=== PATIENT | female | born 1930 | race Caucasian/White ===

== ENCOUNTER 2016-11-10 11:29 | Inpatient (IN) | payer OTHER ==
[~2016-11-10] VITALS: Ht 157.5 cm; Wt 54.6 kg
[~2016-11-10 11:29] MED LIST: ANSHCS PR; CALCTAB5 PO; CRAN500C2 PO; DILT1TAB62 PO; FURO-85 PO; LNX125 PO; OXGN
[2016-11-10] MEDS ORDERED: DILTIAZEM HCL 5 MG/ML 5 ML VIAL IV STA ×3 (11:41→14:40)
--- NOTE | 2016-11-10 11:57 | EMERGENCY ROOM VISIT NOTE ---
History First contact with patient: 11:37 Chief Complaint: IRREGULAR HEARTBEAT Stated Complaint: A-FIB/HEART Nursing Triage Summary: Patient presents with a sudden onset of chest pressure and palpitations associated with a known history of paraoxymal A-fib. Patient reports some SOB. This started at 0930 this AM. Some mild nausea also present. Patient denies any diaphoresis. Patient reports history of this and is no longer anticoagulated seconary to history of GI bleeding. History of Present Illness The patient is a 86 year old female who presents to the Emergency Room with complaints of atrial fibrillation since 930 this morning. Her she was fine this morning and then in 930 when into rapid atrial fibrillation. at 10:30 AM he gave her morning dose of diltiazem 60 mg by mouth but that did not change her heart rate much. Currently her heart rate still in the 130. she reports associated chest tightness but denies chest pain. Her PCP is Dr Fried, plumbing inspector Dr Fournier, and graphics edit technician is Dr. Herrera. On review of [facility] EMR records, she has been adjusting her diltiazem for the last few months with various timings, but is struggling to keep her HR and BP under good control. Her reports 5 months ago she was on Eliquis. She suffered from a large GI bleed and has since been on low-dose aspirin for stroke prevention. She underwent colonoscopy, endoscopy, and video swallow to evaluate this but now identifying cause was found. Review of Systems See HPI for pertinent positives & negatives. A total of 10 systems reviewed and were otherwise negative. Past Medical/Surgical History Medical Problems: (1) afib with RVR, pna (2) Anemia due to acute blood loss (3) Atrial fibrillation with RVR (4) Atrial flutter (5) Atrial flutter with rapid ventricular response (6) Benign hypertension (7) Bronchitis (8) Diastolic heart failure (9) Elevated troponin (10) Esophageal Reflux (11) Hypoxia (12) Kidney Infection (13) Left-sided chest wall pain (14) Pneumonia (15) Pulmonary edema (16) Sepsis (17) Shortness of breath Surgical Problems: (1) Colectomy (2) Hysterectomy (3) Parathyroidectomy Family History Diabetes mellitus Hypertension Social History Smoking Status: Never Smoker Alcohol Use: none Drug Use: none Marital Status: Housing Status: lives with family Occupation Status: retired Current/Historical Medications Scheduled Aspirin (Aspirin), 81 MG PO DAILY Calcium Carbonate (Calcium 600), 600 MG PO BID Cranberry (Vaccinium Macrocarp (Cranberry), 500 MG PO BID Digoxin (Digoxin), 0.125 MG PO 3XWK Diltiazem HCl (Diltiazem HCl), 60 MG PO Q4H Furosemide (Lasix), 20 MG PO 3XWK Oxygen (Oxygen), 2 LITERS NA HS Allergies Coded Allergies: Ciprofloxacin (Unverified Allergy, Unknown, UNKNOWN, 11/10/16) Sulfamethoxazole w/Trimethoprim (Verified Adverse Reaction, Mild, GI SYMPTOMS, 11/10/16) Physical Exam Vital Signs Date Time Temp Pulse Resp B/P Pulse Ox O2 Delivery O2 Flow Rate FiO2 11/10/16 12:57 66 11/10/16 12:51 66 16 130/84 100 11/10/16 12:37 65 16 129/87 99 11/10/16 12:02 100 Nasal Cannula 4.0 11/10/16 11:58 74 16 134/91 100 11/10/16 11:46 97 Room Air 4.0 Nasal Cannula 11/10/16 11:45 97 Room Air 4.0 11/10/16 11:44 127 11/10/16 11:33 36.6 131 18 185/108 96 Room Air Physical Exam GENERAL: Awake, alert, well-appearing, in no acute distress HENT: Normocephalic, atraumatic. Oropharynx unremarkable. EYES: Normal conjunctiva. Sclera non-icteric. NECK: Supple. No nuchal rigidity. FROM. No JVD. RESPIRATORY: Clear to auscultation. CARDIAC: Irregular rhythm, tachycardic. Extremities warm and well perfused. Pulses equal. ABDOMEN: Soft, non-distended. No tenderness to palpation. No rebound or guarding. No masses. RECTAL: Deferred. MUSCULOSKELETAL: Chest examination reveals no tenderness. The back is symmetrical on inspection without obvious abnormality. There is no CVA tenderness to palpation. No joint edema. LOWER EXTREMITIES: Calves are equal size bilaterally and non-tender. No edema. No discoloration. NEURO: Normal sensorium. No sensory or motor deficits noted. SKIN: No rash or jaundice noted. Medical Decision & Procedures Laboratory Results 11/10/16 11:50 Red Blood Count 4.47, Mean Corpuscular Volume 79.6, Mean Corpuscular Hemoglobin 24.6, Mean Corpuscular Hemoglobin Concent 30.9, Mean Platelet Volume 9.5, Neutrophils (%) (Auto) 85.5, Lymphocytes (%) (Auto) 6.6, Monocytes (%) (Auto) 6.9, Eosinophils (%) (Auto) 0.6, Basophils (%) (Auto) 0.1, Neutrophils # (Auto) 12.34, Lymphocytes # (Auto) 0.96, Monocytes # (Auto) 0.99, Eosinophils # (Auto) 0.09, Basophils # (Auto) 0.02 11/10/16 11:50 Test 11/10/16 11:50 11/10/16 12:07 White Blood Count 14.45 K/uL (4.8-10.8) Red Blood Count 4.47 M/uL (4.2-5.4) Hemoglobin 11.0 g/dL (12.0-16.0) Hematocrit 35.6 % (37-47) Mean Corpuscular Volume 79.6 fL (80-100) Mean Corpuscular Hemoglobin 24.6 pg (25-34) Mean Corpuscular Hemoglobin Concent 30.9 g/dl (32-36) Platelet Count 292 K/uL (130-400) Mean Platelet Volume 9.5 fL (7.4-10.4) Neutrophils (%) (Auto) 85.5 % Lymphocytes (%) (Auto) 6.6 % Monocytes (%) (Auto) 6.9 % Eosinophils (%) (Auto) 0.6 % Basophils (%) (Auto) 0.1 % Neutrophils # (Auto) 12.34 K/uL (1.4-6.5) Lymphocytes # (Auto) 0.96 K/uL (1.2-3.4) Monocytes # (Auto) 0.99 K/uL (0.11-0.59) Eosinophils # (Auto) 0.09 K/uL (0-0.5) Basophils # (Auto) 0.02 K/uL (0-0.2) RDW Standard Deviation 46.8 fL (36.4-46.3) RDW Coefficient of Variation 16.2 % (11.5-14.5) Immature Granulocyte % (Auto) 0.3 % Immature Granulocyte # (Auto) 0.05 K/uL (0.00-0.02) Prothrombin Time 9.5 SECONDS (9.0-12.0) Prothromb Time International Ratio 0.9 (0.9-1.1) Activated Partial Thromboplast Time 23.6 SECONDS (21.0-31.0) Partial Thromboplastin Ratio 0.9 Anion Gap 9.0 mmol/L (3-11) Est Creatinine Clear Calc Drug Dose 19.5 ml/min Estimated GFR () 31.5 Estimated GFR (Non- 27.2 BUN/Creatinine Ratio 28.1 (10-20) Calcium Level 9.0 mg/dl (8.5-10.1) Total Bilirubin 0.6 mg/dl (0.2-1) Aspartate Amino Transf (AST/SGOT) 30 U/L (15-37) Alanine Aminotransferase (ALT/SGPT) 36 U/L (12-78) Alkaline Phosphatase 94 U/L (45-117) Troponin I 0.018 ng/ml (0-0.045) Total Protein 8.1 gm/dl (6.4-8.2) Albumin 3.8 gm/dl (3.4-5.0) Globulin 4.3 gm/dl (2.5-4.0) Albumin/Globulin Ratio 0.9 (0.9-2) Thyroid Stimulating Hormone (TSH) 2.840 uIu/ml (0.300-4.500) Digoxin Level 0.9 ng/ml (0.8-2.0) Bedside Troponin I 0.000 ng/ml (0-0.045) Medications Administered Medications (Trade) Dose Ordered Sig/Jameson Route Start Time Stop Time Status Last Admin Dose Admin Diltiazem HCl (Cardizem Inj) 10 mg NOW STAT IV 11/10/16 11:41 11/10/16 11:42 DC 11/10/16 11:49 10 MG Piperacillin Sod/ Tazobactam Sod (Zosyn Iv) 3.375 gm NOW STAT IV 11/10/16 13:03 11/10/16 13:05 DC 11/10/16 14:22 3.375 GM Ondansetron HCl (Zofran Inj) 4 mg Q6H PRN IV 11/10/16 13:30 12/10/16 13:29 3/4/17 14:22 4 MG Procedure SINGLE VIEW CHEST CLINICAL HISTORY: Dyspnea. Atrial fibrillation. FINDINGS: An AP, portable, upright chest radiograph is compared to study dated 08/01/2016. The examination is degraded by portable technique and patient rotation. The heart is enlarged and there is atherosclerotic calcification of the thoracic aorta. There is mild pulmonary vascular congestion. No airspace consolidation is seen typical for pneumonia. There are left basilar airspace opacities. No large pleural effusion is identified. Apical scarring is observed. No pneumothorax is seen. The skeletal structures are osteopenic. Degenerative change and scoliosis are noted in the thoracic spine. IMPRESSION: 1. Cardiomegaly with evidence of mild congestive failure. 2. Left basilar airspace opacities likely represent atelectasis. Correlate clinically for evidence of superimposed aspiration pneumonitis/pneumonia. 3. No large pleural effusion is seen. ECG Indication: tachycardia Rhythm: atrial fibrillation Findings: other (variable AV block) Change: no significant change ED Course 11:37: The patient was evaluated in room A9. A complete history and physical examination were performed. I ordered a 10 mg dose of IV diltiazem. 11:55: Her heart rate lowered to 81 bpm on repeat EKG. I also ordered a CBC, CMP, cardiac enzymes and a chest x-ray 12:15: I evaluated the patient again. Her heart rate had come down to 74 bpm with a blood pressure of 134/91. 12:50: Her CXR showed opacification and she had a leukocytosis. We will start her on Azithromycin for CAP and Zosyn for anaerobic coverage. (She is allergic to Cipro and Bactrim). 1:11: I discussed the case with Dr. Goldstein, of the [facility]. He will accept the patient. Medical Decision This is an 86-year-old female with history of tachy-kizzy syndrome, paroxysmal atrial fibrillation and previous GI bleed from Eliquis (on low dose aspirin for stroke prevention). She presents in A. fib with RVR.. Differential includes: pneumonia, thyroxtoxicosis, dehydration, electrolyte abnormality, or further hemorrhage. She had an IV placed and labs drawn. She was given 10 mg of IV diltiazem and her heart rate responded well,she remained in atrial fibrillation but at a rate of 67-84bpm. Her blood pressure improved slightly. Her CXR was found to have opacification suggestive of a pneumonia. We started her on azithromycin and Zosyn for community acquired pneumonia. Her only stroke prevention is low dose aspirin. With her labile heart rate control, it was deemed that she should be admitted for further evaluation of treatment of her atrial fibrillation with RVR and community acquired pneumonia. Impression Primary Impression: Atrial fibrillation with RVR Additional Impression: Pneumonia Departure Information Dispostion Home / Self-Care Condition GOOD Referrals Ramón Herrera DO (PCP) Meliton Fried MD OncuKimber I., Patient Instructions My [facility] Resident Tracking Resident Involvement: Resident Care Provided Care Provided: Adult ED Problem Qualifiers
--- NOTE | 2016-11-10 12:05 | EMERGENCY ROOM VISIT NOTE ---
ED Visit Note First contact with patient: 11:39 Resident Physician Supervision Note: I was present with Dr. Mckeon during the history and exam. I discussed the case with the resident and agree with the findings and plan as documented in the note. Documented By: Sharath Read Problem List Medical Problems: (1) Atrial fibrillation with RVR Status: Resolved (2) Atrial flutter with rapid ventricular response Status: Resolved (3) Benign hypertension Status: Chronic (4) Bronchitis Status: Resolved (5) Diastolic heart failure Status: Resolved (6) Elevated troponin Status: Resolved (7) Esophageal Reflux Status: Chronic (8) Hypoxia Status: Resolved (9) Kidney Infection Status: Resolved (10) Left-sided chest wall pain Status: Resolved (11) Pneumonia Status: Resolved (12) Pulmonary edema Status: Resolved (13) Sepsis Status: Resolved (14) Shortness of breath Status: Resolved Surgical Problems: (1) Colectomy Status: Resolved (2) Hysterectomy Status: Resolved (3) Parathyroidectomy Status: Resolved Current/Historical Medications Scheduled Calcium (Caltrate), 600 MG PO BID Cranberry (Vaccinium Macrocarp (Cranberry), 500 MG PO BID Digoxin (Digoxin), 0.125 MG PO 2XWK Diltiazem HCl (Diltiazem HCl), 60 MG PO TID Furosemide (Lasix), 20 MG PO 3XWK Hydrocortisone Acetate (Anucort-Hc), 25 MG MT BID Oxygen (Oxygen), 2 LITERS NA HS Allergies Coded Allergies: Ciprofloxacin (Unverified Allergy, Unknown, UNKNOWN, 08/03/16) Sulfamethoxazole w/Trimethoprim (Verified Adverse Reaction, Mild, GI SYMPTOMS, 08/03/16) Vital Signs Date Time Temp Pulse Resp B/P Pulse Ox O2 Delivery O2 Flow Rate FiO2 11/10/16 12:02 100 Nasal Cannula 4.0 11/10/16 11:58 74 16 134/91 100 11/10/16 11:46 97 Room Air 4.0 Nasal Cannula 11/10/16 11:45 97 Room Air 4.0 11/10/16 11:44 127 11/10/16 11:33 36.6 131 18 185/108 96 Room Air Laboratory Results Test 11/10/16 11:50 Medications Administered Medications (Trade) Dose Ordered Sig/Jameson Route Start Time Stop Time Status Last Admin Dose Admin Diltiazem HCl (Cardizem Inj) 10 mg NOW STAT IV 11/10/16 11:41 11/10/16 11:42 DC 11/10/16 11:49 10 MG Departure Information Referrals Ramón Herrera DO (PCP) Patient Instructions [facility]
[2016-11-10 12:09] LABS: HEMATOCRIT 35.6 % (37-47); MEAN CELL VOLUME 79.6 fL (80-100); MEAN CORPUSCULAR HEMOGLOBIN 24.6 pg (25-34); MEAN CORPUSCULAR HGB CONC 30.9 g/dl (32-36); MEAN PLATELET VOLUME 9.5 fL (7.4-10.4); PLATELET COUNT 292 K/uL (130-400); RED BLOOD COUNT 4.47 M/uL (4.2-5.4); WHITE BLOOD COUNT 14.45 K/uL (4.8-10.8)
[2016-11-10] MEDS ORDERED: CALC600T PO ×2 (12:11)
[2016-11-10] MEDS ORDERED: ASPI1TAB83 PO ×2 (12:12)
[2016-11-10 12:20] LABS: INR 0.9 (0.9-1.1); PARTIAL THROMBOPLASTIN RATIO 0.9; PROTHROMBIN TIME (PATIENT) 9.5 SECONDS (9.0-12.0)
--- NOTE | 2016-11-10 12:23 | DIAGNOSTIC IMAGING REPORT ---
SINGLE VIEW CHEST CLINICAL HISTORY: Dyspnea. Atrial fibrillation. FINDINGS: An AP, portable, upright chest radiograph is compared to study dated 08/01/2016. The examination is degraded by portable technique and patient rotation. The heart is enlarged and there is atherosclerotic calcification of the thoracic aorta. There is mild pulmonary vascular congestion. No airspace consolidation is seen typical for pneumonia. There are left basilar airspace opacities. No large pleural effusion is identified. Apical scarring is observed. No pneumothorax is seen. The skeletal structures are osteopenic. Degenerative change and scoliosis are noted in the thoracic spine. IMPRESSION: 1. Cardiomegaly with evidence of mild congestive failure. 2. Left basilar airspace opacities likely represent atelectasis. Correlate clinically for evidence of superimposed aspiration pneumonitis/pneumonia. 3. No large pleural effusion is seen. Electronically signed by: Mikel Holloway M.D. 11/10/2016 12:21 PM Dictated Date/Time: 11/10/2016 12:20 PM
[2016-11-10 12:25] LABS: BUN/CREATININE RATIO 28.1 (10-20); CREATININE 1.7 mg/dl (0.60-1.20); POTASSIUM 4.2 mmol/L (3.5-5.1)
[2016-11-10 12:26] LABS: BASO % 0.1 %; BASO ABS # 0.02 K/uL (0-0.2); COMPLETE YES; EOS % 0.6 %; IG% 0.3 %; LYMPH % 6.6 %; LYMPH ABS # 0.96 K/uL (1.2-3.4); MONO % 6.9 %; NEUT % 85.5 %
[2016-11-10 12:35] LABS: ALB/GLOB RATIO 0.9 (0.9-2); THYROID STIMULATING HORMONE 2.84 uIu/ml (0.300-4.500)
[2016-11-10] MEDS ORDERED: PIPERACILLIN/TAZOBACTAM 3.375 GM/100ML D5W IV STA (13:03)
[2016-11-10] MEDS ORDERED: AZITHROMYCIN IV 250 MG in DEXTROSE 5% 250ML 250 ML IV ONE (13:15)
[2016-11-10] MEDS ORDERED: POLYETHYLENE (MIRALAX) 17 GM PACK PO PRN (13:30)
[2016-11-10] MEDS ORDERED: ZOLPIDEM TARTRATE 5 MG TAB PO PRN (13:30)
[2016-11-10] MEDS ORDERED: ALUMINUM/MAGNESIUM/SIMETH (MAALOX MAX) 30 ML UDC PO PRN (13:30)
[2016-11-10] MEDS ORDERED: MAGNESIUM HYDROXIDE SUSP 30 ML UDC PO PRN (13:30)
[2016-11-10] MEDS ORDERED: ACETAMINOPHEN 325 MG TAB PO PRN (13:30)
--- NOTE | 2016-11-10 13:55 | History and Physical ---
History & Physical Date of Service Nov 10, 2016. History & Physical afib with RVR, pna, [id number]
[2016-11-10] MEDS: ONDANSETRON INJ 2 MG/ML 2 ML VIAL IV PRN (14:22)
[2016-11-10] MEDS ORDERED: DILTIAZEM BOLUS / DRIP IV STA (14:34)
--- NOTE | 2016-11-10 14:36 | HISTORY & PHYSICAL EXAMINATION ---
DATE OF ADMISSION: 11/10/2016 This is level 3 inpatient admission, 35 minutes. CHIEF COMPLAINT: Chest pressure sensation and palpitation. HISTORY OF PRESENT ILLNESS: The patient is an 86-year-old white female with a significant past medical history of Afib, tachybrady syndrome, GI bleeding, heart failure, GERD, chronic O2 dependent, hypoxia, only 1 kidney, chronic kidney disease stage III, coming to the hospital Emergency Department because of the above chief complaint. The patient presented to the Emergency Room because of feeling of chest pressure and palpitations associated with history of paroxysmal Afib. She reported some shortness of breath started 9:30 this morning associated with palpitation and mild nauseation, denied chest pain, denied diaphoresis. was with her. gave her 60 mg p.o. Cardizem but does not help. Therefore, coming to the hospital Emergency Room. When she arrived in the ER, heart rate at 130s, Afib with rapid ventricular response, complained about chest tight. The patient has recently adjusted Cardizem in the last few months with various timing. The patient and reported she was on Eliquis before; however, she suffered from a large GI bleedings, therefore no more on oral anticoagulant, but is on aspirin for stroke prevention. When I interviewed with the patient, she is feeling better, awake, alert and orientated, heart rate is 68. Mild cough, chronic difficulty breathing, home O2 dependent at home. Denied chest pain, sputum. Denied wheezing. Denied chest pain, palpitation now. Denied nausea, vomiting, abdominal pain, diarrhea or constipation, denied dysuria, urgency and frequencies. Denied facial droop, slurry speech or local weakness. PAST MEDICAL HISTORY: Like I mentioned in the above, acute on chronic anemia due to acute GI bleeding, Afib with rapid ventricular response, hypertension, bronchitis, diastolic CHF, history of kidney infection, history of pneumonia and sepsis. PAST SURGICAL HISTORY: Include colectomy, hysterectomy, thyroidectomy. FAMILY HISTORY: Include diabetes, hypertension. SOCIAL HISTORY: Never smoked. Denied alcohol abuse disorder. Denied illicit drug abuse. Lives with . at the bedside. MEDICATIONS: Taking at home include aspirin 81 mg p.o. daily, calcium carbonate 600 mg p.o. b.i.d., cranberry 500 mg p.o. b.i.d., digoxin 0.125 mg p.o. 3 times per week, Cardizem 60 mg p.o. q. 4 hours, Lasix 20 mg p.o. 3 times per week, 2 liter oxygen at bedtime. ALLERGIES: ALLERGY TO CIPRO AND BACTRIM. REVIEW OF SYSTEMS: Please see HPI, otherwise 14-point organized system review were negative. PHYSICAL EXAMINATION: VITAL SIGNS: Temperature is 36.6, pulse initially 131 and currently 66, respiratory rate 18, blood pressure initially 185/108, currently is 130/84, pulse ox is 100% in nasal cannula 4 liters. GENERAL: The patient is a white female, awake, alert and orientated, chronically ill looking, frail, but awake, alert and orientated, conversational, follows all commands. HEAD: Normocephalic. EYES: Pupils equal, round responds to light. EARS: Ear was normal. NOSE: Normal. NECK: Supple. Thyroid no enlargement. Trachea midline. HEART: Irregular, irregular. S1, S2. No obvious murmurs. No JVD. LUNGS: Decreased breathing sounds. There was no wheezing, rhonchi or crackles. ABDOMEN: Soft, nontender. Bowel sound was positive. Bilateral CVA was nontender. MUSCULOSKELETAL SYSTEM: No deformities. There was no limited range of motion. EXTREMITIES: The lower extremities no swelling, no edema, no cyanosis. NEUROLOGICAL EVALUATION: Cranial nerves II-XII was intact. SKIN: Has no rashes. LABORATORY STUDIES: WBC 14, hemoglobin 11, platelet 292. BMP: Sodium 142, potassium 4.2, chloride 101, bicarbonate 30, BUN 48, creatinine 1.7. Blood glucose 114. PT/INR was 9.5/0.9. TSH was normal at 2.8. Liver function test was within normal limits. Troponin was negative at 0.018. IMAGING STUDIES: Chest x-ray studies which shows left base airspace opacities likely present atelectasis. No pleural effusions. EKGs in the Emergency Room which shows atrial flutter with variable AV block. ASSESSMENT AND PLAN: An 86-year-old white female with the conditions below: 1. Atrial fibrillation with rapid ventricular response with history of Afib with rapid ventricular response, no more on anticoagulation. 2. Possible pneumonia in left lower lung base. 3. Likely acute on chronic kidney failure, stage III. 4. Hypertension. 5. History of diastolic congestive heart failure stable, no signs of decompensation. 6. Gastroesophageal reflux disease. 7. Chronic hypoxia, O2 dependent at nighttime. ASSESSMENT AND PLAN: 1. The patient has Afib with rapid ventricular response. Needs IV Cardizem in the Emergency Room, x 2 dose, then started Cardizem drip. patient possibly has left lung base consolidation with leukocytosis and chest x- ray evidence, combined these 2 conditions, I feel she may need 2 night hospital stay to complete evaluation and treatment and therefore will be full admission. admit to Tele monitor. For her atrial fibrillation with rapid ventricle response, will continue oral Cardizem. Check a digoxin level. Continue current digoxin, but I changed to 0.125 mg p.o. daily and adjust the dose according to the digoxin level. Will have cardiology to see. I request Dr. Hooker consultation who make cover Dr. Herrera today. 2. Possible has pneumonia, the consolidation possible maybe atelectasis as well, however the patient has cough, with leukocytosis. I would treat for community-acquired pneumonia for now. Include azithromycin and Rocephin. She got azithromycin and Zosyn in the Emergency Room. We will change antibiotics, will send blood cultures. Nebulizer treatment will be Xopenex and Atrovent. 3. The patient has acute on chronic kidney failure. Today has significant elevated of the BUN at 48, creatinine 1.7 compared to her baseline is significant increased, possible mild dehydration. For now I will not give any IV fluid for now. Encourage oral fluid intake and watch BUN and creatinine levels tomorrow morning. The reason I am not give IV antibiotic because patient has chronic CHF diastolic dysfunctions, just do not want to fluid overload her. 4. Like I mentioned in the H\T\P, she has no more on oral anticoagulant because of history of severe GI bleedings. I will continue aspirin for now for stroke prevention. 5. For the GERD, hypertension, will continue home medications. DVT prophylaxis will be SCD. GI prophylaxis will be Protonix. Discussed with about a care plan. I answered all their questions. full code MTDD
[2016-11-10] MEDS: DILTIAZEM HCL INJ 125 MG in DEXTROSE 5% 100ML IV PRN (15:29)
[2016-11-10 15:58] VITALS: BP 153/90; PULSE 124; TEMP 37; O2SAT 95
[2016-11-10] MEDS ORDERED: DILTIAZEM HCL 60 MG TAB PO SCH (16:00)
[2016-11-10] MEDS ORDERED: IPRATROPIUM BROMIDE NEB SOLN 0.02% 2.5 ML VIAL INH SCH (16:00)
[2016-11-10] MEDS: CEFTRIAXONE SOD INJ 2,000 MG in DEXTROSE 5% 50ML 50 ML IV SCH (16:05)
[2016-11-10] MEDS ORDERED: AZITHROMYCIN~PHARMACY CONSULT IN PROGRESS PRN (16:15)
[2016-11-10] MEDS: LEVALBUTEROL 1.25MG/0.5ML NEB INH SCH ×2 (16:35→19:32)
[2016-11-10] MEDS: IPRATROPIUM BROMIDE NEB SOLN 0.02% 2.5 ML VIAL INH SCH ×2 (16:35→19:32)
[2016-11-10 16:41] VITALS: PULSE 104; O2SAT 95
[2016-11-10] MEDS: AZITHROMYCIN IV 500 MG in DEXTROSE 5% 250ML 250 ML IV SCH (16:45)
[2016-11-10 17:49] VITALS: BP 153/90; PULSE 124; TEMP 37; O2SAT 95; Ht 157.5 cm; Wt 54.6 kg
[2016-11-10] MEDS ORDERED: DIGOXIN IV 250 MCG in SYRINGE 9 ML IV ONE (18:45)
[2016-11-10] MEDS: CALCIUM 600MG + VIT D 400 IU TAB PO SCH (19:11)
[2016-11-10 19:26] VITALS: BP 158/91; PULSE 71; TEMP 37.6; O2SAT 95
[2016-11-10 19:32] VITALS: PULSE 83; O2SAT 95
[2016-11-10] MEDS ORDERED: NON-FORMULARY MEDICATION (Cranberry (Vaccinium Macrocarp (Cranberry) 500 MG) PO SCH (21:00)
[2016-11-11] VITALS (9 sets, daily range): BP systolic 116–154; BP diastolic 73–101; PULSE 67–107; TEMP 36.7–37.2; O2SAT 90–99
[2016-11-11] MEDS: IPRATROPIUM BROMIDE NEB SOLN 0.02% 2.5 ML VIAL INH SCH ×3 (02:06→14:50)
[2016-11-11] MEDS: LEVALBUTEROL 1.25MG/0.5ML NEB INH SCH ×3 (02:06→14:50)
[2016-11-11] MEDS: DILTIAZEM HCL INJ 125 MG in DEXTROSE 5% 100ML IV PRN (02:19)
[2016-11-11 06:41] LABS: BASO % 0.1 %; BASO ABS # 0.01 K/uL (0-0.2); COMPLETE YES; HEMATOCRIT 31.3 % (37-47); IG% 0.3 %; LYMPH % 8.3 %; LYMPH ABS # 1.14 K/uL (1.2-3.4); MEAN CELL VOLUME 81.3 fL (80-100); MEAN CORPUSCULAR HEMOGLOBIN 24.9 pg (25-34); MEAN CORPUSCULAR HGB CONC 30.7 g/dl (32-36); MEAN PLATELET VOLUME 9.7 fL (7.4-10.4); MONO % 5.6 %; NEUT % 85.7 %; PLATELET COUNT 237 K/uL (130-400); RED BLOOD COUNT 3.85 M/uL (4.2-5.4); WHITE BLOOD COUNT 13.66 K/uL (4.8-10.8)
[2016-11-11 07:16] LABS: BUN/CREATININE RATIO 23.2 (10-20); CALCIUM 8.6 mg/dl (8.5-10.1); CREATININE 1.7 mg/dl (0.60-1.20); MAGNESIUM 2.4 mg/dl (1.8-2.4); POTASSIUM 4.2 mmol/L (3.5-5.1)
[2016-11-11] MEDS: CALCIUM 600MG + VIT D 400 IU TAB PO SCH ×2 (08:03→20:55)
[2016-11-11] MEDS: ASPIRIN 81 MG ECTAB PO SCH (08:03)
[2016-11-11] MEDS: DILTIAZEM HCL 60 MG TAB PO SCH ×3 (09:10→20:55)
[2016-11-11] MEDS ORDERED: NURSING VERBAL MED ORDER ONE (09:15)
--- NOTE | 2016-11-11 10:43 | DIAGNOSTIC IMAGING REPORT ---
CHEST 2 VIEWS ROUTINE CLINICAL HISTORY: pneumonia dyspnea COMPARISON STUDY: 11/10/2016 FINDINGS: Moderate stable cardiomegaly. Atelectatic and/or infiltrative change left base is similar. Trace pleural fluid right base laterally. Pulmonary vascular congestion IMPRESSION: Unchanging atelectatic and/or infiltrative change left base. Moderate stable cardiomegaly. Pulmonary vascular congestion. Electronically signed by: Michael Vivar M.D. 11/11/2016 10:41 AM Dictated Date/Time: 11/11/2016 10:40 AM
[2016-11-11] MEDS ORDERED: FUROSEMIDE INJ 20 MG in SYRINGE 0 ML IV ONE (12:30)
--- NOTE | 2016-11-11 13:22 | CARDIOLOGY CONSULTATION ---
DATE OF CONSULTATION: 11/11/2016 DATE OF CONSULTATION: 11/11/2016. PERTINENT HISTORY: Mrs. Conrad is a 86-year-old white female admitted yesterday with atrial fibrillation with rapid ventricular response. The patient typically follows with Dr. Herrera from cardiology. The patient was in her usual state of health until she developed palpitations and an elevated heart rate at home yesterday evening. She also complained of some chest discomfort but no shortness of breath. She was given an additional dose of diltiazem 60 mg by her . This had little change in her symptoms, therefore she presented to the Emergency Room for further care. The patient was diagnosed with paroxysmal atrial fibrillation in April 2016. She was started on rate control and also given Eliquis at a renally adjusted dose. Unfortunately, she developed GI bleeding in July 2016 requiring discontinuation of her long-term anticoagulation. She had both upper and lower endoscopies without a source of bleeding identified. We have discussed the possibility of initiating an antiarrhythmic agent such as amiodarone. The patient's explained that she was on that medication previously but that it had been discontinued. Currently, the patient is resting comfortably in bed without complaints. PAST MEDICAL HISTORY: 1. Paroxysmal atrial fibrillation. 2. Hypertension. 3. Mild left ventricular hypertrophy. 4. History of diastolic congestive heart failure. 5. GI bleeding - July 2016 -- negative workup. 6. Known long-term anticoagulation secondary to the above. 7. Chronic renal failure. 8. GERD. 9. Hiatal hernia. 10. Solitary kidney -- congenital. 11. Obstructive sleep apnea. 12. Asthma. 13. 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 14. Sigmoid colectomy - November 2002. 15. Diverticulitis. MEDICATIONS: 1. Digoxin 0.125 mg 3 times weekly. 2. Diltiazem 60 mg q.i.d. 3. Aspirin 81 mg per day. 4. Caltrate b.i.d. 5. Ceftriaxone 2 grams IV daily. 6. Azithromycin 500 mg IV daily. 7. Adjuvant nebs q. 6 hours. 8. Xopenex nebs q. 6 hours. ALLERGIES: None. SOCIAL HISTORY: The patient is and lives with her . Does not use tobacco or alcohol. FAMILY HISTORY: Father at age 70 from an MD. REVIEW OF SYSTEMS: A 10-point review of systems is negative except for that described above. PHYSICAL EXAMINATION: GENERAL: This is a well-developed, well-nourished white female in no acute distress. VITAL SIGNS: Blood pressure is 115/70 with an irregular pulse of 70-80. Respiratory rate is 20. The patient is afebrile at 36.5 degrees Celsius. Saturations 96% on room air. HEAD, EYES, EARS, NOSE, AND THROAT EXAMINATION: Negative. NECK: Supple with full carotid upstrokes. There are no carotid bruits. Jugular venous pressure is flat at 90 degrees. There is no thyromegaly. CARDIOVASCULAR EXAMINATION: Reveals an irregularly, irregular rhythm with distant heart sounds. No obvious murmurs. LUNGS: Clear without rales, rhonchi, or wheezes. ABDOMEN: Soft, nontender without bruits. EXTREMITIES: Reveal intact radial artery pulses bilaterally. There is no peripheral edema. LABORATORY DATA: CBC notes hemoglobin 9.6, hematocrit 31.3, white count 13.6, platelet count 237,000. Electrolytes note a sodium of 140, potassium 4.2, chloride 100, bicarbonate 33, BUN 40, creatinine 1.7, glucose 106. Troponin I level on presentation was undetectable with followup values of 0.018 x2. TSH level is normal at 2.84. INR is normal at 0.9. Digoxin level therapeutic at 0.9. EKG is noted atrial flutter with variable ventricular response. There are nonspecific ST and T-wave abnormality. Chest x-ray notes cardiomegaly and left basilar atelectasis versus an infiltrate. IMPRESSION: Mrs. Conrad who was admitted with atrial flutter and a rapid ventricular response. Her rate has been controlled with intravenous digoxin and a diltiazem drip. It may be reasonable to consider an antiarrhythmic agent. I have mentioned amiodarone, however, the patient's feels she has already been on that medication. As her heart rate is adequately controlled, will not initiate antiarrhythmic at this time but leave that decision to Dr. Herrera who will return tomorrow. PLAN: 1. Continue current medications. 2. Could consider antiarrhythmic therapy -- decision up to Dr. Herrera. 3. Dr. Herrera to assume cardiac care tomorrow.
[2016-11-11] MEDS: CEFTRIAXONE SOD INJ 2,000 MG in DEXTROSE 5% 50ML 50 ML IV SCH (15:22)
[2016-11-11] MEDS: AZITHROMYCIN IV 500 MG in DEXTROSE 5% 250ML 250 ML IV SCH (16:07)
[2016-11-11] MEDS: DIGOXIN 0.125 MG TAB PO SCH (16:11)
--- NOTE | 2016-11-11 17:22 | Progress Note ---
Subjective Date of Service: Nov 11, 2016. Subjective Pt evaluation today including: conversation w/ patient, conversation w/ family ( at bedside), physical exam, chart review, lab review, review of studies (repeat cxr today - vascular congestion, LLL infiltrate), review of inpatient medication list Pain: denies any location PO Intake: poor this AM, but chronically is not that great Voiding: no voiding problems telemetry overnight with stefania buitrago was on cardizem drip - this was stopped this AM when HRs were in the 60s she feels better today denies "chest pressure" has mild cough some orthopnea o2 sats in room air upper 80s per staff Problem List Medical Problems: (1) Atrial fibrillation with RVR Status: Acute (2) Benign hypertension Status: Chronic (3) Esophageal Reflux Status: Chronic (4) GI bleed Status: Acute Review of Systems Constitutional: + fever (last pm, low grade, high 99s) Respiratory: + cough, + dyspnea on exertion, No dyspnea at rest, No sputum Cardiac: No chest pain Abdomen: No pain Objective Vital Signs Date Time Temp Pulse Resp B/P Pulse Ox O2 Delivery O2 Flow Rate FiO2 11/11/16 16:11 90 11/11/16 16:00 Room Air 11/11/16 15:44 36.9 103 18 148/85 99 Nasal Cannula 2.0 11/11/16 14:05 107 16 97 Nasal Cannula 2.0 11/11/16 12:00 Room Air 11/11/16 11:27 37.2 67 19 116/81 91 Nasal Cannula 2.0 11/11/16 08:00 Room Air 11/11/16 07:24 94 16 97 Nasal Cannula 2.0 11/11/16 07:15 37.1 82 20 144/84 90 Nasal Cannula 2.0 11/11/16 04:02 36.7 69 18 125/88 97 11/11/16 04:00 CPAP 11/11/16 02:06 99 16 92 BiPAP/CPAP 2.0 11/11/16 00:12 36.7 74 18 127/73 90 11/11/16 00:00 CPAP 11/10/16 20:00 Nasal Cannula 2.0 11/10/16 19:32 83 20 95 Nasal Cannula 2.0 11/10/16 19:26 37.6 71 16 158/91 95 Nasal Cannula 2.0 11/10/16 19:15 120 11/10/16 17:49 37.0 124 20 153/90 95 Nasal Cannula 4.0 Physical Exam General Appearance: no apparent distress, + thin ENT: pharynx normal Neck: + JVD (maybe 7-8cm) Respiratory/Chest: no respiratory distress, no accessory muscle use, + rales ( left base), + wheezing (b/l) Cardiovascular: no gallop, no murmur, + irregularly irregular Abdomen: normal bowel sounds, non tender, soft, no organomegaly Extremities: no pedal edema Neurologic/Psychiatric: alert, oriented x 3 Laboratory Results Last 24 Hours Test 11/10/16 18:00 11/10/16 18:04 11/11/16 06:13 Creatine Kinase MB Ratio Creatine Kinase MB 0.9 ng/ml Troponin I 0.018 ng/ml White Blood Count 13.66 K/uL Red Blood Count 3.85 M/uL Hemoglobin 9.6 g/dL Hematocrit 31.3 % Mean Corpuscular Volume 81.3 fL Mean Corpuscular Hemoglobin 24.9 pg Mean Corpuscular Hemoglobin Concent 30.7 g/dl Platelet Count 237 K/uL Mean Platelet Volume 9.7 fL Neutrophils (%) (Auto) 85.7 % Lymphocytes (%) (Auto) 8.3 % Monocytes (%) (Auto) 5.6 % Eosinophils (%) (Auto) 0.0 % Basophils (%) (Auto) 0.1 % Neutrophils # (Auto) 11.70 K/uL Lymphocytes # (Auto) 1.14 K/uL Monocytes # (Auto) 0.77 K/uL Eosinophils # (Auto) 0.00 K/uL Basophils # (Auto) 0.01 K/uL RDW Standard Deviation 49.0 fL RDW Coefficient of Variation 16.4 % Immature Granulocyte % (Auto) 0.3 % Immature Granulocyte # (Auto) 0.04 K/uL Sodium Level 140 mmol/L Potassium Level 4.2 mmol/L Chloride Level 100 mmol/L Carbon Dioxide Level 33 mmol/L Anion Gap 7.0 mmol/L Blood Urea Nitrogen 40 mg/dl Creatinine 1.70 mg/dl Est Creatinine Clear Calc Drug Dose 19.5 ml/min Estimated GFR () 31.5 Estimated GFR (Non- 27.2 BUN/Creatinine Ratio 23.2 Random Glucose 106 mg/dl Calcium Level 8.6 mg/dl Magnesium Level 2.4 mg/dl Assessment and Plan 86yo female with: 1. a. flutter - past history of atrial dysrhythmia, followed by Dr. Swann. She remains on CCB and digoxin. Rates this AM are controlled. Will resume her cardizem and give 60mg q6h. If tolerating this then change to long-acting tomorrow. Cont the digoxin. Not an anticoagulant candidate due to past history of GI bleeds. Continue tele status. ?use of amiodarone -- defer this to cardiology. Appreciate Dr. Hooker's consultation. 2. suspected acute/chronic diastolic CHF - baseline weight is 115 #; today she is 119 # and cxr shows vascular congestion. Will give lasix 20mg IV x 1 and reassess response. 3. CKD stage 4 - Cr is at baseline today (1.6-1.8 or so baseline). BMP in am. 4. suspected LLL pneumonia - repeat cxr today with persistent LLL infiltrate. She also had low-grade temp overnight. Reasonable to continue rocephin/zithromax. Follow blood cx's. 5. h/o "bronchitis" -- has wheezes on exam today. Unsure if wheezing is from pulmonary edema or her tendency for bronchitis. Defer on steroids. Diurese. Nebs. 6. microcytic anemia - check iron studies + cbc in am. 7. HTN - controlled. 8. DVT proph - due to past h/o GI bleeding and microcytic anemia will defer on chemical means and keep SCDs in place for now. 9. chest pressure - no signs of ACS. Trops negative. Suspect 2nd to #1, her pneumonia, her wheezing, or combination of some or all of these. Her symptoms have fully resolved. updated PT, OT evals pending repeat labs in am Continued [facility] stay due to: abnormal vital signs, multiple IV medications needed Discharge planning: uncertain
[2016-11-11] MEDS: LEValbuterol HFA 15GM INHALER INH SCH ×2 (20:53→23:49)
[2016-11-11] MEDS: IPRATROPIUM BROMIDE HFA INHALER INH SCH ×2 (20:53→23:48)
[2016-11-12] VITALS (8 sets, daily range): BP systolic 105–158; BP diastolic 64–88; PULSE 70–87; TEMP 36.4–37.3; O2SAT 88–99
[2016-11-12] MEDS: DILTIAZEM HCL 60 MG TAB PO SCH ×5 (03:45→20:32)
[2016-11-12] MEDS: IPRATROPIUM BROMIDE HFA INHALER INH SCH ×3 (05:29→16:54)
[2016-11-12] MEDS: LEValbuterol HFA 15GM INHALER INH SCH ×3 (05:29→16:55)
[2016-11-12 07:20] LABS: HEMATOCRIT 30.3 % (37-47); MEAN CELL VOLUME 80.8 fL (80-100); MEAN CORPUSCULAR HEMOGLOBIN 24.8 pg (25-34); MEAN CORPUSCULAR HGB CONC 30.7 g/dl (32-36); MEAN PLATELET VOLUME 10.2 fL (7.4-10.4); PLATELET COUNT 228 K/uL (130-400); RED BLOOD COUNT 3.75 M/uL (4.2-5.4); WHITE BLOOD COUNT 8.89 K/uL (4.8-10.8)
[2016-11-12 07:50] LABS: BUN/CREATININE RATIO 24.2 (10-20); CALCIUM 8.7 mg/dl (8.5-10.1); CREATININE 1.8 mg/dl (0.60-1.20); MAGNESIUM 2.3 mg/dl (1.8-2.4); POTASSIUM 4.3 mmol/L (3.5-5.1)
[2016-11-12 07:54] LABS: FERRITIN 61.1 ng/ml (8.0-388.0)
[2016-11-12] MEDS: CALCIUM 600MG + VIT D 400 IU TAB PO SCH ×2 (08:05→20:31)
[2016-11-12] MEDS: ASPIRIN 81 MG ECTAB PO SCH (08:05)
[2016-11-12] MEDS ORDERED: AMIODARONE IV BOLUS / DRIP IV STA (09:39)
[2016-11-12] MEDS ORDERED: AMIODARONE / D5W 100 ML IV SCH (10:00)
[2016-11-12] MEDS ORDERED: AMIODARONE / D5W 200 ML IV SCH (10:10)
--- NOTE | 2016-11-12 10:40 | CARDIOLOGY PROGRESS NOTE ---
DATE: 11/12/2016 SUBJECTIVE: Mr. Conrad is resting comfortably in bed without complaints of chest pain, dyspnea, or palpitations. Her is at the bedside. We have discussed the initiation of IV amiodarone. OBJECTIVE: VITAL SIGNS: Blood pressure 112/72 with an irregular pulse of 75. Respiratory rate is 18. The patient is afebrile at 36.8 degrees Celsius. Saturation is 93% on room air. NECK: Supple with full carotid upstrokes. There are no carotid bruits. Jugular venous pressure is flat at 90 degrees. There is no thyromegaly. CARDIOVASCULAR: Reveals an irregularly irregular rhythm with distant heart sounds. No obvious murmurs. LUNGS: Clear without rales, rhonchi, or wheezes. ABDOMEN: Soft and nontender without bruits. EXTREMITIES: Reveal intact radial artery pulses bilaterally. There is no peripheral edema. LABORATORY DATA: CBC notes hemoglobin of 9.3, hematocrit 30.3, white count 8.8, and platelet count 220,000. Electrolytes note a sodium of 140, potassium 4.3, chloride 100, bicarbonate 34, BUN 44, creatinine 1.8, and glucose 248. cardiac monitor technician notes atrial fibrillation with a controlled ventricular response. IMPRESSION AND PLAN: 1. Paroxysmal atrial fibrillation that is right now adequately controlled. Dr. Herrera's notes were reviewed adding amiodarone therapy. That medication was discontinued as the patient had inflammation and side effects of that medication. We have discussed retrying that medication hoping to keep her in sinus rhythm predominantly and lower her thromboembolic risk. As before, she is not a long-term anticoagulation candidate due to previous GI bleeding in July 2016. 2. Hypertension -- with mild left ventricular hypertrophy. Controlled. 3. History of diastolic congestive heart failure -- compensated. 4. Gastrointestinal bleeding -- negative workup -- July 2016. 5. Chronic renal failure. 6. Congenital solitary kidney. 7. Hiatal hernia -- with gastroesophageal reflux disease.
[2016-11-12] MEDS: AMIODARONE / D5W 200 ML IV SCH ×2 (15:41→18:54)
[2016-11-12] MEDS: CEFTRIAXONE SOD INJ 2,000 MG in DEXTROSE 5% 50ML 50 ML IV SCH (15:42)
[2016-11-12] MEDS: AZITHROMYCIN IV 500 MG in DEXTROSE 5% 250ML 250 ML IV SCH (15:42)
[2016-11-12] MEDS: DIGOXIN 0.125 MG TAB PO SCH (15:43)
[2016-11-12] MEDS: ONDANSETRON INJ 2 MG/ML 2 ML VIAL IV PRN (18:27)
--- NOTE | 2016-11-12 20:17 | Hospitalist Progress Note ---
Hospitalist Progress Note Date of Service Nov 12, 2016. Subjective Pt evaluation today including: conversation w/ patient, physical exam, chart review, lab review, review of studies, review of inpatient medication list Patient reports having intermittent nausea. She felt this was worse this am than it is now. She did just have a bm. No chest pain or tachycardia. No SOB. Additional Comments: A 10 system review was performed and all were negative. Positives were placed in the subjective section. Objective Vital Signs Date Time Temp Pulse Resp B/P Pulse Ox O2 Delivery O2 Flow Rate FiO2 11/12/16 19:19 36.4 73 19 125/78 90 Room Air 11/12/16 15:43 72 11/12/16 15:06 2.0 11/12/16 15:02 36.8 72 18 145/85 95 Room Air 11/12/16 11:46 CPAP 2.0 11/12/16 10:50 37.3 73 16 106/71 91 Nasal Cannula 2.0 11/12/16 10:25 37.3 85 16 121/79 88 Room Air 11/12/16 08:05 36.8 79 19 112/72 93 Room Air 11/12/16 08:00 CPAP 2.0 11/12/16 04:00 36.4 87 20 158/88 96 CPAP 11/12/16 04:00 CPAP 2.0 11/12/16 00:00 36.7 70 22 122/73 99 CPAP 11/11/16 23:59 CPAP 2.0 Physical Exam Notes: GEN: Awake, alert, and oriented x 3. Not in acute distress HEENT: Tm's intact, no inflammation, EOMI, PERRLA, MMM Neck: Soft, supple Lungs: CTA b/l, no r/r/w Heart: REG, nrl S1S2 without murmurs, rubs or gallops Abdomen: Soft, NT, ND, + BS EXT: No C/C/E NEURO: CN's II-XII grossly intact, non-focal Skin: warm, dry, no rashes PSYCH: pleasant, cooperative. Laboratory Results Last 24 Hours Test 11/12/16 06:33 White Blood Count 8.89 K/uL Red Blood Count 3.75 M/uL Hemoglobin 9.3 g/dL Hematocrit 30.3 % Mean Corpuscular Volume 80.8 fL Mean Corpuscular Hemoglobin 24.8 pg Mean Corpuscular Hemoglobin Concent 30.7 g/dl RDW Standard Deviation 48.7 fL RDW Coefficient of Variation 16.3 % Platelet Count 228 K/uL Mean Platelet Volume 10.2 fL Nucleated RBC Absolute Count (auto) 0.02 K/uL Nucleated Red Blood Cells % 0.2 % Sodium Level 140 mmol/L Potassium Level 4.3 mmol/L Chloride Level 100 mmol/L Carbon Dioxide Level 34 mmol/L Anion Gap 6.0 mmol/L Blood Urea Nitrogen 44 mg/dl Creatinine 1.80 mg/dl Est Creatinine Clear Calc Drug Dose 18.4 ml/min Estimated GFR () 29.4 Estimated GFR (Non- 25.4 BUN/Creatinine Ratio 24.2 Random Glucose 94 mg/dl Calcium Level 8.7 mg/dl Magnesium Level 2.3 mg/dl Iron Level 17 mcg/dl Total Iron Binding Capacity 341 mcg/dl Transferrin 248 mg/dl Transferrin % Saturation 5 % Ferritin 61.1 ng/ml Assessment and Plan 1. A.fib/flutter - amiodarone gtt. cardiology managing. 2. CKD stage 4 - continue to follow labs. 3. LLL pneumonia - continue rocephin/zithromax. 4. microcytic anemia 5. HTN - controlled. 6. chest pain - resolved. 7. Constipation - resolved.
[2016-11-13] MEDS: LEValbuterol HFA 15GM INHALER INH SCH ×3 (00:44→14:21)
[2016-11-13] MEDS: IPRATROPIUM BROMIDE HFA INHALER INH SCH ×3 (00:44→14:20)
[2016-11-13 03:13] VITALS: BP 146/86; PULSE 67; TEMP 36.6; O2SAT 96
[2016-11-13] MEDS: DILTIAZEM HCL 60 MG TAB PO SCH ×2 (03:26→10:53)
[2016-11-13 07:28] LABS: BASO % 0.3 %; BASO ABS # 0.02 K/uL (0-0.2); COMPLETE YES; EOS % 1.5 %; HEMATOCRIT 30.3 % (37-47); IG% 0.3 %; LYMPH % 10.3 %; LYMPH ABS # 0.77 K/uL (1.2-3.4); MEAN CELL VOLUME 79.5 fL (80-100); MEAN CORPUSCULAR HEMOGLOBIN 24.1 pg (25-34); MEAN CORPUSCULAR HGB CONC 30.4 g/dl (32-36); MEAN PLATELET VOLUME 9.6 fL (7.4-10.4); MONO % 7.9 %; NEUT % 79.7 %; PLATELET COUNT 249 K/uL (130-400); RED BLOOD COUNT 3.81 M/uL (4.2-5.4); WHITE BLOOD COUNT 7.51 K/uL (4.8-10.8)
[2016-11-13 07:56] LABS: BUN/CREATININE RATIO 27.6 (10-20); CALCIUM 8.7 mg/dl (8.5-10.1); CREATININE 1.8 mg/dl (0.60-1.20); POTASSIUM 3.9 mmol/L (3.5-5.1)
[2016-11-13] MEDS: ASPIRIN 81 MG ECTAB PO SCH (07:57)
[2016-11-13] MEDS: CALCIUM 600MG + VIT D 400 IU TAB PO SCH (07:57)
[2016-11-13 08:00] VITALS: BP 106/65; PULSE 75; TEMP 37.1; O2SAT 93
--- NOTE | 2016-11-13 11:23 | CARDIOLOGY PROGRESS NOTE ---
DATE: 11/13/2016 DATE: 11/13/2016. SUBJECTIVE: Mrs. Conrad is resting comfortably in bed without complaints of chest pain, dyspnea, or palpitations. She is anxious for hospital discharge. OBJECTIVE: VITAL SIGNS: Blood pressure 110/65 with an irregular pulse of 75. Respiratory rate is 20. The patient is afebrile at 37.1 degrees Celsius. Saturations 93% on room air. NECK: Supple with full carotid upstrokes. There are no carotid bruits. Jugular venous pressure is flat at 90 degrees. There is no thyromegaly. CARDIOVASCULAR EXAMINATION: Reveals an irregularly irregular rhythm with distant heart sounds. No obvious murmurs. LUNGS: Clear without rales, rhonchi, or wheezes. ABDOMEN: Soft, nontender without bruits. EXTREMITIES: Reveal intact radial artery pulses bilaterally. There is no peripheral edema. LABORATORY DATA: CBC notes hemoglobin of 9.2, hematocrit 30.3, white count 7.5, platelet count 249,000. Electrolytes note a sodium of 141, potassium 3.9, chloride 100, bicarbonate 33, BUN 50, creatinine 1.8, glucose 102. monitor and storage bin tender notes atrial fibrillation with a controlled ventricular response. IMPRESSION AND PLAN: 1. Paroxysmal atrial fibrillation -- has not yet converted on intravenous loading dose of amiodarone. The patient is stable for discharge and can be placed on amiodarone 200 mg b.i.d. until seen by Dr. Herrera in approximately 2 weeks. Would continue low dose digoxin and could convert short acting diltiazem to the long-acting preparation at 240 mg daily. No anticoagulation as noted previously (GI bleeding July 2016). 2. Hypertension -- with mild left ventricular hypertrophy. Controlled at this time. 3. History of diastolic congestive heart failure -- compensated. 4. History of gastrointestinal bleeding -- on Eliquis -- negative workup - July 2016. 5. Chronic renal failure -- stable. 6. Congenital solitary kidney. 7. Hiatal hernia - with gastroesophageal reflux disease.
[2016-11-13 11:31] VITALS: BP 116/68; PULSE 70; TEMP 36.6; O2SAT 91
[2016-11-13 14:32] VITALS: BP 116/68; PULSE 70; TEMP 36.6; O2SAT 91
[2016-11-13 14:45] VITALS: BP 116/68; PULSE 70; TEMP 36.6; O2SAT 91
[2016-11-13] MEDS ORDERED: AMIODARONE 200 MG TAB PO ONE (14:45)
[2016-11-13] MEDS ORDERED: Levalbuterol INH ×2 (15:04)
[2016-11-13] MEDS ORDERED: CEFD1CAP14 PO ×2 (15:04)
[2016-11-13] MEDS ORDERED: CRD200 PO ×2 (15:04)
[2016-11-13] MEDS ORDERED: DILT240C57 PO ×2 (15:04)
--- NOTE | 2016-11-13 15:09 | Discharge Instructions ---
Discharge Instructions Date of Service Nov 13, 2016. Admission Reason for Admission: Atrial fibrillation with rapid ventricular rate, Left lower lobe pneumonia Discharge Discharge Diagnosis / Problem: Atrial fibrillation with rapid ventricular rate / Left lower lobe pneumonia. Discharge Goals Goal(s): Improve function, Improve disease control Activity Recommendations Activity Limitations: resume your previous activity . Instructions / Follow-Up Instructions / Follow-Up Follow up with PCP in 5-7 days. Call advertising traffic manager's office, Dr. Herrera - to schedule an appointment for 2 weeks from discharge. Current Hospital Diet Patient's current hospital diet: AHA Diet (Heart Healthy) Discharge Diet Recommended Diet: AHA Diet (Heart Healthy) Procedures Procedures Performed: NONE. Pending Studies Studies pending at discharge: no Laboratory Results Last 24 Hours Test 11/13/16 06:55 White Blood Count 7.51 K/uL Red Blood Count 3.81 M/uL Hemoglobin 9.2 g/dL Hematocrit 30.3 % Mean Corpuscular Volume 79.5 fL Mean Corpuscular Hemoglobin 24.1 pg Mean Corpuscular Hemoglobin Concent 30.4 g/dl Platelet Count 249 K/uL Mean Platelet Volume 9.6 fL Neutrophils (%) (Auto) 79.7 % Lymphocytes (%) (Auto) 10.3 % Monocytes (%) (Auto) 7.9 % Eosinophils (%) (Auto) 1.5 % Basophils (%) (Auto) 0.3 % Neutrophils # (Auto) 6.00 K/uL Lymphocytes # (Auto) 0.77 K/uL Monocytes # (Auto) 0.59 K/uL Eosinophils # (Auto) 0.11 K/uL Basophils # (Auto) 0.02 K/uL RDW Standard Deviation 47.5 fL RDW Coefficient of Variation 16.2 % Immature Granulocyte % (Auto) 0.3 % Immature Granulocyte # (Auto) 0.02 K/uL Sodium Level 141 mmol/L Potassium Level 3.9 mmol/L Chloride Level 100 mmol/L Carbon Dioxide Level 33 mmol/L Anion Gap 8.0 mmol/L Blood Urea Nitrogen 50 mg/dl Creatinine 1.80 mg/dl Est Creatinine Clear Calc Drug Dose 18.4 ml/min Estimated GFR () 29.4 Estimated GFR (Non- 25.4 BUN/Creatinine Ratio 27.6 Random Glucose 102 mg/dl Calcium Level 8.7 mg/dl Medical Emergencies . Who to Call and When: Medical Emergencies: If at any time you feel your situation is an emergency, please call 911 immediately. . Non-Emergent Contact Non-Emergency issues call your: Primary Care Provider, Oil Lease Buyer (For questions regarding cardiac medications. ) . . "Provider Documentation" section prepared by Car Gamez. VTE Core Measure Inpt VTE Proph given/why not?: Unfractionated heparin SQ
[2016-11-13 15:42] VITALS: BP 110/74; PULSE 65; TEMP 37; O2SAT 92
--- NOTE | 2016-11-13 19:21 | Discharge Summary ---
Discharge Summary Date of Service Nov 13, 2016. Discharge Summary Admission Date: Nov 10, 2016 at 13:38 Discharge Date: Nov 13, 2016 Discharge Disposition: Home Principal Diagnosis: Atrial fibrillation with RVR. Problems/Secondary Diagnoses: LLL Pneumonia HTN Diastolic CHF Immunizations: Have You Had Influenza Vaccine: Yes Influenza Vaccine Date: Jun 09, 2012 History of Tetanus Vaccine?: Unknown History of Pneumococcal: UNSURE OF DATE Pneumococcal Date: Sep 11, 2011 History of Hepatitis B Vaccine: Unknown Procedures: None. Consultations: Dr. Hooker, cardiology. Medication Reconciliation New Medications: Amiodarone HCl (Amiodarone HCl) 200 Mg Tab 200 MG PO BID for 30 Days, #60 0 Refills NS Cefdinir (Omnicef) 300 Mg Cap 300 MG PO Q12H for 7 Days, #14 CAP NS Diltiazem Hcl Coated Beads (Cardizem Cd) 240 Mg Cap 240 MG PO DAILY for 30 Days, #30 CAP NS [Levalbuterol] () 45mcg INH 2 PUFFS INH Q6 PRN for SOB/Wheezing for 30 Days, #1 INHALER 0 Refills Continued Medications: Aspirin (Aspirin) 81 Mg Tab 81 MG PO DAILY for 90 Days, #90 TAB 3 Refills Calcium Carbonate (Calcium 600) 600 Mg Tab 600 MG PO BID Cranberry (Vaccinium Macrocarp (Cranberry) 500 Mg Cap 500 MG PO BID Digoxin (Digoxin) 0.125 Mg Tab 0.125 MG PO 3XWK SATURDAY, SATURDAY & SATURDAY Furosemide (Lasix) 20 Mg Tab 20 MG PO 3XWK, TAB saturday and saturday Oxygen (Oxygen) Gas 2 LITERS NA HS Discontinued Medications: Diltiazem HCl (Diltiazem HCl) 60 Mg Tab 60 MG PO Q4H Discharge Exam A 10 system review was performed and all were negative. GEN: Awake, alert, and oriented x 3. Not in acute distress HEENT: Tm's intact, no inflammation, EOMI, PERRLA, MMM Neck: Soft, supple Lungs: Mild Expiratory wheeze LEFT Heart: IRREG, nrl S1S2 without murmurs, rubs or gallops Abdomen: Soft, NT, ND, + BS EXT: No C/C/E NEURO: CN's II-XII grossly intact, non-focal Skin: warm, dry, no rashes PSYCH: pleasant, cooperative. Hospital Course Patient was admitted with A.FIb with RVR and was placed on an amiodarone gtt. This stabilized her rate but at the time of discharge she remained in A.fib She was switched to oral dosing and discharged to home. She also was found to have a LLL pneumonia which was treated in hospital with IV Rocephin and Zithromax. AT discharge she was afebrile, had a normal WBC count and had no cough. HTN was improved with adjustment of cardizem to total of 240mg daily. She was not given full anticoagulation in the face of A.fib due to a GI bleed months earlier while taking Eliquis. Total Time Spent: Greater than 30 minutes This includes examination of the patient, discharge planning, medication reconciliation, and communication with other providers. Discharge Instructions Please refer to the electronic Patient Visit Report (Discharge Instructions) for additional information. Follow-Up PCP in 5-7 days Cardiology, Dr. Herrera in 2 weeks.
[2016-11-14] MEDS ORDERED: AZITHROMYCIN 250 MG TAB PO SCH (16:00)
== END 2016-11-13 15:31 | disposition home or self-care (01) | DRG 308 ==
LOC: ENRESERVTM → ENRESERVDT → CANRESERV → C.EDB 11:30 → C.2T 13:38
PROVIDERS: ADMIT Hospitalist; ATTEND Internal Medicine
DX: I48.0 Paroxysmal atrial fibrillation (principal); I50.33 Acute on chronic diastolic (congestive) heart failure; J18.9 Pneumonia, unspecified organism; N18.4 Chronic kidney disease, stage 4 (severe); N17.9 Acute kidney failure, unspecified; Q60.0 Renal agenesis, unilateral; I13.0 Hypertensive heart and chronic kidney disease with heart failure and stage 1 through stage 4 chronic kidney disease, or unspecified chronic kidney disease; K21.9 Gastro-esophageal reflux disease without esophagitis; I48.92 Unspecified atrial flutter; J45.909 Unspecified asthma, uncomplicated; G47.33 Obstructive sleep apnea (adult) (pediatric); R09.02 Hypoxemia; I47.2 Ventricular tachycardia; D50.9 Iron deficiency anemia, unspecified; K44.9 Diaphragmatic hernia without obstruction or gangrene; K59.00 Constipation, unspecified; R07.9 Chest pain, unspecified; Z85.038 Personal history of other malignant neoplasm of large intestine; Z87.19 Personal history of other diseases of the digestive system; Z90.49 Acquired absence of other specified parts of digestive tract; Z79.82 Long term (current) use of aspirin; Z99.81 Dependence on supplemental oxygen; Z79.899 Other long term (current) drug therapy

== ENCOUNTER → 2016-11-14 | Outpatient (CLI) | payer OTHER ==
[~2016-11-14] MED LIST changes: +AMIO200T4 PO; +ASPI1TAB83 PO; +CALC600T PO; +CEFD1CAP14 PO; +CRD200 PO; +DILT240C57 PO; +LEVA45AE INH; +Levalbuterol INH; +NUTR-7 PO
--- NOTE | 2016-11-14 12:39 | MAMMOGRAPHY REPORT ---
BILATERAL DIGITAL SCREENING MAMMOGRAM WITH CAD: 11/14/2016 TECHNIQUE: Current study was also evaluated with a Computer Aided Detection (CAD) system. Bilatera l CC and MLO views were obtained. COMPARISON: Comparison is made to exams dated: 11/14/2015 mammogram, 11/11/2014 mammogram, 11/06/2013 ma mmogram, 10/30/2011 mammogram, 11/04/2012 mammogram, and 10/27/2010 mammogram - [facility] enter. BREAST COMPOSITION: There are scattered areas of fibroglandular density in both breasts. FINDINGS: No suspicious masses, calcifications, or areas of architectural distortion are noted in e ither breast. There has been no significant interval change compared to prior exams. Benign-appeari ng mass in the right superior breast is stable dating back to at least the 2007 exam. Bilateral lee ign vascular calcifications are again noted. IMPRESSION: ACR BI-RADS CATEGORY 2: BENIGN There is no mammographic evidence of malignancy. A 1 year screening mammogram is recommended. The p atient will receive written notification of the results. Approximately 10% of breast cancers are not detected with mammography. A negative mammographic repor t should not delay biopsy if a clinically suggestive mass is present. Shyanne Younger M.D. ah/:11/14/2016 11:56:20 Edge Beader: Yaquelin BRICE)([place]), [facility] letter sent: Normal 1/2 BI-RADS Code: ACR BI-RADS Category 2: Benign
== END | disposition home or self-care (01) ==
LOC: C.MAMM 09:31
PROVIDERS: ATTEND Family Medicine
DX: Z12.31 Encounter for screening mammogram for malignant neoplasm of breast (principal)

== ENCOUNTER 2016-11-17 11:23 | Inpatient (IN) | payer OTHER ==
[~2016-11-17] VITALS: Ht 157.5 cm; Wt 57.0 kg
[~2016-11-17 11:23] MED LIST changes: -AMIO200T4 PO; -ANSHCS PR; -CALCTAB5 PO; -DILT1TAB62 PO; -LEVA45AE INH; -NUTR-7 PO
--- NOTE | 2016-11-17 11:43 | EMERGENCY ROOM VISIT NOTE ---
History Report prepared by Ezio: Ritu Garcia Under the Supervision of: Dr. Darell Martin M.D. First contact with patient: 11:32 Chief Complaint: RESPIRATORY PROBLEMS Stated Complaint: OXYGEN CONTROL History of Present Illness The patient is an 86 year old female who presents to the Emergency Room with complaints of persistent respiratory difficulties that began last evening. The patient's notes that the patient was evaluated in the emergency department last Saturday for chest tightness and atrial fibrillation. He states that the patient was also found to have pneumonia and was placed on an antibiotic. The patient's states that the patient wears a c-pap machine at night, but states that her oxygen saturation dropped as low as 74% last evening. The patient denies wearing supplemental nasal cannula oxygen . The patient notes that she was previously on Eliquis, but states that it has stopped. She states that she is developing a slight headache, and additionally notes a subjective fever. Source of History: patient, spouse/significant other () Onset: last evening Position: other (global) Quality: other (respiratory difficulties) Timing: other (persistent) Associated Symptoms: + fevers (subjective), + headache Review of Systems All systems have been listed, reviewed, and are negative other than those previously mentioned. Please see Additional Medical History Sheet. Past Medical & Surgical Medical Problems: (1) afib with RVR, pna (2) Anemia due to acute blood loss (3) Atrial fibrillation with RVR (4) Atrial flutter (5) Atrial flutter with rapid ventricular response (6) Benign hypertension (7) Bronchitis (8) CHF exacerbation (9) Colon cancer (10) Diastolic heart failure (11) Elevated troponin (12) Esophageal Reflux (13) Heart disease (14) Hypertension (15) Hypoxia (16) Kidney disease (17) Kidney Infection (18) Left-sided chest wall pain (19) Pneumonia (20) Pulmonary edema (21) Sepsis (22) Shortness of breath Surgical Problems: (1) Colectomy (2) H/O: hysterectomy (3) Hysterectomy (4) Parathyroidectomy Family History Diabetes mellitus Heart disease Hypertension Kidney disease Kidney stones Social History Smoking Status: Never Smoker Alcohol Use: none Drug Use: none Marital Status: Housing Status: lives with family Occupation Status: retired Current/Historical Medications Scheduled Amiodarone HCl (Amiodarone HCl), 200 MG PO BID Aspirin (Aspirin), 81 MG PO DAILY Calcium Carbonate (Calcium 600), 600 MG PO BID Cefdinir (Omnicef), 300 MG PO Q12H Cranberry (Vaccinium Macrocarp (Cranberry), 500 MG PO BID Digoxin (Digoxin), 0.125 MG PO 3XWK Diltiazem Hcl Coated Beads (Cardizem Cd), 240 MG PO DAILY Furosemide (Lasix), 20 MG PO 3XWK Oxygen (Oxygen), 2 LITERS NA HS Scheduled PRN [Levalbuterol], 2 PUFFS INH Q6 PRN for SOB/Wheezing Allergies Coded Allergies: Ciprofloxacin (Unverified Allergy, Unknown, UNKNOWN, 11/17/16) Sulfamethoxazole w/Trimethoprim (Verified Adverse Reaction, Mild, GI SYMPTOMS, 11/17/16) Physical Exam Vital Signs Date Time Temp Pulse Resp B/P Pulse Ox O2 Delivery O2 Flow Rate FiO2 11/17/16 16:43 Nasal Cannula 4.0 11/17/16 16:36 74 11/17/16 15:48 72 20 169/104 92 Nasal Cannula 11/17/16 14:43 91 Nasal Cannula 4.0 11/17/16 14:00 160/109 11/17/16 14:00 72 25 160/109 93 Nasal Cannula 3.0 11/17/16 13:53 76 18 93 11/17/16 13:30 180/105 11/17/16 13:23 76 26 93 11/17/16 13:14 187/108 11/17/16 13:00 184/108 11/17/16 12:59 187/111 11/17/16 12:58 185/110 11/17/16 12:56 183/106 11/17/16 12:56 75 17 187/111 93 Nasal Cannula 3.0 11/17/16 12:30 77 11/17/16 12:00 94 Nasal Cannula 3.0 11/17/16 11:51 94 Nasal Cannula 3.0 11/17/16 11:51 94 Nasal Cannula 3.0 11/17/16 11:28 Nasal Cannula 3.0 90 11/17/16 11:25 36.8 86 20 191/113 90 Nasal Cannula 3.0 Physical Exam GENERAL: Patient awake, alert, oriented x 3. Patient follows commands. Patient does not appear toxic. Patient is adequately hydrated and well- nourished. SKIN: No erythema, pallor, cyanosis or rash HEENT: Normal head, pupils equal, reactive to light and accommodation. Neck: Without adenopathy, no neck vein distention. LUNGS: Clear to auscultation. No wheezes, no rales, no rhonchi. HEART: No murmurs. No gallops. No rubs ABDOMEN: No masses, no rebound, no hepatomegaly or splenomegaly. EXTREMITIES: No signs of trauma. No pedal or pretibial edema. No calf or thigh tenderness. NEUROLOGIC: Cranial nerves II-XII within normal limits. No gross motor sensory function deficits. Medical Decision & Procedures Laboratory Results 11/17/16 12:15 Red Blood Count 4.45, Mean Corpuscular Volume 82.0, Mean Corpuscular Hemoglobin 25.2, Mean Corpuscular Hemoglobin Concent 30.7, Mean Platelet Volume 10.0, Neutrophils (%) (Auto) 90.2, Lymphocytes (%) (Auto) 5.7, Monocytes (%) (Auto) 3.4, Eosinophils (%) (Auto) 0.2, Basophils (%) (Auto) 0.2, Neutrophils # (Auto) 15.87, Lymphocytes # (Auto) 1.01, Monocytes # (Auto) 0.59, Eosinophils # (Auto) 0.04, Basophils # (Auto) 0.03 11/17/16 13:15 Test 11/17/16 11:35 11/17/16 12:15 11/17/16 13:15 11/17/16 14:53 Urine Color YELLOW Urine Appearance CLEAR (CLEAR) Urine pH 7.0 (4.5-7.5) Urine Specific [place] 1.011 (1.000-1.030) Urine Protein 2+ (NEG) Urine Glucose (UA) NEG (NEG) Urine Ketones NEG (NEG) Urine Occult Blood TRACE (NEG) Urine Nitrite NEG (NEG) Urine Bilirubin NEG (NEG) Urine Urobilinogen NEG (NEG) Urine Leukocyte Esterase NEG (NEG) Urine WBC (Auto) 0 /hpf (0-5) Urine RBC (Auto) 0-4 /hpf (0-4) Urine Hyaline Casts (Auto) 0 /lpf (0-5) Urine Epithelial Cells (Auto) 5-10 /lpf (0-5) Urine Bacteria (Auto) NEG (NEG) White Blood Count 17.60 K/uL (4.8-10.8) Red Blood Count 4.45 M/uL (4.2-5.4) Hemoglobin 11.2 g/dL (12.0-16.0) Hematocrit 36.5 % (37-47) Mean Corpuscular Volume 82.0 fL (80-100) Mean Corpuscular Hemoglobin 25.2 pg (25-34) Mean Corpuscular Hemoglobin Concent 30.7 g/dl (32-36) Platelet Count 320 K/uL (130-400) Mean Platelet Volume 10.0 fL (7.4-10.4) Neutrophils (%) (Auto) 90.2 % Lymphocytes (%) (Auto) 5.7 % Monocytes (%) (Auto) 3.4 % Eosinophils (%) (Auto) 0.2 % Basophils (%) (Auto) 0.2 % Neutrophils # (Auto) 15.87 K/uL (1.4-6.5) Lymphocytes # (Auto) 1.01 K/uL (1.2-3.4) Monocytes # (Auto) 0.59 K/uL (0.11-0.59) Eosinophils # (Auto) 0.04 K/uL (0-0.5) Basophils # (Auto) 0.03 K/uL (0-0.2) RDW Standard Deviation 49.1 fL (36.4-46.3) RDW Coefficient of Variation 16.2 % (11.5-14.5) Immature Granulocyte % (Auto) 0.3 % Immature Granulocyte # (Auto) 0.06 K/uL (0.00-0.02) Prothrombin Time 10.0 SECONDS (9.0-12.0) Prothromb Time International Ratio 0.9 (0.9-1.1) Activated Partial Thromboplast Time 24.2 SECONDS (21.0-31.0) Partial Thromboplastin Ratio 0.9 Anion Gap 6.0 mmol/L (3-11) Est Creatinine Clear Calc Drug Dose 19.5 ml/min Estimated GFR () 31.5 Estimated GFR (Non- 27.2 BUN/Creatinine Ratio 25.8 (10-20) Calcium Level 8.7 mg/dl (8.5-10.1) Total Bilirubin 0.6 mg/dl (0.2-1) Aspartate Amino Transf (AST/SGOT) 23 U/L (15-37) Alanine Aminotransferase (ALT/SGPT) 33 U/L (12-78) Alkaline Phosphatase 98 U/L (45-117) Troponin I 0.054 ng/ml (0-0.045) Pro-B-Type Natriuretic Peptide 5513 pg/ml (0-1800) Total Protein 7.7 gm/dl (6.4-8.2) Albumin 3.1 gm/dl (3.4-5.0) Globulin 4.6 gm/dl (2.5-4.0) Albumin/Globulin Ratio 0.7 (0.9-2) Lactic Acid Level 0.9 mmol/L (0.4-2.0) Laboratory results as stated above per my review. Medications Administered Medications (Trade) Dose Ordered Sig/Jameson Route Start Time Stop Time Status Last Admin Dose Admin Acetaminophen (Tylenol Tab) 650 mg NOW STAT PO 11/17/16 13:05 11/17/16 13:06 DC 11/17/16 13:10 650 MG Ceftriaxone Sodium 1 gm 1 gm NOW STAT IV 11/17/16 14:31 11/17/16 14:34 DC 11/17/16 15:32 1 GM Azithromycin/ Dextrose (Zithromax IV/D5 250ml) 255 ml @ 127.5 mls/ hr 1445 IV 11/17/16 14:45 11/17/16 18:00 11/17/16 16:05 127.5 MLS/HR ECG Indication: SOB/dyspnea Rate (beats per minute): 79 Rhythm: normal sinus Findings: no acute ischemic change, no ectopy, other (left ventricular hypertrophy) ED Course 1133: Past medical records reviewed. The patient was evaluated in room B7. A complete history and physical examination was performed. 1305: Ordered Tylenol Tab 650 mg PO. 1431: Ordered Rocephin Inj 1 gm IV. 1436: I reevaluated the patient and she is resting comfortably. I discussed the exam findings with her and I discussed the treatment plan. She verbalized complete understanding and agreement. She will be evaluated for further treatment. 1440: I discussed the patients case with Dr. [facility] He is going to evaluate the patient for further treatment. 1445: Ordered Azithromycin 500 mg/Dextrose 255 ml @ 127.5 mls/hr IV. Medical Decision Nurses notes reviewed. Medical history sheet reviewed. Differential diagnosis includes but is not limited to: pneumonia, congestive failure, bronchitis, asthma, PE. The patient is here with some shortness of breath low-grade fever and a recent diagnosis of pneumonia. Chest x-ray reveals a hazy infiltrate on the right side which may be unilateral pulmonary edema versus pneumonia. The patient has an elevated white count but no elevation of her lactic acid. The patient was given Zithromax and Rocephin for possible pneumonia. Antibiotics were administered after blood cultures were obtained. I was reluctant to give her significant amounts of fluid due to her questionable pulmonary edema. Her BNP is also elevated. I discussed care with the patient, and with the hospitalist. Consults Time Called: 1439 Consulting Physician: LEO Rob Returned Call: 1440 I discussed the patients case with LEO Rob. He is going to evaluate the patient for further treatment. Impression Primary Impression: Pneumonia Additional Impression: Elevated troponin Scribe Attestation The scribe's documentation has been prepared under my direction and personally reviewed by me in its entirety. I confirm that the note above accurately reflects all work, treatment, procedures, and medical decision making performed by me. Departure Information Dispostion Being Evaluated By Hospitalist Referrals Meliton Fried MD (PCP) Problem Qualifiers
[2016-11-17 12:19] LABS: URINE APPEARANCE CLEAR (CLEAR); URINE BILIRUBIN NEG (NEG); URINE COLOR YELLOW; URINE NITRITE NEG (NEG); URINE SPECIFIC GRAVITY 1.011 (1.000-1.030); UROBILINOGEN NEG (NEG); ZZUR CULT IF INDIC CLEAN CATCH NO
[2016-11-17 12:27] LABS: MANUAL MICROSCOPIC REQUIRED? NO; REVIEW REQ? NO
[2016-11-17 12:38] LABS: BASO % 0.2 %; BASO ABS # 0.03 K/uL (0-0.2); COMPLETE YES; EOS % 0.2 %; HEMATOCRIT 36.5 % (37-47); IG% 0.3 %; LYMPH % 5.7 %; LYMPH ABS # 1.01 K/uL (1.2-3.4); MEAN CORPUSCULAR HEMOGLOBIN 25.2 pg (25-34); MEAN CORPUSCULAR HGB CONC 30.7 g/dl (32-36); MONO % 3.4 %; NEUT % 90.2 %; PLATELET COUNT 320 K/uL (130-400); RED BLOOD COUNT 4.45 M/uL (4.2-5.4)
--- NOTE | 2016-11-17 13:04 | DIAGNOSTIC IMAGING REPORT ---
CHEST 2 VIEWS ROUTINE CLINICAL HISTORY: Shortness of breath. Recent pneumonia. COMPARISON STUDY: 11/11/2016 FINDINGS: The cardiac and mediastinal contours remain stable. There is radiographic evidence of asymmetric interstitial pulmonary edema. There are more focal airspace opacities within the right perihilar region and left lung base. While likely representing pulmonary edema, a pneumonia cannot be excluded. Clinical and radiographic follow-up is recommended.[ IMPRESSION: Developing interstitial pulmonary edema. Right perihilar airspace opacities, likely representing focal pulmonary edema although a pneumonia could appear similar. Persistent left basal airspace opacities. Clinical and radiographic follow-up is recommended Electronically signed by: Dimitrios Colon M.D. 11/17/2016 1:03 PM Dictated Date/Time: 11/17/2016 1:02 PM
[2016-11-17] MEDS ORDERED: ACETAMINOPHEN 325 MG TAB PO STA (13:05)
[2016-11-17 13:35] LABS: INR 0.9 (0.9-1.1); PARTIAL THROMBOPLASTIN RATIO 0.9
[2016-11-17 13:44] LABS: BUN/CREATININE RATIO 25.8 (10-20); CALCIUM 8.7 mg/dl (8.5-10.1); CREATININE 1.7 mg/dl (0.60-1.20); POTASSIUM 4.4 mmol/L (3.5-5.1)
[2016-11-17 13:50] LABS: ALB/GLOB RATIO 0.7 (0.9-2)
[2016-11-17] MEDS ORDERED: AZITHROMYCIN 500MG/255ML D5W IV STA (14:31)
[2016-11-17] MEDS ORDERED: CEFTRIAXONE SOD INJ 1 GM ADDVIAL IV STA (14:31)
[2016-11-17] MEDS ORDERED: AZITHROMYCIN 500 MG / D5W 250 ML IV SCH ×2 (14:45)
--- NOTE | 2016-11-17 16:23 | History and Physical ---
History & Physical Date & Time of Service: Nov 17, 2016 at 16:18 Chief Complaint: Oxygen Control Primary Care Physician: Meliton Fried MD History of Present Illness Source: patient, spouse 86 y/o F Hx diastolic CHF, CKD 3, PAF - recently admitted for CP and LLL PNM - returns with worsening SOB. Pt denies any CP and states that she is not coughing. She is comfortable lying down and cannot tolerate exertion. She denies fevers, N/V/D, dysuria. Initial CXR is suspicious for CHF vs worsening PNM. Past Medical/Surgical History Medical Problems: (1) Atrial fibrillation with RVR paroxismal (2) Atrial flutter with rapid ventricular response Status: Resolved (3) Benign hypertension Status: Chronic (4) Bronchitis Status: Resolved (5) Colon cancer Status: Resolved (6) Diastolic heart failure Status: Resolved (7) Elevated troponin Status: Resolved (8) Esophageal Reflux Status: Chronic (9) Heart disease Status: Chronic (10) Hypertension Status: Chronic (11) Hypoxia Status: Resolved (12) Kidney disease Status: Chronic (13) Kidney Infection Status: Resolved (14) Left-sided chest wall pain Status: Resolved (15) Pneumonia Status: Resolved (16) Pulmonary edema Status: Resolved (17) Sepsis Status: Resolved (18) Shortness of breath Status: Resolved Surgical Problems: (1) Colectomy Status: Resolved (2) H/O: hysterectomy Status: Resolved (3) Hysterectomy Status: Resolved (4) Parathyroidectomy Status: Resolved Family History Diabetes mellitus Heart disease Hypertension Kidney disease Kidney stones Social History Smoking Status: Never Smoker Drug Use: none Marital Status: Housing status: lives with family, lives with significant other Occupational Status: retired Immunizations History of Influenza Vaccine: Yes Influenza Vaccine Date: Jun 09, 2012 History of Tetanus Vaccine?: Unknown History of Pneumococcal: UNSURE OF DATE Pneumococcal Date: Sep 11, 2011 History of Hepatitis B Vaccine: Unknown Multi-Drug Resistant Organisms History of MDRO: No Allergies Coded Allergies: Ciprofloxacin (Unverified Allergy, Unknown, UNKNOWN, 11/17/16) Sulfamethoxazole w/Trimethoprim (Verified Adverse Reaction, Mild, GI SYMPTOMS, 11/17/16) Home Medications Scheduled Amiodarone HCl (Amiodarone HCl), 200 MG PO BID Aspirin (Aspirin), 81 MG PO DAILY Calcium Carbonate (Calcium 600), 600 MG PO BID Cefdinir (Omnicef), 300 MG PO Q12H Cranberry (Vaccinium Macrocarp (Cranberry), 500 MG PO BID Digoxin (Digoxin), 0.125 MG PO 3XWK Diltiazem Hcl Coated Beads (Cardizem Cd), 240 MG PO DAILY Furosemide (Lasix), 20 MG PO 3XWK Oxygen (Oxygen), 2 LITERS NA HS Scheduled PRN [Levalbuterol], 2 PUFFS INH Q6 PRN for SOB/Wheezing Review of Systems Constitutional: No chills, No fever, No sweats Eyes: No eye pain, No worsening of vision ENT: No hearing loss, No nasal symptoms, No unusual epistaxis Respiratory: + cough, + shortness of breath, + sputum Cardiovascular: + chest pain, No PND, No orthopnea Abdomen: No nausea, No pain, No vomiting Musculoskeletal: No joint pain, No muscle pain Genitourinary - Female: No dysuria, No hematuria, No urinary frequency, No urinary incontinence, No urinary retention, No urinary urgency Neurologic: + weakness, No memory loss, No paralysis Psychiatric: No depression symptoms Endocrine: No fatigue Hematologic / Lymphatic: No abnormal bleeding/bruising Integumentary: No rash Allergic / Immunologic: No environmental allergies Physical Exam Vital Signs Date Time Temp Pulse Resp B/P Pulse Ox O2 Delivery O2 Flow Rate FiO2 11/17/16 15:48 72 20 169/104 92 Nasal Cannula 11/17/16 14:43 91 Nasal Cannula 4.0 11/17/16 14:00 160/109 11/17/16 14:00 72 25 160/109 93 Nasal Cannula 3.0 11/17/16 13:53 76 18 93 11/17/16 13:30 180/105 11/17/16 13:23 76 26 93 11/17/16 13:14 187/108 11/17/16 13:00 184/108 11/17/16 12:59 187/111 11/17/16 12:58 185/110 11/17/16 12:56 183/106 11/17/16 12:56 75 17 187/111 93 Nasal Cannula 3.0 11/17/16 12:30 77 11/17/16 12:00 94 Nasal Cannula 3.0 11/17/16 11:51 94 Nasal Cannula 3.0 11/17/16 11:51 94 Nasal Cannula 3.0 11/17/16 11:28 Nasal Cannula 3.0 90 11/17/16 11:25 36.8 86 20 191/113 90 Nasal Cannula 3.0 General Appearance: WD/WN, no apparent distress Head: normocephalic, atraumatic Eyes: normal inspection, EOMI ENT: normal ENT inspection, pharynx normal Neck: supple, + JVD Respiratory/Chest: chest non-tender, no respiratory distress, no accessory muscle use, + crackles (B/L at bases) Cardiovascular: regular rate, rhythm, no edema, no gallop, + JVD, + systolic murmur Abdomen/GI: normal bowel sounds, non tender, soft Back: normal inspection, no CVA tenderness Extremities/Musculoskelatal: normal inspection, no calf tenderness, normal capillary refill, no pedal edema, normal range of motion 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, no motor/sensory deficits, alert, normal mood/affect, normal reflexes, oriented x 3 Skin: normal color, warm/dry, no rash Diagnostics Laboratory Results Results Past 24 Hours Test 11/17/16 11:35 11/17/16 12:15 11/17/16 13:15 11/17/16 14:53 Range/Units Urine Color YELLOW Urine Appearance CLEAR CLEAR Urine pH 7.0 4.5-7.5 Urine Specific [place] 1.011 1.000-1.030 Urine Protein 2+ NEG Urine Glucose (UA) NEG NEG Urine Ketones NEG NEG Urine Occult Blood TRACE NEG Urine Nitrite NEG NEG Urine Bilirubin NEG NEG Urine Urobilinogen NEG NEG Urine Leukocyte Esterase NEG NEG Urine WBC (Auto) 0 0-5 /hpf Urine RBC (Auto) 0-4 0-4 /hpf Urine Hyaline Casts (Auto) 0 0-5 /lpf Urine Epithelial Cells (Auto) 5-10 0-5 /lpf Urine Bacteria (Auto) NEG NEG White Blood Count 17.60 4.8-10.8 K/uL Red Blood Count 4.45 4.2-5.4 M/uL Hemoglobin 11.2 12.0-16.0 g/dL Hematocrit 36.5 37-47 % Mean Corpuscular Volume 82.0 80-100 fL Mean Corpuscular Hemoglobin 25.2 25-34 pg Mean Corpuscular Hemoglobin Concent 30.7 32-36 g/dl Platelet Count 320 130-400 K/uL Mean Platelet Volume 10.0 7.4-10.4 fL Neutrophils (%) (Auto) 90.2 % Lymphocytes (%) (Auto) 5.7 % Monocytes (%) (Auto) 3.4 % Eosinophils (%) (Auto) 0.2 % Basophils (%) (Auto) 0.2 % Neutrophils # (Auto) 15.87 1.4-6.5 K/uL Lymphocytes # (Auto) 1.01 1.2-3.4 K/uL Monocytes # (Auto) 0.59 0.11-0.59 K/uL Eosinophils # (Auto) 0.04 0-0.5 K/uL Basophils # (Auto) 0.03 0-0.2 K/uL RDW Standard Deviation 49.1 36.4-46.3 fL RDW Coefficient of Variation 16.2 11.5-14.5 % Immature Granulocyte % (Auto) 0.3 % Immature Granulocyte # (Auto) 0.06 0.00-0.02 K/uL Prothrombin Time 10.0 9.0-12.0 SECONDS Prothromb Time International Ratio 0.9 0.9-1.1 Activated Partial Thromboplast Time 24.2 21.0-31.0 SECONDS Partial Thromboplastin Ratio 0.9 Sodium Level 139 136-145 mmol/L Potassium Level 4.4 3.5-5.1 mmol/L Chloride Level 100 98-107 mmol/L Carbon Dioxide Level 33 21-32 mmol/L Anion Gap 6.0 3-11 mmol/L Blood Urea Nitrogen 44 7-18 mg/dl Creatinine 1.70 0.60-1.20 mg/dl Est Creatinine Clear Calc Drug Dose 19.5 ml/min Estimated GFR () 31.5 Estimated GFR (Non- 27.2 BUN/Creatinine Ratio 25.8 10-20 Random Glucose 122 70-99 mg/dl Calcium Level 8.7 8.5-10.1 mg/dl Total Bilirubin 0.6 0.2-1 mg/dl Aspartate Amino Transf (AST/SGOT) 23 15-37 U/L Alanine Aminotransferase (ALT/SGPT) 33 12-78 U/L Alkaline Phosphatase 98 45-117 U/L Troponin I 0.054 0-0.045 ng/ml Pro-B-Type Natriuretic Peptide 5513 0-1800 pg/ml Total Protein 7.7 6.4-8.2 gm/dl Albumin 3.1 3.4-5.0 gm/dl Globulin 4.6 2.5-4.0 gm/dl Albumin/Globulin Ratio 0.7 0.9-2 Lactic Acid Level 0.9 0.4-2.0 mmol/L Microbiology Results 11/17/16 Blood Culture, Received Pending 11/17/16 Blood Culture, Received Pending Diagnostic Radiology CXR: Developing interstitial pulmonary edema. Right perihilar airspace opacities, likely representing focal pulmonary edema although a pneumonia could appear similar. Persistent left basal airspace opacities. EKG sinus, LVH, IVCD Impression Assessment and Plan 86 y/o F Hx diastolic CHF, CKD 3, PAF - recently admitted for CP and LLL PNM - returns with worsening SOB. Pt denies any CP and states that she is not coughing. She is comfortable lying down and cannot tolerate exertion. She denies fevers, N/V/D, dysuria. Initial CXR is suspicious for CHF vs worsening PNM. 1) SOB - clinically the pt has JVD and B/L crackles with a history of diastolic CHF - she takes Lasix 3 x wk only. Her lactic is not elevated and her troponin shows mild elevation and she does have leukocytosis. It is more likely that this is a CHF exacerbation than worsening pneumonia therefore. We will send the pt for a noncontrast CT to better distinguish and will likely place her on IV Lasix in addition to antibiotics depending on the result. We will trend her troponin and monitor her on telemetry. Scheduled breathing treatments will be provided. 2) PAF - sinus rhythm currently - cont Dig, Amio, Diltiazem - does not tolerate anticoagulation - cont ASA 3) CKD - pt was born with one kidney - creat has improved compared to recent baseline - will trend BMP due to lasix administration 4) HTN - Cont Diltiazem , Lasix Full code - Heparin prophylaxis Total time for this admit including review of labs, meds, EKG, imagig - discussion with pt and ER attending - 35 min Level of Care Telemetry Resuscitation Status FULL RESUSCITATION VTE Prophylaxis Given or contraindicated: Unfractionated heparin SQ
[2016-11-17] MEDS ORDERED: LEVALBUTEROL 1.25MG/3ML NEB INH PRN (16:30)
[2016-11-17 16:43] VITALS: BP 173/93; PULSE 69; TEMP 36.7; Ht 157.5 cm; Wt 57.0 kg
--- NOTE | 2016-11-17 17:05 | DIAGNOSTIC IMAGING REPORT ---
CT OF THE CHEST WITHOUT IV CONTRAST CLINICAL HISTORY: Shortness of breath. Recent pneumonia. Pulmonary edema. COMPARISON STUDY: Chest x-ray dated 11/17/2016 CT DOSE: 194.72 mGy.cm TECHNIQUE: CT of the thorax was performed from the thoracic inlet to the lung bases. Images are reviewed in the axial, sagittal, and coronal planes. IV contrast was not administered for this examination. FINDINGS: Thyroid: Imaged portions of the thyroid gland are normal in appearance. Thoracic aorta: The thoracic aorta is normal in course and caliber, noting standard 3 vessel arch anatomy. Heart: The heart is mildly enlarged. There are coronary artery calcifications. Lungs and pleural spaces: There is a moderate right pleural effusion and small left pleural effusion. There are right upper lobe airspace opacities suspicious for pneumonia. Asymmetric pulmonary edema could potentially appear similar but is felt to be statistically less likely. There are small right middle lobe and right lower lobe pulmonary nodules, also likely inflammatory. There is right lower lobe compressive atelectasis. Mediastinum: There are borderline enlarged mediastinal lymph nodes. Nehal: Hilar lymph nodes are felt to be at the upper limits of normal in size. Axilla: Clear. Upper abdomen: There is a hiatal hernia. There are multiple upper pole left renal cyst. Skeletal structures: There is an 8 mm right breast nodule. This was addressed on a recent screening mammogram. There is a severe L1 compression fracture. IMPRESSION: 1. Extensive right upper lobe airspace opacities, suspicious for pneumonia 2. Suspected congestive failure with cardiomegaly, coronary calcifications, and bilateral pleural effusions. 3. Lower lobe compressive atelectatic changes 4. Small nodular opacities within the right middle lobe and right lower lobe, likely inflammatory 5. Clinical and radiographic follow-up is recommended Electronically signed by: Dimitrios Colon M.D. 11/17/2016 5:03 PM Dictated Date/Time: 11/17/2016 4:57 PM
[2016-11-17] MEDS ORDERED: ONDANSETRON INJ 2 MG/ML 2 ML VIAL ONE (17:08)
[2016-11-17] MEDS ORDERED: ALBUT/IPRATROP 3MG/0.5MG NEB 3 ML VIAL ONE (17:13)
[2016-11-17] MEDS ORDERED: MoRPHine SULFATE 2 MG/ML CARP IV PRN (17:15)
[2016-11-17] MEDS ORDERED: ONDANSETRON INJ 2 MG/ML 2 ML VIAL IV PRN (17:30)
[2016-11-17] MEDS ORDERED: LORAZEPAM 2 MG/ML 1 ML VIAL IV STA (17:36)
[2016-11-17] MEDS ORDERED: FUROSEMIDE INJ 40 MG in SYRINGE 0 ML IV SCH (17:45)
[2016-11-17] MEDS ORDERED: FUROSEMIDE 40 MG/4 ML VIAL IV ONE (17:45)
[2016-11-17] MEDS ORDERED: NITROGLYCERIN 0.4 MG/HR PATCH TD SCH (19:00)
[2016-11-17 19:49] VITALS: BP 164/72; PULSE 64
[2016-11-17] MEDS: ALBUT/IPRATROP 3MG/0.5MG NEB 3 ML VIAL INH SCH (20:32)
[2016-11-17 20:50] VITALS: PULSE 87; O2SAT 94
[2016-11-17] MEDS: CALCIUM CARBONATE 1250MG TAB PO SCH (21:24)
[2016-11-17] MEDS: AMIODARONE 200 MG TAB PO SCH (21:24)
[2016-11-17] MEDS: HEPARIN SOD 5000 UNIT/0.5 ML CARP SQ SCH (21:25)
[2016-11-17] MEDS ORDERED: HEPARIN SOD 5000 UNIT/0.5 ML CARP SQ SCH (22:00)
[2016-11-17 23:43] VITALS: BP 142/86; PULSE 97; TEMP 36.9; O2SAT 91
[2016-11-18] VITALS (11 sets, daily range): BP systolic 86–135; BP diastolic 44–78; PULSE 61–114; TEMP 36.6–36.9; O2SAT 89–96
[2016-11-18] MEDS ORDERED: ACETAMINOPHEN 325 MG TAB ONE (05:23)
[2016-11-18] MEDS ORDERED: NURSING VERBAL MED ORDER ONE ×2 (05:30→05:45)
[2016-11-18] MEDS ORDERED: ONDANSETRON INJ 2 MG/ML 2 ML VIAL ONE (05:33)
[2016-11-18] MEDS: HEPARIN SOD 5000 UNIT/0.5 ML CARP SQ SCH ×3 (05:41→21:31)
[2016-11-18] MEDS: ALBUT/IPRATROP 3MG/0.5MG NEB 3 ML VIAL INH SCH ×3 (07:08→19:33)
[2016-11-18] MEDS: CALCIUM CARBONATE 1250MG TAB PO SCH ×2 (08:13→21:27)
[2016-11-18] MEDS: AMIODARONE 200 MG TAB PO SCH ×2 (08:14→21:27)
[2016-11-18] MEDS: ASPIRIN 81 MG ECTAB PO SCH (08:14)
[2016-11-18] MEDS: DILTIAZEM HCL 240 MG CAPCR PO SCH (08:14)
[2016-11-18] MEDS: FUROSEMIDE 20 MG TAB PO SCH (08:14)
[2016-11-18 08:27] LABS: HEMATOCRIT 30.8 % (37-47); MEAN CELL VOLUME 81.9 fL (80-100); MEAN CORPUSCULAR HEMOGLOBIN 24.7 pg (25-34); MEAN CORPUSCULAR HGB CONC 30.2 g/dl (32-36); MEAN PLATELET VOLUME 9.3 fL (7.4-10.4); PLATELET COUNT 254 K/uL (130-400); RED BLOOD COUNT 3.76 M/uL (4.2-5.4); WHITE BLOOD COUNT 11.86 K/uL (4.8-10.8)
[2016-11-18 08:51] LABS: BUN/CREATININE RATIO 20.9 (10-20); CALCIUM 8.7 mg/dl (8.5-10.1); CREATININE 1.7 mg/dl (0.60-1.20); POTASSIUM 4.3 mmol/L (3.5-5.1)
--- NOTE | 2016-11-18 10:29 | Family Medicine Progress Note ---
Progress Note Date of Service Nov 18, 2016. Subjective Pt evaluation today including: conversation w/ patient, physical exam, chart review, lab review, review of studies, review of inpatient medication list Pain: denies pain PO Intake: adequate Voiding: no voiding problems NO acute events overnight, Patient reports SOB has significantly improved. Occasional Non-productive cough remains. denies CP, palpitation. Constitutional: No chills, No fever, No weakness Respiratory: + cough, + shortness of breath (imprvoed), No dyspnea on exertion, No problem reported, No sputum Cardiovascular: No chest pain, No edema, No palpitations Abdomen: No constipation, No diarrhea, No nausea, No pain, No vomiting Female : No dysuria, No hematuria, No urinary frequency Skin: No color change, No itch, No rash Medications Current Inpatient Medications Medications (Trade) Dose Ordered Sig/Jameson Route Start Time Stop Time Status Last Admin Dose Admin Amiodarone HCl (Cordarone Tab) 200 mg BID PO 11/17/16 21:00 12/17/16 20:59 11/18/16 08:14 200 MG Aspirin (Ecotrin Tab) 81 mg DAILY PO 11/18/16 09:00 12/18/16 08:59 11/18/16 08:14 81 MG Digoxin (Lanoxin Tab) 0.125 mg MoWeFr@1600 PO 11/19/16 16:00 12/19/16 15:59 Diltiazem HCl (Cardizem Cd Cap) 240 mg DAILY PO 11/18/16 09:00 12/18/16 08:59 11/18/16 08:14 240 MG Furosemide (Lasix Tab) 20 mg DAILY PO 11/18/16 09:00 12/18/16 08:59 11/18/16 08:14 20 MG Calcium Carbonate (oS-Jeison 500 TAB) 1,250 mg BID PO 11/17/16 21:00 12/17/16 20:59 11/18/16 08:13 1,250 MG Albuterol/ Ipratropium (Duoneb) 3 ml Q6R INH 11/17/16 21:00 12/17/16 20:59 11/18/16 07:08 3 ML Levalbuterol 1.25 mg 1.25 mg Q4H PRN INH 11/17/16 16:30 12/17/16 16:29 Ceftriaxone Sodium 1 gm/ Dextrose 50 ml @ 100 mls/hr Q24H IV 11/18/16 16:00 11/24/16 15:59 Azithromycin/ Dextrose (Zithromax IV/D5 250ml) 255 ml @ 125 mls/hr 1600 IV 11/18/16 16:00 11/18/16 18:03 Heparin Sodium (Porcine) (Heparin Sq 5000 Unit/0.5ml) 5,000 unit Q8 SQ 11/17/16 22:00 12/17/16 21:59 11/18/16 05:41 5,000 UNIT Morphine Sulfate (MoRPHine SULFATE INJ) 2 mg Q30M PRN IV 11/17/16 17:15 12/01/16 17:14 Nitroglycerin (Nitro-Dur 0.4 Mg/Hr Patch) 1 patch 1900 TD 11/17/16 19:00 11/18/16 18:59 11/17/16 19:31 1 PATCH Miscellaneous (Remove Nitro-Dur Patch) 1 ea 1900 N/A 11/18/16 19:00 11/18/16 19:01 Ondansetron HCl (Zofran Inj) 4 mg Q6H PRN IV 11/18/16 05:45 12/18/16 05:44 Acetaminophen (Tylenol Tab) 650 mg Q6H PRN PO 11/18/16 05:45 12/18/16 05:44 Objective Vital Signs Date Time Temp Pulse Resp B/P Pulse Ox O2 Delivery O2 Flow Rate FiO2 11/18/16 19:33 61 18 94 Nasal Cannula 4.0 11/18/16 19:25 36.6 67 16 90/44 92 Nasal Cannula 4.0 11/18/16 16:00 Nasal Cannula 4.0 11/18/16 15:45 91/51 11/18/16 15:44 36.9 71 16 86/53 91 Nasal Cannula 4.0 11/18/16 12:07 36.9 114 16 107/66 93 Nasal Cannula 5.0 11/18/16 11:56 Nasal Cannula 5.0 11/18/16 11:00 85 18 96 Nasal Cannula 5.0 11/18/16 08:21 36.6 112 16 123/78 94 Nasal Cannula 5.0 11/18/16 08:00 90 Nasal Cannula 5.0 11/18/16 07:09 108 18 92 Nasal Cannula 5.0 11/18/16 04:00 Nasal Cannula 4.0 CPAP 11/18/16 03:39 36.8 102 20 122/68 89 BiPAP 11/18/16 00:00 Nasal Cannula 4.0 CPAP 11/17/16 23:43 36.9 97 20 142/86 91 BiPAP 11/17/16 20:50 87 14 94 Nasal Cannula 3.0 Physical Exam General Appearance: WD/WN, no apparent distress Eyes: normal inspection, PERRL, EOMI Neck: supple, trachea midline, + adenopathy present Respiratory/Chest: lungs clear, normal breath sounds, no respiratory distress Cardiovascular: no edema, no murmur, + irregularly irregular Abdomen: normal bowel sounds, non tender, soft, no organomegaly Extremities: normal inspection, no pedal edema, no calf tenderness Skin: normal color, warm/dry, no rash Laboratory Results Results Past 24 Hours Test 11/18/16 00:50 11/18/16 08:17 Range/Units Troponin I 0.046 0-0.045 ng/ml White Blood Count 11.86 4.8-10.8 K/uL Red Blood Count 3.76 4.2-5.4 M/uL Hemoglobin 9.3 12.0-16.0 g/dL Hematocrit 30.8 37-47 % Mean Corpuscular Volume 81.9 80-100 fL Mean Corpuscular Hemoglobin 24.7 25-34 pg Mean Corpuscular Hemoglobin Concent 30.2 32-36 g/dl RDW Standard Deviation 48.6 36.4-46.3 fL RDW Coefficient of Variation 16.2 11.5-14.5 % Platelet Count 254 130-400 K/uL Mean Platelet Volume 9.3 7.4-10.4 fL Sodium Level 141 136-145 mmol/L Potassium Level 4.3 3.5-5.1 mmol/L Chloride Level 97 98-107 mmol/L Carbon Dioxide Level 38 21-32 mmol/L Anion Gap 6.0 3-11 mmol/L Blood Urea Nitrogen 36 7-18 mg/dl Creatinine 1.70 0.60-1.20 mg/dl Est Creatinine Clear Calc Drug Dose 19.5 ml/min Estimated GFR () 31.5 Estimated GFR (Non- 27.2 BUN/Creatinine Ratio 20.9 10-20 Random Glucose 126 70-99 mg/dl Calcium Level 8.7 8.5-10.1 mg/dl Assessment and Plan 86 yo F w/ hx of Paroxysmal Afib with RVR, Diastolic CHF,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 Right perihilar airspace opacities, likely Pulmonary edema vs. Pneumonia -CT Chest(11/17)Extensive right upper lobe airspace opacities, suspicious for pneumonia. Suspected congestive failure with cardiomegaly, coronary calcifications, and bilateral pleural effusions. -Continue Ceftriaxone, Azithromycin Hx of Diastolic CHF - possibly also contributing to SOB -acute vs chronic nature of garcia plerual effusion uncertain - Continue to monitor - Continue PO Lasix Paroxysmal AFIB - rate controlled - Continue Diltiazem 140 mg po -previously on anticoagulation with Eliquis, d/c during GI bleed admission CKD - Cr 1.7 Baseline 1.7-2 -hx of congenital solitary kidney - F/u Repeat PRP HTN - controlled -Continue Diltiazem - Lasix 20 mg Anemia -appears to be chronic, likely due to Renal disease -R/O Iron def. B123, Folate def. -F/u Iron panel, b12, folate, levels DVT Prophylaxis Heparin 500 q8 Continued [facility] stay due to: multiple IV medications needed Discharge planning: home Resident Tracking Resident Involvement: Resident Care Provided Care Provided: Adult Hospital Medicine Reviewed: Pt Seen/Exam by Me Constitutional: denies: fever Respiratory: positive: short of breath Cardiovascular: denies chest pain General Appearance: mild distress Respiratory: decreased breath sounds Cardiovascular: regular rate, rhythm Neurologic/Psychiatric: alert, oriented x 3 Assessment/Plan I have reviewed the medical record and performed a history and physical examination of this patient today. I have discussed the case with Dr. Fu. The above note reflects my findings, conclusions, and recommendations.
[2016-11-18] MEDS ORDERED: AZITHROMYCIN IV 500 MG in DEXTROSE 5% 250ML 250 ML IV SCH (16:00)
[2016-11-18] MEDS ORDERED: CEFTRIAXONE SOD INJ 1 GM in DEXTROSE 5% ADD-VANTAGE 50ML 50 ML IV SCH (16:00)
[2016-11-18] MEDS: ONDANSETRON INJ 2 MG/ML 2 ML VIAL IV PRN (16:21)
[2016-11-19] VITALS (13 sets, daily range): BP systolic 100–125; BP diastolic 61–77; PULSE 61–118; TEMP 36.4–36.9; O2SAT 70–98
[2016-11-19] MEDS ORDERED: DILTIAZEM HCL 5 MG/ML 5 ML VIAL IV STA (01:36)
[2016-11-19] MEDS: ALBUT/IPRATROP 3MG/0.5MG NEB 3 ML VIAL INH SCH ×4 (01:52→19:06)
[2016-11-19] MEDS: ACETAMINOPHEN 325 MG TAB PO PRN ×2 (01:54→23:26)
[2016-11-19 02:34] LABS: BUN/CREATININE RATIO 18.9 (10-20); CALCIUM 8.4 mg/dl (8.5-10.1); CREATININE 2.4 mg/dl (0.60-1.20); MAGNESIUM 2.2 mg/dl (1.8-2.4); POTASSIUM 4.1 mmol/L (3.5-5.1)
[2016-11-19 02:40] LABS: CKMB/CK RATIO 1.8 (0-3.0)
[2016-11-19] MEDS: HEPARIN SOD 5000 UNIT/0.5 ML CARP SQ SCH ×3 (05:52→20:59)
[2016-11-19 06:44] LABS: HEMATOCRIT 29.1 % (37-47); MEAN CELL VOLUME 81.7 fL (80-100); MEAN CORPUSCULAR HEMOGLOBIN 24.7 pg (25-34); MEAN CORPUSCULAR HGB CONC 30.2 g/dl (32-36); MEAN PLATELET VOLUME 9.5 fL (7.4-10.4); PLATELET COUNT 253 K/uL (130-400); RED BLOOD COUNT 3.56 M/uL (4.2-5.4)
[2016-11-19 07:33] LABS: BUN/CREATININE RATIO 19.2 (10-20); CALCIUM 8.6 mg/dl (8.5-10.1); CREATININE 2.2 mg/dl (0.60-1.20); POTASSIUM 4.1 mmol/L (3.5-5.1)
[2016-11-19 07:44] LABS: FERRITIN 63.4 ng/ml (8.0-388.0)
[2016-11-19] MEDS: AMIODARONE 200 MG TAB PO SCH ×2 (08:03→21:02)
[2016-11-19] MEDS: ASPIRIN 81 MG ECTAB PO SCH (08:03)
[2016-11-19] MEDS: FUROSEMIDE 20 MG TAB PO SCH (08:03)
[2016-11-19] MEDS: CALCIUM CARBONATE 1250MG TAB PO SCH ×2 (08:03→21:02)
[2016-11-19] MEDS: DILTIAZEM HCL 240 MG CAPCR PO SCH (08:04)
--- NOTE | 2016-11-19 08:30 | Clinical Documentation Query ---
QUERY 1 OF 2 CLINICAL DOCUMENTATION QUERY In your clinical opinion is this patient being managed for: ( ) Acute on chronic diastolic (congestive) heart failure ( ) Other explanation of clinical findings (Please Explain) ( ) Unable to determine (Please Define) ( ) Need to Discuss ( ) Not Agree The medical record reflects the following clinical findings, treatment, and risk factors. Clinical Indicators: 86 yo female presenting with persistent respiratory difficulties. CT chest: Suspected congestive failure with cardiomegaly, coronary calcifications, and bilateral pleural effusions. BNP 5513. Treatment: O2 support, tele, IV lasix x 1 Risk Factors: age, pneumonia, CKD, A fib/flutter, hx diastolic CHF QUERY 2 OF 2 In your clinical opinion is this patient being managed for: ( ) Acute kidney failure ( ) Other explanation of clinical findings (Please Explain) ( ) Unable to determine (Please Define) ( ) Need to Discuss ( ) Not Agree The medical record reflects the following clinical findings, treatment, and risk factors. Clinical Indicators: Initial Cr 1.70 which has trended up to a max of 2.4. Treatment:serial PRP's, unable to administer IV fluids Risk Factors: age, IV lasix dose, pneumonia, diastolic CHF, A fib/flutter, HTN Please clarify and document your clinical opinion in the progress notes and discharge summary. Terms such as "probable", "suspected", "likely", "questionable", "possible", or "still to be ruled out" are acceptable. IF IN AGREEMENT, YOU MUST DOCUMENT ABOVE DIAGNOSTIC STATEMENT IN DAILY PROGRESS NOTES AND DISCHARGE SUMMARY. This document is not part of the patient's record. Thank You, Kiara Simmons, RN [phone]
--- NOTE | 2016-11-19 11:18 | Family Medicine Progress Note ---
Progress Note Date of Service Nov 19, 2016. Subjective Pt evaluation today including: conversation w/ patient, conversation w/ family , physical exam, chart review, lab review, review of studies, review of inpatient medication list Pain: denies PO Intake: adequate Voiding: no voiding problems Overnight, Patient had episode of tachycardia with HR rising to as high as 118. Diltiazem 10 mg was ordered. Patient remained asymptomatic throughout the night. She denied Palpitation, CP, SOB Constitutional: No chills, No fever, No weakness Respiratory: + cough (improved), No shortness of breath Cardiovascular: No chest pain, No edema, No palpitations Abdomen: No diarrhea, No nausea, No pain, No vomiting Female : No dysuria, No hematuria Neurologic: No numbness/tingling, No weakness Skin: No itch, No rash Medications Current Inpatient Medications Medications (Trade) Dose Ordered Sig/Jameson Route Start Time Stop Time Status Last Admin Dose Admin Amiodarone HCl (Cordarone Tab) 200 mg BID PO 11/17/16 21:00 12/17/16 20:59 11/19/16 08:03 200 MG Aspirin (Ecotrin Tab) 81 mg DAILY PO 11/18/16 09:00 12/18/16 08:59 11/19/16 08:03 81 MG Digoxin (Lanoxin Tab) 0.125 mg MoWeFr@1600 PO 11/19/16 16:00 12/19/16 15:59 Diltiazem HCl (Cardizem Cd Cap) 240 mg DAILY PO 11/18/16 09:00 12/18/16 08:59 11/19/16 08:04 240 MG Furosemide (Lasix Tab) 20 mg DAILY PO 11/18/16 09:00 12/18/16 08:59 11/19/16 08:03 20 MG Calcium Carbonate (oS-Jeison 500 TAB) 1,250 mg BID PO 11/17/16 21:00 12/17/16 20:59 11/19/16 08:03 1,250 MG Albuterol/ Ipratropium (Duoneb) 3 ml Q6R INH 11/17/16 21:00 12/17/16 20:59 11/19/16 07:05 3 ML Levalbuterol 1.25 mg 1.25 mg Q4H PRN INH 11/17/16 16:30 12/17/16 16:29 Ceftriaxone Sodium/Dextrose (Rocephin Inj/ Dextrose Add-[place] 50ML) 50 ml @ 100 mls/hr Q24H IV 11/18/16 16:00 11/24/16 15:59 11/18/16 16:12 100 MLS/HR Heparin Sodium (Porcine) (Heparin Sq 5000 Unit/0.5ml) 5,000 unit Q8 SQ 11/17/16 22:00 12/17/16 21:59 11/19/16 05:52 5,000 UNIT Morphine Sulfate (MoRPHine SULFATE INJ) 2 mg Q30M PRN IV 11/17/16 17:15 12/01/16 17:14 Ondansetron HCl (Zofran Inj) 4 mg Q6H PRN IV 11/18/16 05:45 12/18/16 05:44 11/18/16 16:21 4 MG Acetaminophen (Tylenol Tab) 650 mg Q6H PRN PO 11/18/16 05:45 12/18/16 05:44 11/19/16 01:54 650 MG Objective Vital Signs Date Time Temp Pulse Resp B/P Pulse Ox O2 Delivery O2 Flow Rate FiO2 11/19/16 19:11 79 18 76 Room Air 11/19/16 16:00 Nasal Cannula 3.0 11/19/16 15:19 88 11/19/16 15:07 36.8 80 20 101/61 91 Nasal Cannula 3.0 Humidified Oxygen 11/19/16 14:15 102 18 70 Room Air 11/19/16 12:01 36.6 61 18 100/66 92 Nasal Cannula 3.0 11/19/16 11:56 92 Nasal Cannula 3.0 11/19/16 08:32 36.4 117 16 110/70 96 Nasal Cannula 4.0 11/19/16 08:00 94 Nasal Cannula 3.0 11/19/16 07:05 110 18 98 BiPAP/CPAP 4.0 11/19/16 04:00 CPAP 4.0 11/19/16 03:38 36.5 114 18 125/77 96 CPAP 11/19/16 02:10 118 16 110/62 96 CPAP 4.0 11/19/16 01:52 73 18 82 Room Air 11/18/16 23:24 36.6 95 18 135/77 92 CPAP 11/18/16 23:17 CPAP 11/18/16 20:00 Nasal Cannula 4.0 Physical Exam Notes: General Appearance: WD/WN, no apparent distress Eyes: normal inspection, PERRL, EOMI Neck: supple, trachea midline, Respiratory/Chest: lungs clear, normal breath sounds, no respiratory distress Cardiovascular: no edema, no murmur, + irregularly irregular Abdomen: normal bowel sounds, non tender, soft, no organomegaly Extremities: normal inspection, no pedal edema, no calf tenderness Skin: normal color, warm/dry, no rash Laboratory Results Results Past 24 Hours Test 11/19/16 01:50 11/19/16 06:25 Range/Units Sodium Level 142 141 136-145 mmol/L Potassium Level 4.1 4.1 3.5-5.1 mmol/L Chloride Level 98 99 98-107 mmol/L Carbon Dioxide Level 40 39 21-32 mmol/L Anion Gap 4.0 3.0 3-11 mmol/L Blood Urea Nitrogen 45 42 7-18 mg/dl Creatinine 2.40 2.20 0.60-1.20 mg/dl Est Creatinine Clear Calc Drug Dose 13.8 15.1 ml/min Estimated GFR () 20.8 23.1 Estimated GFR (Non- 17.9 19.9 BUN/Creatinine Ratio 18.9 19.2 10-20 Random Glucose 103 96 70-99 mg/dl Calcium Level 8.4 8.6 8.5-10.1 mg/dl Magnesium Level 2.2 1.8-2.4 mg/dl Total Creatine Kinase 38 26-192 U/L Creatine Kinase MB 0.7 0.5-3.6 ng/ml Creatine Kinase MB Ratio 1.8 0-3.0 Troponin I 0.047 0-0.045 ng/ml White Blood Count 8.20 4.8-10.8 K/uL Red Blood Count 3.56 4.2-5.4 M/uL Hemoglobin 8.8 12.0-16.0 g/dL Hematocrit 29.1 37-47 % Mean Corpuscular Volume 81.7 80-100 fL Mean Corpuscular Hemoglobin 24.7 25-34 pg Mean Corpuscular Hemoglobin Concent 30.2 32-36 g/dl RDW Standard Deviation 49.3 36.4-46.3 fL RDW Coefficient of Variation 16.3 11.5-14.5 % Platelet Count 253 130-400 K/uL Mean Platelet Volume 9.5 7.4-10.4 fL Iron Level 15 35-150 mcg/dl Total Iron Binding Capacity 294 250-450 mcg/dl Transferrin 221 200-360 mg/dl Transferrin % Saturation 5 15-50 % Ferritin 63.4 8.0-388.0 ng/ml Vitamin B12 Level 536 211-911 pg/mL Folate 16.87 >5.38 ng/mL Assessment and Plan 86 yo F w/ hx of Paroxysmal Afib with RVR, Diastolic CHF,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 Right perihilar airspace opacities, likely Pulmonary edema vs. Pneumonia -CT Chest(11/17)Extensive right upper lobe airspace opacities, suspicious for pneumonia. Suspected congestive failure with cardiomegaly, coronary calcifications, and bilateral pleural effusions. -d/c'd Ceftriaxone, Azithromycin -Switched to PO Cefuroxime Hx of Diastolic CHF - possibly also contributing to SOB - silvino plerual effusion likely chronic - Continue to monitor - Net negative I/O Continue PO Lasix, , F/U in the AM Paroxysmal AFIB - Tachycardic overnight - dehydration may be contributor, Start IV fluids, Continue to monitor vitals - Continue Diltiazem 140 mg po -previously on anticoagulation with Eliquis, d/c during GI bleed admission CKD - Cr 2.2 from 2.4 Baseline 1.7-2 -hx of congenital solitary kidney, CKD stage III - F/u Repeat PRP HTN - controlled -Continue Diltiazem - Lasix 20 mg Anemia -appears to be chronic, likely due to Renal disease vs.Anemia -B12, Folate wnl -Iron panel suggestive of Anemia of Chronic disease -F/U Stool heme occult DVT Prophylaxis Heparin 500 q8 Continued [facility] stay due to: multiple IV medications needed Discharge planning: uncertain Resident Tracking Resident Involvement: Resident Care Provided Care Provided: Adult Hospital Medicine Reviewed: Pt Seen/Exam by Me History Pt is feeling improved. No SOB. Has not had a bowel movement in 1 week, which she said happens periodically. She does not have abd pain, n/v, and is tolerating PO without issue. She states she takes a dose of MOM and usually responds well. She denies hx of blood noted in stools. Feels her appetite is good. Agree with HPI/ROS as noted. General Appearance: WD/WN, no apparent distress Respiratory: normal breath sounds, no respiratory distress Cardiovascular: normal peripheral pulses, regular rate, rhythm Gastrointestinal: non tender, soft Extremities: non-tender, no pedal edema Neurologic/Psychiatric: alert, normal mood/affect Skin Characteristics: normal color, warm/dry Assessment/Plan Resident Physician Supervision Note: I discussed the case with the resident and agree with the findings and plan as documented in the note. Any exceptions or clarifications are listed here: Documented By: Brandee Gonsalves Agree with plan as outlined above. Gentle IVF MOM, send stool for blood given decline in Hb Ongoing O2 weaning ceftriaxone to PO
[2016-11-19] MEDS ORDERED: NURSING VERBAL MED ORDER ONE (12:30)
[2016-11-19] MEDS ORDERED: MAGNESIUM HYDROXIDE SUSP 30 ML UDC PO ONE (12:45)
[2016-11-19] MEDS ORDERED: SODIUM CHLORIDE 0.9% 1000ML 1,000 ML IV SCH (13:15)
[2016-11-19] MEDS: SODIUM CHLORIDE 0.9% 1000ML 1,000 ML IV SCH (13:33)
[2016-11-19] MEDS: DIGOXIN 0.125 MG TAB PO SCH (15:19)
[2016-11-19] MEDS: CEFUROXIME AXETIL 500 MG TAB PO SCH (15:20)
[2016-11-20] VITALS (12 sets, daily range): BP systolic 111–139; BP diastolic 62–75; PULSE 66–88; TEMP 36.7–37; O2SAT 88–99
[2016-11-20] MEDS: ALBUT/IPRATROP 3MG/0.5MG NEB 3 ML VIAL INH SCH ×4 (01:54→20:59)
[2016-11-20] MEDS: HEPARIN SOD 5000 UNIT/0.5 ML CARP SQ SCH ×3 (05:24→21:36)
[2016-11-20] MEDS ORDERED: MAGNESIUM HYDROXIDE SUSP 30 ML UDC PO PRN (06:45)
[2016-11-20] MEDS ORDERED: POLYETHYLENE (MIRALAX) 17 GM PACK PO PRN (06:45)
[2016-11-20 07:09] LABS: MEAN CELL VOLUME 80.2 fL (80-100); MEAN CORPUSCULAR HEMOGLOBIN 24.4 pg (25-34); MEAN CORPUSCULAR HGB CONC 30.4 g/dl (32-36); MEAN PLATELET VOLUME 8.6 fL (7.4-10.4); PLATELET COUNT 248 K/uL (130-400); RED BLOOD COUNT 3.49 M/uL (4.2-5.4); WHITE BLOOD COUNT 9.38 K/uL (4.8-10.8)
[2016-11-20 07:34] LABS: CALCIUM 8.5 mg/dl (8.5-10.1); CREATININE 2.1 mg/dl (0.60-1.20); POTASSIUM 4.4 mmol/L (3.5-5.1)
[2016-11-20] MEDS: CALCIUM CARBONATE 1250MG TAB PO SCH ×2 (08:06→19:52)
[2016-11-20] MEDS: ASPIRIN 81 MG ECTAB PO SCH (08:06)
[2016-11-20] MEDS: FUROSEMIDE 20 MG TAB PO SCH (08:07)
[2016-11-20] MEDS: DILTIAZEM HCL 240 MG CAPCR PO SCH (08:07)
[2016-11-20] MEDS: AMIODARONE 200 MG TAB PO SCH ×2 (08:07→19:52)
[2016-11-20] MEDS: SODIUM CHLORIDE 0.9% 1000ML 1,000 ML IV SCH ×2 (08:11→09:15)
--- NOTE | 2016-11-20 08:38 | Family Medicine Progress Note ---
Progress Note Date of Service Nov 20, 2016. Subjective Pt evaluation today including: conversation w/ patient, conversation w/ family , physical exam, chart review, lab review, review of studies, review of inpatient medication list Pain: denies pain PO Intake: adequate Voiding: no voiding problems Patient reported no complaints. She denies SOB, cough, CP , Palpitation. Constitutional: No chills, No fever, No weakness Respiratory: No cough, No shortness of breath, No sputum Cardiovascular: No chest pain, No edema, No palpitations Abdomen: No constipation, No diarrhea, No nausea, No pain, No vomiting Female : No dysuria, No hematuria, No urinary frequency Neurologic: No numbness/tingling, No weakness Skin: No color change, No itch, No rash Medications Current Inpatient Medications Medications (Trade) Dose Ordered Sig/Jameson Route Start Time Stop Time Status Last Admin Dose Admin Amiodarone HCl (Cordarone Tab) 200 mg BID PO 11/17/16 21:00 12/17/16 20:59 11/20/16 08:07 200 MG Aspirin (Ecotrin Tab) 81 mg DAILY PO 11/18/16 09:00 12/18/16 08:59 11/20/16 08:06 81 MG Digoxin (Lanoxin Tab) 0.125 mg MoWeFr@1600 PO 11/19/16 16:00 12/19/16 15:59 11/19/16 15:19 0.125 MG Diltiazem HCl (Cardizem Cd Cap) 240 mg DAILY PO 11/18/16 09:00 12/18/16 08:59 11/20/16 08:07 240 MG Furosemide (Lasix Tab) 20 mg DAILY PO 11/18/16 09:00 12/18/16 08:59 11/20/16 08:07 20 MG Calcium Carbonate (oS-Jeison 500 TAB) 1,250 mg BID PO 11/17/16 21:00 12/17/16 20:59 11/20/16 08:06 1,250 MG Albuterol/ Ipratropium (Duoneb) 3 ml Q6R INH 11/17/16 21:00 12/17/16 20:59 11/20/16 06:57 3 ML Levalbuterol (Xopenex 1.25MG/ 3ML Neb) 1.25 mg Q4H PRN INH 11/17/16 16:30 12/17/16 16:29 Heparin Sodium (Porcine) (Heparin Sq 5000 Unit/0.5ml) 5,000 unit Q8 SQ 11/17/16 22:00 12/17/16 21:59 11/20/16 05:24 5,000 UNIT Morphine Sulfate (MoRPHine SULFATE INJ) 2 mg Q30M PRN IV 11/17/16 17:15 12/01/16 17:14 Ondansetron HCl (Zofran Inj) 4 mg Q6H PRN IV 11/18/16 05:45 12/18/16 05:44 11/18/16 16:21 4 MG Acetaminophen 650 mg 650 mg Q6H PRN PO 11/18/16 05:45 12/18/16 05:44 11/19/16 23:26 650 MG Sodium Chloride 1,000 ml @ 50 mls/hr Q20H IV 11/19/16 12:45 12/19/16 12:44 11/20/16 08:11 50 MLS/HR Sodium Chloride (Nss 1000ml) 1,000 ml @ 50 mls/hr Q20H IV 11/19/16 13:15 11/20/16 09:14 11/19/16 15:18 50 MLS/HR Cefuroxime Axetil (Ceftin Tab) 500 mg DAILY@1600 PO 11/19/16 14:30 11/26/16 14:29 11/19/16 15:20 500 MG Magnesium Hydroxide (Milk Of Magnesia Susp) 30 ml Q6H PRN PO 11/20/16 06:45 12/20/16 06:44 Polyethylene (Miralax Powder Packet) 17 gm DAILY PRN PO 11/20/16 06:45 12/20/16 06:44 Objective Vital Signs Date Time Temp Pulse Resp B/P Pulse Ox O2 Delivery O2 Flow Rate FiO2 11/20/16 11:30 Nasal Cannula 3.0 CPAP 11/20/16 11:29 37.0 66 18 129/66 98 11/20/16 08:10 Nasal Cannula 3.0 CPAP 11/20/16 07:28 36.8 76 18 121/73 99 11/20/16 06:57 74 16 91 Nasal Cannula 3.0 11/20/16 04:00 Nasal Cannula 3.0 CPAP 11/20/16 03:49 36.7 88 20 111/62 97 Nasal Cannula 3.0 11/20/16 01:54 74 16 91 BiPAP/CPAP 3.0 11/20/16 00:00 Nasal Cannula 3.0 CPAP 11/19/16 23:45 36.9 74 18 123/65 94 CPAP 11/19/16 20:35 36.7 65 18 118/74 95 Nasal Cannula 3.0 Humidified Oxygen 11/19/16 20:00 Nasal Cannula 3.0 CPAP 11/19/16 19:11 79 18 76 Room Air 11/19/16 16:00 Nasal Cannula 3.0 11/19/16 15:19 88 11/19/16 15:07 36.8 80 20 101/61 91 Nasal Cannula 3.0 Humidified Oxygen Physical Exam General Appearance: WD/WN, no apparent distress Eyes: normal inspection, PERRL, EOMI Neck: supple, no carotid bruits, trachea midline Respiratory/Chest: lungs clear, normal breath sounds, no respiratory distress Cardiovascular: no edema, no murmur, + irregularly irregular Abdomen: normal bowel sounds, non tender, soft Extremities: no pedal edema, no calf tenderness Neurologic/Psychiatric: alert, normal mood/affect, oriented x 3 Skin: normal color, warm/dry, no rash Assessment and Plan 86 yo F w/ hx of Paroxysmal Afib with RVR, Diastolic CHF,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 Right perihilar airspace opacities, likely Pulmonary edema vs. Pneumonia -CT Chest(11/17)Extensive right upper lobe airspace opacities, suspicious for pneumonia. Suspected congestive failure with cardiomegaly, coronary calcifications, and bilateral pleural effusions. -d/c'd Ceftriaxone, Azithromycin -Continue PO Cefuroxime Hx of Diastolic CHF - possibly also contributing to SOB - silvino plerual effusion likely chronic - Continue to monitor - Continue PO Lasix, , F/U in the AM Paroxysmal AFIB - Improved HR with IV fluids, Tachycardia resolved.Continue to monitor vitals - Continue Diltiazem 140 mg po -previously on anticoagulation with Eliquis, d/c during GI bleed admission CKD - Cr 2.1 from 2.2 Baseline 1.7-2, s/p IV fluids -hx of congenital solitary kidney, CKD stage III - F/u Repeat PRP -ordered additional bag of fluids at 50 mls/hr HTN - controlled -Continue Diltiazem - Lasix 20 mg Constipation - started Colace 100 mg bid - added PRN Mirolax, Milk of Magnesia Anemia -appears to be chronic, likely due to Renal disease vs.Anemia of Chronic disease -B12, Folate wnl -Iron panel suggestive of Anemia of Chronic disease -F/U Stool heme occult DVT Prophylaxis Heparin 500 q8 PT/OT Discharge planning: home Resident Tracking Resident Involvement: Resident Care Provided Care Provided: Adult Hospital Medicine Reviewed: Pt Seen/Exam by Me History Pt feeling improved. Still with O2 via NC due to desats. She does not feel SOB. Still awaiting bowel movement. Tolerating PO well. Agree with HPI/ROS as noted. General Appearance: WD/WN, no apparent distress Respiratory: normal breath sounds, no respiratory distress Cardiovascular: normal peripheral pulses, regular rate, rhythm Gastrointestinal: non tender, soft Extremities: non-tender, no pedal edema Neurologic/Psychiatric: alert, normal mood/affect Skin Characteristics: normal color, warm/dry Assessment/Plan Resident Physician Supervision Note: I discussed the case with the resident and agree with the findings and plan as documented in the note. Any exceptions or clarifications are listed here: Documented By: Brandee Gonsalves Agree with plan as outlined above. Gentle IVF, cr is improving with baseline 1.7-1.9 MOM, send stool for blood given ongoing decline in Hb Ongoing O2 weaning ceftriaxone to PO
[2016-11-20] MEDS: DOCUSATE SODIUM 100 MG CAP PO SCH ×2 (11:25→19:52)
[2016-11-20] MEDS: CEFUROXIME AXETIL 500 MG TAB PO SCH (16:20)
[2016-11-20] MEDS ORDERED: NURSING VERBAL MED ORDER ONE (19:30)
[2016-11-20] MEDS ORDERED: CALCIUM CARBONATE 500 MG CHEWABLE PO PRN (19:45)
[2016-11-20] MEDS ORDERED: POLYETHYLENE (MIRALAX) 17 GM PACK PO ONE (20:55)
[2016-11-20] MEDS ORDERED: SENNA 8.6 MG TAB PO ONE (21:00)
[2016-11-21] VITALS (13 sets, daily range): BP systolic 95–163; BP diastolic 57–87; PULSE 48–73; TEMP 36.5–37; O2SAT 89–97
[2016-11-21] MEDS: SODIUM CHLORIDE 0.9% 1000ML 1,000 ML IV SCH (05:19)
[2016-11-21] MEDS: HEPARIN SOD 5000 UNIT/0.5 ML CARP SQ SCH ×3 (05:20→22:20)
[2016-11-21] MEDS: ALBUT/IPRATROP 3MG/0.5MG NEB 3 ML VIAL INH SCH ×3 (07:05→19:01)
[2016-11-21] MEDS: ASPIRIN 81 MG ECTAB PO SCH (07:38)
[2016-11-21] MEDS: CALCIUM CARBONATE 1250MG TAB PO SCH ×2 (07:38→20:17)
[2016-11-21] MEDS: DOCUSATE SODIUM 100 MG CAP PO SCH ×2 (07:38→20:16)
[2016-11-21] MEDS: AMIODARONE 200 MG TAB PO SCH ×2 (07:39→20:17)
[2016-11-21] MEDS: FUROSEMIDE 20 MG TAB PO SCH (07:39)
[2016-11-21] MEDS: DILTIAZEM HCL 240 MG CAPCR PO SCH (07:39)
[2016-11-21] MEDS: POLYETHYLENE (MIRALAX) 17 GM PACK PO SCH (07:40)
[2016-11-21 09:10] LABS: HEMATOCRIT 27.1 % (37-47)
[2016-11-21 09:47] LABS: BUN/CREATININE RATIO 23.9 (10-20); CALCIUM 8.9 mg/dl (8.5-10.1); POTASSIUM 4.1 mmol/L (3.5-5.1)
--- NOTE | 2016-11-21 10:02 | Family Medicine Progress Note ---
Progress Note Date of Service Nov 21, 2016. Subjective Pt evaluation today including: conversation w/ patient, conversation w/ family , physical exam, chart review, lab review, review of studies, review of inpatient medication list Pain: denies PO Intake: denies Voiding: no voiding problems NO acute events overnight. Patient reports infrequent productive cough, denies CP, SOB, Palpitation Additional Comments: Constitutional: No chills, No fever, No weakness Respiratory: occasional +Productive cough, No shortness of breath, No sputum Cardiovascular: No chest pain, No edema, No palpitations Abdomen: No constipation, No diarrhea, No nausea, No pain, No vomiting Female : No dysuria, No hematuria, No urinary frequency Neurologic: No numbness/tingling, No weakness Skin: No color change, No itch, No rash Medications Current Inpatient Medications Medications (Trade) Dose Ordered Sig/Jameson Route Start Time Stop Time Status Last Admin Dose Admin Amiodarone HCl (Cordarone Tab) 200 mg BID PO 11/17/16 21:00 12/17/16 20:59 11/21/16 07:39 200 MG Aspirin (Ecotrin Tab) 81 mg DAILY PO 11/18/16 09:00 12/18/16 08:59 11/21/16 07:38 81 MG Digoxin (Lanoxin Tab) 0.125 mg MoWeFr@1600 PO 11/19/16 16:00 12/19/16 15:59 11/19/16 15:19 0.125 MG Diltiazem HCl (Cardizem Cd Cap) 240 mg DAILY PO 11/18/16 09:00 12/18/16 08:59 11/21/16 07:39 240 MG Furosemide (Lasix Tab) 20 mg DAILY PO 11/18/16 09:00 12/18/16 08:59 11/21/16 07:39 20 MG Calcium Carbonate (oS-Jeison 500 TAB) 1,250 mg BID PO 11/17/16 21:00 12/17/16 20:59 11/21/16 07:38 1,250 MG Albuterol/ Ipratropium (Duoneb) 3 ml Q6R INH 11/17/16 21:00 12/17/16 20:59 11/21/16 07:05 3 ML Levalbuterol (Xopenex 1.25MG/ 3ML Neb) 1.25 mg Q4H PRN INH 11/17/16 16:30 12/17/16 16:29 Heparin Sodium (Porcine) (Heparin Sq 5000 Unit/0.5ml) 5,000 unit Q8 SQ 11/17/16 22:00 12/17/16 21:59 11/21/16 05:20 5,000 UNIT Morphine Sulfate (MoRPHine SULFATE INJ) 2 mg Q30M PRN IV 11/17/16 17:15 12/01/16 17:14 Ondansetron HCl (Zofran Inj) 4 mg Q6H PRN IV 11/18/16 05:45 12/18/16 05:44 11/18/16 16:21 4 MG Acetaminophen (Tylenol Tab) 650 mg Q6H PRN PO 11/18/16 05:45 12/18/16 05:44 11/19/16 23:26 650 MG Cefuroxime Axetil (Ceftin Tab) 500 mg DAILY@1600 PO 11/19/16 14:30 11/26/16 14:29 11/20/16 16:20 500 MG Magnesium Hydroxide (Milk Of Magnesia Susp) 30 ml Q6H PRN PO 11/20/16 06:45 12/20/16 06:44 Docusate Sodium 100 mg 100 mg BID PO 11/20/16 09:00 12/20/16 08:59 11/21/16 07:38 100 MG Sodium Chloride (Nss 1000ml) 1,000 ml @ 50 mls/hr Q20H IV 11/20/16 09:15 12/20/16 09:14 11/21/16 05:19 50 MLS/HR Calcium Carbonate (Tums Chew Tab) 1,000 mg PRN PRN PO 11/20/16 19:45 12/20/16 19:44 11/20/16 19:51 1,000 MG Polyethylene (Miralax Powder Packet) 17 gm DAILY PO 11/21/16 09:00 12/21/16 08:59 11/21/16 07:40 17 GM Objective Vital Signs Date Time Temp Pulse Resp B/P Pulse Ox O2 Delivery O2 Flow Rate FiO2 11/21/16 07:25 37.0 66 16 146/79 94 4.0 11/21/16 07:05 73 18 96 Nasal Cannula 3.0 11/21/16 04:01 92 CPAP 4.0 11/21/16 03:46 36.7 72 18 143/87 92 CPAP 4.0 11/20/16 23:59 92 CPAP 4.0 11/20/16 23:50 36.8 74 18 139/70 88 CPAP 3.0 11/20/16 20:00 93 Nasal Cannula 3.0 90 Humidified Oxygen 11/20/16 19:30 36.9 74 18 132/75 93 Nasal Cannula 3.0 Humidified Oxygen 11/20/16 18:40 76 18 95 Nasal Cannula 3.0 11/20/16 16:00 Nasal Cannula 3.0 Humidified Oxygen 11/20/16 15:20 37.0 68 18 116/65 93 Nasal Cannula 3.0 Humidified Oxygen 11/20/16 14:26 76 16 95 Nasal Cannula 3.0 11/20/16 11:30 Nasal Cannula 3.0 CPAP 11/20/16 11:29 37.0 66 18 129/66 98 Physical Exam Notes: General Appearance: WD/WN, no apparent distress Eyes: normal inspection, PERRL, EOMI Neck: supple, no carotid bruits, trachea midline Respiratory/Chest: lungs clear,+ coarse breath sounds, no respiratory distress Cardiovascular: no edema, no murmur, + irregularly irregular Abdomen: normal bowel sounds, non-tender, soft Extremities: no pedal edema, no calf tenderness Neurologic/Psychiatric: alert, normal mood/affect, oriented x 3 Skin: normal color, warm/dry, no rash Laboratory Results Results Past 24 Hours Test 11/21/16 08:46 Range/Units Hemoglobin 8.1 12.0-16.0 g/dL Hematocrit 27.1 37-47 % Sodium Level 142 136-145 mmol/L Potassium Level 4.1 3.5-5.1 mmol/L Chloride Level 102 98-107 mmol/L Carbon Dioxide Level 35 21-32 mmol/L Anion Gap 5.0 3-11 mmol/L Blood Urea Nitrogen 48 7-18 mg/dl Creatinine 2.00 0.60-1.20 mg/dl Est Creatinine Clear Calc Drug Dose 16.6 ml/min Estimated GFR () 25.9 Estimated GFR (Non- 22.4 BUN/Creatinine Ratio 23.9 10-20 Random Glucose 161 70-99 mg/dl Calcium Level 8.9 8.5-10.1 mg/dl Assessment and Plan 86 yo F w/ hx of Paroxysmal Afib with RVR, Diastolic CHF,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 Right perihilar airspace opacities, likely Pulmonary edema vs. Pneumonia -CT Chest(11/17)Extensive right upper lobe airspace opacities, suspicious for pneumonia. Suspected congestive failure with cardiomegaly, coronary calcifications, and bilateral pleural effusions. -d/c'd Ceftriaxone, Azithromycin -Continue PO Cefuroxime Hx of Diastolic CHF - possibly also contributing to SOB - silvino plerual effusion likely chronic - Continue to monitor - Continue PO Lasix, Paroxysmal AFIB - Tachycardia resolved.Continue to monitor vitals - Continue Diltiazem 140 mg po -previously on anticoagulation with Eliquis, d/c during GI bleed admission CKD - Cr 2.0 from 2.1 within Baseline 1.7-2, s/p IV fluids -hx of congenital solitary kidney, CKD stage III - F/u Repeat PRP HTN - controlled - Continue Diltiazem - Lasix 20 mg Constipation - continue Colace 100 mg bid - given Mirolax, Milk of Magnesia - Will attempt prune/butter mixture - PRN Fleet's Enema if no BM Anemia - H/H continues to drop 9.3-->8.5-->8.1 - R/O Gi Bleed -B12, Folate wnl -previous Iron panel suggestive of Anemia of Chronic disease vs. iron def. -F/U Stool heme occult after BM today DVT Prophylaxis Heparin 500 q8 PT/OT -F/u report Continued [facility] stay due to: other (abnormal labs) Discharge planning: home Resident Tracking Resident Involvement: Resident Care Provided Care Provided: Adult Hospital Medicine Reviewed: Pt Seen/Exam by Me History Pt is stable. Feels her abd is a bit distended today, but no pain or feelings of constipation. Feels her breathing is doing well. No SOB. No chest pain. Tolerating PO without issue. Agree with HPI/ROS as noted. General Appearance: WD/WN, no apparent distress Respiratory: normal breath sounds, no respiratory distress Cardiovascular: normal peripheral pulses, regular rate, rhythm Gastrointestinal: non tender, soft, distended Extremities: non-tender, no pedal edema Neurologic/Psychiatric: alert, normal mood/affect, oriented x 3 Skin Characteristics: normal color, warm/dry Assessment/Plan Resident Physician Supervision Note: I discussed the case with the resident and agree with the findings and plan as documented in the note. Any exceptions or clarifications are listed here: Documented By: Brandee Gonsalves Agree with plan as outlined above. Gentle IVF, cr is improving with baseline 1.7-1.9 More aggressive bowel regiment given still no bowel movement with multiple meds , adding mineral oil enema and butter/prunes t/c gerda Mild distention today, but no pain, n/v and tolerating PO without issue. May need to consider KUB if pt becomes sx, but can hold on this for now as pt says this happens to her periodically at home and generally clears send stool for blood given ongoing decline in Hb Ongoing O2 weaning ceftriaxone to PO
[2016-11-21] MEDS ORDERED: MINERAL OIL ENEMA 133 ML BTL PR PRN (10:45)
[2016-11-21] MEDS: DIGOXIN 0.125 MG TAB PO SCH (15:47)
[2016-11-21] MEDS: CEFUROXIME AXETIL 500 MG TAB PO SCH (15:48)
[2016-11-22] VITALS (14 sets, daily range): BP systolic 122–178; BP diastolic 61–87; PULSE 62–85; TEMP 36.5–37; O2SAT 84–95
[2016-11-22] MEDS: SODIUM CHLORIDE 0.9% 1000ML 1,000 ML IV SCH (01:17)
[2016-11-22] MEDS: ALBUT/IPRATROP 3MG/0.5MG NEB 3 ML VIAL INH SCH ×4 (02:04→19:17)
[2016-11-22] MEDS: HEPARIN SOD 5000 UNIT/0.5 ML CARP SQ SCH ×4 (05:14→20:24)
[2016-11-22 07:51] LABS: INR 0.9 (0.9-1.1); PROTHROMBIN TIME (PATIENT) 9.6 SECONDS (9.0-12.0)
--- NOTE | 2016-11-22 08:15 | Family Medicine Progress Note ---
Progress Note Date of Service Nov 22, 2016. Subjective Pt evaluation today including: conversation w/ patient Pain: denies PO Intake: adequate Voiding: no voiding problems Additional Comments: Constitutional: No chills, No fever, No weakness Respiratory: No cough, No shortness of breath, No sputum Cardiovascular: No chest pain, No edema, No palpitations Abdomen: No constipation, No diarrhea, No nausea, No pain, No vomiting Female : No dysuria, No hematuria, No urinary frequency Neurologic: No numbness/tingling, No weakness Skin: No color change, No itch, No rash Medications Current Inpatient Medications Medications (Trade) Dose Ordered Sig/Jameson Route Start Time Stop Time Status Last Admin Dose Admin Amiodarone HCl (Cordarone Tab) 200 mg BID PO 11/17/16 21:00 12/17/16 20:59 11/21/16 20:17 200 MG Aspirin (Ecotrin Tab) 81 mg DAILY PO 11/18/16 09:00 12/18/16 08:59 11/21/16 07:38 81 MG Digoxin (Lanoxin Tab) 0.125 mg MoWeFr@1600 PO 11/19/16 16:00 12/19/16 15:59 11/19/16 15:19 0.125 MG Diltiazem HCl (Cardizem Cd Cap) 240 mg DAILY PO 11/18/16 09:00 12/18/16 08:59 11/21/16 07:39 240 MG Furosemide (Lasix Tab) 20 mg DAILY PO 11/18/16 09:00 12/18/16 08:59 11/21/16 07:39 20 MG Calcium Carbonate (oS-Jeison 500 TAB) 1,250 mg BID PO 11/17/16 21:00 12/17/16 20:59 11/21/16 20:17 1,250 MG Albuterol/ Ipratropium (Duoneb) 3 ml Q6R INH 11/17/16 21:00 12/17/16 20:59 11/22/16 07:14 3 ML Levalbuterol (Xopenex 1.25MG/ 3ML Neb) 1.25 mg Q4H PRN INH 11/17/16 16:30 12/17/16 16:29 Heparin Sodium (Porcine) (Heparin Sq 5000 Unit/0.5ml) 5,000 unit Q8 SQ 11/17/16 22:00 12/17/16 21:59 11/22/16 05:14 5,000 UNIT Morphine Sulfate (MoRPHine SULFATE INJ) 2 mg Q30M PRN IV 11/17/16 17:15 12/01/16 17:14 Ondansetron HCl (Zofran Inj) 4 mg Q6H PRN IV 11/18/16 05:45 12/18/16 05:44 11/18/16 16:21 4 MG Acetaminophen (Tylenol Tab) 650 mg Q6H PRN PO 11/18/16 05:45 12/18/16 05:44 11/19/16 23:26 650 MG Cefuroxime Axetil (Ceftin Tab) 500 mg DAILY@1600 PO 11/19/16 14:30 11/26/16 14:29 11/21/16 15:48 500 MG Magnesium Hydroxide (Milk Of Magnesia Susp) 30 ml Q6H PRN PO 11/20/16 06:45 12/20/16 06:44 11/21/16 20:16 30 ML Docusate Sodium 100 mg 100 mg BID PO 11/20/16 09:00 12/20/16 08:59 11/21/16 20:16 100 MG Sodium Chloride (Nss 1000ml) 1,000 ml @ 50 mls/hr Q20H IV 11/20/16 09:15 12/20/16 09:14 11/22/16 01:17 50 MLS/HR Calcium Carbonate (Tums Chew Tab) 1,000 mg PRN PRN PO 11/20/16 19:45 12/20/16 19:44 11/20/16 19:51 1,000 MG Polyethylene (Miralax Powder Packet) 17 gm DAILY PO 11/21/16 09:00 12/21/16 08:59 11/21/16 07:40 17 GM Mineral Oil (Fleet Oil Enema) 133 ml ONE PRN NM 11/21/16 10:45 12/21/16 10:44 11/21/16 16:13 133 ML Objective Vital Signs Date Time Temp Pulse Resp B/P Pulse Ox O2 Delivery O2 Flow Rate FiO2 11/22/16 17:00 Room Air 1.0 11/22/16 16:58 36.8 62 13 178/87 91 Nasal Cannula 1.0 11/22/16 16:00 Nasal Cannula 1.0 Humidified Oxygen 11/22/16 15:35 37.0 66 18 131/63 93 11/22/16 14:47 85 16 95 Nasal Cannula 3.0 11/22/16 13:47 84 11/22/16 13:40 91 Nasal Cannula 1.0 11/22/16 13:39 36.5 65 16 146/79 84 Room Air 11/22/16 12:35 37.0 67 14 122/70 93 Nasal Cannula 1.0 11/22/16 12:00 Nasal Cannula 3.0 Humidified Oxygen 11/22/16 08:23 36.6 77 18 152/87 94 Nasal Cannula 3.0 11/22/16 08:00 Nasal Cannula 3.0 Humidified Oxygen 11/22/16 07:14 85 16 92 BiPAP/CPAP 3.0 11/22/16 04:02 Nasal Cannula 3.0 90 Humidified Oxygen 11/22/16 03:23 36.6 73 18 156/80 91 CPAP 11/22/16 02:04 65 16 92 BiPAP/CPAP 3.0 11/22/16 00:00 Nasal Cannula 3.0 90 Humidified Oxygen 11/21/16 23:38 36.5 65 18 121/82 90 CPAP 11/21/16 20:12 36.7 70 20 163/79 96 Nasal Cannula 2.0 Humidified Oxygen 11/21/16 20:00 Nasal Cannula 3.0 Physical Exam Notes: General Appearance: WD/WN, no apparent distress Eyes: normal inspection, PERRL, EOMI Neck: supple, no carotid bruits, trachea midline Respiratory/Chest: lungs clear,+ coarse breath sounds, no respiratory distress Cardiovascular: no edema, no murmur, + irregularly irregular Abdomen: normal bowel sounds, non-tender, soft Extremities: no pedal edema, no calf tenderness Neurologic/Psychiatric: alert, normal mood/affect, oriented x 3 Skin: normal color, warm/dry, no rash Laboratory Results Results Past 24 Hours Test 11/22/16 07:30 11/22/16 08:15 Range/Units Hemoglobin 8.7 12.0-16.0 g/dL Hematocrit 29.0 37-47 % Prothrombin Time 9.6 9.0-12.0 SECONDS Prothromb Time International Ratio 0.9 0.9-1.1 Sodium Level 144 136-145 mmol/L Potassium Level 4.5 3.5-5.1 mmol/L Chloride Level 105 98-107 mmol/L Carbon Dioxide Level 35 21-32 mmol/L Anion Gap 4.0 3-11 mmol/L Blood Urea Nitrogen 47 7-18 mg/dl Creatinine 1.80 0.60-1.20 mg/dl Est Creatinine Clear Calc Drug Dose 18.4 ml/min Estimated GFR () 29.4 Estimated GFR (Non- 25.4 BUN/Creatinine Ratio 26.0 10- Random Glucose 96 70-99 mg/dl Calcium Level 8.7 8.5-10.1 mg/dl Stool Occult Blood NEGATIVE NEGATIVE Assessment and Plan 86 yo F w/ hx of Paroxysmal Afib with RVR, Diastolic CHF,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 Right perihilar airspace opacities, likely Pulmonary edema vs. Pneumonia -CT Chest(11/17)Extensive right upper lobe airspace opacities, suspicious for pneumonia. Suspected congestive failure with cardiomegaly, coronary calcifications, and bilateral pleural effusions. 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 - Continue to monitor - Continue PO Lasix, Paroxysmal AFIB - Tachycardia resolved.Continue to monitor vitals - Continue Diltiazem 140 mg po -previously on anticoagulation with Eliquis, d/c during GI bleed admission CKD - Cr1.8 from 2.0 from 2.1 within Baseline 1.7-2, s/p IV fluids -hx of congenital solitary kidney, CKD stage III - F/u Repeat PRP HTN - controlled - Continue Diltiazem - Lasix 20 mg Constipation - BM x1 (11/22) - continue Colace 100 mg bid -s/p Mirolax, Milk of Magnesia - s/p prunejuice /butter mixture - s/p Fleet's Enema Anemia - H/H continues to drop 9.3-->8.5-->8.1-->8.7 -Stablized, Asx -B12, Folate wnl -previous Iron panel suggestive of Anemia of Chronic disease vs. iron def. -rapid drop in H/H may be due to dilution, Stop IV fluids -Stool Heme occult negative DVT Prophylaxis Heparin 500 q8 PT/OT Tolerates Well, Motivated Progressing, Recommend Return Home Discharge planning: home Resident Tracking Resident Involvement: Resident Care Provided Care Provided: Adult [facility] Medicine Reviewed: Pt Seen/Exam by Me History Pt has been doing well. She had a bowel movement this AM. Did not note yehuda blood. Feels no SOB, but has been on O2 continuously still. No chest pain. Tolerating PO. Agree with HPI/ROS as noted. General Appearance: WD/WN, no apparent distress Respiratory: normal breath sounds, no respiratory distress Cardiovascular: normal peripheral pulses, regular rate, rhythm Gastrointestinal: non tender, soft Extremities: non-tender, no pedal edema Neurologic/Psychiatric: alert, normal mood/affect Skin Characteristics: normal color, warm/dry Assessment/Plan Resident Physician Supervision Note: I discussed the case with the resident and agree with the findings and plan as documented in the note. Any exceptions or clarifications are listed here: Documented By: Brandee Gonsalves Agree with plan as outlined above. Gentle IVF, cr is within baseline 1.7-1.9 Stool neg for blood and Hb is actually improving today Ongoing O2 weaning d/c IVF ceftriaxone PO Will need to add QD iron + vit C + MOM/senna on d/c
[2016-11-22 08:17] LABS: CALCIUM 8.7 mg/dl (8.5-10.1); CREATININE 1.8 mg/dl (0.60-1.20); POTASSIUM 4.5 mmol/L (3.5-5.1)
[2016-11-22] MEDS: DILTIAZEM HCL 240 MG CAPCR PO SCH (10:05)
[2016-11-22] MEDS: DOCUSATE SODIUM 100 MG CAP PO SCH ×2 (10:06→20:24)
[2016-11-22] MEDS: ASPIRIN 81 MG ECTAB PO SCH (10:07)
[2016-11-22] MEDS: AMIODARONE 200 MG TAB PO SCH ×2 (10:07→20:25)
[2016-11-22] MEDS: FUROSEMIDE 20 MG TAB PO SCH (10:08)
[2016-11-22] MEDS: POLYETHYLENE (MIRALAX) 17 GM PACK PO SCH (10:08)
[2016-11-22] MEDS: CALCIUM CARBONATE 1250MG TAB PO SCH ×2 (10:09→20:25)
[2016-11-22] MEDS: CEFUROXIME AXETIL 500 MG TAB PO SCH (16:51)
[2016-11-23] VITALS (10 sets, daily range): BP systolic 146–169; BP diastolic 66–88; PULSE 57–82; TEMP 36.3–36.8; O2SAT 92–97
[2016-11-23] MEDS: ALBUT/IPRATROP 3MG/0.5MG NEB 3 ML VIAL INH SCH ×4 (02:00→19:30)
[2016-11-23] MEDS: HEPARIN SOD 5000 UNIT/0.5 ML CARP SQ SCH (05:53)
--- NOTE | 2016-11-23 07:29 | DIAGNOSTIC IMAGING REPORT ---
CHEST ONE VIEW PORTABLE CLINICAL HISTORY: Dyspnea COMPARISON STUDY: Chest radiograph and chest CT November 17, 2016. FINDINGS: Cardiomegaly is again noted. There are bilateral pleural effusions, right larger than left. Asymmetric right lung airspace opacity favors pneumonia. This has slightly improved since prior exam. There is no pneumothorax. IMPRESSION: 1. Slight improvement in suspected right lung pneumonia since prior exam. 2. Persistent bilateral pleural effusions and associated bibasilar opacities which could reflect atelectasis or consolidation. 3. Pulmonary vascular congestion with possible mild pulmonary edema. Electronically signed by: Major Parmar M.D. 11/23/2016 7:28 AM Dictated Date/Time: 11/23/2016 7:25 AM
[2016-11-23 07:44] LABS: MEAN CELL VOLUME 80.6 fL (80-100); MEAN CORPUSCULAR HEMOGLOBIN 24.7 pg (25-34); MEAN CORPUSCULAR HGB CONC 30.7 g/dl (32-36); MEAN PLATELET VOLUME 9.1 fL (7.4-10.4); PLATELET COUNT 312 K/uL (130-400); WHITE BLOOD COUNT 7.58 K/uL (4.8-10.8)
[2016-11-23] MEDS: AMIODARONE 200 MG TAB PO SCH ×2 (07:46→21:03)
[2016-11-23] MEDS: DOCUSATE SODIUM 100 MG CAP PO SCH ×2 (07:47→21:02)
[2016-11-23] MEDS: DILTIAZEM HCL 240 MG CAPCR PO SCH (07:47)
[2016-11-23] MEDS: FUROSEMIDE 20 MG TAB PO SCH (07:47)
[2016-11-23] MEDS: ASPIRIN 81 MG ECTAB PO SCH (07:47)
[2016-11-23] MEDS: CALCIUM CARBONATE 1250MG TAB PO SCH ×2 (07:48→21:03)
[2016-11-23] MEDS: POLYETHYLENE (MIRALAX) 17 GM PACK PO SCH (07:49)
[2016-11-23] MEDS ORDERED: FUROSEMIDE 20 MG TAB PO ONE ×2 (10:30→18:00)
--- NOTE | 2016-11-23 10:59 | Family Medicine Progress Note ---
Progress Note Date of Service Nov 23, 2016. 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 Patient desaturated to the low 80' s per nurse. She was placed back on O2. As of this morning patient was back on 4 L. She denies SOB, Chest pain, palpitation, but she does continue to have a productive cough. Additional Comments: Constitutional: No chills, No fever, No weakness Respiratory: No cough, No shortness of breath, No sputum Cardiovascular: No chest pain, No edema, No palpitations Abdomen: No constipation, No diarrhea, No nausea, No pain, No vomiting Female : No dysuria, No hematuria, No urinary frequency Neurologic: No numbness/tingling, No weakness Skin: No color change, No itch, No rash Medications Current Inpatient Medications Medications (Trade) Dose Ordered Sig/Jameson Route Start Time Stop Time Status Last Admin Dose Admin Amiodarone HCl (Cordarone Tab) 200 mg BID PO 11/17/16 21:00 12/17/16 20:59 11/23/16 07:46 200 MG Aspirin (Ecotrin Tab) 81 mg DAILY PO 11/18/16 09:00 12/18/16 08:59 11/23/16 07:47 81 MG Digoxin (Lanoxin Tab) 0.125 mg MoWeFr@1600 PO 11/19/16 16:00 12/19/16 15:59 11/19/16 15:19 0.125 MG Diltiazem HCl (Cardizem Cd Cap) 240 mg DAILY PO 11/18/16 09:00 12/18/16 08:59 11/23/16 07:47 240 MG Furosemide (Lasix Tab) 20 mg DAILY PO 11/18/16 09:00 12/18/16 08:59 11/23/16 07:47 20 MG Calcium Carbonate (oS-Jeison 500 TAB) 1,250 mg BID PO 11/17/16 21:00 12/17/16 20:59 11/23/16 07:48 1,250 MG Albuterol/ Ipratropium (Duoneb) 3 ml Q6R INH 11/17/16 21:00 12/17/16 20:59 11/23/16 07:12 3 ML Levalbuterol (Xopenex 1.25MG/ 3ML Neb) 1.25 mg Q4H PRN INH 11/17/16 16:30 12/17/16 16:29 Morphine Sulfate (MoRPHine SULFATE INJ) 2 mg Q30M PRN IV 11/17/16 17:15 12/01/16 17:14 Ondansetron HCl (Zofran Inj) 4 mg Q6H PRN IV 11/18/16 05:45 12/18/16 05:44 11/18/16 16:21 4 MG Acetaminophen (Tylenol Tab) 650 mg Q6H PRN PO 11/18/16 05:45 12/18/16 05:44 11/19/16 23:26 650 MG Cefuroxime Axetil (Ceftin Tab) 500 mg DAILY@1600 PO 11/19/16 14:30 11/26/16 14:29 11/22/16 16:51 500 MG Magnesium Hydroxide (Milk Of Magnesia Susp) 30 ml Q6H PRN PO 11/20/16 06:45 12/20/16 06:44 11/21/16 20:16 30 ML Docusate Sodium (coLACE CAP) 100 mg BID PO 11/20/16 09:00 12/20/16 08:59 11/23/16 07:47 100 MG Calcium Carbonate (Tums Chew Tab) 1,000 mg PRN PRN PO 11/20/16 19:45 12/20/16 19:44 11/20/16 19:51 1,000 MG Polyethylene (Miralax Powder Packet) 17 gm DAILY PO 11/21/16 09:00 12/21/16 08:59 11/23/16 07:49 17 GM Mineral Oil (Fleet Oil Enema) 133 ml ONE PRN IN 11/21/16 10:45 12/21/16 10:44 11/21/16 16:13 133 ML Ascorbic Acid (Vitamin C Tab) 500 mg QAM PO 11/24/16 09:00 12/24/16 08:59 Ferrous Sulfate (Feosol Tab) 325 mg QAM PO 11/24/16 09:00 12/24/16 08:59 Magnesium Hydroxide (Milk Of Magnesia Susp) 30 ml DAILY PO 11/24/16 09:00 12/24/16 08:59 Senna (Senokot Tab) 8.6 mg QAM PO 11/24/16 09:00 12/24/16 08:59 Objective Vital Signs Date Time Temp Pulse Resp B/P Pulse Ox O2 Delivery O2 Flow Rate FiO2 11/23/16 07:54 36.8 67 18 161/88 97 11/23/16 07:40 Nasal Cannula 11/23/16 07:12 65 18 94 BiPAP/CPAP 5.0 11/23/16 04:10 36.6 71 16 166/84 92 BiPAP 5.0 11/23/16 04:00 CPAP 11/23/16 02:00 70 18 93 BiPAP/CPAP 5.0 11/22/16 23:59 Nasal Cannula 11/22/16 23:25 36.6 62 16 167/84 91 BiPAP 11/22/16 20:00 Nasal Cannula 11/22/16 19:50 37.0 62 18 125/61 93 11/22/16 19:20 62 16 94 Nasal Cannula 1.0 11/22/16 17:00 Room Air 1.0 11/22/16 16:58 36.8 62 13 178/87 91 Nasal Cannula 1.0 11/22/16 16:00 Nasal Cannula 1.0 Humidified Oxygen 11/22/16 15:35 37.0 66 18 131/63 93 11/22/16 14:47 85 16 95 Nasal Cannula 3.0 11/22/16 13:47 84 11/22/16 13:40 91 Nasal Cannula 1.0 11/22/16 13:39 36.5 65 16 146/79 84 Room Air 11/22/16 12:35 37.0 67 14 122/70 93 Nasal Cannula 1.0 11/22/16 12:00 Nasal Cannula 3.0 Humidified Oxygen Physical Exam Notes: General Appearance: WD/WN, no apparent distress Eyes: normal inspection, PERRL, EOMI Neck: supple, no carotid bruits, trachea midline Respiratory/Chest: lungs clear,+ coarse breath sounds (Improved from previous) , no respiratory distress Cardiovascular: no edema, no murmur, + irregularly irregular Abdomen: normal bowel sounds, non-tender, soft Extremities: no pedal edema, no calf tenderness Neurologic/Psychiatric: alert, normal mood/affect, oriented x 3 Skin: normal color, warm/dry, no rash Laboratory Results Results Past 24 Hours Test 11/23/16 06:58 Range/Units White Blood Count 7.58 4.8-10.8 K/uL Red Blood Count 3.60 4.2-5.4 M/uL Hemoglobin 8.9 12.0-16.0 g/dL Hematocrit 29.0 37-47 % Mean Corpuscular Volume 80.6 80-100 fL Mean Corpuscular Hemoglobin 24.7 25-34 pg Mean Corpuscular Hemoglobin Concent 30.7 32-36 g/dl RDW Standard Deviation 48.9 36.4-46.3 fL RDW Coefficient of Variation 16.5 11.5-14.5 % Platelet Count 312 130-400 K/uL Mean Platelet Volume 9.1 7.4-10.4 fL Assessment and Plan 86 yo F w/ hx of Paroxysmal Afib with RVR, Diastolic CHF,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 Right perihilar airspace opacities, likely Pulmonary edema vs. Pneumonia -CT Chest(11/17)Extensive right upper lobe airspace opacities, suspicious for pneumonia. Suspected congestive failure with cardiomegaly, coronary calcifications, and bilateral pleural effusions. 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 - Continue to monitor - Continue PO Lasix, -Gave 2 additional doses of Lasix 11/23 Paroxysmal AFIB - Tachycardia resolved.Continue to monitor vitals - Continue Diltiazem 140 mg po -previously on anticoagulation with Eliquis, d/c during GI bleed admission CKD - Cr1.8 from 2.0 from 2.1 within Baseline 1.7-2, s/p IV fluids -hx of congenital solitary kidney, CKD stage III - F/u Repeat PRP HTN - controlled - Continue Diltiazem - Lasix 20 mg Constipation - BM x1 (11/22) - continue Colace 100 mg bid -s/p Mirolax, Milk of Magnesia - s/p prunejuice /butter mixture - s/p Fleet's Enema -Started scheduled Milk of Magnesia also to send home on d/c Anemia - H/H continues to drop 9.3-->8.5-->8.1-->8.7->8.9 -Stablized, Asx -B12, Folate wnl -previous Iron panel suggestive of Anemia of Chronic disease vs. iron def. -rapid drop in H/H may be due to dilution, Stop IV fluids -Stool Heme occult negative - Start Iron supplementation, Vit C, Milk of Magnesia for constipation prevention DVT Prophylaxis Heparin 500 q8 PT/OT Tolerates Well, Motivated Progressing, Recommend Return Home Continued [facility] stay due to: abnormal vital signs Discharge planning: home Resident Tracking Resident Involvement: Resident Care Provided Care Provided: Adult Hospital Medicine Reviewed: Pt Seen/Exam by Me History Pt had an episode of SOB overnight. CXR noted for small pleural effusions. Nursing attempts to wean pt from O2 yesterday. Pt's sats in the 90s down to 1L. NC was removed and she would desat to mid-80s, however she states that she was not SOB with this. Eating without issue. Bowel movement this AM. No chest pain. Agree with HPI/ROS as noted. General Appearance: WD/WN, no apparent distress Respiratory: no respiratory distress, crackles Cardiovascular: normal peripheral pulses, regular rate, rhythm Gastrointestinal: non tender, soft Extremities: non-tender, no pedal edema Neurologic/Psychiatric: alert, normal mood/affect, oriented x 3 Skin Characteristics: normal color, warm/dry Assessment/Plan Resident Physician Supervision Note: I discussed the case with the resident and agree with the findings and plan as documented in the note. Any exceptions or clarifications are listed here: Documented By: Brandee Gonsalves Agree with plan as outlined above. Cr is within baseline 1.7-1.9 Stool neg for blood and Hb continues to improve Additional 20mg lasix this AM Ongoing O2 weaning today, if unable to wean this afternoon, will give additional 20mg lasix and monitor ceftriaxone PO Add QD iron + vit C + MOM/senna
[2016-11-23] MEDS: CEFUROXIME AXETIL 500 MG TAB PO SCH (16:22)
[2016-11-23] MEDS: DIGOXIN 0.125 MG TAB PO SCH (16:23)
[2016-11-24] VITALS (7 sets, daily range): BP systolic 107–178; BP diastolic 63–97; PULSE 64–92; TEMP 36.7–36.8; O2SAT 94–98
[2016-11-24] MEDS: ALBUT/IPRATROP 3MG/0.5MG NEB 3 ML VIAL INH SCH ×4 (02:09→19:28)
[2016-11-24] MEDS: DILTIAZEM HCL 240 MG CAPCR PO SCH (08:24)
[2016-11-24] MEDS: CALCIUM CARBONATE 1250MG TAB PO SCH ×2 (08:24→21:20)
[2016-11-24] MEDS: ASPIRIN 81 MG ECTAB PO SCH (08:24)
[2016-11-24] MEDS: AMIODARONE 200 MG TAB PO SCH ×2 (08:24→21:19)
[2016-11-24] MEDS: DOCUSATE SODIUM 100 MG CAP PO SCH ×2 (08:24→21:19)
[2016-11-24] MEDS: FERROUS SULFATE 325 MG TAB PO SCH (08:25)
[2016-11-24] MEDS: ASCORBIC ACID 500 MG TAB PO SCH (08:25)
[2016-11-24] MEDS: POLYETHYLENE (MIRALAX) 17 GM PACK PO SCH ×2 (08:26→08:28)
[2016-11-24] MEDS: MAGNESIUM HYDROXIDE SUSP 30 ML UDC PO SCH ×2 (08:26→08:28)
[2016-11-24] MEDS: FUROSEMIDE 20 MG TAB PO SCH (08:26)
[2016-11-24] MEDS: SENNA 8.6 MG TAB PO SCH (08:26)
[2016-11-24] MEDS ORDERED: FUROSEMIDE 20 MG TAB PO STA (12:19)
--- NOTE | 2016-11-24 13:16 | Family Medicine Progress Note ---
Progress Note Date of Service Nov 24, 2016. Subjective Pt evaluation today including: conversation w/ patient, physical exam, chart review, lab review Pain: Denies Voiding: no voiding problems Patient was seen at the bedside. She continues to have cough but unable to clear the mucosal secretion. She states that she feels chest heaviness sometimes from no being able to clear the mucosal secretion. Denies any SOB. Tolerating food well and sleeping well also. Patient is still requiring oxygen supplement, currently on 3L NC. Whenever try to wean off, her O2 sat would drop to 80s. Constitutional: No fever, No weight loss Respiratory: + cough, No dyspnea at rest, No dyspnea on exertion, No shortness of breath, No sputum, No wheezing Cardiovascular: No chest pain, No edema Abdomen: No constipation, No diarrhea, No nausea, No pain, No vomiting Musculoskeletal: No muscle pain Female : No dysuria Neurologic: No weakness Skin: No rash Medications Current Inpatient Medications Medications (Trade) Dose Ordered Sig/Jameson Route Start Time Stop Time Status Last Admin Dose Admin Amiodarone HCl (Cordarone Tab) 200 mg BID PO 11/17/16 21:00 12/17/16 20:59 11/24/16 08:24 200 MG Aspirin (Ecotrin Tab) 81 mg DAILY PO 11/18/16 09:00 12/18/16 08:59 11/24/16 08:24 81 MG Digoxin (Lanoxin Tab) 0.125 mg MoWeFr@1600 PO 11/19/16 16:00 12/19/16 15:59 11/23/16 16:23 0.125 MG Diltiazem HCl (Cardizem Cd Cap) 240 mg DAILY PO 11/18/16 09:00 12/18/16 08:59 11/24/16 08:24 240 MG Furosemide (Lasix Tab) 20 mg DAILY PO 11/18/16 09:00 12/18/16 08:59 11/24/16 08:26 20 MG Calcium Carbonate (oS-Jeison 500 TAB) 1,250 mg BID PO 11/17/16 21:00 12/17/16 20:59 11/24/16 08:24 1,250 MG Albuterol/ Ipratropium (Duoneb) 3 ml Q6R INH 11/17/16 21:00 12/17/16 20:59 11/24/16 07:40 3 ML Levalbuterol (Xopenex 1.25MG/ 3ML Neb) 1.25 mg Q4H PRN INH 11/17/16 16:30 12/17/16 16:29 Morphine Sulfate (MoRPHine SULFATE INJ) 2 mg Q30M PRN IV 11/17/16 17:15 12/01/16 17:14 Ondansetron HCl (Zofran Inj) 4 mg Q6H PRN IV 11/18/16 05:45 12/18/16 05:44 11/18/16 16:21 4 MG Acetaminophen (Tylenol Tab) 650 mg Q6H PRN PO 11/18/16 05:45 12/18/16 05:44 11/19/16 23:26 650 MG Cefuroxime Axetil (Ceftin Tab) 500 mg DAILY@1600 PO 11/19/16 14:30 11/26/16 14:29 11/23/16 16:22 500 MG Magnesium Hydroxide (Milk Of Magnesia Susp) 30 ml Q6H PRN PO 11/20/16 06:45 12/20/16 06:44 11/21/16 20:16 30 ML Docusate Sodium (coLACE CAP) 100 mg BID PO 11/20/16 09:00 12/20/16 08:59 11/24/16 08:24 100 MG Calcium Carbonate (Tums Chew Tab) 1,000 mg PRN PRN PO 11/20/16 19:45 12/20/16 19:44 11/20/16 19:51 1,000 MG Polyethylene (Miralax Powder Packet) 17 gm DAILY PO 11/21/16 09:00 12/21/16 08:59 11/23/16 07:49 17 GM Mineral Oil (Fleet Oil Enema) 133 ml ONE PRN MT 11/21/16 10:45 12/21/16 10:44 11/21/16 16:13 133 ML Ascorbic Acid (Vitamin C Tab) 500 mg QAM PO 11/24/16 08:00 12/24/16 08:59 11/24/16 08:25 500 MG Ferrous Sulfate (Feosol Tab) 325 mg QAM PO 11/24/16 08:00 12/24/16 08:59 11/24/16 08:25 325 MG Magnesium Hydroxide (Milk Of Magnesia Susp) 30 ml DAILY PO 11/24/16 08:00 12/24/16 08:59 Senna (Senokot Tab) 8.6 mg QAM PO 11/24/16 08:00 12/24/16 08:59 11/24/16 08:26 8.6 MG Guaifenesin (Mucinex Contr Rel Tab) 600 mg Q12 PO 11/24/16 21:00 12/24/16 20:59 Objective Vital Signs Date Time Temp Pulse Resp B/P Pulse Ox O2 Delivery O2 Flow Rate FiO2 11/24/16 08:00 Nasal Cannula 3.0 11/24/16 07:40 85 18 96 Nasal Cannula 3.0 11/24/16 07:39 36.8 92 18 107/68 94 Nasal Cannula 3.0 11/24/16 02:09 73 18 98 BiPAP/CPAP 5.0 11/23/16 23:48 36.3 67 16 169/88 97 Nasal Cannula 5.0 BiPAP 11/23/16 20:00 Nasal Cannula 2.0 11/23/16 19:25 72 18 94 Nasal Cannula 2.0 11/23/16 16:23 66 11/23/16 16:00 Room Air 11/23/16 15:37 36.4 57 16 152/81 95 11/23/16 14:48 36.8 70 18 94 2.0 11/23/16 14:09 70 18 94 Nasal Cannula 2.0 Physical Exam General Appearance: WD/WN, no apparent distress Neck: supple, trachea midline Respiratory/Chest: chest non-tender, lungs clear, normal breath sounds, no respiratory distress, no accessory muscle use Cardiovascular: regular rate, rhythm, no murmur Abdomen: normal bowel sounds, non tender, soft Extremities: non-tender, no calf tenderness, + pertinent finding (non pitting edema noted on b/l LE) Neurologic/Psychiatric: alert, normal mood/affect, oriented x 3 Skin: normal color, warm/dry, no rash Assessment and Plan This is a 86 y/o female with PMHx of Paroxysmal Afib with RVR, Diastolic CHF, 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 Patient was admitted with Pneumonia in the setting of B/l Pleural effusions secondary to CHF. Patient continues to require Oxygen supplement. Currently on 3L NC and whenever try to wean off the oxygen patient's O2 sat would drop to 80%. Given extra dose of Lasix today and obtain CXR. 1. Dyspnea, cough - Most likely secondary to Pneumonia - Previously admitted 11/13 for PNA, treated with Rocephin Zithromax, discharged on 1 wk of Omnicef - CXR (11/17): interstitial pulmonary edema. Right perihilar airspace opacities, likely Pulmonary edema vs. Pneumonia - CT Chest(11/17): Extensive right upper lobe airspace opacities, suspicious for pneumonia. Suspected congestive failure with cardiomegaly, coronary calcifications, and bilateral pleural effusions. - d/c'd Ceftriaxone, Azithromycin - Continue PO Cefuroxime (will finish on 11/26) - Start Mucinex 600mg BID - Still requiring oxygen supplement, plan to wean off as tolerated 2. Diastolic CHF - Possibly also contributing to SOB - B/l pleural effusion likely chronic - C/w Lasix 20mg daily - Given an extra dose of Lasix today - CXR this afternoon - Continue to monitor 3. Paroxysmal Atrial fibrillation - Tachycardia resolved.Continue to monitor vitals - C/w Diltiazem 140 mg - Previously was on Eliquis, d/c during GI bleed admission 4. Anemia - Currently stable (8.9) - H/H 9.3-->8.5-->8.1-->8.7->8.9 - B12 and Folate wnl - Could be 2/2 dilution from IVF - Previous Iron panel suggestive of Anemia of Chronic disease vs. iron def. - Stool Heme occult negative - C/w Ferrous sulfate 325mg 5. CKD stage III - Creatinine is within his baseline. Patient has hx of congenital solitary kidney - S/p IV fluids - PRP tomorrow am 6. HTN - Continue Diltiazem 240mg 7. Constipation (Resolved) - Patient had 2 BMs today - s/p Mirolax, Milk of Magnesia, prunejuice /butter mixture, and Fleet's Enema - Continue Colace 100 mg bid and Milk and Mag (send home with on d/c) 8. DVT Prophylaxis - Heparin 500 q8 9. Code status - Full code Reviewed: Pt Seen/Exam by Me History Pt is more fatigued today than prior. No SOB, but again desated with d/c O2 yesterday afternoon. No chest pain. Does not feel SOB with this. Tolerating PO. ROS as noted above, otherwise neg. General Appearance: WD/WN, no apparent distress Respiratory: no respiratory distress, crackles (improving) Cardiovascular: regular rate, rhythm, no edema Gastrointestinal: non tender, soft Extremities: non-tender, no pedal edema Neurologic/Psychiatric: alert, normal mood/affect, oriented x 3 Skin Characteristics: normal color, warm/dry Assessment/Plan Resident Physician Supervision Note: I discussed the case with the resident and agree with the findings and plan as documented in the note. Any exceptions or clarifications are listed here: Documented By: Brandee Gonsalves Agree with plan as outlined above. Cr is within baseline 1.7-1.9 Stool neg for blood and Hb continues to improve Additional 20mg lasix again this AM Ongoing O2 weaning today, if unable to wean this afternoon, will order CXR ceftriaxone PO Add QD iron + vit C + MOM/senna
[2016-11-24] MEDS: CEFUROXIME AXETIL 500 MG TAB PO SCH (16:25)
--- NOTE | 2016-11-24 16:36 | DIAGNOSTIC IMAGING REPORT ---
CHEST 2 VIEWS ROUTINE CLINICAL HISTORY: CHF dyspnea COMPARISON STUDY: 11/23/2016 FINDINGS: Bilateral pleural effusions. Moderate cardiomegaly. Upper lungs are considered clear. IMPRESSION: Bilateral pleural effusions. Moderate cardiomegaly. Improved aeration of the upper lungs compared to the prior study Electronically signed by: Michael Vivar M.D. 11/24/2016 4:35 PM Dictated Date/Time: 11/24/2016 4:34 PM
[2016-11-24] MEDS: GUAIFENESIN 600 MG TABCR PO SCH (21:19)
[2016-11-25] VITALS (12 sets, daily range): BP systolic 91–154; BP diastolic 53–95; PULSE 65–82; TEMP 36.4–37.9; O2SAT 90–96
[2016-11-25] MEDS: ALBUT/IPRATROP 3MG/0.5MG NEB 3 ML VIAL INH SCH ×4 (01:50→19:20)
[2016-11-25] MEDS: ACETAMINOPHEN 325 MG TAB PO PRN ×2 (04:26→16:25)
[2016-11-25 06:41] LABS: HEMATOCRIT 27.9 % (37-47); MEAN CELL VOLUME 80.9 fL (80-100); MEAN CORPUSCULAR HEMOGLOBIN 24.1 pg (25-34); MEAN CORPUSCULAR HGB CONC 29.7 g/dl (32-36); MEAN PLATELET VOLUME 9.3 fL (7.4-10.4); PLATELET COUNT 354 K/uL (130-400); RED BLOOD COUNT 3.45 M/uL (4.2-5.4); WHITE BLOOD COUNT 10.01 K/uL (4.8-10.8)
[2016-11-25 07:12] LABS: BUN/CREATININE RATIO 27.2 (10-20); CALCIUM 8.3 mg/dl (8.5-10.1); CREATININE 1.9 mg/dl (0.60-1.20); POTASSIUM 4.2 mmol/L (3.5-5.1)
[2016-11-25] MEDS: ASPIRIN 81 MG ECTAB PO SCH (08:00)
[2016-11-25] MEDS: CALCIUM CARBONATE 1250MG TAB PO SCH ×2 (08:00→20:31)
[2016-11-25] MEDS: GUAIFENESIN 600 MG TABCR PO SCH ×2 (08:00→20:31)
[2016-11-25] MEDS: AMIODARONE 200 MG TAB PO SCH ×2 (08:00→20:31)
[2016-11-25] MEDS: DOCUSATE SODIUM 100 MG CAP PO SCH ×2 (08:00→20:31)
[2016-11-25] MEDS: SENNA 8.6 MG TAB PO SCH (08:00)
[2016-11-25] MEDS: DILTIAZEM HCL 240 MG CAPCR PO SCH (08:01)
[2016-11-25] MEDS: ASCORBIC ACID 500 MG TAB PO SCH (08:01)
[2016-11-25] MEDS: FUROSEMIDE 20 MG TAB PO SCH (08:01)
[2016-11-25] MEDS: FERROUS SULFATE 325 MG TAB PO SCH (08:01)
[2016-11-25] MEDS: ONDANSETRON INJ 2 MG/ML 2 ML VIAL IV PRN (11:28)
[2016-11-25] MEDS: CEFUROXIME AXETIL 500 MG TAB PO SCH (16:25)
--- NOTE | 2016-11-25 17:11 | Family Medicine Progress Note ---
Progress Note Date of Service Nov 25, 2016. Subjective Pt evaluation today including: conversation w/ patient, physical exam, lab review, review of studies Pain: Denies Voiding: no voiding problems Patient was seen at the bedside. She was sitting comfortably on the chair. Her was at the bedside. She states that she is feeling better than yesterday. Still have cough and able to bring up sputum. Denies any SOB, or chest pain. Tolerating PO intake well. In the afternoon patient complained of chest tightness, nausea and vomited X1. She states that she had yogurt earlier today which might have caused the nausea. Stat EKG was normal. She was given Zofran for nausea. Constitutional: No fever Respiratory: + cough, + sputum, No dyspnea at rest, No dyspnea on exertion, No shortness of breath, No wheezing Cardiovascular: No chest pain, No edema Abdomen: + nausea, + vomiting (vomited once this afternoon), No constipation , No diarrhea, No pain Musculoskeletal: No muscle pain Skin: No rash Medications Current Inpatient Medications Medications (Trade) Dose Ordered Sig/Jameson Route Start Time Stop Time Status Last Admin Dose Admin Amiodarone HCl (Cordarone Tab) 200 mg BID PO 11/17/16 21:00 12/17/16 20:59 11/25/16 08:00 200 MG Aspirin (Ecotrin Tab) 81 mg DAILY PO 11/18/16 09:00 12/18/16 08:59 11/25/16 08:00 81 MG Digoxin (Lanoxin Tab) 0.125 mg MoWeFr@1600 PO 11/19/16 16:00 12/19/16 15:59 11/23/16 16:23 0.125 MG Diltiazem HCl (Cardizem Cd Cap) 240 mg DAILY PO 11/18/16 09:00 12/18/16 08:59 11/25/16 08:01 240 MG Furosemide (Lasix Tab) 20 mg DAILY PO 11/18/16 09:00 12/18/16 08:59 11/25/16 08:01 20 MG Calcium Carbonate (oS-Jeison 500 TAB) 1,250 mg BID PO 11/17/16 21:00 12/17/16 20:59 11/25/16 08:00 1,250 MG Albuterol/ Ipratropium (Duoneb) 3 ml Q6R INH 11/17/16 21:00 12/17/16 20:59 11/25/16 14:08 3 ML Levalbuterol (Xopenex 1.25MG/ 3ML Neb) 1.25 mg Q4H PRN INH 11/17/16 16:30 12/17/16 16:29 Morphine Sulfate (MoRPHine SULFATE INJ) 2 mg Q30M PRN IV 11/17/16 17:15 12/01/16 17:14 Ondansetron HCl (Zofran Inj) 4 mg Q6H PRN IV 11/18/16 05:45 12/18/16 05:44 11/25/16 11:28 4 MG Acetaminophen (Tylenol Tab) 650 mg Q6H PRN PO 11/18/16 05:45 12/18/16 05:44 11/25/16 16:25 650 MG Cefuroxime Axetil (Ceftin Tab) 500 mg DAILY@1600 PO 11/19/16 14:30 11/26/16 14:29 11/25/16 16:25 500 MG Magnesium Hydroxide (Milk Of Magnesia Susp) 30 ml Q6H PRN PO 11/20/16 06:45 12/20/16 06:44 11/21/16 20:16 30 ML Docusate Sodium (coLACE CAP) 100 mg BID PO 11/20/16 09:00 12/20/16 08:59 11/25/16 08:00 100 MG Calcium Carbonate (Tums Chew Tab) 1,000 mg PRN PRN PO 11/20/16 19:45 12/20/16 19:44 11/20/16 19:51 1,000 MG Polyethylene (Miralax Powder Packet) 17 gm DAILY PO 11/21/16 09:00 12/21/16 08:59 11/23/16 07:49 17 GM Mineral Oil (Fleet Oil Enema) 133 ml ONE PRN VT 11/21/16 10:45 12/21/16 10:44 11/21/16 16:13 133 ML Ascorbic Acid (Vitamin C Tab) 500 mg QAM PO 11/24/16 08:00 12/24/16 08:59 11/25/16 08:01 500 MG Ferrous Sulfate (Feosol Tab) 325 mg QAM PO 11/24/16 08:00 12/24/16 08:59 11/25/16 08:01 325 MG Magnesium Hydroxide (Milk Of Magnesia Susp) 30 ml DAILY PO 11/24/16 08:00 12/24/16 08:59 Senna (Senokot Tab) 8.6 mg QAM PO 11/24/16 08:00 12/24/16 08:59 11/25/16 08:00 8.6 MG Guaifenesin (Mucinex Contr Rel Tab) 600 mg Q12 PO 11/24/16 21:00 12/24/16 20:59 11/25/16 08:00 600 MG Objective Vital Signs Date Time Temp Pulse Resp B/P Pulse Ox O2 Delivery O2 Flow Rate FiO2 11/25/16 16:01 36.4 82 22 108/81 92 2.0 11/25/16 16:00 Nasal Cannula 2.0 11/25/16 15:20 37.9 72 91/53 90 Nasal Cannula 2.0 11/25/16 14:08 76 18 90 Nasal Cannula 2.0 11/25/16 11:17 36.7 76 22 154/95 94 Nasal Cannula 2.0 11/25/16 08:00 Nasal Cannula 3.0 11/25/16 07:03 36.8 65 18 111/69 96 BiPAP 4.0 11/25/16 07:02 68 18 95 BiPAP/CPAP 3.0 11/25/16 01:50 73 18 93 BiPAP/CPAP 3.0 11/25/16 00:25 70 130/76 11/24/16 23:59 CPAP 3.0 11/24/16 23:56 36.8 76 16 178/97 94 BiPAP 4.0 11/24/16 20:00 Nasal Cannula 3.0 11/24/16 19:29 72 18 95 Nasal Cannula 3.0 Physical Exam General Appearance: WD/WN, no apparent distress Neck: supple, trachea midline Respiratory/Chest: chest non-tender, no respiratory distress, no accessory muscle use, + crackles (improved from yesterday) Cardiovascular: regular rate, rhythm, no edema Abdomen: normal bowel sounds, non tender, soft Extremities: non-tender, no pedal edema, no calf tenderness Neurologic/Psychiatric: alert, normal mood/affect, oriented x 3 Skin: normal color, warm/dry, no rash Laboratory Results Results Past 24 Hours Test 11/25/16 05:57 Range/Units White Blood Count 10.01 4.8-10.8 K/uL Red Blood Count 3.45 4.2-5.4 M/uL Hemoglobin 8.3 12.0-16.0 g/dL Hematocrit 27.9 37-47 % Mean Corpuscular Volume 80.9 80-100 fL Mean Corpuscular Hemoglobin 24.1 25-34 pg Mean Corpuscular Hemoglobin Concent 29.7 32-36 g/dl RDW Standard Deviation 48.9 36.4-46.3 fL RDW Coefficient of Variation 16.4 11.5-14.5 % Platelet Count 354 130-400 K/uL Mean Platelet Volume 9.3 7.4-10.4 fL Sodium Level 141 136-145 mmol/L Potassium Level 4.2 3.5-5.1 mmol/L Chloride Level 100 98-107 mmol/L Carbon Dioxide Level 36 21-32 mmol/L Anion Gap 5.0 3-11 mmol/L Blood Urea Nitrogen 52 7-18 mg/dl Creatinine 1.90 0.60-1.20 mg/dl Est Creatinine Clear Calc Drug Dose 17.4 ml/min Estimated GFR () 27.6 Estimated GFR (Non- 23.8 BUN/Creatinine Ratio 27.2 10-20 Random Glucose 99 70-99 mg/dl Calcium Level 8.3 8.5-10.1 mg/dl Assessment and Plan This is a 86 y/o female with PMHx of Paroxysmal Afib with RVR, Diastolic CHF, 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 Patient was admitted with Pneumonia in the setting of B/l Pleural effusions secondary to CHF. Patient continues to require Oxygen supplement. Currently on 2L NC. CXR performed yesterday showed improved aeration of the upper lungs compared to the prior study. Patient is clinically improving. 1. Dyspnea, cough - Most likely secondary to Pneumonia - Previously admitted 11/13 for PNA, treated with Rocephin Zithromax, discharged on 1 wk of Omnicef - CXR (11/17): interstitial pulmonary edema. Right perihilar airspace opacities, likely Pulmonary edema vs. Pneumonia - CT Chest(11/17): Extensive right upper lobe airspace opacities, suspicious for pneumonia. Suspected congestive failure with cardiomegaly, coronary calcifications, and bilateral pleural effusions. - d/c'd Ceftriaxone, Azithromycin - Continue PO Cefuroxime (will finish on 11/26) - Start Mucinex 600mg BID - Still requiring oxygen supplement, plan to wean off as tolerated 2. Diastolic CHF - Possibly also contributing to SOB - B/l pleural effusion likely chronic - C/w Lasix 20mg daily - Continue to monitor 3. Paroxysmal Atrial fibrillation - Tachycardia resolved.Continue to monitor vitals - C/w Diltiazem 140 mg - Previously was on Eliquis, d/c during GI bleed admission 4. Anemia - Currently stable (8.9) - H/H 9.3-->8.5-->8.1-->8.7->8.9 - B12 and Folate wnl - Could be 2/2 dilution from IVF - Previous Iron panel suggestive of Anemia of Chronic disease vs. iron def. - Stool Heme occult negative - C/w Ferrous sulfate 325mg 5. CKD stage III - Creatinine is within his baseline. Patient has hx of congenital solitary kidney - S/p IV fluids - PRP tomorrow am 6. HTN - Continue Diltiazem 240mg 7. Constipation (Resolved) - Patient had 2 BMs today - s/p Mirolax, Milk of Magnesia, prunejuice /butter mixture, and Fleet's Enema - Continue Colace 100 mg bid and Milk and Mag (send home with on d/c) 8. DVT Prophylaxis - Heparin 500 q8 9. Code status - Full code Reviewed: Pt Seen/Exam by Me History Pt still having difficulty weaning from O2. She does not feel SOB without the O2 , but sats drop into the 80s. She has been eating well. Fatigue from yesterday is improved. She is able to bring up more sputum with the addition of mucinex yesterday. It is making her chest feel full. Agree with HPI/ROS as noted. General Appearance: WD/WN, no apparent distress Respiratory: no respiratory distress, crackles (scant) Cardiovascular: normal peripheral pulses, regular rate, rhythm Gastrointestinal: non tender, soft Extremities: non-tender, no pedal edema Neurologic/Psychiatric: alert, normal mood/affect Skin Characteristics: normal color, warm/dry Assessment/Plan Resident Physician Supervision Note: I discussed the case with the resident and agree with the findings and plan as documented in the note. Any exceptions or clarifications are listed here: Documented By: Brandee Gonsalves Agree with plan as outlined above. Cr is within baseline 1.7-1.9 Stool neg for blood and Hb continues to improve Additional 20mg lasix again today Ongoing O2 weaning today CXR noted for improvement in pleural effusions, difficult to diurese quickly due to renal status ceftriaxone PO Tolerating QD iron + vit C + MOM/senna
[2016-11-26] VITALS (7 sets, daily range): BP systolic 97–118; BP diastolic 63–71; PULSE 45–72; TEMP 36.6–37.3; O2SAT 89–95
[2016-11-26] MEDS: ALBUT/IPRATROP 3MG/0.5MG NEB 3 ML VIAL INH SCH ×3 (01:52→14:16)
[2016-11-26] MEDS: ACETAMINOPHEN 325 MG TAB PO PRN (02:20)
[2016-11-26 06:54] LABS: HEMATOCRIT 27.2 % (37-47); MEAN CELL VOLUME 81.2 fL (80-100); MEAN CORPUSCULAR HEMOGLOBIN 24.5 pg (25-34); MEAN CORPUSCULAR HGB CONC 30.1 g/dl (32-36); MEAN PLATELET VOLUME 9.2 fL (7.4-10.4); PLATELET COUNT 362 K/uL (130-400); RED BLOOD COUNT 3.35 M/uL (4.2-5.4); WHITE BLOOD COUNT 14.15 K/uL (4.8-10.8)
[2016-11-26 07:23] LABS: BUN/CREATININE RATIO 27.7 (10-20); CREATININE 2.1 mg/dl (0.60-1.20); POTASSIUM 4.7 mmol/L (3.5-5.1)
[2016-11-26] MEDS: MAGNESIUM HYDROXIDE SUSP 30 ML UDC PO SCH (07:56)
[2016-11-26] MEDS: FUROSEMIDE 20 MG TAB PO SCH (07:57)
[2016-11-26] MEDS: FERROUS SULFATE 325 MG TAB PO SCH (07:57)
[2016-11-26] MEDS: GUAIFENESIN 600 MG TABCR PO SCH (07:57)
[2016-11-26] MEDS: AMIODARONE 200 MG TAB PO SCH (07:57)
[2016-11-26] MEDS: ASCORBIC ACID 500 MG TAB PO SCH (07:57)
[2016-11-26] MEDS: CALCIUM CARBONATE 1250MG TAB PO SCH (07:57)
[2016-11-26] MEDS: ASPIRIN 81 MG ECTAB PO SCH (07:57)
[2016-11-26] MEDS: SENNA 8.6 MG TAB PO SCH (07:57)
[2016-11-26] MEDS: DOCUSATE SODIUM 100 MG CAP PO SCH (07:57)
[2016-11-26] MEDS: POLYETHYLENE (MIRALAX) 17 GM PACK PO SCH (07:57)
[2016-11-26] MEDS: DILTIAZEM HCL 240 MG CAPCR PO SCH (07:58)
--- NOTE | 2016-11-26 16:32 | Discharge Instructions ---
Discharge Instructions Date of Service Nov 26, 2016. Admission Reason for Admission: Chf Exacerbation, Pneumonia Discharge Discharge Diagnosis / Problem: Pneumonia and CHF Discharge Goals Goal(s): Decrease discomfort, Improve function, Improve nutritional status, Learn about illness Activity Recommendations Activity Limitations: resume your previous activity . Instructions / Follow-Up Instructions / Follow-Up We recommend wearing home oxygen at all times for the next few weeks. Follow up with your Primary Care Provider, Dr. Meliton Fried within the next week. Current Hospital Diet Patient's current hospital diet: AHA Diet (Heart Healthy), Low Sodium Diet (2gm Na) Discharge Diet Recommended Diet: Regular Diet Pending Studies Studies pending at discharge: no Medical Emergencies . Who to Call and When: Medical Emergencies: If at any time you feel your situation is an emergency, please call 911 immediately. . Non-Emergent Contact Non-Emergency issues call your: Primary Care Provider . . "Provider Documentation" section prepared by Michael Aviles. VTE Core Measure Inpt VTE Proph given/why not?: Unfractionated heparin SQ Resident Involvement: Resident Care Provided Care Provided: Adult Hospital Medicine
--- NOTE | 2016-11-26 16:37 | Discharge Summary ---
Discharge Summary Date of Service Nov 26, 2016. (Michael Aviles M.D.) Discharge Summary Admission Date: Nov 17, 2016 at 17:12 Discharge Date: Nov 26, 2016 Principal Diagnosis: Pneumonia and CHF Problems/Secondary Diagnoses: (1) Benign hypertension Status: Chronic (2) Esophageal Reflux Status: Chronic Immunizations: Have You Had Influenza Vaccine: Yes Influenza Vaccine Date: Jun 09, 2012 History of Tetanus Vaccine?: Unknown History of Pneumococcal: UNSURE OF DATE Pneumococcal Date: Sep 11, 2011 History of Hepatitis B Vaccine: Unknown (Michael Aviles M.D.) Discharge Exam The patient was seen and examined at bedside. No acute overnight events. Patient is feeling better today and feels like she can go home. Patient is resting comfortably in bed. Denies having any pain. Eating and urinating well. Patient states that she has an oxygen tank at home but doesn't use it all the time. She uses a CPAP at night and oxygen only when she needs it. Plan of care was described to the patient and all questions were answered. Physical Exam General Appearance: WD/WN, no apparent distress Neck: supple, trachea midline Respiratory/Chest: chest non-tender, no respiratory distress, no accessory muscle use, lungs are clear to auscultation bilaterally. 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 Patient was admitted with Pneumonia in the setting of bilateral pleural effusions secondary to CHF. It is recommended that the patient use oxygen 24hours a day for the first few weeks. CXR performed yesterday showed improved aeration of the upper lungs compared to the prior study. Patient is clinically improving. The patient has been treated for the following medical conditions: Pneumonia- Abx have completed. (course of Cefuroxime), recommend home oxygen on discharge. Pt was on 2LNC in hospital. Diastolic CHF - Possibly also a contributor to the SOB. Paroxysmal Atrial fibrillation - resolved, no anticoagulation given due to previous GI bleed. Anemia - monitored and was stable. Patient was given Ferrous Sulfate in hospital. B12 and folate were WNL. CKD stage III - monitored. No acute issues. HTN - Monitored and medical managed. DVT Prophylaxis - Treated with Heparin 500 q8h Total Time Spent: Greater than 30 minutes This includes examination of the patient, discharge planning, medication reconciliation, and communication with other providers. (Michael Aviles M.D.) Resident Physician Supervision Note: I interviewed and examined the patient. Discussed with Dr. Aviles and agree with findings and plan as documented in the note. Any exceptions or clarifications are listed here: None Documented By: Alvaro Juarez feeling better wants to go home. no furhter sob. has O2 at home, has pulse oximeter in his pocket. feels good vitals noted, nad breathing unlabored no pallor or icterus multifactorial hypoxia w CHF and pneumonia -improving -stable for home -O2 and supportive care -ongoing close outpt f/u -otherwise as above Total Time Spent: Less than 30 minutes (Alvaro Juarez, D.O.) Discharge Instructions Please refer to the electronic Patient Visit Report (Discharge Instructions) for additional information. (Michael Aviles M.D.) Follow-Up Follow up with your Primary Care Provider in one week. (Michael Aviles M.D.) Additional Copies To Meliton Fried MD Resident Involvement: Resident Care Provided Care Provided: Adult [facility] Medicine (Michael Aviles M.D.)
[2016-11-26] MEDS: DIGOXIN 0.125 MG TAB PO SCH (17:39)
== END 2016-11-26 18:28 | disposition home or self-care (01) | DRG 291 ==
LOC: ENRESERVTM → ENRESERVDT → C.EDB 11:24 → C.2T 17:12 → C.MS4W 11-23 14:46
PROVIDERS: ADMIT Internal Medicine; ATTEND Family Medicine
DX: I13.0 Hypertensive heart and chronic kidney disease with heart failure and stage 1 through stage 4 chronic kidney disease, or unspecified chronic kidney disease (principal); J18.9 Pneumonia, unspecified organism; J96.01 Acute respiratory failure with hypoxia; Q60.0 Renal agenesis, unilateral; I50.32 Chronic diastolic (congestive) heart failure; R77.8 Other specified abnormalities of plasma proteins; D63.8 Anemia in other chronic diseases classified elsewhere; D50.9 Iron deficiency anemia, unspecified; R07.9 Chest pain, unspecified; R11.2 Nausea with vomiting, unspecified; I48.0 Paroxysmal atrial fibrillation; N18.3 Chronic kidney disease, stage 3 (moderate); K59.00 Constipation, unspecified; K21.9 Gastro-esophageal reflux disease without esophagitis; G47.30 Sleep apnea, unspecified; Z99.89 Dependence on other enabling machines and devices; Z99.81 Dependence on supplemental oxygen; Z79.82 Long term (current) use of aspirin; Z79.899 Other long term (current) drug therapy

== ENCOUNTER 2016-12-08 21:27 | Inpatient (IN) | payer OTHER ==
[~2016-12-08] VITALS: Ht 157.5 cm; Wt 60.0 kg
[~2016-12-08 21:27] MED LIST changes: -CEFD1CAP14 PO
[2016-12-08] MEDS ORDERED: SODIUM CHLORIDE 0.9% 1000ML 1,000 ML IV STA (21:52)
[2016-12-08] MEDS ORDERED: SODIUM CHLORIDE 0.9% 500ML 500 ML IV STA (21:52)
[2016-12-08 22:04] LABS: HEMATOCRIT 32.6 % (37-47); MEAN CELL VOLUME 79.7 fL (80-100); MEAN CORPUSCULAR HEMOGLOBIN 24.2 pg (25-34); MEAN CORPUSCULAR HGB CONC 30.4 g/dl (32-36); MEAN PLATELET VOLUME 9.2 fL (7.4-10.4); PLATELET COUNT 412 K/uL (130-400); RED BLOOD COUNT 4.09 M/uL (4.2-5.4); WHITE BLOOD COUNT 18.36 K/uL (4.8-10.8)
[2016-12-08 22:10] LABS: ISTAT HEMOGLOBIN 11.9 g/dl (12.0-16.0); ISTAT IONIZED CALCIUM 1.07 mmol/l (1.12-1.32)
[2016-12-08 22:15] LABS: POINT OF CARE TROPONIN I 0.07 ng/ml (0-0.045)
[2016-12-08 22:23] LABS: ALT/SGPT 13 U/L (12-78); BLOOD UREA NITROGEN 53 mg/dl (7-18); BUN/CREATININE RATIO 23.1 (10-20); CALCIUM 8.3 mg/dl (8.5-10.1); CARBON DIOXIDE 38 mmol/L (21-32); CHLORIDE 94 mmol/L (98-107); GLUCOSE 157 mg/dl (70-99); INR 0.9 (0.9-1.1); MAGNESIUM 2.6 mg/dl (1.8-2.4); POTASSIUM 3.9 mmol/L (3.5-5.1); PROTHROMBIN TIME (PATIENT) 9.9 SECONDS (9.0-12.0); SODIUM 137 mmol/L (136-145)
[2016-12-08] MEDS ORDERED: PIPERACILLIN/TAZOBACTAM 4.5 GM/100ML D5W IV STA (22:24)
[2016-12-08] MEDS ORDERED: VANCOMYCIN 1GM/270ML NSS IV STA (22:24)
[2016-12-08 22:27] LABS: ALB/GLOB RATIO 0.5 (0.9-2); ALKALINE PHOSPHATASE 78 U/L (45-117); AST/SGOT 11 U/L (15-37)
[2016-12-08] MEDS ORDERED: NUTR-7 PO (22:30)
[2016-12-08] MEDS ORDERED: AMIO200T4 PO (22:30)
[2016-12-08] MEDS ORDERED: DILT240C57 PO (22:30)
[2016-12-08] MEDS ORDERED: LEVA45AE INH (22:30)
--- NOTE | 2016-12-08 22:34 | DIAGNOSTIC IMAGING REPORT ---
CHEST ONE VIEW PORTABLE CLINICAL HISTORY: Respiratory distress. Dyspnea. COMPARISON STUDY: Chest CT November 17, 2016 and chest radiograph November 24, 2016 FINDINGS: Lung volumes are diminished. Bilateral pleural effusions, left larger than the right, are noted. There is pulmonary vascular congestion with possible mild pulmonary edema. Lower lobe aeration is markedly diminished on this exam. IMPRESSION: 1. Suspected large left pleural effusion and moderate right pleural effusion. 2. Diminished lung aeration with suspected left lower lobe collapse. 3. Pulmonary vascular congestion with possible mild pulmonary edema. 4. Bibasilar opacities which could reflect consolidation or atelectasis. Electronically signed by: Major Parmar M.D. 12/08/2016 10:32 PM Dictated Date/Time: 12/08/2016 10:30 PM
[2016-12-08 22:36] LABS: COMPLETE YES; EOS % 0.1 %; IG% 0.3 %; LYMPH % 5.2 %; LYMPH ABS # 0.96 K/uL (1.2-3.4); MONO % 4.7 %; NEUT % 89.7 %
[2016-12-08] MEDS ORDERED: VANCOMYCIN INJ 1,000 MG in SODIUM CHLORIDE 0.9% 250ML 250 ML IV STA (23:28)
[2016-12-08] MEDS ORDERED: NITROGLYCERIN 0.4 MG SL PER TAB CHARGE SL PRN (23:30)
[2016-12-08] MEDS ORDERED: ZOLPIDEM TARTRATE 5 MG TAB PO PRN (23:30)
[2016-12-08] MEDS ORDERED: ALBUMIN 25% 50 ML with FUROSEMIDE INJ 40 MG IV ONE ×2 (23:30)
[2016-12-08] MEDS ORDERED: ACETAMINOPHEN IV 100 ML IV PRN (23:30)
[2016-12-08] MEDS ORDERED: ALBUMIN HUMAN 25% 12.5 GM/50 ML VIAL IV STA (23:38)
[2016-12-08] MEDS ORDERED: FUROSEMIDE 40 MG/4 ML VIAL IV STA (23:39)
[2016-12-09] VITALS (14 sets, daily range): BP systolic 93–139; BP diastolic 55–78; PULSE 60–104; TEMP 36.5–36.9; O2SAT 89–100; Ht 157.5 cm; Wt 60.0 kg
[2016-12-09] MEDS ORDERED: VANCOMYCIN CONSULT ACTIVE PRN (01:45)
[2016-12-09] MEDS ORDERED: PIPERACILL/TAZOBAC CONSULT ACTIVE PRN (01:45)
[2016-12-09 02:09] LABS: URINE APPEARANCE CLOUDY (CLEAR); URINE BILIRUBIN NEG (NEG); URINE COLOR YELLOW; URINE NITRITE NEG (NEG); URINE SPECIFIC GRAVITY 1.014 (1.000-1.030); UROBILINOGEN NEG (NEG)
--- NOTE | 2016-12-09 02:22 | EMERGENCY ROOM VISIT NOTE ---
History Report prepared by Ezio: José Miguel Cartwright Under the Supervision of: Dr. Meliton Mcgraw M.D. First contact with patient: 21:48 Chief Complaint: SHORTNESS OF BREATH Stated Complaint: OXYGEN LEVEL IS LOW History of Present Illness The patient is an 86 year old female who presents to the Emergency Room with complaints of persistent shortness of breath that began a few days prior to arrival. She is also complaining of weakness currently. The patient was an inpatient in the hospital two weeks ago for a right sided pneumonia (Discharged ). She was in the hospital for 8 days, and has been on oxygen since being discharged. Since her discharge she is still short of breath and weak. The patient's family notes that she has been taking very shallow respirations throughout the day today, even with her oxygen nearly at 8 liters. She denies any recent chest pains or fevers, but has been vomiting. She has a history of atrial fibrillation, but is not taking any blood thinners. The patient denies LOC, headache, chills, diaphoresis, visual changes, neck pain, abdominal pain, back pain, melena, hematochezia, urinary symptoms, numbness, weakness, lymphadenopathy, rash, or other complaints. 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 A total of ten systems were reviewed and were otherwise negative. Past Medical & Surgical Medical Problems: (1) Acute diastolic CHF (congestive heart failure), NYHA class 3 (2) afib with RVR, pna (3) Anemia due to acute blood loss (4) Atrial fibrillation with RVR (5) Atrial flutter (6) Atrial flutter with rapid ventricular response (7) Benign hypertension (8) Bilateral pleural effusion (9) Bronchitis (10) CHF exacerbation (11) Colon cancer (12) Diastolic heart failure (13) Elevated troponin (14) Esophageal Reflux (15) Heart disease (16) Hypertension (17) Hypoxia (18) Kidney disease (19) Kidney Infection (20) Left-sided chest wall pain (21) Pneumonia (22) Pulmonary edema (23) Sepsis (24) Shortness of breath Surgical Problems: (1) Colectomy (2) H/O: hysterectomy (3) Hysterectomy (4) Parathyroidectomy Family History Diabetes mellitus Heart disease Hypertension Kidney disease Kidney stones Social History Smoking Status: Never Smoker Alcohol Use: none Drug Use: none Marital Status: Housing Status: lives with family Occupation Status: retired Current/Historical Medications Scheduled Amiodarone Hcl (Cordarone), 200 MG PO BID Aspirin (Aspirin), 81 MG PO DAILY Calcium Carbonate (Calcium 600), 600 MG PO BID Cranberry (Vaccinium Macrocarp (Cranberry), 500 MG PO BID Digoxin (Digoxin), 0.125 MG PO 3XWK Diltiazem Hcl Coated Beads (Cardizem Cd), 240 MG PO DAILY Furosemide (Lasix), 20 MG PO 3XWK Nutritional Supplements (Boost), 1 CAN PO DAILY Oxygen (Oxygen), 2 LITERS NA DAILY Scheduled PRN Levalbuterol Tartrate (Levalbuterol Tartrate Hfa), 2 PUFFS INH Q6H PRN for SOB/ Wheezing Allergies Coded Allergies: Ciprofloxacin (Verified Allergy, Unknown, UNKNOWN, 12/08/16) Sulfamethoxazole w/Trimethoprim (Verified Adverse Reaction, Mild, GI SYMPTOMS, 12/08/16) Physical Exam Vital Signs Date Time Temp Pulse Resp B/P Pulse Ox O2 Delivery O2 Flow Rate FiO2 12/08/16 22:35 56 16 118/68 99 Nasal Cannula 4.0 12/08/16 22:03 100 Nasal Cannula 4.0 12/08/16 22:00 94 Nasal Cannula 4.0 12/08/16 21:59 38 20 89/59 93 Nasal Cannula 4.0 12/08/16 21:47 51 12/08/16 21:40 94 Nasal Cannula 4.0 12/08/16 21:30 36.5 47 20 88/53 95 Nasal Cannula 8.0 Physical Exam GENERAL: Awake, alert, well-appearing, in no distress HENT: Normocephalic, atraumatic. Oropharynx unremarkable. EYES: Normal conjunctiva. Sclera non-icteric. NECK: Supple. No nuchal rigidity. FROM. No JVD. RESPIRATORY: Clear to auscultation. CARDIAC: Bradycardiac rate, normal rhythm. Extremities warm and well perfused. Pulses equal. ABDOMEN: Soft, non-distended. No tenderness to palpation. No rebound or guarding. No masses. RECTAL: Deferred. MUSCULOSKELETAL: Chest examination reveals no tenderness. The back is symmetrical on inspection without obvious abnormality. There is no CVA tenderness to palpation. No joint edema. LOWER EXTREMITIES: 1+ edema bilaterally and non-tender. No edema. No discoloration. NEURO: Normal sensorium. No sensory or motor deficits noted. SKIN: No rash or jaundice noted. Medical Decision & Procedures ER Provider Diagnostic Interpretation: Chest imaging reveals bilateral pleural effusions left greater than right. No evidence of pneumothorax. No free air. CHEST ONE VIEW PORTABLE CLINICAL HISTORY: Respiratory distress. Dyspnea. COMPARISON STUDY: Chest CT November 17, 2016 and chest radiograph November 24, 2016 FINDINGS: Lung volumes are diminished. Bilateral pleural effusions, left larger than the right, are noted. There is pulmonary vascular congestion with possible mild pulmonary edema. Lower lobe aeration is markedly diminished on this exam. IMPRESSION: 1. Suspected large left pleural effusion and moderate right pleural effusion. 2. Diminished lung aeration with suspected left lower lobe collapse. 3. Pulmonary vascular congestion with possible mild pulmonary edema. 4. Bibasilar opacities which could reflect consolidation or atelectasis. Electronically signed by: Major Parmar M.D. 12/08/2016 10:32 PM Dictated Date/Time: 12/08/2016 10:30 PM Laboratory Results 12/08/16 21:48 Red Blood Count 4.09, Mean Corpuscular Volume 79.7, Mean Corpuscular Hemoglobin 24.2, Mean Corpuscular Hemoglobin Concent 30.4, Mean Platelet Volume 9.2, Neutrophils (%) (Auto) 89.7, Lymphocytes (%) (Auto) 5.2, Monocytes (%) (Auto) 4.7, Eosinophils (%) (Auto) 0.1, Basophils (%) (Auto) 0.0, Neutrophils # (Auto) 16.47, Lymphocytes # (Auto) 0.96, Monocytes # (Auto) 0.86, Eosinophils # (Auto) 0.02, Basophils # (Auto) 0.00 12/08/16 21:48 Test 12/08/16 21:48 12/08/16 21:55 12/08/16 21:56 12/08/16 22:05 White Blood Count 18.36 K/uL (4.8-10.8) Red Blood Count 4.09 M/uL (4.2-5.4) Hemoglobin 9.9 g/dL (12.0-16.0) Hematocrit 32.6 % (37-47) Mean Corpuscular Volume 79.7 fL (80-100) Mean Corpuscular Hemoglobin 24.2 pg (25-34) Mean Corpuscular Hemoglobin Concent 30.4 g/dl (32-36) Platelet Count 412 K/uL (130-400) Mean Platelet Volume 9.2 fL (7.4-10.4) Neutrophils (%) (Auto) 89.7 % Lymphocytes (%) (Auto) 5.2 % Monocytes (%) (Auto) 4.7 % Eosinophils (%) (Auto) 0.1 % Basophils (%) (Auto) 0.0 % Neutrophils # (Auto) 16.47 K/uL (1.4-6.5) Lymphocytes # (Auto) 0.96 K/uL (1.2-3.4) Monocytes # (Auto) 0.86 K/uL (0.11-0.59) Eosinophils # (Auto) 0.02 K/uL (0-0.5) Basophils # (Auto) 0.00 K/uL (0-0.2) RDW Standard Deviation 49.7 fL (36.4-46.3) RDW Coefficient of Variation 17.2 % (11.5-14.5) Immature Granulocyte % (Auto) 0.3 % Immature Granulocyte # (Auto) 0.05 K/uL (0.00-0.02) Prothrombin Time 9.9 SECONDS (9.0-12.0) Prothromb Time International Ratio 0.9 (0.9-1.1) Activated Partial Thromboplast Time 26.6 SECONDS (21.0-31.0) Partial Thromboplastin Ratio 1.0 Estimated GFR () 21.9 Estimated GFR (Non- 18.9 BUN/Creatinine Ratio 23.1 (10-20) Calcium Level 8.3 mg/dl (8.5-10.1) Magnesium Level 2.6 mg/dl (1.8-2.4) Total Bilirubin 0.4 mg/dl (0.2-1) Aspartate Amino Transf (AST/SGOT) 11 U/L (15-37) Alanine Aminotransferase (ALT/SGPT) 13 U/L (12-78) Alkaline Phosphatase 78 U/L (45-117) Total Creatine Kinase 30 U/L (26-192) Creatine Kinase MB 0.6 ng/ml (0.5-3.6) Creatine Kinase MB Ratio 2.0 (0-3.0) Total Protein 6.7 gm/dl (6.4-8.2) Albumin 2.2 gm/dl (3.4-5.0) Globulin 4.5 gm/dl (2.5-4.0) Albumin/Globulin Ratio 0.5 (0.9-2) Bedside Hemoglobin 11.9 g/dl (12.0-16.0) Bedside Hematocrit 35 % (37-47) Bedside Sodium 137 mEq/L (135-144) Bedside Potassium 3.9 mEq/L (3.3-5.0) Bedside Chloride 90 mEq/L (101-112) Bedside Total CO2 39 mEq/l (24-31) Anion Gap 13.0 mmol/L (16-25) Bedside Blood Urea Nitrogen 54 mg/dl (7-18) Bedside Creatinine 2.0 mg/dl (0.6-1.3) Bedside Glucose (other) 155 mg/dl (70-99) Bedside Ionized Calcium (Nickolas) 1.07 mmol/l (1.12-1.32) Bedside Troponin I 0.070 ng/ml (0-0.045) SV-Kkn-H-Type Natriuretic Peptide 7272 pg/ml (0-1800) Bedside Lactic Acid Venous 1.27 mmol/L (0.90-1.70) Laboratory results reviewed by me Medications Administered Medications (Trade) Dose Ordered Sig/Jameson Route Start Time Stop Time Status Last Admin Dose Admin Sodium Chloride 500 ml @ 999 mls/hr Q31M STAT IV 12/08/16 21:52 12/08/16 22:22 DC 12/08/16 21:59 999 MLS/HR Sodium Chloride (Nss 1000ml) 1,000 ml @ 125 mls/hr Q8H STAT IV 12/08/16 21:52 12/09/16 00:59 DC 12/08/16 22:37 125 MLS/HR Piperacillin Sod/ Tazobactam Sod (Zosyn Iv) 4.5 gm NOW STAT IV 12/08/16 22:24 12/08/16 22:26 DC 12/08/16 22:44 4.5 GM Vancomycin HCl (Vancomycin 1gm/ 270ml Nss) 1 gm NOW STAT IV 12/08/16 22:24 12/08/16 22:26 DC 12/08/16 23:22 1 GM ECG Indication: SOB/dyspnea Rate (beats per minute): 49 Rhythm: sinus bradycardia Findings: T-wave inversion (Lateral), no ectopy Comparison ECG Date: 11/25/2016 Change: no significant change ED Course 2149: The patient was evaluated in room B4. A complete history and physical exam was performed. 2151: Ordered Sodium Chloride 1000 mL @ 125 mL/hr IV, Sodium Chloride 500 mL @ 999 mL/hr IV. 2223: Ordered Vancomycin 1 gm IV, Zosyn 4.5 gm IV. 2252: I discussed the case with Dr. Cecilia BAILEY Hospitalist, he will evaluate the patient for further treatment. Medical Decision Triage Nursing notes reviewed. The patient's presentation and history were concerning for shortness of breath and cough Etiologies such as pneumonia, COPD, reactive airway disease, CHF, cardiac ischemia, pulmonary embolism, pneumothorax, musculoskeletal, infections, gastrointestinal, as well as others were entertained. The patient is generally weak with respiratory symptoms. Chest imaging was performed and shows significant pleural effusions. There is concerns for consolidation. A CBC shows her white count is significantly elevated. Lactate was normal. Patient has a slight elevation of troponin but elevated BNP. She was bradycardic but has been this way in the past. The patient was also mildly hypotensive but again has been this way in the past as well. She was treated with gentle IV fluids. On reassessment she was doing better. The patient was given a dose of IV Levaquin after cultures. Further evaluation and management will be necessary in the hospital. Consultation was made with internal medicine. The patient was evaluated for further treatment. The chart was completed utilizing [employer] Speech voice recognition software. Grammatical errors, random word insertions, pronoun errors, and incomplete sentences are an occasional consequence of this system due to software limitations, ambient noise, and hardware issues. Any formal questions or concerns about the content, text, or information contained within the body of this dictation should be directly addressed to the physician for clarification. Consults Time Called: [phone] Consulting Physician: Dr. Cecilia Gar Returned Call: [phone] I discussed the case with Dr. Cecilia Gar, he will evaluate the patient for further treatment. Impression Primary Impression: Pneumonia Additional Impression: Pleural effusion Scribe Attestation The scribe's documentation has been prepared under my direction and personally reviewed by me in its entirety. I confirm that the note above accurately reflects all work, treatment, procedures, and medical decision making performed by me. Departure Information Dispostion Being Evaluated By Hospitalist Referrals Meliton Fried MD (PCP) Patient Instructions [facility] Problem Qualifiers
[2016-12-09 02:26] LABS: MANUAL MICROSCOPIC REQUIRED? NO; REVIEW REQ? YES
[2016-12-09] MEDS: IPRATROPIUM BROMIDE NEB SOLN 0.02% 2.5 ML VIAL INH SCH ×5 (02:38→19:08)
[2016-12-09] MEDS: LEVALBUTEROL 1.25MG/0.5ML NEB INH SCH ×5 (02:38→19:08)
[2016-12-09] MEDS ORDERED: LEVALBUTEROL/IPRATROPIUM NEB INH SCH (03:00)
[2016-12-09] MEDS: ACETAMINOPHEN 325 MG TAB PO PRN ×2 (03:07→21:06)
[2016-12-09] MEDS ORDERED: ASPIRIN 81 MG CHEW PO STA (05:24)
[2016-12-09] MEDS ORDERED: ASPIRIN 81 MG CHEW ONE (05:34)
[2016-12-09] MEDS ORDERED: HEPARIN 25,000 UNIT/500ML D5W 500 ML IV PRN (05:45)
[2016-12-09] MEDS: PIPERACILL/TAZOBAC IV 3.375 GM in DEXTROSE 5% 100ML 100 ML IV SCH ×2 (05:53→17:49)
[2016-12-09 05:56] LABS: BASO % 0.1 %; BASO ABS # 0.01 K/uL (0-0.2); EOS % 0.1 %; HEMATOCRIT 28.7 % (37-47); IG% 0.2 %; LYMPH % 4.3 %; LYMPH ABS # 0.62 K/uL (1.2-3.4); MEAN CELL VOLUME 80.8 fL (80-100); MEAN CORPUSCULAR HEMOGLOBIN 24.2 pg (25-34); MEAN PLATELET VOLUME 8.8 fL (7.4-10.4); MONO % 6.3 %; PLATELET COUNT 335 K/uL (130-400); RED BLOOD COUNT 3.55 M/uL (4.2-5.4); WHITE BLOOD COUNT 14.29 K/uL (4.8-10.8)
[2016-12-09 06:05] LABS: PROTHROMBIN TIME (PATIENT) 10.3 SECONDS (9.0-12.0)
[2016-12-09 06:14] LABS: COMPLETE YES
[2016-12-09 06:17] LABS: BUN/CREATININE RATIO 24.7 (10-20); CALCIUM 7.5 mg/dl (8.5-10.1); CREATININE 2.1 mg/dl (0.60-1.20); MAGNESIUM 2.4 mg/dl (1.8-2.4); POTASSIUM 3.6 mmol/L (3.5-5.1)
--- NOTE | 2016-12-09 06:21 | History and Physical ---
History & Physical Date & Time of Service: Dec 09, 2016 at 06:06. The patient was examined on 12/08/2016. Chief Complaint: Acute Diastolic Chf, Nyha Class 3, Bilateral Primary Care Physician: Meliton Fried MD History of Present Illness Source: patient, family, spouse The patient is an 82-year-old female who presents to the emergency department with shortness of breath that began a few days prior to arrival. She had recently been admitted to [facility] from November 10 through November 13, and then from November 17 to November 26. After the second admission, she was sent home on oxygen, and reports that she has had progressive shortness of breath in spite of wearing the oxygen. Her family notes that she has been taking more shallow respirations throughout the day, and in spite of the fact that they moved her on she's not to 8 L. She has had some nausea and vomiting. She has had decreased oral intake since discharge and has become progressively more weak. Her takes care of her 24 hours a day, and her [id number] is an RN and along with her son lives 2 houses down and help with her care as well. Past Medical/Surgical History Medical Problems: (1) Atrial fibrillation with RVR Status: Resolved (2) Atrial flutter with rapid ventricular response Status: Resolved (3) Benign hypertension Status: Chronic (4) Bronchitis Status: Resolved (5) Colon cancer Status: Resolved (6) Diastolic heart failure Status: Chronic (7) Elevated troponin Status: Resolved (8) Esophageal Reflux Status: Chronic (9) Heart disease Status: Chronic (10) Hypertension Status: Chronic (11) Hypoxia Status: Resolved (12) Kidney disease Status: Chronic (13) Kidney Infection Status: Resolved (14) Left-sided chest wall pain Status: Resolved (15) Pneumonia Status: Resolved (16) Pulmonary edema Status: Resolved (17) Sepsis Status: Resolved (18) Shortness of breath Status: Resolved Surgical Problems: (1) Colectomy Status: Resolved (2) H/O: hysterectomy Status: Resolved (3) Hysterectomy Status: Resolved (4) Parathyroidectomy Status: Resolved Family History Diabetes mellitus Heart disease Hypertension Kidney disease Kidney stones Social History Smoking Status: Never Smoker Smokeless Tobacco Use: No Alcohol Use: none Drug Use: none Marital Status: Housing status: lives with family, lives with significant other Occupational Status: retired Immunizations History of Influenza Vaccine: Yes Influenza Vaccine Date: Jun 09, 2012 History of Tetanus Vaccine?: Unknown History of Pneumococcal: UNSURE OF DATE Pneumococcal Date: Sep 11, 2011 History of Hepatitis B Vaccine: Unknown Multi-Drug Resistant Organisms History of MDRO: No Allergies Coded Allergies: Ciprofloxacin (Verified Allergy, Unknown, UNKNOWN, 12/08/16) Sulfamethoxazole w/Trimethoprim (Verified Adverse Reaction, Mild, GI SYMPTOMS, 12/08/16) Home Medications Scheduled Amiodarone Hcl (Cordarone), 200 MG PO BID Aspirin (Aspirin), 81 MG PO DAILY Calcium Carbonate (Calcium 600), 600 MG PO BID Cranberry (Vaccinium Macrocarp (Cranberry), 500 MG PO BID Digoxin (Digoxin), 0.125 MG PO 3XWK Diltiazem Hcl Coated Beads (Cardizem Cd), 240 MG PO DAILY Furosemide (Lasix), 20 MG PO 3XWK Nutritional Supplements (Boost), 1 CAN PO DAILY Oxygen (Oxygen), 2 LITERS NA DAILY Scheduled PRN Levalbuterol Tartrate (Levalbuterol Tartrate Hfa), 2 PUFFS INH Q6H PRN for SOB/ Wheezing Review of Systems The patient denies lower extremity swelling, vision change, hearing change, sore throat, fevers, chills, sweats, abdominal pain, pelvic pain, blood in urine or stool, dysuria, urinary frequency or urgency, memory loss, rash, abnormal bruising or bleeding, imbalance, focal weakness, numbness or tingling in arms or legs, arthralgias or myalgias, back or neck pain, night sweats, or allergy symptoms. The review of systems is otherwise negative other than for that already noted above, and at least 10 systems have been reviewed. Physical Exam Vital Signs Date Time Temp Pulse Resp B/P Pulse Ox O2 Delivery O2 Flow Rate FiO2 12/09/16 05:21 36.8 104 18 94/57 91 Nasal Cannula 2.0 12/09/16 04:06 95 Nasal Cannula 2.0 12/09/16 03:05 36.8 66 21 93/55 95 Nasal Cannula 2.0 12/09/16 02:38 60 14 91 Nasal Cannula 2.0 12/09/16 00:30 36.9 64 14 107/70 92 Nasal Cannula 2.0 12/09/16 00:10 36.8 63 18 113/70 95 12/08/16 23:53 63 20 138/74 95 Nasal Cannula 4.0 12/08/16 22:35 56 16 118/68 99 Nasal Cannula 4.0 12/08/16 22:03 100 Nasal Cannula 4.0 12/08/16 22:00 94 Nasal Cannula 4.0 12/08/16 21:59 38 20 89/59 93 Nasal Cannula 4.0 12/08/16 21:47 51 12/08/16 21:40 94 Nasal Cannula 4.0 12/08/16 21:30 36.5 47 20 88/53 95 Nasal Cannula 8.0 The patient is awake, alert and oriented 3, normocephalic and atraumatic, lying in bed and in no acute distress. HEENT--PERRL, EOMI, mucous membranes and oropharynx dry. Neck--supple, no JVD or bruits, thyroid normal, trachea midline, no adenopathy. Heart--normal S1 and S2, no extra beats, no murmurs, rubs or gallops. Lungs--decreased breath sounds throughout, no respiratory distress, no accessory muscle use. Abdomen--normal bowel sounds and soft, nontender and nondistended, no hernias or masses, no organomegaly. Extremities--no cyanosis, clubbing. There is bilaterally 1+ pretibial pitting Edema. There are good distal pulses b/l. Dermatologic--normal skin turgor, normal color, warm and dry, no abnormal lymph nodes, no rash. Neurologic--cranial nerves II through XII grossly intact, motor and sensory examination normal. Rheumatologic--deferred. Psychiatric--normal affect. Diagnostics Laboratory Results Results Past 24 Hours Test 12/08/16 21:48 12/08/16 21:55 12/08/16 21:56 12/08/16 22:05 Range/Units White Blood Count 18.36 4.8-10.8 K/uL Red Blood Count 4.09 4.2-5.4 M/uL Hemoglobin 9.9 12.0-16.0 g/dL Hematocrit 32.6 37-47 % Mean Corpuscular Volume 79.7 80-100 fL Mean Corpuscular Hemoglobin 24.2 25-34 pg Mean Corpuscular Hemoglobin Concent 30.4 32-36 g/dl Platelet Count 412 130-400 K/uL Mean Platelet Volume 9.2 7.4-10.4 fL Neutrophils (%) (Auto) 89.7 % Lymphocytes (%) (Auto) 5.2 % Monocytes (%) (Auto) 4.7 % Eosinophils (%) (Auto) 0.1 % Basophils (%) (Auto) 0.0 % Neutrophils # (Auto) 16.47 1.4-6.5 K/uL Lymphocytes # (Auto) 0.96 1.2-3.4 K/uL Monocytes # (Auto) 0.86 0.11-0.59 K/uL Eosinophils # (Auto) 0.02 0-0.5 K/uL Basophils # (Auto) 0.00 0-0.2 K/uL RDW Standard Deviation 49.7 36.4-46.3 fL RDW Coefficient of Variation 17.2 11.5-14.5 % Immature Granulocyte % (Auto) 0.3 % Immature Granulocyte # (Auto) 0.05 0.00-0.02 K/uL Prothrombin Time 9.9 9.0-12.0 SECONDS Prothromb Time International Ratio 0.9 0.9-1.1 Activated Partial Thromboplast Time 26.6 21.0-31.0 SECONDS Partial Thromboplastin Ratio 1.0 Sodium Level 137 136-145 mmol/L Potassium Level 3.9 3.5-5.1 mmol/L Chloride Level 94 98-107 mmol/L Carbon Dioxide Level 38 21-32 mmol/L Anion Gap 5.0 13.0 16-25 mmol/L Blood Urea Nitrogen 53 7-18 mg/dl Creatinine 2.30 0.60-1.20 mg/dl Estimated GFR () 21.9 Estimated GFR (Non- 18.9 BUN/Creatinine Ratio 23.1 10-20 Random Glucose 157 70-99 mg/dl Calcium Level 8.3 8.5-10.1 mg/dl Magnesium Level 2.6 1.8-2.4 mg/dl Total Bilirubin 0.4 0.2-1 mg/dl Aspartate Amino Transf (AST/SGOT) 11 15-37 U/L Alanine Aminotransferase (ALT/SGPT) 13 12-78 U/L Alkaline Phosphatase 78 45-117 U/L Total Creatine Kinase 30 26-192 U/L Creatine Kinase MB 0.6 0.5-3.6 ng/ml Creatine Kinase MB Ratio 2.0 0-3.0 Total Protein 6.7 6.4-8.2 gm/dl Albumin 2.2 3.4-5.0 gm/dl Globulin 4.5 2.5-4.0 gm/dl Albumin/Globulin Ratio 0.5 0.9-2 Bedside Hemoglobin 11.9 12.0-16.0 g/dl Bedside Hematocrit 35 37-47 % Bedside Sodium 137 135-144 mEq/L Bedside Potassium 3.9 3.3-5.0 mEq/L Bedside Chloride 90 101-112 mEq/L Bedside Total CO2 39 24-31 mEq/l Bedside Blood Urea Nitrogen 54 7-18 mg/dl Bedside Creatinine 2.0 0.6-1.3 mg/dl Bedside Glucose (other) 155 70-99 mg/dl Bedside Ionized Calcium (Nickolas) 1.07 1.12-1.32 mmol/l Bedside Troponin I 0.070 0-0.045 ng/ml JJ-Fbo-P-Type Natriuretic Peptide 7272 0-1800 pg/ml Bedside Lactic Acid Venous 1.27 0.90-1.70 mmol/L Test 12/09/16 01:56 12/09/16 05:50 Range/Units Urine Color YELLOW Urine Appearance CLOUDY CLEAR Urine pH 5.0 4.5-7.5 Urine Specific Gary 1.014 1.000-1.030 Urine Protein NEG NEG Urine Glucose (UA) NEG NEG Urine Ketones NEG NEG Urine Occult Blood NEG NEG Urine Nitrite NEG NEG Urine Bilirubin NEG NEG Urine Urobilinogen NEG NEG Urine Leukocyte Esterase NEG NEG Urine WBC (Auto) 1-5 0-5 /hpf Urine RBC (Auto) 0-4 0-4 /hpf Urine Hyaline Casts (Auto) 1-5 0-5 /lpf Urine Epithelial Cells (Auto) 5-10 0-5 /lpf Urine Bacteria (Auto) NEG NEG Urine Renal Epithelial Cells >30 0-5 /lpf Urine Pathogenic Casts 0 /lpf Urine Random Microalbumin 68.2 mg/L White Blood Count 14.29 4.8-10.8 K/uL Red Blood Count 3.55 4.2-5.4 M/uL Hemoglobin 8.6 12.0-16.0 g/dL Hematocrit 28.7 37-47 % Mean Corpuscular Volume 80.8 80-100 fL Mean Corpuscular Hemoglobin 24.2 25-34 pg Mean Corpuscular Hemoglobin Concent 30.0 32-36 g/dl Platelet Count 335 130-400 K/uL Mean Platelet Volume 8.8 7.4-10.4 fL Neutrophils (%) (Auto) 89.0 % Lymphocytes (%) (Auto) 4.3 % Monocytes (%) (Auto) 6.3 % Eosinophils (%) (Auto) 0.1 % Basophils (%) (Auto) 0.1 % Neutrophils # (Auto) 12.72 1.4-6.5 K/uL Lymphocytes # (Auto) 0.62 1.2-3.4 K/uL Monocytes # (Auto) 0.90 0.11-0.59 K/uL Eosinophils # (Auto) 0.01 0-0.5 K/uL Basophils # (Auto) 0.01 0-0.2 K/uL RDW Standard Deviation 51.7 36.4-46.3 fL RDW Coefficient of Variation 17.2 11.5-14.5 % Immature Granulocyte % (Auto) 0.2 % Immature Granulocyte # (Auto) 0.03 0.00-0.02 K/uL Prothrombin Time 10.3 9.0-12.0 SECONDS Prothromb Time International Ratio 1.0 0.9-1.1 Microbiology Results 12/08/16 Blood Culture, Received Pending 12/08/16 Blood Culture, Received Pending 12/08/16 Urine Culture, Received Pending Diagnostic Radiology Patient Name: SHWETA JONES Unit Number: [id number] Dictated: 12/08/162229 Transcribed: 12/08/162229 CARLITOS Printed Date/Time: [~ rep prt dt]/[~ rep prt tm] [~ rep ct labl] - [~ rep ct ivnm] [facility] [place] [address] Dictated: 12/08/162229 Transcribed: 12/08/162229 CARLITOS Printed Date/Time: [~ rep prt dt]/[~ rep prt tm] [~ rep ct labl] - [~ rep ct ivnm] CHEST ONE VIEW PORTABLE CLINICAL HISTORY: Respiratory distress. Dyspnea. COMPARISON STUDY: Chest CT November 17, 2016 and chest radiograph November 24, 2016 FINDINGS: Lung volumes are diminished. Bilateral pleural effusions, left larger than the right, are noted. There is pulmonary vascular congestion with possible mild pulmonary edema. Lower lobe aeration is markedly diminished on this exam. IMPRESSION: 1. Suspected large left pleural effusion and moderate right pleural effusion. 2. Diminished lung aeration with suspected left lower lobe collapse. 3. Pulmonary vascular congestion with possible mild pulmonary edema. 4. Bibasilar opacities which could reflect consolidation or atelectasis. Electronically signed by: Major Parmar M.D. 12/08/2016 10:32 PM Dictated Date/Time: 12/08/2016 10:30 PM The status of this report is Signed. Draft = Not yet reviewed or approved by Radiologist. Signed = Reviewed and approved by Radiologist. <AttendingPhy></AttendingPhy> <FamilyPhy>Ramón Herrera DO</FamilyPhy> < PrimaryPhy>Meliton Fried MD</PrimaryPhy> <UnitNumber>[id number]</UnitNumber > <VisitNumber>[id number]</VisitNumber> <PatientName>SHWETA JONES</ PatientName> <DateOfBirth>1930</DateOfBirth> <Location>[facility]</Location> < ServiceDate>12/08/16</ServiceDate> <MNE>ESINDI</MNE> <OrderingPhy>Meliton Mcgraw MD</OrderingPhy> <OrderingPhyMNE>f rep ord dr aparicio</OrderingPhyMNE> < DictatingPhyMNE>f rep dict dr aparicio</DictatingPhyMNE> <CCListMNE>f rep ct markus</ CCListMNE> <AdmittingPhyMNE>f pt admit dr aparicio</AdmittingPhyMNE> <AttendingPhyMNE >f pt attend dr aparicio</AttendingPhyMNE> <ConsultingPhyMNE>f pt consult dr aparicio</ConsultingPhyMNE> <FamilyPhyMNE>f pt fam dr aparicio</FamilyPhyMNE> <OtherPhyMNE>f pt other dr aparicio</OtherPhyMNE> < PrimaryPhyMNE>f pt prim care dr aparicio</PrimaryPhyMNE> <ReferringPhyMNE>f pt referring dr aparicio</ReferringPhyMNE> EKG EKG shows sinus bradycardia at 49 bpm, with ST flattening inferiorly laterally. Impression Assessment and Plan Acute diastolic CHF with bilateral pleural effusions, right side being large and left being moderate/history of A. fib with RVR/history of atrial flutter with RVR/hypertension/CAD--the patient will be admitted to the telemetry unit. Her initial troponin is mildly elevated at 0.070. She'll have serial cardiac enzymes, cardiac rhythm monitoring and a 2-D echocardiogram with Dopplers. We' ll consult pulmonology for possible thoracentesis, as the volume of fluid in her lungs is too excessive to be improved by diuresis alone without causing significant kidney injury. She will get a single dose of albumin 25 g with Lasix 40 mg IV 1, keeping a close watch on her blood pressure was presently is 104/62. We'll continue amiodarone 200 mg by mouth twice a day, digoxin 0.125 mg by mouth on Saturday, Saturday and Saturday. We will hold Cardizem CD 240 mg by mouth daily and her usual oral dose of Lasix 20 mg by mouth 3 times weekly. We'll hold aspirin 81 mg by mouth daily for possible thoracentesis. Of note, ejection fraction was 50-55% on echocardiogram of 05/29/2016. Pneumonia of both lower lobes--placed on vancomycin IV per renal dosing, and Zosyn 3.375 mg IV every 8 hours. Chronic renal insufficiency--creatinine is 2.30, with baseline 1.7 to 2.4. We' ll follow serial BMP and magnesium levels every morning. Hyperglycemia--blood sugar on entry was 157. Will place on Accu-Cheks before meals and at bedtime with NovoLog coverage. Hypoalbuminemia--albumin was 2.2 on entry, with previous hospitalization records of 3.1 to 3.8. Discussed nutrition with family, and will have corn cutter operator consult during hospitalization. GI bleed history--the patient was found to have GI bleed while on Eliquis in July 2016. She did have a mucosal rectal ulcer which may been the culprit lesion, but this was not determined with certainty. She also had an EGD performed which was nonrevealing. There was talk of having a capsule enteroscopy performed. Level of Care Telemetry Advanced Directives Existing Advance Directive: No Existing Living Will: Yes Existing Power of Metal Coater Operator: Yes Resuscitation Status FULL RESUSCITATION VTE Prophylaxis VTE Risk Assessment Done? Y/N: Yes Risk Level: Moderate Given or contraindicated: SCD's
[2016-12-09] MEDS ORDERED: GLUCAGON FOR INJ 1 MG VIAL SQ PRN (06:30)
[2016-12-09] MEDS ORDERED: GLUCOSE 10 TABS/TUBE PO PRN (06:30)
[2016-12-09] MEDS ORDERED: DEXTROSE 50% 50 ML SYR IV PRN (06:30)
[2016-12-09] MEDS ORDERED: GLUCOSE 40% GEL 15 GM TUBE PO PRN (06:30)
[2016-12-09] MEDS: INSULIN ASPART 100 UNITS/ML 3 ML PEN SC SCH ×4 (07:00→20:54)
[2016-12-09] MEDS: AMIODARONE 200 MG TAB PO SCH ×2 (07:34→07:36)
[2016-12-09] MEDS: BOOST VANILLA PO SCH ×6 (07:34→21:00)
[2016-12-09 09:24] LABS: ARTERIAL BLD GAS O2 SATURATION 84.6 % (90-95); ARTERIAL BLOOD GAS HCO3 37 mmol/L (19-24); ARTERIAL BLOOD GAS PO2 54 mm/Hg (80-95); ARTERIAL BLOOD GAS pH 7.41 (7.35-7.45)
[2016-12-09 09:43] LABS: ALLEN TEST POS (POS); O2 ADMINISTRATION 2 L
[2016-12-09] MEDS: PANTOprazole INJ 40 MG in SYRINGE 0 ML IV SCH (11:08)
--- NOTE | 2016-12-09 11:48 | Progress Note ---
Subjective Date of Service: Dec 09, 2016. Subjective Pt evaluation today including: conversation w/ patient, conversation w/ family , physical exam, chart review, lab review, review of studies, conversation w/ biztalk consultant, review of inpatient medication list Feeling tired, generalized weakness, difficult breathing, minimal chest discomfort, no us no chest pain Problem List Medical Problems: (1) Atrial fibrillation with RVR Status: Acute (2) Benign hypertension Status: Chronic (3) Esophageal Reflux Status: Chronic (4) GI bleed Status: Acute (5) Pleural effusion Status: Acute Review of Systems Constitutional: + fatigue, + weakness Eyes: No diplopia, No discharge, No eye pain, No problem reported, No redness, No see HPI, No worsening of vision ENT: No dental problems, No hearing loss, No nasal symptoms, No problem reported, No see HPI, No sore throat, No tinnitus, No trouble swallowing, No unusual epistaxis Respiratory: + dyspnea on exertion, + shortness of breath Cardiac: No PND, No chest pain, No claudication, No edema, No orthopnea, No palpitations, No problem reported, No see HPI Abdomen: No GI bleeding, No constipation, No diarrhea, No nausea, No pain, No problem reported, No see HPI, No vomiting Musculoskeletal: No calf pain, No joint pain, No muscle pain, No problem reported, No see HPI, No swelling Female : No abnormal vaginal bleeding, No dysuria, No hematuria, No incontinence, No problem reported, No see HPI, No urinary frequency, No vaginal discharge Neurologic: No balance problems, No memory loss, No numbness/tingling, No paralysis, No problem reported, No see HPI, No vertigo, No weakness Psychiatric: No anhedonism, No anxiety, No depression symptoms, No insomnia, No problem reported, No see HPI, No substance abuse Heme: No abnormal bleeding/bruising, No clotting problems, No night sweats, No problem reported, No see HPI, No swollen lymph nodes Endo: No excessive thirst, No excessive urination, No fatigue, No problem reported, No see HPI Skin: No bleeding, No color change, No itch, No new/changing skin lesions, No problem reported, No rash, No see HPI Objective Vital Signs Date Time Temp Pulse Resp B/P Pulse Ox O2 Delivery O2 Flow Rate FiO2 12/09/16 08:30 94 Nasal Cannula 2.0 12/09/16 08:17 36.9 81 18 93/63 89 Nasal Cannula 2.0 12/09/16 08:00 Nasal Cannula 12/09/16 07:07 84 14 91 Nasal Cannula 2.0 12/09/16 05:21 36.8 104 18 94/57 91 Nasal Cannula 2.0 12/09/16 04:06 95 Nasal Cannula 2.0 12/09/16 03:05 36.8 66 21 93/55 95 Nasal Cannula 2.0 12/09/16 02:38 60 14 91 Nasal Cannula 2.0 12/09/16 00:30 36.9 64 14 107/70 92 Nasal Cannula 2.0 12/09/16 00:10 36.8 63 18 113/70 95 12/08/16 23:53 63 20 138/74 95 Nasal Cannula 4.0 12/08/16 22:35 56 16 118/68 99 Nasal Cannula 4.0 12/08/16 22:03 100 Nasal Cannula 4.0 12/08/16 22:00 94 Nasal Cannula 4.0 12/08/16 21:59 38 20 89/59 93 Nasal Cannula 4.0 12/08/16 21:47 51 12/08/16 21:40 94 Nasal Cannula 4.0 12/08/16 21:30 36.5 47 20 88/53 95 Nasal Cannula 8.0 Physical Exam General Appearance: WD/WN, no apparent distress, + thin, + pertinent finding ( frail) Eyes: normal inspection, PERRL ENT: normal ENT inspection, hearing grossly normal, TMs normal, pharynx normal Neck: supple, no adenopathy, thyroid normal, no JVD Respiratory/Chest: chest non-tender, normal breath sounds, no respiratory distress, no accessory muscle use, + decreased breath sounds, + accessory muscle use Cardiovascular: regular rate, rhythm, no edema, no gallop, no JVD, no murmur Abdomen: normal bowel sounds, non tender, soft, no organomegaly Extremities: normal range of motion, non-tender, normal inspection, no pedal edema, no calf tenderness 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, no motor/sensory deficits, alert, normal mood/affect, oriented x 3 Skin: normal color, warm/dry, no rash Laboratory Results Last 24 Hours Test 12/08/16 21:48 12/08/16 21:55 12/08/16 21:56 12/08/16 22:05 White Blood Count 18.36 K/uL Red Blood Count 4.09 M/uL Hemoglobin 9.9 g/dL Hematocrit 32.6 % Mean Corpuscular Volume 79.7 fL Mean Corpuscular Hemoglobin 24.2 pg Mean Corpuscular Hemoglobin Concent 30.4 g/dl Platelet Count 412 K/uL Mean Platelet Volume 9.2 fL Neutrophils (%) (Auto) 89.7 % Lymphocytes (%) (Auto) 5.2 % Monocytes (%) (Auto) 4.7 % Eosinophils (%) (Auto) 0.1 % Basophils (%) (Auto) 0.0 % Neutrophils # (Auto) 16.47 K/uL Lymphocytes # (Auto) 0.96 K/uL Monocytes # (Auto) 0.86 K/uL Eosinophils # (Auto) 0.02 K/uL Basophils # (Auto) 0.00 K/uL RDW Standard Deviation 49.7 fL RDW Coefficient of Variation 17.2 % Immature Granulocyte % (Auto) 0.3 % Immature Granulocyte # (Auto) 0.05 K/uL Prothrombin Time 9.9 SECONDS Prothromb Time International Ratio 0.9 Activated Partial Thromboplast Time 26.6 SECONDS Partial Thromboplastin Ratio 1.0 Sodium Level 137 mmol/L Potassium Level 3.9 mmol/L Chloride Level 94 mmol/L Carbon Dioxide Level 38 mmol/L Anion Gap 5.0 mmol/L 13.0 mmol/L Blood Urea Nitrogen 53 mg/dl Creatinine 2.30 mg/dl Estimated GFR () 21.9 Estimated GFR (Non- 18.9 BUN/Creatinine Ratio 23.1 Random Glucose 157 mg/dl Calcium Level 8.3 mg/dl Magnesium Level 2.6 mg/dl Total Bilirubin 0.4 mg/dl Aspartate Amino Transf (AST/SGOT) 11 U/L Alanine Aminotransferase (ALT/SGPT) 13 U/L Alkaline Phosphatase 78 U/L Total Creatine Kinase 30 U/L Creatine Kinase MB 0.6 ng/ml Creatine Kinase MB Ratio 2.0 Total Protein 6.7 gm/dl Albumin 2.2 gm/dl Globulin 4.5 gm/dl Albumin/Globulin Ratio 0.5 Bedside Hemoglobin 11.9 g/dl Bedside Hematocrit 35 % Bedside Sodium 137 mEq/L Bedside Potassium 3.9 mEq/L Bedside Chloride 90 mEq/L Bedside Total CO2 39 mEq/l Bedside Blood Urea Nitrogen 54 mg/dl Bedside Creatinine 2.0 mg/dl Bedside Glucose (other) 155 mg/dl Bedside Ionized Calcium (Nickolas) 1.07 mmol/l Bedside Troponin I 0.070 ng/ml [id number] Natriuretic Peptide 7272 pg/ml Bedside Lactic Acid Venous 1.27 mmol/L Test 12/09/16 01:56 12/09/16 05:50 12/09/16 06:47 12/09/16 09:10 Urine Color YELLOW Urine Appearance CLOUDY Urine pH 5.0 Urine Specific [place] 1.014 Urine Protein NEG Urine Glucose (UA) NEG Urine Ketones NEG Urine Occult Blood NEG Urine Nitrite NEG Urine Bilirubin NEG Urine Urobilinogen NEG Urine Leukocyte Esterase NEG Urine WBC (Auto) 1-5 /hpf Urine RBC (Auto) 0-4 /hpf Urine Hyaline Casts (Auto) 1-5 /lpf Urine Epithelial Cells (Auto) 5-10 /lpf Urine Bacteria (Auto) NEG Urine Renal Epithelial Cells >30 /lpf Urine Pathogenic Casts /lpf Urine Random Microalbumin 68.2 mg/L White Blood Count 14.29 K/uL Red Blood Count 3.55 M/uL Hemoglobin 8.6 g/dL Hematocrit 28.7 % Mean Corpuscular Volume 80.8 fL Mean Corpuscular Hemoglobin 24.2 pg Mean Corpuscular Hemoglobin Concent 30.0 g/dl Platelet Count 335 K/uL Mean Platelet Volume 8.8 fL Neutrophils (%) (Auto) 89.0 % Lymphocytes (%) (Auto) 4.3 % Monocytes (%) (Auto) 6.3 % Eosinophils (%) (Auto) 0.1 % Basophils (%) (Auto) 0.1 % Neutrophils # (Auto) 12.72 K/uL Lymphocytes # (Auto) 0.62 K/uL Monocytes # (Auto) 0.90 K/uL Eosinophils # (Auto) 0.01 K/uL Basophils # (Auto) 0.01 K/uL RDW Standard Deviation 51.7 fL RDW Coefficient of Variation 17.2 % Immature Granulocyte % (Auto) 0.2 % Immature Granulocyte # (Auto) 0.03 K/uL Red Blood Cell Morphology Unremarkable Prothrombin Time 10.3 SECONDS Prothromb Time International Ratio 1.0 Sodium Level 140 mmol/L Potassium Level 3.6 mmol/L Chloride Level 97 mmol/L Carbon Dioxide Level 37 mmol/L Anion Gap 6.0 mmol/L Blood Urea Nitrogen 52 mg/dl Creatinine 2.10 mg/dl Est Creatinine Clear Calc Drug Dose 15.8 ml/min Estimated GFR () 24.4 Estimated GFR (Non- 21.1 BUN/Creatinine Ratio 24.7 Random Glucose 126 mg/dl Calcium Level 7.5 mg/dl Magnesium Level 2.4 mg/dl Troponin I 0.210 ng/ml Bedside Glucose 113 mg/dl Arterial Blood pH 7.41 Arterial Blood Partial Pressure CO2 60 mmHg Arterial Blood Partial Pressure O2 54 mm/Hg Arterial Blood HCO3 37 mmol/L Arterial Blood Oxygen Saturation 84.6 % Arterial Blood Base Excess 11.0 mEq/L Arterial Blood Gas Delivery 2 L Lawson Test POS Test 12/09/16 10:29 Bedside Glucose 113 mg/dl Assessment and Plan 82-year-old female admitted on 12/08/2016 because of shortness of breath that began a few days prior to arrival. Per report Patient had recently been admitted to [facility] from November 10 through November 13, and then from November 17 to November 26. After sent home on oxygen , has had progressive shortness of breath in spite of wearing the oxygen, more shallow respirations throughout the day even though they moved her on she's not to 8 L. Acute on chronic respiratory failure, with history of chronic respiratory failure O2 dependent, multiple factors because worsening breathing The contribution factors include worsening bilateral pleural effusion is especially in left pleural effusion and CHF exacerbation , pneumonia or COPD exacerbation with CO2 retention, and possible bilateral lower lung pneumonia. Elevated troponin likely because of CHF exacerbation and fluid overload Acute diastolic CHF with bilateral pleural effusions, right side being large and left being moderate history of A. fib with RVR/history of atrial flutter with RVR/hypertension/CAD Discussed with lab technician, continue on CPAP machine Patient has borderline low blood pressure, possible not able to tolerate diuretic Left side mild to moderate pleural effusion may contribute to her worsening difficulty breathing Therefore thoracentesis for the removal of the pleural fluid and pleural fluid evaluations become more important in next step Patient got Lasix plus albumin time one dose, seems renal function tolerated okay, we will continue him that if blood pressure able to tolerate continue amiodarone 200 mg by mouth twice a day, continue digoxin 0.125 mg by mouth on Saturday, Saturday and Saturday. We will hold Cardizem CD 240 mg by mouth daily and her usual oral dose of Lasix 20 mg by mouth 3 times weekly. hold aspirin 81 mg by mouth daily for possible thoracentesis. Of note, ejection fraction was 50-55% on echocardiogram of 05/29/2016. Pneumonia of both lower lobes--placed on vancomycin IV per renal dosing, and Zosyn 3.375 mg IV every 8 hours. Chronic renal insufficiency--creatinine is 2.30, with baseline 1.7 to 2.4. Hyperglycemia--blood sugar on entry was 157. Hypoalbuminemia--albumin was 2.2 on entry, with previous hospitalization records of 3.1 to 3.8. GI bleed history--the patient was found to have GI bleed while on Eliquis in July 2016. Patient and family request okay CPR but no intubation, this is witnessed by nurse Continued [facility] stay due to: multiple IV medications needed Discharge planning: home
[2016-12-09 12:52] LABS: PARTIAL THROMBOPLASTIN RATIO 1.1
--- NOTE | 2016-12-09 12:57 | PULMONARY CONSULTATION ---
DATE OF CONSULTATION: 12/09/2016 TIME: 7:35 a.m. REPORT OF CONSULTATION: The patient was seen in room 230, bed 2. She is an 86-year-old female admitted overnight with progressive shortness of breath. Her history is that she was admitted to [facility] from November 10 through November 13 with atrial fibrillation with a rapid ventricular response. She was also felt to have a small left lower lobe pneumonia. She was readmitted on November 17 and was discharged on November 26. During that hospital stay she had an extensive right lung pneumonia. A chest x-ray done on November 24 showed evidence of bilateral pleural effusions greater on the left than the right. She felt okay for a few days, but in the past several days has had progressive increasing shortness of breath. She has been short of breath at rest. She has had very little cough. There has been no sputum production and no hemoptysis. She has not had any chills or fevers, but she has had some sweats. Her appetite has been poor. She has had some nausea and vomiting. She states when she vomits, she just brings up frothy material. She has been profoundly weak. Her chest x-ray done this morning shows progression of the bilateral pleural effusions which are now significantly greater on the left than the right. Both the left and right sides have increased compared with the x-ray done on November 24. This morning she is having some left lateral chest pain which is worse with deep inspiration. This would seem to be likely related to the pleural effusion, but she does have some elevation of troponin levels. She is now on a heparin drip. PAST PULMONARY HISTORY: She was diagnosed with asthma several years ago. She only uses an inhaler p.r.n. She also carries a history of obstructive sleep apnea and she wears CPAP nightly. She does not know the CPAP pressure. PAST SURGICAL HISTORY: 1. Colectomy for colon cancer. 2. Hysterectomy. 3. Parathyroidectomy. PAST MEDICAL HISTORY: 1. Atrial fibrillation. 2. Hypertension. 3. Colon CA. 4. Diastolic CHF. 5. GERD. 6. Coronary artery disease. 7. 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 8. Pulmonary edema. 9. GI bleeding, which occurred when she was on Eliquis. SOCIAL HISTORY: Tobacco never. ETOH -- none. ALLERGIES: INCLUDE CIPRO AND SULFA, REACTIONS ARE UNKNOWN. FAMILY HISTORY: Father at age 70 from an [place]. Other family history includes diabetes and hypertension. MEDICATIONS: At home 1. Amiodarone 200 mg b.i.d. 2. Aspirin 81 mg daily. 3. Calcium b.i.d. 4. Digoxin 0.125 mg 3 times per week. 5. Diltiazem 240 mg daily. 6. Furosemide 20 mg 3 times per week. 7. O2 2 liters nasal cannula -- reportedly, she had been up to 8 liters at home but was still short of breath. 8. Levalbuterol 2 puffs q. 6 hours p.r.n. REVIEW OF SYSTEMS: GENERAL: The patient's energy level has been very poor. She has been unable to do any of her pharmacometrician. Her has been doing everything for her. NEUROLOGIC: Denies syncope or near syncope. OPHTHALMIC: Denies visual complaints. ENT: Denies nasal congestion or coryza. She does complain of dryness associated with using her CPAP. CARDIAC: She has some left-sided chest pain today. She is not complaining of palpitations. PULMONARY: As noted above. GASTROINTESTINAL: Appetite has been poor. As noted above she has had some nausea and vomiting. GENITOURINARY: Denies complaints. Currently, has a catheter in place. MUSCULOSKELETAL: Denies myalgias or arthralgias. DERMATOLOGIC: No rashes. ENDOCRINE: No lymphadenopathy. PHYSICAL EXAMINATION: VITAL SIGNS: The patient is a very pleasant 86-year-old female who was cooperative, alert and oriented. She looked mildly short of breath and she was clearly very weak. Temperature is 36.8. There has been no documented fevers since she was admitted. HEENT: Eyes showed the pupils to be reactive to light. Cataract implants were noted in each eye. Nasal passage was unremarkable. Mouth exam shows a fairly large tongue considering the size of her body and she would be a Mallampati grade 3 pharynx. NECK: There is a scar at the base of her neck from prior surgery. It is minimally visible. No lymphadenopathy was noted. The neck veins were just mildly distended. CHEST: Normal development. The cardiac rate is 84. The rhythm is irregularly irregular and compatible with atrial fibrillation. The blood pressure this morning is 94/57. Respiratory rate was 20 breaths per minute. She was not using accessory muscles. Saturation was 91% on 2 liter nasal cannula. There are very diminished breath sounds on the left lower one-half or more of the chest. On the right side there are very decreased breath sounds on the right lower one-third. There is dullness to percussion in both the left lower lobe and right lower lobe. ABDOMEN: Soft. She has a scar from prior surgery. Bowel sounds were normal. There was no tenderness to palpation, masses or organomegaly. EXTREMITIES: Showed no cyanosis, clubbing or edema. LABORATORY DATA: CBC on admission showed a white count of 18.36. Hemoglobin was 9.9. Platelets were 412,000. Her MCV, MCH, and MCHC are all decreased which could be compatible with an iron deficiency anemia. Repeat CBC this morning shows the white count down to 14.29 and the hemoglobin down to 8.6. INR was 0.9 and PTT was 26.6. Urinalysis showed no significant findings. Electrolytes show sodium 140, potassium 3.6, chloride 97, bicarbonate 37. The BUN is 52 with a creatinine of 2.1. The troponins initially were 0.07, but upon repeat was 0.21. The BNP was severely elevated at 7272. AST was 11, ALT was 13 and alkaline phosphatase was 78. Those were all normal. Total protein was 6.7 with albumin of 2.2 and globulin of 4.5. Magnesium was 2.6. IMPRESSION: 1. Acute respiratory failure with hypoxia and hypercarbia. 2. Congestive heart failure. 3. Pleural effusions greater on the left than the right. 4. Recent pneumonia -- cannot exclude recurrent pneumonia. 5. Chest pain -- cardiac etiology to be excluded. 6. Obstructive sleep apnea. 7. Anemia. 8. Chronic kidney disease. COMMENTS AND RECOMMENDATIONS: The patient's respiratory failure appears to be multifactorial. She has at least moderate sized pleural effusions and probably would be considered large on the left. She is going to need thoracentesis. The effusions have increased compared with her prior hospital stay. I believe this may be a major contributor to her shortness of breath. A very high BNP suggests CHF. Although she had pneumonia recently she does not really seem to have symptoms to suggest an acute pneumonia such as cough or sputum production. However, she does have an elevated white count. The patient has a history of sleep apnea and needs to wear her CPAP. Presumably her family will be bringing it in for her and if not, we should order CPAP for her. The patient's blood counts will need to be followed very carefully. She has a history of GI bleeding from anticoagulants and she is now on a heparin drip. The thoracentesis likely can be done tomorrow by Dr. Bond. I believe we should do a blood gas. Her carbon dioxide levels are elevated off of electrolytes and we need to know if she is acidotic or not. She has been on amiodarone relatively recently and I am doubtful that is a major contributing factor to her shortness of breath. She has been started on piperacillin, tazobactam. It appears she had 1 dose of vancomycin. I would avoid that in light of her kidney function unless we have a specific organism to treat. She does not seem to have a lot of urine output thus far. It would appear that she received 1 dose of Lasix. I will defer diuretic management to the hospitalist and to cardiology. Thank you very much for asking me to assist in her care.
[2016-12-09] MEDS: DILTIAZEM HCL 30 MG TAB PO SCH ×2 (13:45→19:42)
--- NOTE | 2016-12-09 13:52 | ECHOCARDIOGRAM REPORT ---
*NOTICE TO RECEIVING [employer] This information is strictly Confidential and protected under [place] law. [place] law prohibits you from making any further disclosure of this information unless further disclosure is expressly permitted by the written consent of the person to whom it pertains or is authorized by law. A general authorization for the release of medical or other information is not sufficient for this purpose. Hospital accepts no responsibility if the information is made available to any other person, INCLUDING THE PATIENT. Interpretation Summary * Name: SHWETA JONES Study Date: 12/09/2016 09:38 AM BP: 93/63 mmHg * Patient Location: C.2T\S\S230\S\2 HR: 81 * : 1930 (M/d/yyy) Gender: Female Height: 62 in * Age: 86 yrs Ethnicity: CA Weight: 126 lb * Ordering Physician: Barak Brooks * Performed By: Angela Seals * * Reason For Study: CHF, ELEVATED TROP, SOB * BSA: 1.6 m2 * -- Conclusions -- * 1. Normal left ventricular size and systolic function. EF 60-65%. No regional wall motion abnormalities. Severe concentric left ventricular hypertrophy. * 2. The right ventricle is mildly dilated. The right ventricular systolic function is normal. * 3. Aortic valve sclerosis mild, without significant aortic valvular stenosis. Mild aortic regurgitation. * 4. Mildly dilated ascending aorta. * 5. Pleural effusion. * 6. Trace pericardial effusion. * 7. Normal estimated right ventricular systolic pressure; RVSP 29 mmHg. * 8. Rhythm is atrial fibrillation. * 9. Compared to prior study on 05/29/16, pleural effusion is now present. Procedure Details * A complete two-dimensional transthoracic echocardiogram was performed (2D, M-mode, Doppler and color flow Doppler). Left Ventricle * Normal left ventricular size and systolic function. EF 60-65%. No regional wall motion abnormalities. Severe concentric left ventricular hypertrophy. Right Ventricle * The right ventricle is mildly dilated. * The right ventricular systolic function is normal. Atria * The left atrium is mildly dilated. * The right atrium is mildly dilated. * There is no evidence of atrial septal defect, but resolution does not allow assessment for a patent foramen ovale. Mitral Valve * There is mild mitral annular calcification. * There is no mitral valve stenosis. * There is trace mitral regurgitation. Tricuspid Valve * The tricuspid valve is not well visualized, but is grossly normal. * There is no tricuspid stenosis. * There is mild tricuspid regurgitation. Aortic Valve * The aortic valve is trileaflet. * Aortic valve sclerosis mild, without significant aortic valvular stenosis. * No hemodynamically significant valvular aortic stenosis. * Mild aortic regurgitation. Pulmonic Valve * The pulmonary valve is inadequately visualized, but the Doppler data is adequate for interpretation. * There is no pulmonic valvular stenosis. * Trace pulmonic valvular regurgitation. Great Vessels * The aortic root is normal size. * Mildly dilated ascending aorta. Pericardium/Pleural * Trace pericardial effusion. * Pleural effusion. Great Vessels * Normal inferior vena cava size and collapsability with sniff indicates a normal right atrial pressure of 3 mmHg MMode 2D Measurements and Calculations IVSd 1.7 cm IVSs 2.4 cm LVIDd 3.8 cm LVIDs 2.3 cm LVPWd 1.6 cm LVPWs 2.7 cm IVS/LVPW 1.1 FS 38.8 % EDV(Teich) 60.2 ml ESV(Teich) 18.1 ml EF(Teich) 70.0 % EDV(cubed) 53.0 ml ESV(cubed) 12.1 ml EF(cubed) 77.1 % % IVS thick 35.0 % % LVPW thick 67.2 % LV mass(C)d 252.7 grams LV mass(C)dI 160.9 grams/m\S\2 LV mass(C)s 315.1 grams LV mass(C)sI 200.6 grams/m\S\2 SV(Teich) 42.2 ml SI(Teich) 26.8 ml/m\S\2 SV(cubed) 40.8 ml SI(cubed) 26.0 ml/m\S\2 Ao root diam 3.4 cm Ao root area 9.1 cm\S\2 ACS 1.7 cm LA dimension 4.4 cm asc Aorta Diam 3.7 cm LA/Ao 1.3 LVOT diam 2.0 cm LVOT area 3.3 cm\S\2 LVAd ap4 16.7 cm\S\2 LVLd ap4 6.2 cm EDV(MOD-sp4) 38.1 ml EDV(sp4-el) 38.2 ml LVAs ap4 8.7 cm\S\2 LVLs ap4 5.1 cm ESV(MOD-sp4) 13.5 ml ESV(sp4-el) 12.4 ml EF(MOD-sp4) 64.6 % EF(sp4-el) 67.5 % LVAd ap2 17.2 cm\S\2 LVLd ap2 6.5 cm EDV(MOD-sp2) 38.9 ml EDV(sp2-el) 38.4 ml LVAs ap2 8.7 cm\S\2 LVLs ap2 4.8 cm ESV(MOD-sp2) 13.6 ml ESV(sp2-el) 13.2 ml EF(MOD-sp2) 65.0 % EF(sp2-el) 65.5 % LVLd %diff 5.2 % EDV(MOD-bp) 38.9 ml LVLs %diff -6.95 % ESV(MOD-bp) 13.5 ml EF(MOD-bp) 65.2 % SV(MOD-sp4) 24.6 ml SI(MOD-sp4) 15.7 ml/m\S\2 SV(MOD-sp2) 25.2 ml SI(MOD-sp2) 16.1 ml/m\S\2 SV(MOD-bp) 25.4 ml SI(MOD-bp) 16.2 ml/m\S\2 SV(sp4-el) 25.8 ml SI(sp4-el) 16.4 ml/m\S\2 SV(sp2-el) 25.1 ml SI(sp2-el) 16.0 ml/m\S\2 Doppler Measurements and Calculations MV E max regina 87.9 cm/sec MV dec time 0.14 sec Ao V2 max 137.4 cm/sec Ao max PG 7.8 mmHg Ao max PG (full) 1.2 mmHg YESSI(V,A) 3.1 cm\S\2 YESSI(V,D) 3.1 cm\S\2 AI max regina 366.3 cm/sec AI max PG 53.9 mmHg AI dec slope 190.1 cm/sec\S\2 AI P1/2t 564.4 msec LV V1 max PG 6.5 mmHg LV V1 max 127.8 cm/sec PA V2 max 99.8 cm/sec PA max PG 4.0 mmHg PI end-d regina 92.5 cm/sec TR max regina 256.0 cm/sec RVSP(TR) 29.3 mmHg RAP systole 3.0 mmHg
[2016-12-09] MEDS ORDERED: ALBUMIN 25% 50 ML with FUROSEMIDE INJ 40 MG IV SCH ×2 (14:00)
--- NOTE | 2016-12-09 14:08 | CARDIOLOGY CONSULTATION ---
DATE OF CONSULTATION: 12/09/2016 TIME: 12:56 a.m. CONSULTING PHYSICIAN: Dr. Brooks. REASON FOR CONSULTATION: Unstable angina, CHF, and pleural effusion. PRIMARY CREW CAR DRIVER: Dr. Herrera of [facility]. HISTORY OF PRESENT ILLNESS: Ms. Conrad is a pleasant 86-year-old female with a history significant diastolic CHF, atrial fibrillation, hypertension, and recent hospitalization for pneumonia/CHF, being discharged on 11/26/2016. During her last hospitalization, she was evaluated by Dr. Hooker for cardiology, for atrial fibrillation. She was discharged on amiodarone; however, the patient's states that she never took that medication, only using it while hospitalized. She apparently felt better for the first few days after discharge, but then started getting weaker and weaker. For the past 2-3 days she has had worsening hypoxia. They have a pulse oximeter at home and she uses supplemental oxygen 2 liters via nasal cannula chronically. Her has been increasing it up to liters just to keep an oxygen saturation of 90-92%. He has seen values as low as 74%. She herself denies any subjective shortness of breath, but does admit to some mild orthopnea, propping her head up to breathe easier night. She denies any significant dyspnea with exertion but states overall she has just been very weak. She did have some lightheadedness and near syncope with ambulation yesterday. Her caught her and helped her to the ground. She denies any actual syncope. She has chronic lower extremity edema, but believes she has increased edema compared to her normal state, a mild increase overall. She continues to take diuretic, Lasix 20 mg, every Saturday, Saturday, and Saturday. She can use extra dose as needed and states that she uses approximately 1 extra dose on rare occasion. She was checking her weight daily up until the past week. It had been stable. She denies chest pain, fevers, chills, abdominal pain, nausea, vomiting, melena, hematochezia, hematuria, or other bleeding. She denies any abdominal pain, nausea or vomiting. Since admission, she has received a dose of diuretic therapy. She does not feel any different compared to her presenting symptoms. She has been evaluated by Dr. Duggan of pulmonology. There are plans were being made for thoracentesis tomorrow as chest x-ray demonstrated pleural effusions. REVIEW OF SYSTEMS: As above and other review of systems otherwise negative. PAST MEDICAL HISTORY: 1. Atrial fibrillation and atrial flutter. 2. Gastrointestinal bleed July 2016 and long-term anticoagulation since been discontinued. She reportedly had upper and lower endoscopies without identified source of GI bleed. 3. Hypertension. 4. Colon cancer, status post colectomy. 5. Chronic diastolic CHF. 6. Hypertension. 7. Chronic kidney disease with solitary kidney, congenital. 8. Obstructive sleep apnea. 9. Asthma. 10. GERD. 11. Hiatal hernia. 12. Diverticulosis. HOME MEDICATIONS: Include digoxin 0.125 mg Saturday, Saturday, Saturday; diltiazem 240 mg daily; Lasix 20 mg Saturday, Saturday, and Saturday and as needed; aspirin 81 mg daily and supplemental oxygen. INPATIENT MEDICATIONS: Include: 1. Amiodarone 200 mg p.o. b.i.d.; however, patient is refusing. She states that she did not tolerate it in the past. 2. Digoxin 0.125 mg Saturday, Saturday, Saturday. 3. Lasix 40 mg IV x1 at 2343 on 12/08/2016. She has also ordered furosemide 40 mg with albumin on a daily basis, heparin drip per protocol, Protonix 40 mg IV daily, Zosyn 3.375 grams IV q. 12 hours, vancomycin IV. ALLERGIES: FLOXACIN, SULFA CAUSED GI SYMPTOMS IN THE PAST. SHE ALSO STATES THAT SHE DOES NOT TOLERATE AMIODARONE. SOCIAL HISTORY: Denies tobacco, alcohol or drug abuse. She is and lives with her . She has a [id number] who is a nurse. Her is present at the bedside. FAMILY HISTORY: No known CAD. PHYSICAL EXAMINATION: VITAL SIGNS: Temperature 36.9 degrees, heart rate 78 beats per minute, respiration rate 20, blood pressure 135/77 mmHg; however, she has been intermittently hypotensive otherwise normotensive. Oxygen saturation 100% on 2 liters per nasal cannula. I's and O's are incomplete. Weight 57.3 kg. GENERAL: No acute distress. She is alert and oriented. HEENT: Anicteric sclerae. NECK: Elevated JVD, detention to the mandible with head elevated at approximately 45 degree angle. Hepatojugular reflux is noted. No bruits. Normal carotid upstrokes bilaterally. CARDIAC: PMI is nondisplaced. There is no ventricular heave, currently irregularly irregular. Normal S1, S2. No audible murmurs, rubs or gallops auscultated. LUNGS: Decreased breath sounds at bilateral bases, otherwise clear. ABDOMEN: Soft, nontender, nondistended. Normoactive bowel sounds. No bruits. EXTREMITIES: 1+ bilateral pedal edema. No cyanosis. 2+ radial pulses bilaterally. 2+ dorsalis pedis pulses bilaterally. PSYCHIATRIC: Affect appears appropriate. DATA: ECG on 12/09/2016 at 5:16 a.m. personally reviewed. Ectopic atrial tachycardia, possible due to unusual P-wave axis. Heart rate is [address]/T wave abnormality in the anterolateral/lateral leads. ECG on presentation on 12/08/2016 demonstrated sinus bradycardia at 49 beats per minute. Anterolateral ST/T wave abnormality. Currently on telemetry. There are no definite P waves, suspicious for atrial fibrillation. We will repeat ECG. LABORATORY DATA: Sodium 140, potassium 3.6, BUN 52, creatinine 2.1 down from 2.3. Magnesium 2.4. Troponin 0.21. Initial point of care troponin was 0.07. Albumin level is 2.2, proBNP 7272. TSH on 11/10/2016 was 2.84. White blood cell count is 14.29, hemoglobin 8.6, and platelets 335. INR is 1. IMAGING DATA: Chest x-ray image personally reviewed. Bilateral pleural effusion, left greater than right. Radiology interpretation suspected large left pleural effusion and moderate right pleural effusion. Suspect left lower lung collapse. Pulmonary vascular congestion. Bibasilar opacities. Echocardiogram report from 05/29/2016 reviewed as interpreted by Dr. Herrera. LV systolic function was reported as 50-55%. Mildly dilated right ventricle with normal systolic function. Severely dilated left atrium. Moderately dilated right atrium. Sclerotic aortic valve without significant stenosis. Mild AI. Mild to moderate TR. RVSP 30-40. ASSESSMENT AND PLAN: 1. Acute on chronic diastolic congestive heart failure: She appears hypervolemic. Agree with diuretic. Would aim for approximately 1 liter negative over 24 hours, more if tolerated from a renal standpoint and blood pressure standpoint. Strict I's and O's. Daily weights. Low sodium diet. 2. Pleural effusion: As per pulmonology. Thoracentesis is being planned. 3. Atrial fibrillation: She appears to be in atrial fibrillation on telemetry currently. An ECG will be ordered. Most recent hospitalization in November of 2016, she had atrial fibrillation with rapid ventricular response. She states that she does not tolerate amiodarone; however, she was discharged on this medication, but does not wish to be on it any longer. She did not take it when she went home. Therefore, amiodarone will be discontinued as she is also refusing it here. Can attempt a rate control strategy and her rate has been adequately controlled thus far on digoxin. She also at home takes diltiazem and therefore would recommend restarting other rate-controlling medications such as diltiazem. As there is concern for blood pressure, can start diltiazem 30 mg q. 6 hours so that she can be washed more closely from a blood pressure standpoint. Long-term anticoagulation has been discontinued by Dr. Herrera. She had a significant GI bleed reported in 2016. She is currently on a heparin drip. Her hemoglobin did drop from 9.9 yesterday to 8.6 today. Would consider discontinuing this given her prior history. If she remains on heparin, would monitor very closely. Dr. Goldstein will be notified. 4. Elevated troponin: She did not present with acute coronary syndrome. She did not present with angina. Could be due to her diastolic congestive heart failure and overall hypoxia as she has been having a significant hypoxia at home, according to her . Hopefully, her hypoxia improves after thoracentesis and some diuresis. She does have abnormal ST findings on ECG. There are more pronounced compared to November 2016 ECGs. Can continue heparin for short term to ensure that her troponins are not significantly becoming more elevated but if not, then would consider discontinuation given her GI bleeding history and current anemia. She has received aspirin. An echocardiogram will be ordered as her last one was in May of 2016, given this hospitalization and most recent hospitalization when she was treated for pneumonia, atrial fibrillation, and congestive heart failure. 5. Disposition: Dr. Herrera, her primary frame assembler will resume her cardiology care tomorrow. Plan of care has been discussed with Dr. Goldstein of the primary hospitalist service. Thank you for allowing me to participate in care of Mr. Conrad.
--- NOTE | 2016-12-09 14:43 | Pharmacy Progress Note ---
Pharmacy Antibiotic Consult Date of Service: Dec 09, 2016. Pharmacy Dosing Scope Pharmacy is consulted to initiate vancomycin/Zosyn IV dosing therapy, order appropriate labs and adjust drug dose/frequency. Subjective The patient is a 86 year old female admitted on Dec 08, 2016 at 22:50 with progressive shortness of breath and fatigue. She was previously hospitalized twice recently with last discharge on 11/26/2016. Objective Height (Feet): 5 Height (Inches): 2.00 Weight (Kilograms): 57.300 Lab Results (24hrs): Laboratory Tests Test 12/08/16 21:48 12/09/16 05:50 BUN/Creatinine Ratio 23.1 24.7 Blood Urea Nitrogen 53 mg/dl 52 mg/dl Creatinine 2.30 mg/dl 2.10 mg/dl White Blood Count 18.36 K/uL 14.29 K/uL Red Blood Count 4.09 M/uL 3.55 M/uL Hemoglobin 9.9 g/dL 8.6 g/dL Hematocrit 32.6 % 28.7 % Mean Corpuscular Volume 79.7 fL 80.8 fL Mean Corpuscular Hemoglobin 24.2 pg 24.2 pg Mean Corpuscular Hemoglobin Concent 30.4 g/dl 30.0 g/dl Platelet Count 412 K/uL 335 K/uL Mean Platelet Volume 9.2 fL 8.8 fL Neutrophils (%) (Auto) 89.7 % 89.0 % Lymphocytes (%) (Auto) 5.2 % 4.3 % Monocytes (%) (Auto) 4.7 % 6.3 % Eosinophils (%) (Auto) 0.1 % 0.1 % Basophils (%) (Auto) 0.0 % 0.1 % Neutrophils # (Auto) 16.47 K/uL 12.72 K/uL Lymphocytes # (Auto) 0.96 K/uL 0.62 K/uL Monocytes # (Auto) 0.86 K/uL 0.90 K/uL Eosinophils # (Auto) 0.02 K/uL 0.01 K/uL Basophils # (Auto) 0.00 K/uL 0.01 K/uL Assessment & Plan Patient received vancomycin 1000 mg x 1 at 2322 on 12/08/2016 (this is around 17.6 mg/kg/dose). Unfortunately this produced a 12 hour random of 3.5 mcg/mL. Vancomycin 1400 mg IV x 1 (25 mg/kg/dose) --> essentially the patient will need re-loaded on vancomycin as her level is very low Recheck random tomorrow morning. MRSA nasal swab ordered. ZOSYN: 3.375 gm IV x 1 load with Zosyn 3.375 IV q8hour extended interval afterwards. Pharmacy will continue to follow and will adjust dose/frequency as necessary. Thank you
[2016-12-09] MEDS ORDERED: VANCOMYCIN INJ 1,400 MG in SODIUM CHLORIDE 0.9% 500ML 500 ML IV ONE (15:00)
[2016-12-09 15:08] LABS: CKMB/CK RATIO 4.5 (0-3.0)
[2016-12-09 23:04] LABS: CKMB/CK RATIO 3.2 (0-3.0)
[2016-12-10] VITALS (9 sets, daily range): BP systolic 96–123; BP diastolic 61–75; PULSE 63–80; TEMP 36.5–37.3; O2SAT 90–99
[2016-12-10] MEDS: IPRATROPIUM BROMIDE NEB SOLN 0.02% 2.5 ML VIAL INH SCH ×4 (01:50→19:10)
[2016-12-10] MEDS: LEVALBUTEROL 1.25MG/0.5ML NEB INH SCH ×4 (01:50→19:10)
[2016-12-10] MEDS: DILTIAZEM HCL 30 MG TAB PO SCH ×4 (02:12→20:33)
[2016-12-10] MEDS: PIPERACILL/TAZOBAC IV 3.375 GM in DEXTROSE 5% 100ML 100 ML IV SCH ×2 (05:35→16:43)
[2016-12-10] MEDS: ONDANSETRON INJ 2 MG/ML 2 ML VIAL IV PRN (06:00)
[2016-12-10] MEDS: BOOST VANILLA PO SCH ×6 (07:43→20:33)
[2016-12-10] MEDS: INSULIN ASPART 100 UNITS/ML 3 ML PEN SC SCH ×4 (07:45→20:35)
[2016-12-10 07:48] LABS: BASO % 0.2 %; BASO ABS # 0.02 K/uL (0-0.2); COMPLETE YES; EOS % 0.5 %; HEMATOCRIT 32.6 % (37-47); IG% 0.2 %; LYMPH % 6.3 %; LYMPH ABS # 0.82 K/uL (1.2-3.4); MEAN CELL VOLUME 80.3 fL (80-100); MEAN CORPUSCULAR HEMOGLOBIN 23.6 pg (25-34); MEAN CORPUSCULAR HGB CONC 29.4 g/dl (32-36); MEAN PLATELET VOLUME 8.8 fL (7.4-10.4); MONO % 6.6 %; NEUT % 86.2 %; PLATELET COUNT 380 K/uL (130-400); RED BLOOD COUNT 4.06 M/uL (4.2-5.4); WHITE BLOOD COUNT 13.08 K/uL (4.8-10.8)
[2016-12-10 08:18] LABS: BUN/CREATININE RATIO 23.4 (10-20); CALCIUM 8.1 mg/dl (8.5-10.1); CREATININE 2.1 mg/dl (0.60-1.20); MAGNESIUM 2.4 mg/dl (1.8-2.4); POTASSIUM 3.9 mmol/L (3.5-5.1)
--- NOTE | 2016-12-10 08:41 | Procedure Note ---
Procedure Note Date of Service Dec 10, 2016. Procedure Note Procedure: Thoracentesis Consent: Obtained to the patient placed into the chart Preprocedural diagnosis: Right-sided pleural effusion secondary to volume overload Postprocedural diagnosis: Right-sided pleural effusion secondary to volume overload Analgesia: 5 cc of 1% liquid lidocaine via subcutaneous syringe Procedure: Ultrasound: Thoracic ultrasound was performed after patient was placed in an upright position. Proper positioning along the left hemithorax just medial to the left posterior axillary line in the seventh intercostal space. Position was marked. Modified Seldinger technique was used for thoracentesis catheter access. Catheter placement into place and approximately 1100 cc was removed. Fluid was taken in appearance. Postprocedural ultrasound showed good lung sliding as well as Fabiana [place] sign. Complications: None noted Follow-up: Chest x-ray pending.
--- NOTE | 2016-12-10 08:44 | Progress Note ---
Subjective Date of Service: Dec 10, 2016. Subjective Pt evaluation today including: conversation w/ patient, conversation w/ family , physical exam, chart review, lab review, review of studies, review of inpatient medication list Feeling better, feel more energetic, is waiting for adjunct spanish instructor to do paracentesis, no other complaint Problem List Medical Problems: (1) Atrial fibrillation with RVR Status: Acute (2) Benign hypertension Status: Chronic (3) Esophageal Reflux Status: Chronic (4) GI bleed Status: Acute (5) Pleural effusion Status: Acute Review of Systems Constitutional: + fatigue, + weakness, No chills, No fever, No problem reported , No sweats, No weight loss Eyes: No diplopia, No discharge, No eye pain, No redness, No worsening of vision ENT: No dental problems, No hearing loss, No nasal symptoms, No sore throat, No tinnitus, No trouble swallowing, No unusual epistaxis Respiratory: + shortness of breath, No cough, No dyspnea at rest, No dyspnea on exertion, No hemoptysis, No sputum, No wheezing Cardiac: No PND, No chest pain, No claudication, No edema, No orthopnea, No palpitations Abdomen: No constipation, No diarrhea, No nausea, No pain, No vomiting Musculoskeletal: No calf pain, No joint pain, No muscle pain, No swelling Female : No abnormal vaginal bleeding, No dysuria, No hematuria, No incontinence, No urinary frequency, No vaginal discharge Neurologic: No balance problems, No memory loss, No numbness/tingling, No paralysis, No vertigo, No weakness Psychiatric: No anhedonism, No anxiety, No depression symptoms, No insomnia, No substance abuse Heme: No abnormal bleeding/bruising, No clotting problems, No night sweats, No swollen lymph nodes Endo: No excessive thirst, No excessive urination, No fatigue Skin: No bleeding, No color change, No itch, No new/changing skin lesions, No rash Objective Vital Signs Date Time Temp Pulse Resp B/P Pulse Ox O2 Delivery O2 Flow Rate FiO2 12/10/16 07:55 72 14 91 Nasal Cannula 2.0 12/10/16 04:00 CPAP 3.0 12/10/16 03:22 36.6 66 16 108/75 92 BiPAP 12/10/16 01:50 71 14 94 Nasal Cannula 3.0 12/10/16 00:00 CPAP 3.0 12/09/16 23:12 36.7 70 16 112/69 90 BiPAP 12/09/16 20:00 Nasal Cannula 3.0 12/09/16 19:11 81 14 93 Nasal Cannula 3.0 12/09/16 18:57 36.5 66 18 102/67 90 Nasal Cannula 3.0 12/09/16 16:00 Nasal Cannula 3.0 12/09/16 15:57 36.9 63 18 105/64 90 Nasal Cannula 2.0 12/09/16 13:37 139/78 12/09/16 12:27 36.9 78 20 135/77 100 Nasal Cannula 2.0 12/09/16 12:00 Nasal Cannula Physical Exam General Appearance: WD/WN, no apparent distress, + cachetic, + thin, + pertinent finding (frail, but pleasant) Eyes: normal inspection, PERRL, EOMI, sclerae normal ENT: normal ENT inspection, hearing grossly normal, pharynx normal Neck: supple, no adenopathy, thyroid normal, no JVD, no carotid bruits, trachea midline Respiratory/Chest: chest non-tender, normal breath sounds, no respiratory distress, no accessory muscle use, + decreased breath sounds (Significant worsening in right side) Cardiovascular: regular rate, rhythm, no edema, no gallop, no JVD, no murmur Abdomen: normal bowel sounds, non tender, soft, no organomegaly, no pulsatile mass Extremities: normal range of motion, non-tender, normal inspection, no pedal edema, no calf tenderness, normal capillary refill, pelvis stable Neurologic/Psychiatric: urology physician II-XII nml as tested, no motor/sensory deficits, alert, normal mood/affect, oriented x 3 Skin: normal color, warm/dry, no rash Lymphatic: no adenopathy Laboratory Results Last 24 Hours Test 12/09/16 09:10 12/09/16 10:29 12/09/16 12:16 12/09/16 14:23 Arterial Blood pH 7.41 Arterial Blood Partial Pressure CO2 60 mmHg Arterial Blood Partial Pressure O2 54 mm/Hg Arterial Blood HCO3 37 mmol/L Arterial Blood Oxygen Saturation 84.6 % Arterial Blood Base Excess 11.0 mEq/L Arterial Blood Gas Delivery 2 L Lawson Test POS Bedside Glucose 113 mg/dl Activated Partial Thromboplast Time 27.4 SECONDS Partial Thromboplastin Ratio 1.1 Random Vancomycin Level 3.5 mcg/ml Total Creatine Kinase 31 U/L Creatine Kinase MB 1.4 ng/ml Creatine Kinase MB Ratio 4.5 Troponin I 0.300 ng/ml Test 12/09/16 16:19 12/09/16 20:18 12/09/16 22:34 12/10/16 06:41 Bedside Glucose 170 mg/dl 150 mg/dl 123 mg/dl Total Creatine Kinase 31 U/L Creatine Kinase MB 1.0 ng/ml Creatine Kinase MB Ratio 3.2 Troponin I 0.299 ng/ml Test 12/10/16 07:30 White Blood Count 13.08 K/uL Red Blood Count 4.06 M/uL Hemoglobin 9.6 g/dL Hematocrit 32.6 % Mean Corpuscular Volume 80.3 fL Mean Corpuscular Hemoglobin 23.6 pg Mean Corpuscular Hemoglobin Concent 29.4 g/dl Platelet Count 380 K/uL Mean Platelet Volume 8.8 fL Neutrophils (%) (Auto) 86.2 % Lymphocytes (%) (Auto) 6.3 % Monocytes (%) (Auto) 6.6 % Eosinophils (%) (Auto) 0.5 % Basophils (%) (Auto) 0.2 % Neutrophils # (Auto) 11.29 K/uL Lymphocytes # (Auto) 0.82 K/uL Monocytes # (Auto) 0.86 K/uL Eosinophils # (Auto) 0.06 K/uL Basophils # (Auto) 0.02 K/uL RDW Standard Deviation 51.4 fL RDW Coefficient of Variation 17.4 % Immature Granulocyte % (Auto) 0.2 % Immature Granulocyte # (Auto) 0.03 K/uL Sodium Level 140 mmol/L Potassium Level 3.9 mmol/L Chloride Level 98 mmol/L Carbon Dioxide Level 37 mmol/L Anion Gap 5.0 mmol/L Blood Urea Nitrogen 49 mg/dl Creatinine 2.10 mg/dl Est Creatinine Clear Calc Drug Dose 15.8 ml/min Estimated GFR () 24.4 Estimated GFR (Non- 21.1 BUN/Creatinine Ratio 23.4 Random Glucose 119 mg/dl Calcium Level 8.1 mg/dl Magnesium Level 2.4 mg/dl Lactate Dehydrogenase 160 U/L Random Vancomycin Level 17.9 mcg/ml Assessment and Plan 82-year-old female admitted on 12/08/2016 because of shortness of breath that began a few days prior to arrival. Per report Patient had recently been admitted to [facility] from November 10 through November 13, and then from November 17 to November 26. After sent home on oxygen , has had progressive shortness of breath in spite of wearing the oxygen, more shallow respirations throughout the day even though they moved her on she's not to 8 L. Acute on chronic respiratory failure, with history of chronic respiratory failure O2 dependent, multiple factors because worsening breathing The contribution factors include worsening bilateral pleural effusion is especially in left pleural effusion and CHF exacerbation , pneumonia or COPD exacerbation with CO2 retention, and possible bilateral lower lung pneumonia. Major factors is fluid overload and bilateral pleural effusion, adjunct spanish instructor had to thoracentesis this morning removal at around 1100 and fluid, patient tolerated procedure fairly Elevated troponin likely because of CHF exacerbation and fluid overload Acute diastolic CHF with bilateral pleural effusions, right side being large and left being moderate history of A. fib with RVR/history of atrial flutter with RVR/hypertension/CAD Troponin peak, we'll discontinue heparin drip, cardiology on the case, continue current care Continue Lasix as tolerated, continue amiodarone 200 mg by mouth twice a day, continue digoxin 0.125 mg by mouth on Saturday, Saturday and Saturday. We will hold Cardizem CD 240 mg by mouth daily and her usual oral dose of Lasix 20 mg by mouth 3 times weekly. hold aspirin 81 mg by mouth daily for possible thoracentesis. New echo shows LVEF was normal Pneumonia of both lower lobes--placed on vancomycin IV per renal dosing, and Zosyn 3.375 mg IV every 8 hours. Follow-up culture and sensitivity Chronic renal insufficiency--creatinine is 2.30, stable in 2.3 today, with baseline 1.7 to 2.4. Hyperglycemia--blood sugar on entry was 157. Hypoalbuminemia--albumin was 2.2 on entry, with previous hospitalization records of 3.1 to 3.8. GI bleed history--the patient was found to have GI bleed while on Eliquis in July 2016. Patient and family request okay CPR but no intubation, this is witnessed by nurse Continued [facility] stay due to: multiple IV medications needed Discharge planning: home
--- NOTE | 2016-12-10 08:45 | Clinical Documentation Query ---
CLINICAL DOCUMENTATION QUERY 86 year old female who presents to the Emergency Room with complaints of persistent shortness of breath 2/2 diastolic chf exacerbation and underlying pneumonia. H&P states patient as having CKD w/o staging. Documenting the stage of CKD will improve data integrity and will help clarify vague terms such as "renal insufficiency" or "chronic renal failure." In your clinical opinion is this patient being managed for: ( x ) CKD stage 4 ( ) Other explanation of clinical findings (Please Explain) ( ) Unable to determine (Please Define) ( ) Need to Discuss ( ) Not Agree The medical record reflects the following clinical findings, treatment, and risk factors. Clinical Indicators: BUN 52, creatinine 2.10, GFR 21.1 Treatment: daily PRP's, Risk Factors: Age, HTN, CAD, home NSAID and diuretic therapies. Please clarify and document your clinical opinion in the progress notes and discharge summary. Terms such as "probable", "suspected", "likely", "questionable", "possible", or "still to be ruled out" are acceptable. IF IN AGREEMENT, YOU MUST DOCUMENT ABOVE DIAGNOSTIC STATEMENT IN DAILY PROGRESS NOTES AND DISCHARGE SUMMARY. This document is not part of the patient's record. Thank You, Donal Camacho, ELIGIO [phone]
[2016-12-10] MEDS ORDERED: NURSING VERBAL MED ORDER ONE ×2 (09:00→15:45)
--- NOTE | 2016-12-10 09:07 | Cardiology Follow-Up ---
Subjective General Date of Service: Dec 10, 2016. Pt evaluation today including: conversation w/ patient, conversation w/ family , chart review, lab review, review of studies, conversation w/ technical support consultant History of Present Illness The patient is a 86 year old female Allergies Coded Allergies: Ciprofloxacin (Verified Allergy, Unknown, UNKNOWN, 12/08/16) Sulfamethoxazole w/Trimethoprim (Verified Adverse Reaction, Mild, GI SYMPTOMS, 12/08/16) Social History Smoking Status: Never Smoker Hx Tobacco Use In Past Year?: No Hx Alcohol Use - Type And Amou: No Hx Substance Use - Type And Am: No Problem List Medical Problems: (1) Atrial fibrillation with RVR Status: Acute (2) Benign hypertension Status: Chronic (3) Esophageal Reflux Status: Chronic (4) GI bleed Status: Acute (5) Pleural effusion Status: Acute Review of Systems Respiratory: + dyspnea at rest, + dyspnea on exertion, + shortness of breath Cardiac: No chest pain, No edema, No palpitations Physical Exam Vital Signs Last Vital Signs Documentation Date Time Temp Pulse Resp B/P Pulse Ox O2 Delivery O2 Flow Rate FiO2 12/10/16 08:40 36.9 80 18 120/70 99 Nasal Cannula 2.0 Physical Exam Constitutional: Level of Distress: mild distress, acutely ill Lungs: Auscultation: no wheezing, no rales/crackles, pertinent finding (decreased BS in left base; Half way up on the right) Cardiovascular: Heart Auscultation: no murmurs, no rubs, no gallops, irregular rate rhythm Abdomen: Bowel Sounds: normal Inspection & Palpation: soft, non-distended, no tenderness, guarding & rebound Extremities: no edema Assessment and Plan Assessment and Plan PAST MEDICAL HISTORY: 1A. Acute respiratory failure (CHF, Low Albumin, renal dz, recent pneumonia) 1B. Atrial fibrillation and atrial flutter. 2. Gastrointestinal bleed July 2016 and long-term anticoagulation since been discontinued. She reportedly had upper and lower endoscopies without identified source of GI bleed. 3. Hypertension. 4. Colon cancer, status post colectomy. 5. Chronic diastolic CHF. 6. Hypertension. 7. Chronic kidney disease with solitary kidney, congenital. 8. Obstructive sleep apnea. This is a difficult situation. This is her third admission in a month and fifth in six months. Her albumin is very low and with her single kidney she is at risk of progressive kidney dz (follows with [facility]) Hold lasix this am due to possible third space and hypotension with fluid back into chest I would consider tapping the right side if possible NO AC with hx GI bleed Check dig level and Keep <1.0 Poor prognosis; started conversation with but he doesn't understand HR ok Consider Nutrition consult Laboratory Results Last 24 Hours Test 12/09/16 09:10 12/09/16 10:29 12/09/16 12:16 12/09/16 14:23 Arterial Blood pH 7.41 Arterial Blood Partial Pressure CO2 60 mmHg Arterial Blood Partial Pressure O2 54 mm/Hg Arterial Blood HCO3 37 mmol/L Arterial Blood Oxygen Saturation 84.6 % Arterial Blood Base Excess 11.0 mEq/L Arterial Blood Gas Delivery 2 L Lawson Test POS Bedside Glucose 113 mg/dl Activated Partial Thromboplast Time 27.4 SECONDS Partial Thromboplastin Ratio 1.1 Random Vancomycin Level 3.5 mcg/ml Total Creatine Kinase 31 U/L Creatine Kinase MB 1.4 ng/ml Creatine Kinase MB Ratio 4.5 Troponin I 0.300 ng/ml Test 12/09/16 16:19 12/09/16 20:18 12/09/16 22:34 12/10/16 06:41 Bedside Glucose 170 mg/dl 150 mg/dl 123 mg/dl Total Creatine Kinase 31 U/L Creatine Kinase MB 1.0 ng/ml Creatine Kinase MB Ratio 3.2 Troponin I 0.299 ng/ml Test 12/10/16 07:30 12/10/16 08:43 12/10/16 08:51 White Blood Count 13.08 K/uL Red Blood Count 4.06 M/uL Hemoglobin 9.6 g/dL Hematocrit 32.6 % Mean Corpuscular Volume 80.3 fL Mean Corpuscular Hemoglobin 23.6 pg Mean Corpuscular Hemoglobin Concent 29.4 g/dl Platelet Count 380 K/uL Mean Platelet Volume 8.8 fL Neutrophils (%) (Auto) 86.2 % Lymphocytes (%) (Auto) 6.3 % Monocytes (%) (Auto) 6.6 % Eosinophils (%) (Auto) 0.5 % Basophils (%) (Auto) 0.2 % Neutrophils # (Auto) 11.29 K/uL Lymphocytes # (Auto) 0.82 K/uL Monocytes # (Auto) 0.86 K/uL Eosinophils # (Auto) 0.06 K/uL Basophils # (Auto) 0.02 K/uL RDW Standard Deviation 51.4 fL RDW Coefficient of Variation 17.4 % Immature Granulocyte % (Auto) 0.2 % Immature Granulocyte # (Auto) 0.03 K/uL Sodium Level 140 mmol/L Potassium Level 3.9 mmol/L Chloride Level 98 mmol/L Carbon Dioxide Level 37 mmol/L Anion Gap 5.0 mmol/L Blood Urea Nitrogen 49 mg/dl Creatinine 2.10 mg/dl Est Creatinine Clear Calc Drug Dose 15.8 ml/min Estimated GFR () 24.4 Estimated GFR (Non- 21.1 BUN/Creatinine Ratio 23.4 Random Glucose 119 mg/dl Calcium Level 8.1 mg/dl Magnesium Level 2.4 mg/dl Lactate Dehydrogenase 160 U/L Random Vancomycin Level 17.9 mcg/ml
[2016-12-10 09:08] LABS: PLEURAL FLUID GLUCOSE 121 mg/dl
--- NOTE | 2016-12-10 09:19 | DIAGNOSTIC IMAGING REPORT ---
CHEST ONE VIEW PORTABLE CLINICAL HISTORY: S/P Thoracentesis postprocedural evaluation COMPARISON STUDY: 12/08/2016 FINDINGS: Slight decrease involving the left effusion. Slight increase in The right effusion. No significant postprocedural pneumothorax IMPRESSION: 1. No significant postprocedural pneumothorax. 2. Mild decrease in volume of a left pleural effusion. Mild increase in volume right effusion. Electronically signed by: Michael Vivar M.D. 12/10/2016 9:18 AM Dictated Date/Time: 12/10/2016 9:16 AM
[2016-12-10] MEDS: PANTOprazole INJ 40 MG in SYRINGE 0 ML IV SCH (10:34)
[2016-12-10] MEDS: ACETAMINOPHEN 325 MG TAB PO PRN (10:36)
--- NOTE | 2016-12-10 10:42 | Pharmacy Progress Note ---
Pharmacy Antibiotic Prog Note Date of Service: Dec 10, 2016. Subjective: The patient is currently receiving vancomycin single doses IV based on drug levels, and Zosyn 3.375 Gm IV (infused over 4 hr) every 12 hr. Last dose of vancomycin 1400 mg on 12/09 @1551. The patient is currently on day # 3 of vancomycin and Zosyn IV therapy. Objective: Height (Feet): 5 Height (Inches): 2.00 Weight (Kilograms): 57.400 Levels: Item Value Date Time Random Vancomycin Level 17.9 mcg/ml 12/10/16 0730 Previous dose vancomycin 1400 mg on 12/09 @1551. Lab Results (24hrs): Laboratory Tests Test 12/10/16 07:30 BUN/Creatinine Ratio 23.4 Blood Urea Nitrogen 49 mg/dl Creatinine 2.10 mg/dl White Blood Count 13.08 K/uL Red Blood Count 4.06 M/uL Hemoglobin 9.6 g/dL Hematocrit 32.6 % Mean Corpuscular Volume 80.3 fL Mean Corpuscular Hemoglobin 23.6 pg Mean Corpuscular Hemoglobin Concent 29.4 g/dl Platelet Count 380 K/uL Mean Platelet Volume 8.8 fL Neutrophils (%) (Auto) 86.2 % Lymphocytes (%) (Auto) 6.3 % Monocytes (%) (Auto) 6.6 % Eosinophils (%) (Auto) 0.5 % Basophils (%) (Auto) 0.2 % Neutrophils # (Auto) 11.29 K/uL Lymphocytes # (Auto) 0.82 K/uL Monocytes # (Auto) 0.86 K/uL Eosinophils # (Auto) 0.06 K/uL Basophils # (Auto) 0.02 K/uL Micro Results: 12/08 blood x 2 NGTD 12/08 urine NG 12/09 nasal neg MRSA 12/10 pleural fluid L- pending Recent Pertinent Medications: Item Value Date Time Vancomycin HCl 267 ml @ 125 mls/hr 12/10/16 1100 850 mg/Sodium TODAY@1100/IV Chloride Vancomycin HCl 528 ml @ 200 mls/hr 12/09/16 1500 1400 mg/Sodium NOW ONCE/IV 12/09/16 1551 Chloride Piperacillin Sod/ 115 ml @ 28.75 mls/hr 12/09/16 0600 Tazobactam Sod Q12H/IV 12/10/16 0535 3.375 gm/Dextrose Vancomycin HCl 1 gm 12/08/16 2224 (Vancomycin 1gm/ NOW STAT/IV 12/08/16 2322 270ml Nss) Piperacillin Sod/ 4.5 gm 12/08/16 2224 Tazobactam Sod NOW STAT/IV 12/08/16 2244 (Zosyn Iv) Assessment & Plan: This drug level is:Therapeutic, time to redose. Give vancomycin 850 mg IV x dose , recheck random vanco level in am. If vanco is to be continued, will redose when vanco level is less than 18. Goal trough level estimate: between 15 -20 mcg/mL. Random level has been ordered for: 12/11/16 with am labs. Continue Zosyn 3.375 Gm IV (infused over 4 hr) every 12 hours for CrCl less than 20 ml/min. Pharmacy will continue to follow and will adjust dose/frequency as necessary. Thank you
[2016-12-10 10:44] LABS: PLEURAL FLUID APPEARANCE HAZY; PLEURAL FLUID COLOR YELLOW; PLEURAL FLUID MONONUC RELAT 15.4 %; PLEURAL FLUID POLYNUC 84.6 %; PLEURAL FLUID SOURCE LEFT LUNG; PLEURAL FLUID WBC (A) 4005 /uL
[2016-12-10] MEDS ORDERED: VANCOMYCIN INJ 850 MG in SODIUM CHLORIDE 0.9% 250ML 250 ML IV SCH (11:00)
[2016-12-10] MEDS ORDERED: DIGOXIN 0.125 MG TAB PO SCH (16:00)
[2016-12-10] MEDS ORDERED: FUROSEMIDE INJ 40 MG in SYRINGE 0 ML IV SCH (17:00)
[2016-12-11] VITALS (10 sets, daily range): BP systolic 91–139; BP diastolic 53–79; PULSE 49–70; TEMP 36.4–37; O2SAT 90–97
[2016-12-11] MEDS: LEVALBUTEROL 1.25MG/0.5ML NEB INH SCH ×4 (01:43→19:48)
[2016-12-11] MEDS: IPRATROPIUM BROMIDE NEB SOLN 0.02% 2.5 ML VIAL INH SCH ×4 (01:43→19:48)
[2016-12-11] MEDS: DILTIAZEM HCL 30 MG TAB PO SCH ×4 (02:00→20:09)
[2016-12-11] MEDS: PIPERACILL/TAZOBAC IV 3.375 GM in DEXTROSE 5% 100ML 100 ML IV SCH (05:28)
[2016-12-11 06:04] LABS: BASO % 0.2 %; BASO ABS # 0.02 K/uL (0-0.2); COMPLETE YES; EOS % 1.9 %; HEMATOCRIT 29.8 % (37-47); IG% 0.2 %; LYMPH % 9.4 %; LYMPH ABS # 0.83 K/uL (1.2-3.4); MEAN CELL VOLUME 80.8 fL (80-100); MEAN CORPUSCULAR HEMOGLOBIN 24.4 pg (25-34); MEAN CORPUSCULAR HGB CONC 30.2 g/dl (32-36); MEAN PLATELET VOLUME 8.9 fL (7.4-10.4); NEUT % 83.3 %; PLATELET COUNT 314 K/uL (130-400); RED BLOOD COUNT 3.69 M/uL (4.2-5.4); WHITE BLOOD COUNT 8.86 K/uL (4.8-10.8)
[2016-12-11 06:35] LABS: MAGNESIUM 2.4 mg/dl (1.8-2.4); POTASSIUM 3.9 mmol/L (3.5-5.1)
[2016-12-11] MEDS: BOOST VANILLA PO SCH ×6 (07:45→20:09)
[2016-12-11] MEDS: INSULIN ASPART 100 UNITS/ML 3 ML PEN SC SCH ×4 (08:06→20:46)
--- NOTE | 2016-12-11 09:02 | Cardiology Follow-Up ---
Subjective General Date of Service: Dec 11, 2016. Pt evaluation today including: conversation w/ patient, conversation w/ family , chart review, lab review, conversation w/ technology sales consultant History of Present Illness The patient is a 86 year old female Allergies Coded Allergies: Ciprofloxacin (Verified Allergy, Unknown, UNKNOWN, 12/08/16) Sulfamethoxazole w/Trimethoprim (Verified Adverse Reaction, Mild, GI SYMPTOMS, 12/08/16) Social History Smoking Status: Never Smoker Hx Tobacco Use In Past Year?: No Hx Alcohol Use - Type And Amou: No Hx Substance Use - Type And Am: No Problem List Medical Problems: (1) Atrial fibrillation with RVR Status: Acute (2) Benign hypertension Status: Chronic (3) Esophageal Reflux Status: Chronic (4) GI bleed Status: Acute (5) Pleural effusion Status: Acute Review of Systems Respiratory: + dyspnea at rest, + dyspnea on exertion, + shortness of breath, No cough Cardiac: No chest pain, No edema, No palpitations Physical Exam Vital Signs Last Vital Signs Documentation Date Time Temp Pulse Resp B/P Pulse Ox O2 Delivery O2 Flow Rate FiO2 12/11/16 08:16 36.4 65 20 139/79 91 CPAP 2.0 Physical Exam Constitutional: Level of Distress: mild distress, acutely ill Lungs: Auscultation: no wheezing, no rales/crackles, pertinent finding (decreased BS in left base; Half way up on the right) Cardiovascular: Heart Auscultation: no murmurs, no rubs, no gallops, irregular rate rhythm Abdomen: Bowel Sounds: normal Inspection & Palpation: soft, non-distended, no tenderness, guarding & rebound Extremities: no edema Assessment and Plan Assessment and Plan PAST MEDICAL HISTORY: 1A. Acute respiratory failure (CHF, Low Albumin, renal dz, recent pneumonia) 1B. Atrial fibrillation and atrial flutter. 2. Gastrointestinal bleed July 2016 and long-term anticoagulation since been discontinued. She reportedly had upper and lower endoscopies without identified source of GI bleed. 3. Hypertension. 4. Colon cancer, status post colectomy. 5. Chronic diastolic CHF. 6. Hypertension. 7. Chronic kidney disease with solitary kidney, congenital. 8. Obstructive sleep apnea. This is a difficult situation. This is her third admission in a month and fifth in six months. Her albumin is very low and with her single kidney she is at risk of progressive kidney dz (follows with [facility]) She is visibly SOB just looking at her lasix 40mg IV daily Plan on tapping the right side today She may need Talc Pleurodesis given reaccumulation based on CXR NO AC with hx GI bleed Checked dig level and 1.2--change to Saturday and Saturday and may need to stop Poor prognosis; started conversation with but he doesn't understand Consider Nutrition consult Laboratory Results Last 24 Hours Test 12/10/16 11:01 12/10/16 16:06 12/10/16 20:06 12/11/16 05:55 Bedside Glucose 159 mg/dl 107 mg/dl 143 mg/dl White Blood Count 8.86 K/uL Red Blood Count 3.69 M/uL Hemoglobin 9.0 g/dL Hematocrit 29.8 % Mean Corpuscular Volume 80.8 fL Mean Corpuscular Hemoglobin 24.4 pg Mean Corpuscular Hemoglobin Concent 30.2 g/dl Platelet Count 314 K/uL Mean Platelet Volume 8.9 fL Neutrophils (%) (Auto) 83.3 % Lymphocytes (%) (Auto) 9.4 % Monocytes (%) (Auto) 5.0 % Eosinophils (%) (Auto) 1.9 % Basophils (%) (Auto) 0.2 % Neutrophils # (Auto) 7.38 K/uL Lymphocytes # (Auto) 0.83 K/uL Monocytes # (Auto) 0.44 K/uL Eosinophils # (Auto) 0.17 K/uL Basophils # (Auto) 0.02 K/uL RDW Standard Deviation 51.5 fL RDW Coefficient of Variation 17.5 % Immature Granulocyte % (Auto) 0.2 % Immature Granulocyte # (Auto) 0.02 K/uL Sodium Level 140 mmol/L Potassium Level 3.9 mmol/L Chloride Level 98 mmol/L Carbon Dioxide Level 36 mmol/L Anion Gap 6.0 mmol/L Blood Urea Nitrogen 46 mg/dl Creatinine 2.00 mg/dl Est Creatinine Clear Calc Drug Dose 16.6 ml/min Estimated GFR () 25.9 Estimated GFR (Non- 22.4 BUN/Creatinine Ratio 23.0 Random Glucose 105 mg/dl Calcium Level 8.0 mg/dl Magnesium Level 2.4 mg/dl Random Vancomycin Level 18.4 mcg/ml Test 12/11/16 06:51 Bedside Glucose 116 mg/dl
--- NOTE | 2016-12-11 10:16 | Procedure Note ---
Procedure Note Date of Service Dec 11, 2016. Procedure Note Procedure: Thoracentesis Consent: Obtained to the patient placed into the chart Preprocedural diagnosis: Left-sided pleural effusion secondary to volume overload Postprocedural diagnosis: Right-sided pleural effusion secondary to volume overload Analgesia: 8cc of 1% liquid lidocaine via subcutaneous syringe Procedure: Ultrasound: Thoracic ultrasound was performed after patient was placed in an upright position. Proper positioning along the left hemithorax just medial to the left posterior axillary line in the seventh intercostal space. Position was marked. Modified Seldinger technique was used for thoracentesis catheter access. Catheter placement into place and approximately 1100 cc was removed. Fluid was taken in appearance. Postprocedural ultrasound showed good lung sliding as well as [place]iana [place] sign. Complications: None noted Follow-up: Chest x-ray pending.
--- NOTE | 2016-12-11 10:39 | DIAGNOSTIC IMAGING REPORT ---
CHEST ONE VIEW PORTABLE HISTORY: S/P Thoracentesis COMPARISON: Chest 12/10/2016. FINDINGS: No pneumothorax. Small right pleural effusion has significantly decreased in size. Small to moderate left pleural effusion persists. Mild cardiomegaly. Mild congestive change is again noted. Bibasilar densities favor atelectasis from the pleural effusions. IMPRESSION: 1. Decrease in size in the small right pleural effusion. 2. Small to moderate left pleural effusion remains unchanged. 3. No pneumothorax. Electronically signed by: Vishal Shaikh M.D. 12/11/2016 10:38 AM Dictated Date/Time: 12/11/2016 10:37 AM
[2016-12-11 11:09] LABS: PLEURAL FLUID TOTAL PROTEIN 2.7 g/dl
[2016-12-11 11:16] LABS: PLEURAL FLUID APPEARANCE HAZY; PLEURAL FLUID COLOR YELLOW; PLEURAL FLUID MONONUC RELAT 35.5 %; PLEURAL FLUID POLYNUC 64.5 %; PLEURAL FLUID SOURCE RIGHT LUNG; PLEURAL FLUID WBC (A) 860 /uL
[2016-12-11] MEDS: PANTOprazole INJ 40 MG in SYRINGE 0 ML IV SCH (12:01)
--- NOTE | 2016-12-11 12:22 | Pulmonology Progress Note ---
Pulmonary Progress Note Date of Service Dec 11, 2016. Attending Dr. Bond Subjective Patient still continues to have dyspnea with exertion but decreased dyspnea at rest. Mildly increased cough over the previous 24 hours. Objective Patient able to complete full sentences. She is status post thoracentesis please refer to dictated report. Vital signs: Reviewed and stable Respiratory: Increased breath sounds right lower lobe with continue decreased breath sounds and dullness to percussion of the left lower lobe Cardiac: S1-S2 but distant heart sounds I'm unable to auscultate for murmurs rubs or gallops Abdomen: Positive bowel sounds soft nontender Assessment & Plan 86-year-old female with bilateral pleural effusions: #1 bilateral pleural effusions: Otherwise criteria patient's left pleural effusion is notably exudative. The right sided pleural studies are pending at this time but the fluid did appear to be exudative in characteristic. I have ordered a noncontrast CT of the chest for further evaluation of the patient's thoracic cavity. It does appear that the left sided pleural effusion could be loculated. Data Medications: Current Inpatient Medications Medications (Trade) Dose Ordered Sig/Jameson Route Start Time Stop Time Status Last Admin Dose Admin Acetaminophen (Tylenol Tab) 650 mg Q4H PRN PO 12/08/16 23:30 01/07/17 23:29 12/10/16 10:36 650 MG Zolpidem Tartrate (Ambien Tab) 5 mg HSZ PRN PO 12/08/16 23:30 01/07/17 23:29 Nitroglycerin (Nitrostat Tab) 0.4 mg UD PRN SL 12/08/16 23:30 01/07/17 23:29 Enteral Nutritional Formula 1 can 1 can TID PO 12/09/16 09:00 01/08/17 08:59 12/11/16 07:45 1 CAN Pantoprazole Sodium/Syringe (Protonix Inj/ Syringe) 10 ml @ 5 mls/min DAILY@11 IV 12/09/16 11:00 01/08/17 10:59 12/11/16 12:01 5 MLS/MIN Ondansetron HCl 4 mg 4 mg Q6H PRN IV 12/08/16 23:30 01/07/17 23:29 12/10/16 06:00 4 MG Acetaminophen (Ofirmev Iv) 100 ml @ 400 mls/hr Q8H PRN IV 12/08/16 23:30 01/07/17 23:29 Ipratropium [place] (Atrovent 0.02% 0.5MG/2.5ML Neb) 0.5 mg Q6R INH 12/09/16 03:00 01/08/17 02:59 12/11/16 06:56 0.5 MG Levalbuterol (Xopenex 1.25MG/ 0.5ML Neb) 1.25 mg Q6R INH 12/09/16 03:00 01/08/17 02:59 12/11/16 06:56 1.25 MG Insulin Aspart (novoLOG ASPART) SLIDING SCALE If C... ACHS SC 12/09/16 07:00 01/08/17 06:59 12/11/16 12:02 5 UNITS Glucose (Glucose 40% Gel) UD PRN PO 12/09/16 06:30 01/08/17 06:29 Glucose (Glucose Chew Tab) 1 tabs UD PRN PO 12/09/16 06:30 01/08/17 06:29 Dextrose (Dextrose 50% 50ML Syringe) 50 ml UD PRN IV 12/09/16 06:30 01/08/17 06:29 Glucagon (Glucagon Inj) 1 mg UD PRN SQ 12/09/16 06:30 01/08/17 06:29 Diltiazem HCl 30 mg 30 mg Q6H PO 12/09/16 14:00 01/08/17 13:59 12/11/16 07:43 30 MG Furosemide/Syringe (Lasix Inj/ Syringe) 4 ml @ 4 mls/min DAILY IV 12/12/16 09:00 01/11/17 08:59 Digoxin (Lanoxin Tab) 0.125 mg MoFr@1600 PO 12/14/16 16:00 01/09/17 15:59 I & O: 24-Hour Column 12/11/16 08:00 Intake Total 1105 ml Output Total 650 ml Balance 455 ml Vital Signs: Date Time Temp Pulse Resp B/P Pulse Ox O2 Delivery O2 Flow Rate FiO2 12/11/16 11:42 36.8 68 16 101/67 93 Nasal Cannula 2.0 12/11/16 11:39 Nasal Cannula 2.0 12/11/16 08:16 36.4 65 20 139/79 91 CPAP 2.0 12/11/16 08:00 Nasal Cannula 2.0 12/11/16 06:56 67 16 90 BiPAP/CPAP 2.0 12/11/16 04:00 Room Air 12/11/16 02:55 36.6 68 16 123/70 90 CPAP 2.0 12/11/16 01:43 65 16 91 BiPAP/CPAP 2.0 12/11/16 00:00 36.6 66 20 131/76 93 CPAP 12/10/16 23:59 Room Air 12/10/16 20:00 Room Air 12/10/16 19:34 37.3 78 16 96/61 92 Room Air 12/10/16 19:10 63 14 93 Nasal Cannula 2.0 12/10/16 16:43 85 12/10/16 16:00 Nasal Cannula 2.0 12/10/16 15:56 36.9 78 16 96/65 93 Nasal Cannula 2.0 12/10/16 14:27 80 14 90 Nasal Cannula 2.0 Laboratory Results: Last 24 Hours Test 12/10/16 16:06 12/10/16 20:06 12/11/16 05:55 12/11/16 06:51 Bedside Glucose 107 mg/dl 143 mg/dl 116 mg/dl White Blood Count 8.86 K/uL Red Blood Count 3.69 M/uL Hemoglobin 9.0 g/dL Hematocrit 29.8 % Mean Corpuscular Volume 80.8 fL Mean Corpuscular Hemoglobin 24.4 pg Mean Corpuscular Hemoglobin Concent 30.2 g/dl Platelet Count 314 K/uL Mean Platelet Volume 8.9 fL Neutrophils (%) (Auto) 83.3 % Lymphocytes (%) (Auto) 9.4 % Monocytes (%) (Auto) 5.0 % Eosinophils (%) (Auto) 1.9 % Basophils (%) (Auto) 0.2 % Neutrophils # (Auto) 7.38 K/uL Lymphocytes # (Auto) 0.83 K/uL Monocytes # (Auto) 0.44 K/uL Eosinophils # (Auto) 0.17 K/uL Basophils # (Auto) 0.02 K/uL RDW Standard Deviation 51.5 fL RDW Coefficient of Variation 17.5 % Immature Granulocyte % (Auto) 0.2 % Immature Granulocyte # (Auto) 0.02 K/uL Sodium Level 140 mmol/L Potassium Level 3.9 mmol/L Chloride Level 98 mmol/L Carbon Dioxide Level 36 mmol/L Anion Gap 6.0 mmol/L Blood Urea Nitrogen 46 mg/dl Creatinine 2.00 mg/dl Est Creatinine Clear Calc Drug Dose 16.6 ml/min Estimated GFR () 25.9 Estimated GFR (Non- 22.4 BUN/Creatinine Ratio 23.0 Random Glucose 105 mg/dl Calcium Level 8.0 mg/dl Magnesium Level 2.4 mg/dl Random Vancomycin Level 18.4 mcg/ml Test 12/11/16 10:24 12/11/16 10:37 12/11/16 11:27 Pleural Fluid Source RIGHT LUNG Pleural Fluid Color YELLOW Pleural Fluid Appearance HAZY Pleural Fluid WBC 860 /uL Pleural Fluid RBC < 3000 /uL Pleural Fluid Polynuclear WBCs % 64.5 % Pleural Fluid Mononuclear WBCs % 35.5 % Pleural Fluid Total Protein 2.7 g/dl Pleural Fluid Albumin 1.3 g/dl Pleural Fluid LDH 102 IU Pleural Fluid Glucose 162 mg/dl Pleural Fluid Amylase 17 U/L Total Bilirubin 0.3 mg/dl Lactate Dehydrogenase 128 U/L Total Protein 5.9 gm/dl Albumin 2.0 gm/dl Bedside Glucose 161 mg/dl
--- NOTE | 2016-12-11 16:05 | DIAGNOSTIC IMAGING REPORT ---
CT OF THE CHEST WITHOUT IV CONTRAST CLINICAL HISTORY: Pleural effusion. Follow-up study. COMPARISON STUDY: 11/17/2016 CT DOSE: 292.74 mGy.cm TECHNIQUE: CT of the thorax was performed from the thoracic inlet to the lung bases. Images are reviewed in the axial, sagittal, and coronal planes. IV contrast was not administered for this examination. FINDINGS: Thyroid: Imaged portions of the thyroid gland are normal in appearance. Thoracic aorta: The thoracic aorta is normal in course and caliber, noting standard 3 vessel arch anatomy. Heart: The heart is enlarged. There are coronary artery calcifications. There is prominence the pulmonary arteries. Lungs and pleural spaces: There is a increasing moderate left pleural effusion. There is a decreasing small right pleural effusion. There is been near complete interval resolution of the right upper lobe airspace opacities. There are right middle lobe and lower lobe airspace opacities, suspicious for pneumonia. There is left lung lower lobe atelectasis/consolidation. Mediastinum: There is mild mediastinal lymphadenopathy. Nehal: The hilar structures are not optimally assessed on this noncontrast study Axilla: There is no evidence of axillary lymphadenopathy Upper abdomen: There is suspected severe left-sided hydronephrosis. Skeletal structures: There is a severe L1 compression fracture with retropulsion similar to the prior study. There is an 8 mm right breast nodule. This also remains stable. IMPRESSION: 1. Decreasing right pleural effusion 2. Increasing moderate left pleural effusion 3. Resolution of the right upper lobe airspace opacities 4. Progressive right middle and lower lobe airspace opacities 5. Left lower lobe atelectasis/consolidation 6. Mediastinal lymphadenopathy 7. Left-sided hydronephrosis 8. Stable severe L1 compression fracture with retropulsion 9. Indeterminate 8 mm right breast nodule Electronically signed by: Dimitrios Colon M.D. 12/11/2016 4:03 PM Dictated Date/Time: 12/11/2016 3:53 PM
--- NOTE | 2016-12-11 16:29 | Progress Note ---
Subjective Date of Service: Dec 11, 2016. Subjective Pt evaluation today including: conversation w/ patient, conversation w/ family , physical exam, chart review, lab review, review of studies, conversation w/ bilingual sales consultant, review of inpatient medication list Had right side thoracentesis today this morning, had 1100 cc was removed, Now patient's sitting up in a chair, no acute distress, no difficult breathing, however reported generalized weakness and feeling tired Problem List Medical Problems: (1) Atrial fibrillation with RVR Status: Acute (2) Benign hypertension Status: Chronic (3) Esophageal Reflux Status: Chronic (4) GI bleed Status: Acute (5) Pleural effusion Status: Acute Review of Systems Constitutional: + fatigue, + weakness, No chills, No fever, No problem reported , No sweats, No weight loss Eyes: No diplopia, No discharge, No eye pain, No redness, No worsening of vision ENT: No dental problems, No hearing loss, No nasal symptoms, No sore throat, No tinnitus, No trouble swallowing, No unusual epistaxis Respiratory: + shortness of breath, No cough, No dyspnea at rest, No dyspnea on exertion, No hemoptysis, No sputum, No wheezing Cardiac: No PND, No chest pain, No claudication, No edema, No orthopnea, No palpitations Abdomen: No constipation, No diarrhea, No nausea, No pain, No vomiting Musculoskeletal: No calf pain, No joint pain, No muscle pain, No swelling Female : No abnormal vaginal bleeding, No dysuria, No hematuria, No incontinence, No urinary frequency, No vaginal discharge Neurologic: No balance problems, No memory loss, No numbness/tingling, No paralysis, No vertigo, No weakness Psychiatric: No anhedonism, No anxiety, No depression symptoms, No insomnia, No substance abuse Heme: No abnormal bleeding/bruising, No clotting problems, No night sweats, No swollen lymph nodes Endo: No excessive thirst, No excessive urination, No fatigue Skin: No bleeding, No color change, No itch, No new/changing skin lesions, No rash Objective Vital Signs Date Time Temp Pulse Resp B/P Pulse Ox O2 Delivery O2 Flow Rate FiO2 12/11/16 15:14 Nasal Cannula 2.0 12/11/16 11:42 36.8 68 16 101/67 93 Nasal Cannula 2.0 12/11/16 11:39 Nasal Cannula 2.0 12/11/16 08:16 36.4 65 20 139/79 91 CPAP 2.0 12/11/16 08:00 Nasal Cannula 2.0 12/11/16 06:56 67 16 90 BiPAP/CPAP 2.0 12/11/16 04:00 Room Air 12/11/16 02:55 36.6 68 16 123/70 90 CPAP 2.0 12/11/16 01:43 65 16 91 BiPAP/CPAP 2.0 12/11/16 00:00 36.6 66 20 131/76 93 CPAP 12/10/16 23:59 Room Air 12/10/16 20:00 Room Air 12/10/16 19:34 37.3 78 16 96/61 92 Room Air 12/10/16 19:10 63 14 93 Nasal Cannula 2.0 12/10/16 16:43 85 Physical Exam General Appearance: WD/WN, no apparent distress, + thin, + pertinent finding ( frail) Eyes: normal inspection, PERRL, EOMI, sclerae normal ENT: normal ENT inspection, hearing grossly normal, pharynx normal Neck: supple, no adenopathy, thyroid normal, no JVD, no carotid bruits, trachea midline Respiratory/Chest: chest non-tender, normal breath sounds, no respiratory distress, no accessory muscle use, + decreased breath sounds Cardiovascular: regular rate, rhythm, no edema, no gallop, no JVD, no murmur Abdomen: normal bowel sounds, non tender, soft, no organomegaly, no pulsatile mass Extremities: normal range of motion, non-tender, normal inspection, no pedal edema, no calf tenderness, normal capillary refill, pelvis stable Neurologic/Psychiatric: 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-XII nml as tested, no motor/sensory deficits, alert, normal mood/affect, oriented x 3 Skin: normal color, warm/dry, no rash Lymphatic: no adenopathy Laboratory Results Last 24 Hours Test 12/10/16 20:06 12/11/16 05:55 12/11/16 06:51 12/11/16 10:24 Bedside Glucose 143 mg/dl 116 mg/dl White Blood Count 8.86 K/uL Red Blood Count 3.69 M/uL Hemoglobin 9.0 g/dL Hematocrit 29.8 % Mean Corpuscular Volume 80.8 fL Mean Corpuscular Hemoglobin 24.4 pg Mean Corpuscular Hemoglobin Concent 30.2 g/dl Platelet Count 314 K/uL Mean Platelet Volume 8.9 fL Neutrophils (%) (Auto) 83.3 % Lymphocytes (%) (Auto) 9.4 % Monocytes (%) (Auto) 5.0 % Eosinophils (%) (Auto) 1.9 % Basophils (%) (Auto) 0.2 % Neutrophils # (Auto) 7.38 K/uL Lymphocytes # (Auto) 0.83 K/uL Monocytes # (Auto) 0.44 K/uL Eosinophils # (Auto) 0.17 K/uL Basophils # (Auto) 0.02 K/uL RDW Standard Deviation 51.5 fL RDW Coefficient of Variation 17.5 % Immature Granulocyte % (Auto) 0.2 % Immature Granulocyte # (Auto) 0.02 K/uL Sodium Level 140 mmol/L Potassium Level 3.9 mmol/L Chloride Level 98 mmol/L Carbon Dioxide Level 36 mmol/L Anion Gap 6.0 mmol/L Blood Urea Nitrogen 46 mg/dl Creatinine 2.00 mg/dl Est Creatinine Clear Calc Drug Dose 16.6 ml/min Estimated GFR () 25.9 Estimated GFR (Non- 22.4 BUN/Creatinine Ratio 23.0 Random Glucose 105 mg/dl Calcium Level 8.0 mg/dl Magnesium Level 2.4 mg/dl Random Vancomycin Level 18.4 mcg/ml Pleural Fluid Source RIGHT LUNG Pleural Fluid Color YELLOW Pleural Fluid Appearance HAZY Pleural Fluid WBC 860 /uL Pleural Fluid RBC < 3000 /uL Pleural Fluid Polynuclear WBCs % 64.5 % Pleural Fluid Mononuclear WBCs % 35.5 % Pleural Fluid Total Protein 2.7 g/dl Pleural Fluid Albumin 1.3 g/dl Pleural Fluid LDH 102 IU Pleural Fluid Glucose 162 mg/dl Pleural Fluid Amylase 17 U/L Test 12/11/16 10:37 12/11/16 11:27 Total Bilirubin 0.3 mg/dl Lactate Dehydrogenase 128 U/L Total Protein 5.9 gm/dl Albumin 2.0 gm/dl Bedside Glucose 161 mg/dl Assessment and Plan 82-year-old female admitted on 12/08/2016 because of shortness of breath that began a few days prior to arrival. Per report Patient had recently been admitted to [facility] from November 10 through November 13, and then from November 17 to November 26. After sent home on oxygen , has had progressive shortness of breath in spite of wearing the oxygen, more shallow respirations throughout the day even though they moved her on she's not to 8 L. Acute on chronic respiratory failure, with history of chronic respiratory failure O2 dependent, multiple factors because worsening breathing The contribution factors include worsening bilateral pleural effusion is especially in left pleural effusion and CHF exacerbation , pneumonia or COPD exacerbation with CO2 retention, and possible bilateral lower lung pneumonia. Major factors is fluid overload and bilateral pleural effusion, size marker had to thoracentesis removed 1.1 L in the left side on 12/10/2016, removed 1.1 L in the right side of pleural fluid on December 11, 2016, cardiology saw patient, plan to restart Lasix tomorrow morning Elevated troponin likely because of CHF exacerbation and fluid overload Acute diastolic CHF with bilateral pleural effusions, right side being large and left being moderate, see above history of A. fib with RVR/history of atrial flutter with RVR/hypertension/CAD Troponin peak, cardiology on the case, continue current care Continue Lasix as tolerated, continue amiodarone 200 mg by mouth twice a day, continue digoxin 0.125 mg by mouth on Saturday, Saturday and Saturday. We will hold Cardizem CD 240 mg by mouth daily and her usual oral dose of Lasix 20 mg by mouth 3 times weekly. hold aspirin 81 mg by mouth daily for possible thoracentesis. New echo shows LVEF was normal Pneumonia of both lower lobes Has been on on vancomycin IV per renal dosing, and Zosyn 3.375 mg IV every 8 hours. Will discontinue vancomycin , continue zosyn for now, Chronic renal insufficiency--creatinine is 2.30, stable in 2 today, with baseline 1.7 to 2.4. Hyperglycemia--blood sugar on entry was 157. Hypoalbuminemia--albumin was 2.2 on entry, with previous hospitalization records of 3.1 to 3.8. GI bleed history--the patient was found to have GI bleed while on Eliquis in July 2016. Patient and family request okay CPR but no intubation, this is witnessed by nurse Continue current care, PT OT, optimize conditions, possible switch to oral antibiotics for total 10 days, social work administrator for discharge plan Continued [facility] stay due to: multiple IV medications needed Discharge planning: home
[2016-12-11] MEDS ORDERED: AMOXICILLIN/CLAVULANATE TAB 875 MG TAB PO SCH (16:45)
[2016-12-12] VITALS (13 sets, daily range): BP systolic 98–152; BP diastolic 61–78; PULSE 60–73; TEMP 36.5–37.1; O2SAT 90–96
[2016-12-12] MEDS: DILTIAZEM HCL 30 MG TAB PO SCH ×4 (02:00→20:58)
[2016-12-12] MEDS: IPRATROPIUM BROMIDE NEB SOLN 0.02% 2.5 ML VIAL INH SCH ×4 (02:36→20:52)
[2016-12-12] MEDS: LEVALBUTEROL 1.25MG/0.5ML NEB INH SCH ×4 (02:36→20:52)
[2016-12-12 05:24] LABS: BASO % 0.2 %; BASO ABS # 0.02 K/uL (0-0.2); EOS % 1.8 %; HEMATOCRIT 29.1 % (37-47); IG% 0.2 %; LYMPH % 9.1 %; LYMPH ABS # 0.88 K/uL (1.2-3.4); MEAN CELL VOLUME 78.4 fL (80-100); MEAN CORPUSCULAR HEMOGLOBIN 23.5 pg (25-34); MEAN CORPUSCULAR HGB CONC 29.9 g/dl (32-36); MONO % 6.8 %; NEUT % 81.9 %; PLATELET COUNT 329 K/uL (130-400); RED BLOOD COUNT 3.71 M/uL (4.2-5.4); WHITE BLOOD COUNT 9.64 K/uL (4.8-10.8)
[2016-12-12 05:53] LABS: CALCIUM 8.1 mg/dl (8.5-10.1); CREATININE 1.9 mg/dl (0.60-1.20); MAGNESIUM 2.4 mg/dl (1.8-2.4); POTASSIUM 4.1 mmol/L (3.5-5.1)
[2016-12-12 06:10] LABS: COMPLETE YES; OVALOCYTES 1+
[2016-12-12] MEDS: INSULIN ASPART 100 UNITS/ML 3 ML PEN SC SCH ×4 (08:01→20:50)
--- NOTE | 2016-12-12 08:16 | Progress Note ---
Subjective Date of Service: Dec 12, 2016. Subjective Pt evaluation today including: conversation w/ patient, physical exam, chart review SOB improved s/p bilateral thoracentesis. Problem List Medical Problems: (1) Atrial fibrillation with RVR Status: Acute (2) Benign hypertension Status: Chronic (3) Esophageal Reflux Status: Chronic (4) GI bleed Status: Acute (5) Pleural effusion Status: Acute Review of Systems Constitutional: + weakness Respiratory: + cough, + dyspnea on exertion Abdomen: No GI bleeding, No constipation, No diarrhea, No nausea, No pain, No problem reported, No see HPI, No vomiting Neurologic: No balance problems, No memory loss, No numbness/tingling, No paralysis, No problem reported, No see HPI, No vertigo, No weakness Objective Vital Signs Date Time Temp Pulse Resp B/P Pulse Ox O2 Delivery O2 Flow Rate FiO2 12/12/16 07:23 36.6 65 19 145/76 96 Nasal Cannula 3.0 12/12/16 04:00 Nasal Cannula 2.0 12/12/16 03:41 36.7 60 19 152/78 94 CPAP 3.0 12/12/16 02:36 69 16 93 BiPAP/CPAP 3.0 12/12/16 00:00 Nasal Cannula 2.0 12/11/16 23:20 36.9 62 20 138/74 94 CPAP 2.0 12/11/16 20:04 37.0 67 16 125/75 97 Nasal Cannula 2.0 12/11/16 20:00 Nasal Cannula 2.0 12/11/16 19:49 70 16 93 Nasal Cannula 2.0 12/11/16 16:58 36.9 49 16 91/53 93 Nasal Cannula 2.0 12/11/16 15:14 Nasal Cannula 2.0 12/11/16 11:42 36.8 68 16 101/67 93 Nasal Cannula 2.0 12/11/16 11:39 Nasal Cannula 2.0 12/11/16 08:16 36.4 65 20 139/79 91 CPAP 2.0 Physical Exam Eyes: normal inspection ENT: normal ENT inspection Neck: supple, no JVD Respiratory/Chest: chest non-tender, + decreased breath sounds Cardiovascular: no murmur, + irregularly irregular Abdomen: normal bowel sounds, non tender, soft, + pertinent finding (mullins catheter) Neurologic/Psychiatric: 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 II-XII nml as tested, alert, oriented x 3 Skin: normal color Laboratory Results Last 24 Hours Test 12/11/16 10:24 12/11/16 10:37 12/11/16 11:27 12/11/16 16:19 Pleural Fluid Source RIGHT LUNG Pleural Fluid Color YELLOW Pleural Fluid Appearance HAZY Pleural Fluid WBC 860 /uL Pleural Fluid RBC < 3000 /uL Pleural Fluid Polynuclear WBCs % 64.5 % Pleural Fluid Mononuclear WBCs % 35.5 % Pleural Fluid Total Protein 2.7 g/dl Pleural Fluid Albumin 1.3 g/dl Pleural Fluid LDH 102 IU Pleural Fluid Glucose 162 mg/dl Pleural Fluid Amylase 17 U/L Total Bilirubin 0.3 mg/dl Lactate Dehydrogenase 128 U/L Total Protein 5.9 gm/dl Albumin 2.0 gm/dl Bedside Glucose 161 mg/dl 81 mg/dl Test 12/11/16 20:29 12/12/16 05:08 12/12/16 06:58 Bedside Glucose 124 mg/dl 96 mg/dl White Blood Count 9.64 K/uL Red Blood Count 3.71 M/uL Hemoglobin 8.7 g/dL Hematocrit 29.1 % Mean Corpuscular Volume 78.4 fL Mean Corpuscular Hemoglobin 23.5 pg Mean Corpuscular Hemoglobin Concent 29.9 g/dl Platelet Count 329 K/uL Mean Platelet Volume 9.0 fL Neutrophils (%) (Auto) 81.9 % Lymphocytes (%) (Auto) 9.1 % Monocytes (%) (Auto) 6.8 % Eosinophils (%) (Auto) 1.8 % Basophils (%) (Auto) 0.2 % Neutrophils # (Auto) 7.89 K/uL Lymphocytes # (Auto) 0.88 K/uL Monocytes # (Auto) 0.66 K/uL Eosinophils # (Auto) 0.17 K/uL Basophils # (Auto) 0.02 K/uL RDW Standard Deviation 48.9 fL RDW Coefficient of Variation 17.2 % Immature Granulocyte % (Auto) 0.2 % Immature Granulocyte # (Auto) 0.02 K/uL Ovalocytes 1+ Sodium Level 140 mmol/L Potassium Level 4.1 mmol/L Chloride Level 99 mmol/L Carbon Dioxide Level 38 mmol/L Anion Gap 3.0 mmol/L Blood Urea Nitrogen 44 mg/dl Creatinine 1.90 mg/dl Est Creatinine Clear Calc Drug Dose 17.4 ml/min Estimated GFR () 27.6 Estimated GFR (Non- 23.8 BUN/Creatinine Ratio 23.0 Random Glucose 101 mg/dl Calcium Level 8.1 mg/dl Magnesium Level 2.4 mg/dl Interpretation Summary * Name: SHWETA JONES Study Date: 12/09/2016 09:38 AM BP: 93/63 mmHg * Patient Location: 2\S\S230\S\2 HR: 81 * : 1930 (M/d/yyyy) Gender: Female Height: 62 in * Age: 86 yrs Ethnicity: CA Weight: 126 lb * Ordering Physician: Barak Brooks * Performed By: Angela Seals * * Reason For Study: CHF, ELEVATED TROP, SOB * BSA: 1.6 m2 * -- Conclusions -- * 1. Normal left ventricular size and systolic function. EF 60-65%. No regional wall motion abnormalities. Severe concentric left ventricular hypertrophy. * 2. The right ventricle is mildly dilated. The right ventricular systolic function is normal. * 3. Aortic valve sclerosis mild, without significant aortic valvular stenosis. Mild aortic regurgitation. * 4. Mildly dilated ascending aorta. * 5. Pleural effusion. * 6. Trace pericardial effusion. * 7. Normal estimated right ventricular systolic pressure; RVSP 29 mmHg. * 8. Rhythm is atrial fibrillation. * 9. Compared to prior study on 05/29/16, pleural effusion is now present. [~ rep ct add3]] CT OF THE CHEST WITHOUT IV CONTRAST CLINICAL HISTORY: Pleural effusion. Follow-up study. COMPARISON STUDY: 11/17/2016 CT DOSE: 292.74 mGy.cm TECHNIQUE: CT of the thorax was performed from the thoracic inlet to the lung bases. Images are reviewed in the axial, sagittal, and coronal planes. IV contrast was not administered for this examination. FINDINGS: Thyroid: Imaged portions of the thyroid gland are normal in appearance. Thoracic aorta: The thoracic aorta is normal in course and caliber, noting standard 3 vessel arch anatomy. Heart: The heart is enlarged. There are coronary artery calcifications. There is prominence the pulmonary arteries. Lungs and pleural spaces: There is a increasing moderate left pleural effusion. There is a decreasing small right pleural effusion. There is been near complete interval resolution of the right upper lobe airspace opacities. There are right middle lobe and lower lobe airspace opacities, suspicious for pneumonia. There is left lung lower lobe atelectasis/consolidation. Mediastinum: There is mild mediastinal lymphadenopathy. Nehal: The hilar structures are not optimally assessed on this noncontrast study Axilla: There is no evidence of axillary lymphadenopathy Upper abdomen: There is suspected severe left-sided hydronephrosis. Skeletal structures: There is a severe L1 compression fracture with retropulsion similar to the prior study. There is an 8 mm right breast nodule. This also remains stable. IMPRESSION: 1. Decreasing right pleural effusion 2. Increasing moderate left pleural effusion 3. Resolution of the right upper lobe airspace opacities 4. Progressive right middle and lower lobe airspace opacities 5. Left lower lobe atelectasis/consolidation 6. Mediastinal lymphadenopathy 7. Left-sided hydronephrosis 8. Stable severe L1 compression fracture with retropulsion 9. Indeterminate 8 mm right breast nodule Electronically signed by: Dimitrios Colon M.D. 12/11/2016 4:03 PM Assessment and Plan 82-year-old female admitted on 12/08/2016 because of shortness of breath that began a few days prior to arrival. Per report Patient had recently been admitted to [facility] from November 10 through November 13, and then from November 17 to November 26. After sent home on oxygen , has had progressive shortness of breath in spite of wearing the oxygen, more shallow respirations throughout the day even though they moved her on she's not to 8 L. Acute on chronic respiratory failure, with history of chronic respiratory failure O2 dependent, multiple factors because worsening breathing The contribution factors include worsening bilateral pleural effusion is especially in left pleural effusion and CHF exacerbation , pneumonia or COPD exacerbation with CO2 retention, and possible bilateral lower lung pneumonia. 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 Elevated troponin likely because of CHF exacerbation and fluid overload Acute diastolic CHF with bilateral pleural effusions, right side being large and left being moderate, see above history of A. fib with RVR/history of atrial flutter with RVR/hypertension/CAD Troponin peak, cardiology on the case, continue current care Continue Lasix as tolerated, On Cardizem 30mg q6h, continue digoxin 0.125 mg by mouth on Saturday, Saturday. On IV lasix. Restart ASA 81mg daily New echo shows LVEF was normal, Severe c.LVH. Mild AI. Pneumonia of both lower lobes Completed course of IV Abx recently. No recent temp spikes. Chronic renal insufficiency--creatinine is 1.9 today, with baseline 1.7 to 2.4. Hyperglycemia--blood sugar on entry was 157. Hypoalbuminemia--albumin was 2.2 on entry, with previous hospitalization records of 3.1 to 3.8. GI bleed history--the patient was found to have GI bleed while on Eliquis in July 2016. Patient and family request okay CPR but no intubation, this is witnessed by nurse PT/OT. Continued [facility] stay due to: multiple IV medications needed Discharge planning: home
[2016-12-12] MEDS: PANTOprazole SOD 40 MG TAB PO SCH (08:37)
[2016-12-12] MEDS: BOOST VANILLA PO SCH ×6 (08:37→20:58)
--- NOTE | 2016-12-12 08:43 | Cardiology Follow-Up ---
Subjective General Date of Service: Dec 12, 2016. Pt evaluation today including: conversation w/ patient, chart review, lab review History of Present Illness The patient is a 86 year old female Allergies Coded Allergies: Ciprofloxacin (Verified Allergy, Unknown, UNKNOWN, 12/08/16) Sulfamethoxazole w/Trimethoprim (Verified Adverse Reaction, Mild, GI SYMPTOMS, 12/08/16) Social History Smoking Status: Never Smoker Hx Tobacco Use In Past Year?: No Hx Alcohol Use - Type And Amou: No Hx Substance Use - Type And Am: No Problem List Medical Problems: (1) Atrial fibrillation with RVR Status: Acute (2) Benign hypertension Status: Chronic (3) Esophageal Reflux Status: Chronic (4) GI bleed Status: Acute (5) Pleural effusion Status: Acute Review of Systems Respiratory: + dyspnea at rest, + shortness of breath, No cough Cardiac: No chest pain, No edema, No palpitations Physical Exam Vital Signs Last Vital Signs Documentation Date Time Temp Pulse Resp B/P Pulse Ox O2 Delivery O2 Flow Rate FiO2 12/12/16 07:24 71 16 96 Nasal Cannula 3.0 12/12/16 07:23 36.6 145/76 Physical Exam Constitutional: Level of Distress: acutely ill Lungs: Auscultation: no wheezing, no rales/crackles, pertinent finding (decreased BS on left half way up; Crackles in the right base) Cardiovascular: Heart Auscultation: no murmurs, no rubs, no gallops, irregular rate rhythm Abdomen: Bowel Sounds: normal Inspection & Palpation: soft, non-distended, no tenderness, guarding & rebound Extremities: no edema Assessment and Plan Assessment and Plan PAST MEDICAL HISTORY: 1A. Acute respiratory failure (CHF, Low Albumin, renal dz, recent pneumonia) 1B. Atrial fibrillation and atrial flutter. 2. Gastrointestinal bleed July 2016 and long-term anticoagulation since been discontinued. She reportedly had upper and lower endoscopies without identified source of GI bleed. 3. Hypertension. 4. Colon cancer, status post colectomy. 5. Chronic diastolic CHF. 6. Hypertension. 7. Chronic kidney disease with solitary kidney, congenital. 8. Obstructive sleep apnea. change lasix to 40mg Po daily She looks dry (leg skin turgor); encourage PO intake CT chest c/w with b/l pneumonia and pleural effusion is exudative not transudative as one would expect with CHF NO AC with hx GI bleed Checked dig level and 1.2--change to Saturday and Saturday and may need to stop--HR better Consider Nutrition consult, shakes with protein and milk shakes Laboratory Results Last 24 Hours Test 12/11/16 10:24 12/11/16 10:37 12/11/16 11:27 12/11/16 16:19 Pleural Fluid Source RIGHT LUNG Pleural Fluid Color YELLOW Pleural Fluid Appearance HAZY Pleural Fluid WBC 860 /uL Pleural Fluid RBC < 3000 /uL Pleural Fluid Polynuclear WBCs % 64.5 % Pleural Fluid Mononuclear WBCs % 35.5 % Pleural Fluid Total Protein 2.7 g/dl Pleural Fluid Albumin 1.3 g/dl Pleural Fluid LDH 102 IU Pleural Fluid Glucose 162 mg/dl Pleural Fluid Amylase 17 U/L Total Bilirubin 0.3 mg/dl Lactate Dehydrogenase 128 U/L Total Protein 5.9 gm/dl Albumin 2.0 gm/dl Bedside Glucose 161 mg/dl 81 mg/dl Test 12/11/16 20:29 12/12/16 05:08 12/12/16 06:58 Bedside Glucose 124 mg/dl 96 mg/dl White Blood Count 9.64 K/uL Red Blood Count 3.71 M/uL Hemoglobin 8.7 g/dL Hematocrit 29.1 % Mean Corpuscular Volume 78.4 fL Mean Corpuscular Hemoglobin 23.5 pg Mean Corpuscular Hemoglobin Concent 29.9 g/dl Platelet Count 329 K/uL Mean Platelet Volume 9.0 fL Neutrophils (%) (Auto) 81.9 % Lymphocytes (%) (Auto) 9.1 % Monocytes (%) (Auto) 6.8 % Eosinophils (%) (Auto) 1.8 % Basophils (%) (Auto) 0.2 % Neutrophils # (Auto) 7.89 K/uL Lymphocytes # (Auto) 0.88 K/uL Monocytes # (Auto) 0.66 K/uL Eosinophils # (Auto) 0.17 K/uL Basophils # (Auto) 0.02 K/uL RDW Standard Deviation 48.9 fL RDW Coefficient of Variation 17.2 % Immature Granulocyte % (Auto) 0.2 % Immature Granulocyte # (Auto) 0.02 K/uL Ovalocytes 1+ Sodium Level 140 mmol/L Potassium Level 4.1 mmol/L Chloride Level 99 mmol/L Carbon Dioxide Level 38 mmol/L Anion Gap 3.0 mmol/L Blood Urea Nitrogen 44 mg/dl Creatinine 1.90 mg/dl Est Creatinine Clear Calc Drug Dose 17.4 ml/min Estimated GFR () 27.6 Estimated GFR (Non- 23.8 BUN/Creatinine Ratio 23.0 Random Glucose 101 mg/dl Calcium Level 8.1 mg/dl Magnesium Level 2.4 mg/dl
[2016-12-12] MEDS ORDERED: FUROSEMIDE INJ 40 MG in SYRINGE 0 ML IV SCH (09:00)
[2016-12-12] MEDS ORDERED: AZITHROMYCIN 250 MG TAB PO SCH (09:00)
--- NOTE | 2016-12-12 11:56 | Pulmonology Progress Note ---
Pulmonary Progress Note Date of Service Dec 12, 2016. Attending Dr. Bond Subjective Patient still notes dyspnea on exertion but was able to get up and walk around the halls earlier today. At this time she does note increasing energy levels. Objective Patient sitting up in her bed eating a full diet showing no signs of respiratory insufficiency. Vital signs: Reviewed and stable on 2L nc Respiratory:increased BS bilaterally but rhonchi at the basis Cardiac: S1-S2 but distant heart sounds I'm unable to auscultate for murmurs rubs or gallops Abdomen: Positive bowel sounds soft nontender Reviewed non-contrast CT chest: Assessment & Plan 86-year-old female with bilateral pleural effusions: #1 Bilateral Pleural Effusions: Patient's pleural fluid characteristics are exudative in nature bilaterally. Noncontrast CT of the chest post thoracentesis suggest possible aspiration pneumonia right greater than left as well as loculated pleural effusion left greater than right. Patient swallow eval does not show any signs of active aspiration at this time. Speech pathologist did discuss signs of possible esophageal dysmotility. We'll order barium swallow tomorrow for further evaluation. These bilateral exudative effusions could possibly be secondary to parapneumonic event, aggressive diuresis or even metastatic/primary carcinoma. I have discussed this with the and patient at length and at this time we will continue to monitor. #2 Discharge: We should reevaluate the patient in the morning him if she is continue to have good appetite and able to ambulate perform two-step evaluation for workup of possible discharge in the next 48 hours. #3 Infectious Disease: Patient is improving both clinically and via her serum studies. I am concerned about the signs of possible aspiration/infection status post thoracentesis based off the thoracic CAT scan. Due to this I will initiate a 10 day course of Augmentin therapy for possible aspiration pneumonia. Data Medications: Current Inpatient Medications Medications (Trade) Dose Ordered Sig/Jameson Route Start Time Stop Time Status Last Admin Dose Admin Acetaminophen (Tylenol Tab) 650 mg Q4H PRN PO 12/08/16 23:30 01/07/17 23:29 12/10/16 10:36 650 MG Zolpidem Tartrate (Ambien Tab) 5 mg HSZ PRN PO 12/08/16 23:30 01/07/17 23:29 Nitroglycerin (Nitrostat Tab) 0.4 mg UD PRN SL 12/08/16 23:30 01/07/17 23:29 Enteral Nutritional Formula (Boost) 1 can TID PO 12/09/16 09:00 01/08/17 08:59 12/11/16 13:09 1 CAN Ondansetron HCl 4 mg 4 mg Q6H PRN IV 12/08/16 23:30 01/07/17 23:29 12/10/16 06:00 4 MG Acetaminophen (Ofirmev Iv) 100 ml @ 400 mls/hr Q8H PRN IV 12/08/16 23:30 01/07/17 23:29 Ipratropium [place] (Atrovent 0.02% 0.5MG/2.5ML Neb) 0.5 mg Q6R INH 12/09/16 03:00 01/08/17 02:59 12/12/16 07:24 0.5 MG Levalbuterol (Xopenex 1.25MG/ 0.5ML Neb) 1.25 mg Q6R INH 12/09/16 03:00 01/08/17 02:59 12/12/16 07:24 1.25 MG Insulin Aspart (novoLOG ASPART) SLIDING SCALE If C... ACHS SC 12/09/16 07:00 01/08/17 06:59 12/12/16 08:01 1 UNITS Glucose (Glucose 40% Gel) UD PRN PO 12/09/16 06:30 01/08/17 06:29 Glucose (Glucose Chew Tab) 1 tabs UD PRN PO 12/09/16 06:30 01/08/17 06:29 Dextrose (Dextrose 50% 50ML Syringe) 50 ml UD PRN IV 12/09/16 06:30 01/08/17 06:29 Glucagon (Glucagon Inj) 1 mg UD PRN SQ 12/09/16 06:30 01/08/17 06:29 Diltiazem HCl (Cardizem Tab) 30 mg Q6H PO 12/09/16 14:00 01/08/17 13:59 12/12/16 08:03 30 MG Digoxin (Lanoxin Tab) 0.125 mg MoFr@1600 PO 12/14/16 16:00 01/09/17 15:59 Pantoprazole Sodium (Protonix Tab) 40 mg QAM PO 12/12/16 09:00 01/11/17 08:59 12/12/16 08:37 40 MG Furosemide (Lasix Tab) 40 mg QAM PO 12/13/16 09:00 01/12/17 08:59 I & O: 24-Hour Column 12/12/16 08:00 Intake Total 690 ml Output Total 750 ml Balance -60 ml Vital Signs: Date Time Temp Pulse Resp B/P Pulse Ox O2 Delivery O2 Flow Rate FiO2 12/12/16 08:00 96 Nasal Cannula 2.0 12/12/16 07:24 71 16 96 Nasal Cannula 3.0 12/12/16 07:23 36.6 65 19 145/76 96 Nasal Cannula 3.0 12/12/16 04:00 Nasal Cannula 2.0 12/12/16 03:41 36.7 60 19 152/78 94 CPAP 3.0 12/12/16 02:36 69 16 93 BiPAP/CPAP 3.0 12/12/16 00:00 Nasal Cannula 2.0 12/11/16 23:20 36.9 62 20 138/74 94 CPAP 2.0 12/11/16 20:04 37.0 67 16 125/75 97 Nasal Cannula 2.0 12/11/16 20:00 Nasal Cannula 2.0 12/11/16 19:49 70 16 93 Nasal Cannula 2.0 12/11/16 16:58 36.9 49 16 91/53 93 Nasal Cannula 2.0 12/11/16 15:14 Nasal Cannula 2.0 Laboratory Results: Last 24 Hours Test 12/11/16 16:19 12/11/16 20:29 12/12/16 05:08 12/12/16 06:58 Bedside Glucose 81 mg/dl 124 mg/dl 96 mg/dl White Blood Count 9.64 K/uL Red Blood Count 3.71 M/uL Hemoglobin 8.7 g/dL Hematocrit 29.1 % Mean Corpuscular Volume 78.4 fL Mean Corpuscular Hemoglobin 23.5 pg Mean Corpuscular Hemoglobin Concent 29.9 g/dl Platelet Count 329 K/uL Mean Platelet Volume 9.0 fL Neutrophils (%) (Auto) 81.9 % Lymphocytes (%) (Auto) 9.1 % Monocytes (%) (Auto) 6.8 % Eosinophils (%) (Auto) 1.8 % Basophils (%) (Auto) 0.2 % Neutrophils # (Auto) 7.89 K/uL Lymphocytes # (Auto) 0.88 K/uL Monocytes # (Auto) 0.66 K/uL Eosinophils # (Auto) 0.17 K/uL Basophils # (Auto) 0.02 K/uL RDW Standard Deviation 48.9 fL RDW Coefficient of Variation 17.2 % Immature Granulocyte % (Auto) 0.2 % Immature Granulocyte # (Auto) 0.02 K/uL Ovalocytes 1+ Sodium Level 140 mmol/L Potassium Level 4.1 mmol/L Chloride Level 99 mmol/L Carbon Dioxide Level 38 mmol/L Anion Gap 3.0 mmol/L Blood Urea Nitrogen 44 mg/dl Creatinine 1.90 mg/dl Est Creatinine Clear Calc Drug Dose 17.4 ml/min Estimated GFR () 27.6 Estimated GFR (Non- 23.8 BUN/Creatinine Ratio 23.0 Random Glucose 101 mg/dl Calcium Level 8.1 mg/dl Magnesium Level 2.4 mg/dl Test 12/12/16 11:22 Bedside Glucose 115 mg/dl
--- NOTE | 2016-12-12 15:19 | DIAGNOSTIC IMAGING REPORT ---
VIDEO SWALLOW HISTORY: Aspiration chronic aspiration TECHNIQUE: Video fluoroscopic evaluation of swallowing was performed in the AP and lateral projections by the speech pathology staff. The patient is fed nectar-thick and thin liquid barium, a barium coated wafer, and barium pudding. FLUOROSCOPY TIME: 2.4 minutes. COMPARISON STUDY: None. FINDINGS: There is normal hyoid excursion and epiglottic deflection. No evidence for aspiration. Mild esophageal dysmotility IMPRESSION: 1. No aspiration identified. Mild esophageal dysmotility 2. Please see the speech pathologist report for detailed findings and recommendations. Electronically signed by: Michael Vivar M.D. 12/12/2016 3:18 PM Dictated Date/Time: 12/12/2016 3:18 PM
[2016-12-12] MEDS ORDERED: MAGNESIUM HYDROXIDE SUSP 30 ML UDC PO ONE (16:30)
[2016-12-12] MEDS ORDERED: AMOXICILLIN/CLAVULANATE TAB 500 MG TAB PO SCH (17:30)
[2016-12-12] MEDS: AMOXICILLIN/CLAVULANATE TAB 500 MG TAB PO SCH (18:00)
[2016-12-13] VITALS (14 sets, daily range): BP systolic 93–127; BP diastolic 50–76; PULSE 54–70; TEMP 36.7–37; O2SAT 91–96
[2016-12-13] MEDS: IPRATROPIUM BROMIDE NEB SOLN 0.02% 2.5 ML VIAL INH SCH ×3 (02:10→19:42)
[2016-12-13] MEDS: LEVALBUTEROL 1.25MG/0.5ML NEB INH SCH ×3 (02:10→19:42)
[2016-12-13] MEDS: INSULIN ASPART 100 UNITS/ML 3 ML PEN SC SCH ×4 (07:56→20:43)
[2016-12-13] MEDS: AMOXICILLIN/CLAVULANATE TAB 500 MG TAB PO SCH ×2 (07:57→16:55)
[2016-12-13] MEDS: DILTIAZEM HCL 30 MG TAB PO SCH ×4 (07:57→20:00)
--- NOTE | 2016-12-13 08:46 | Cardiology Follow-Up ---
Subjective General Date of Service: Dec 13, 2016. Pt evaluation today including: conversation w/ patient, chart review, lab review, review of studies History of Present Illness The patient is a 86 year old female Allergies Coded Allergies: Ciprofloxacin (Verified Allergy, Unknown, UNKNOWN, 12/08/16) Sulfamethoxazole w/Trimethoprim (Verified Adverse Reaction, Mild, GI SYMPTOMS, 12/08/16) Social History Smoking Status: Never Smoker Hx Tobacco Use In Past Year?: No Hx Alcohol Use - Type And Amou: No Hx Substance Use - Type And Am: No Problem List Medical Problems: (1) Atrial fibrillation with RVR Status: Acute (2) Benign hypertension Status: Chronic (3) Esophageal Reflux Status: Chronic (4) GI bleed Status: Acute (5) Pleural effusion Status: Acute Review of Systems Respiratory: + cough, + dyspnea on exertion, + sputum, No dyspnea at rest Cardiac: No chest pain, No edema, No palpitations Additional ROS Details: feeling slightly better Physical Exam Vital Signs Last Vital Signs Documentation Date Time Temp Pulse Resp B/P Pulse Ox O2 Delivery O2 Flow Rate FiO2 12/13/16 07:00 36.7 62 16 127/76 95 CPAP 2.0 Physical Exam Constitutional: Level of Distress: acutely ill Lungs: Auscultation: no wheezing, no rales/crackles, pertinent finding (decreased BS 25% up b/l) Cardiovascular: Heart Auscultation: no murmurs, no rubs, no gallops, irregular rate rhythm Abdomen: Bowel Sounds: normal Inspection & Palpation: soft, non-distended, no tenderness, guarding & rebound Extremities: no edema Assessment and Plan Assessment and Plan PAST MEDICAL HISTORY: 1A. Acute respiratory failure (CHF, Low Albumin, renal dz, recent pneumonia) 1B. Atrial fibrillation and atrial flutter. 2. Gastrointestinal bleed July 2016 and long-term anticoagulation since been discontinued. She reportedly had upper and lower endoscopies without identified source of GI bleed. 3. Hypertension. 4. Colon cancer, status post colectomy. 5. Chronic diastolic CHF. 6. Hypertension. 7. Chronic kidney disease with solitary kidney, congenital. 8. Obstructive sleep apnea. changed lasix to 40mg Po daily Stable from CHF standpoint with stable [employer] encourage PO intake and protein shakes CT chest c/w with b/l pneumonia and pleural effusion is exudative not transudative as one would expect with CHF; Pulmonary thinks all related to pneumonia; barium swallow to r/o aspiration NO AC with hx GI bleed Checked dig level and 1.2--change to Saturday and Saturday and may need to stop--HR better Laboratory Results Last 24 Hours Test 12/12/16 11:22 12/12/16 16:01 12/12/16 20:18 12/13/16 06:17 Bedside Glucose 115 mg/dl 216 mg/dl 121 mg/dl 113 mg/dl
--- NOTE | 2016-12-13 08:53 | Progress Note ---
Subjective Date of Service: Dec 13, 2016. Subjective Pt evaluation today including: conversation w/ patient, physical exam, chart review No CP. BARRIENTOS. Had Pt y.day. Problem List Medical Problems: (1) Atrial fibrillation with RVR Status: Acute (2) Benign hypertension Status: Chronic (3) Esophageal Reflux Status: Chronic (4) GI bleed Status: Acute (5) Pleural effusion Status: Acute Review of Systems Respiratory: + dyspnea on exertion Cardiac: No PND, No chest pain, No claudication, No edema, No orthopnea, No palpitations, No problem reported, No see HPI Abdomen: No GI bleeding, No constipation, No diarrhea, No nausea, No pain, No problem reported, No see HPI, No vomiting Neurologic: No balance problems, No memory loss, No numbness/tingling, No paralysis, No problem reported, No see HPI, No vertigo, No weakness All Other Systems: Reviewed and Negative Medications Medications (Trade) Dose Ordered Sig/Jameson Route Start Time Stop Time Status Last Admin Dose Admin Furosemide/Syringe (Lasix Inj/ Syringe) 4 ml @ 4 mls/min DAILY IV 12/12/16 09:00 12/12/16 09:00 DC 12/12/16 08:37 4 MLS/MIN Pantoprazole Sodium (Protonix Tab) 40 mg QAM PO 12/12/16 09:00 01/11/17 08:59 12/12/16 08:37 40 MG Magnesium Hydroxide (Milk Of Magnesia Susp) 30 ml NOW ONCE PO 12/12/16 16:30 12/12/16 16:31 DC 12/12/16 17:29 30 ML Amoxicillin/ Clavulanate Potassium (Augmentin Tab) 500 mg BIDM PO 12/12/16 17:45 12/19/16 17:44 12/12/16 18:00 500 MG Objective Vital Signs Date Time Temp Pulse Resp B/P Pulse Ox O2 Delivery O2 Flow Rate FiO2 12/13/16 07:00 36.7 62 16 127/76 95 CPAP 2.0 12/13/16 04:45 36.8 62 18 108/53 91 BiPAP 12/13/16 04:00 CPAP 2.0 12/13/16 02:10 70 16 94 BiPAP/CPAP 3.0 12/13/16 00:04 36.8 69 18 113/65 91 BiPAP 12/13/16 00:00 CPAP 2.0 12/12/16 20:58 71 112/66 12/12/16 20:00 94 Nasal Cannula 2.0 12/12/16 19:20 73 16 93 Nasal Cannula 3.0 12/12/16 19:08 37.1 61 18 98/61 91 Nasal Cannula 2.0 12/12/16 16:00 92 Nasal Cannula 2.0 12/12/16 15:18 36.9 71 18 112/64 90 Nasal Cannula 2.0 12/12/16 14:08 73 16 93 Nasal Cannula 3.0 12/12/16 12:00 Nasal Cannula 2.0 12/12/16 11:56 36.5 67 20 118/71 92 Nasal Cannula 2.0 12/12/16 08:00 96 Nasal Cannula 2.0 Physical Exam General Appearance: WD/WN, no apparent distress Eyes: normal inspection ENT: normal ENT inspection Neck: supple Respiratory/Chest: chest non-tender, + decreased breath sounds Cardiovascular: no edema, no murmur, + irregularly irregular Abdomen: normal bowel sounds Extremities: normal range of motion Neurologic/Psychiatric: batch analyst II-XII nml as tested Laboratory Results Last 24 Hours Test 12/12/16 11:22 12/12/16 16:01 12/12/16 20:18 12/13/16 06:17 Bedside Glucose 115 mg/dl 216 mg/dl 121 mg/dl 113 mg/dl Assessment and Plan 82-year-old female admitted on 12/08/2016 because of shortness of breath that began a few days prior to arrival. Per report Patient had recently been admitted to [facility] from November 10 through November 13, and then from November 17 to November 26. After sent home on oxygen , has had progressive shortness of breath in spite of wearing the oxygen, more shallow respirations throughout the day even though they moved her on she's not to 8 L. Acute on chronic respiratory failure, with history of chronic respiratory failure O2 dependent, multiple factors because worsening breathing The contribution factors include worsening bilateral pleural effusion is especially in left pleural effusion and CHF exacerbation , pneumonia or COPD exacerbation with CO2 retention, and possible bilateral lower lung pneumonia. 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 Elevated troponin likely because of CHF exacerbation and fluid overload Acute diastolic CHF with bilateral pleural effusions, right side being large and left being moderate, see above history of A. fib with RVR/history of atrial flutter with RVR/hypertension/CAD Troponin peak, cardiology on the case, continue current care Continue Lasix as tolerated, On Cardizem 30mg q6h, continue digoxin 0.125 mg by mouth on Saturday, Saturday. On IV lasix. Restart ASA 81mg daily New echo shows LVEF was normal, Severe c.LVH. Mild AI. Pneumonia of both lower lobes Completed course of IV Abx recently. No recent temp spikes. Chronic renal insufficiency--creatinine is 1.9 today, with baseline 1.7 to 2.4. Hyperglycemia--blood sugar on entry was 157. Hypoalbuminemia--albumin was 2.2 on entry, with previous hospitalization records of 3.1 to 3.8. GI bleed history--the patient was found to have GI bleed while on Eliquis in July 2016. Patient and family request okay CPR but no intubation, this is witnessed by nurse PT/OT. Continued [facility] stay due to: multiple IV medications needed Discharge planning: home
[2016-12-13] MEDS: BOOST VANILLA PO SCH ×6 (09:00→20:00)
[2016-12-13] MEDS: FUROSEMIDE 40 MG TAB PO SCH (09:05)
[2016-12-13] MEDS: PANTOprazole SOD 40 MG TAB PO SCH (09:06)
[2016-12-13] MEDS ORDERED: MAGNESIUM HYDROXIDE SUSP 30 ML UDC PO PRN (13:45)
--- NOTE | 2016-12-13 14:40 | Pulmonology Progress Note ---
Pulmonary Progress Note Date of Service Dec 13, 2016. Attending Dr. Bond Subjective Patient continues to have less dyspnea on exertion and more energy. Objective Patient was working out with physical therapy when he walked into the room able to complete complete full activity showed no signs of respiratory insufficiency. Vital signs: Reviewed and stable on 2L nc Respiratory: Continued decreased breath sounds bilaterally left greater than right at the bases posteriorly Cardiac: S1-S2 but distant heart sounds I'm unable to auscultate for murmurs rubs or gallops Abdomen: Positive bowel sounds soft nontender Assessment & Plan 86-year-old female with bilateral pleural effusions: #1 Bilateral Pleural Effusions: Bilateral exudative pleural effusions. Etiology is unknown. Swallow evaluation has been ordered for esophageal evaluation and thorough evaluation for aspiration. If this study is negative we'll continue to treat the patient for severe pneumonia and monitor/repeating noncontrast CT of the chest in the next 2-3 months as an outpatient. I still believe the most likely diagnoses an outpatient at this time: Parapneumonic effusions, volume overload with diuresis, malignancy or even aspiration. #2 Discharge: We should reevaluate the patient in the morning him if she is continue to have good appetite and able to ambulate perform two-step evaluation for workup of possible discharge in the next 48 hours. Believe this patient is getting close to discharge. Would have the discharge planning team worked with her for possible home health care. #3 Infectious Disease: Patient is improving both clinically and via her serum studies. I am concerned about the signs of possible aspiration/infection status post thoracentesis based off the thoracic CAT scan. Due to this I will initiate a 10 day course of Augmentin therapy for possible aspiration pneumonia. Data Medications: Current Inpatient Medications Medications (Trade) Dose Ordered Sig/Jameson Route Start Time Stop Time Status Last Admin Dose Admin Acetaminophen (Tylenol Tab) 650 mg Q4H PRN PO 12/08/16 23:30 01/07/17 23:29 12/10/16 10:36 650 MG Zolpidem Tartrate (Ambien Tab) 5 mg HSZ PRN PO 12/08/16 23:30 01/07/17 23:29 Nitroglycerin (Nitrostat Tab) 0.4 mg UD PRN SL 12/08/16 23:30 01/07/17 23:29 Enteral Nutritional Formula (Boost) 1 can TID PO 12/09/16 09:00 01/08/17 08:59 12/11/16 13:09 1 CAN Ondansetron HCl 4 mg 4 mg Q6H PRN IV 12/08/16 23:30 01/07/17 23:29 12/10/16 06:00 4 MG Acetaminophen (Ofirmev Iv) 100 ml @ 400 mls/hr Q8H PRN IV 12/08/16 23:30 01/07/17 23:29 Ipratropium [place] (Atrovent 0.02% 0.5MG/2.5ML Neb) 0.5 mg Q6R INH 12/09/16 03:00 01/08/17 02:59 12/13/16 07:15 0.5 MG Levalbuterol (Xopenex 1.25MG/ 0.5ML Neb) 1.25 mg Q6R INH 12/09/16 03:00 01/08/17 02:59 12/13/16 07:15 1.25 MG Insulin Aspart (novoLOG ASPART) SLIDING SCALE If C... ACHS SC 12/09/16 07:00 01/08/17 06:59 12/13/16 12:00 3 UNITS Glucose (Glucose 40% Gel) UD PRN PO 12/09/16 06:30 01/08/17 06:29 Glucose (Glucose Chew Tab) 1 tabs UD PRN PO 12/09/16 06:30 01/08/17 06:29 Dextrose (Dextrose 50% 50ML Syringe) 50 ml UD PRN IV 12/09/16 06:30 01/08/17 06:29 Glucagon (Glucagon Inj) 1 mg UD PRN SQ 12/09/16 06:30 01/08/17 06:29 Diltiazem HCl (Cardizem Tab) 30 mg Q6H PO 12/09/16 14:00 01/08/17 13:59 12/13/16 14:29 30 MG Digoxin (Lanoxin Tab) 0.125 mg MoFr@1600 PO 12/14/16 16:00 01/09/17 15:59 Pantoprazole Sodium (Protonix Tab) 40 mg QAM PO 12/12/16 09:00 01/11/17 08:59 12/13/16 09:06 40 MG Furosemide (Lasix Tab) 40 mg QAM PO 12/13/16 09:00 01/12/17 08:59 12/13/16 09:05 40 MG Amoxicillin/ Clavulanate Potassium (Augmentin Tab) 500 mg BIDM PO 12/12/16 17:45 12/19/16 17:44 12/13/16 07:57 500 MG Magnesium Hydroxide (Milk Of Magnesia Susp) 30 ml Q12 PRN PO 12/13/16 13:45 01/12/17 13:44 I & O: 24-Hour Column 12/13/16 08:00 Intake Total 855 ml Output Total 850 ml Balance 5 ml Vital Signs: Date Time Temp Pulse Resp B/P Pulse Ox O2 Delivery O2 Flow Rate FiO2 12/13/16 12:10 37.0 59 20 93/50 93 Nasal Cannula 2.0 12/13/16 12:00 93 Nasal Cannula 2.0 12/13/16 08:00 94 Nasal Cannula 2.0 12/13/16 07:15 70 16 92 BiPAP/CPAP 2.0 12/13/16 07:00 36.7 62 16 127/76 95 CPAP 2.0 12/13/16 04:45 36.8 62 18 108/53 91 BiPAP 12/13/16 04:00 CPAP 2.0 12/13/16 02:10 70 16 94 BiPAP/CPAP 3.0 12/13/16 00:04 36.8 69 18 113/65 91 BiPAP 12/13/16 00:00 CPAP 2.0 12/12/16 20:58 71 112/66 12/12/16 20:00 94 Nasal Cannula 2.0 12/12/16 19:20 73 16 93 Nasal Cannula 3.0 12/12/16 19:08 37.1 61 18 98/61 91 Nasal Cannula 2.0 12/12/16 16:00 92 Nasal Cannula 2.0 12/12/16 15:18 36.9 71 18 112/64 90 Nasal Cannula 2.0 Laboratory Results: Last 24 Hours Test 12/12/16 16:01 12/12/16 20:18 12/13/16 06:17 12/13/16 11:08 Bedside Glucose 216 mg/dl 121 mg/dl 113 mg/dl 106 mg/dl
[2016-12-13] MEDS: ACETAMINOPHEN 325 MG TAB PO PRN (23:13)
[2016-12-14] VITALS (18 sets, daily range): BP systolic 130–225; BP diastolic 77–125; PULSE 60–110; TEMP 36.4–37.1; O2SAT 88–95
[2016-12-14] MEDS: DILTIAZEM HCL 30 MG TAB PO SCH ×4 (02:21→20:49)
[2016-12-14] MEDS: LEVALBUTEROL 1.25MG/0.5ML NEB INH SCH ×3 (02:26→19:54)
[2016-12-14] MEDS: IPRATROPIUM BROMIDE NEB SOLN 0.02% 2.5 ML VIAL INH SCH ×3 (02:26→19:54)
[2016-12-14] MEDS: INSULIN ASPART 100 UNITS/ML 3 ML PEN SC SCH ×4 (07:00→20:48)
--- NOTE | 2016-12-14 08:42 | DIAGNOSTIC IMAGING REPORT ---
(BARIUM SWALLOW) ESOPHAGUS CLINICAL HISTORY: Possible esophageal dysmotility with possible aspiration. COMPARISON STUDY: Modified barium swallow December 12, 2016. FLUOROSCOPY TIME: 1.7 minutes. FINDINGS: 23 fluoroscopic images were obtained. A 13 mm barium passed freely into the stomach. There was mild esophageal dilatation. No esophageal mass or stricture was identified. There was moderate reflux and esophageal dysmotility. IMPRESSION: 1. Moderate gastroesophageal reflux and moderate esophageal dysmotility. 2. Mild esophageal dilatation. 3. No esophageal stricture or mass identified. Electronically signed by: Major Parmar M.D. 12/14/2016 8:40 AM Dictated Date/Time: 12/14/2016 8:36 AM
[2016-12-14] MEDS: BOOST VANILLA PO SCH ×6 (09:00→20:48)
[2016-12-14] MEDS: AMOXICILLIN/CLAVULANATE TAB 500 MG TAB PO SCH ×2 (09:10→16:50)
[2016-12-14] MEDS: PANTOprazole SOD 40 MG TAB PO SCH (09:11)
[2016-12-14] MEDS: FUROSEMIDE 40 MG TAB PO SCH (09:11)
--- NOTE | 2016-12-14 11:34 | Progress Note ---
Subjective Date of Service: Dec 14, 2016. Subjective Pt evaluation today including: conversation w/ patient, physical exam, chart review Problem List Medical Problems: (1) Atrial fibrillation with RVR Status: Acute (2) Benign hypertension Status: Chronic (3) Esophageal Reflux Status: Chronic (4) GI bleed Status: Acute (5) Pleural effusion Status: Acute Review of Systems ENT: No dental problems, No hearing loss, No nasal symptoms, No problem reported, No see HPI, No sore throat, No tinnitus, No trouble swallowing, No unusual epistaxis Respiratory: + dyspnea on exertion Cardiac: No PND, No chest pain, No claudication, No edema, No orthopnea, No palpitations, No problem reported, No see HPI Abdomen: No GI bleeding, No constipation, No diarrhea, No nausea, No pain, No problem reported, No see HPI, No vomiting Medications Medications (Trade) Dose Ordered Sig/Jameson Route Start Time Stop Time Status Last Admin Dose Admin Magnesium Hydroxide (Milk Of Magnesia Susp) 30 ml Q12 PRN PO 12/13/16 13:45 01/12/17 13:44 12/13/16 18:48 30 ML Objective Vital Signs Date Time Temp Pulse Resp B/P Pulse Ox O2 Delivery O2 Flow Rate FiO2 12/14/16 08:09 36.6 60 18 155/77 93 BiPAP 3.0 12/14/16 06:59 61 16 94 BiPAP/CPAP 2.0 12/14/16 04:00 36.4 61 22 144/84 94 CPAP 3.0 12/14/16 04:00 94 CPAP 3.0 12/14/16 02:27 61 16 93 BiPAP/CPAP 2.0 12/14/16 02:20 61 130/82 12/14/16 00:00 92 CPAP 3.0 12/13/16 23:48 36.7 54 20 104/66 92 CPAP 3.0 12/13/16 20:00 96 Nasal Cannula 2.0 12/13/16 19:57 69 111/74 12/13/16 19:42 68 16 93 Nasal Cannula 2.0 12/13/16 19:28 36.8 65 18 110/56 96 12/13/16 16:00 94 Nasal Cannula 2.0 12/13/16 16:00 37.0 60 18 106/56 94 12/13/16 12:10 37.0 59 20 93/50 93 Nasal Cannula 2.0 12/13/16 12:00 93 Nasal Cannula 2.0 Physical Exam General Appearance: WD/WN Eyes: normal inspection ENT: normal ENT inspection Neck: supple Respiratory/Chest: chest non-tender, lungs clear Cardiovascular: regular rate, rhythm, no edema, no murmur Abdomen: normal bowel sounds, non tender, soft Extremities: normal range of motion 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 Per report Patient had recently been admitted to [facility] from November 10 through November 13, and then from November 17 to November 26. After sent home on oxygen , has had progressive shortness of breath in spite of wearing the oxygen, more shallow respirations throughout the day even though they moved her on she's not to 8 L. Acute on chronic respiratory failure, with history of chronic respiratory failure O2 dependent, multiple factors because worsening breathing The contribution factors include worsening bilateral pleural effusion is especially in left pleural effusion and CHF exacerbation , pneumonia or COPD exacerbation with CO2 retention, and possible bilateral lower lung pneumonia. 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 Elevated troponin likely because of CHF exacerbation and fluid overload Acute diastolic CHF with bilateral pleural effusions, right side being large and left being moderate, see above history of A. fib with RVR/history of atrial flutter with RVR/hypertension/CAD Continue Lasix as tolerated, On Cardizem 30mg q6h, continue digoxin 0.125 mg by mouth on Saturday, Saturday. On IV lasix. Restart ASA 81mg daily New echo shows LVEF was normal, Severe c.LVH. Mild AI. Pneumonia of both lower lobes Completed course of IV Abx recently. No recent temp spikes. Swallowing dysfunction Barium swallow results noted. Diet per SLT recommendations Chronic renal insufficiency--creatinine is 1.9 today, with baseline 1.7 to 2.4. Hyperglycemia--blood sugar on entry was 157. Hypoalbuminemia--albumin was 2.2 on entry, with previous hospitalization records of 3.1 to 3.8. GI bleed history--the patient was found to have GI bleed while on Eliquis in July 2016. Patient and family request okay CPR but no intubation, this is witnessed by nurse PT/OT. Continued [facility] stay due to: multiple IV medications needed Discharge planning: home
[2016-12-14 12:16] LABS: BASO % 0.2 %; BASO ABS # 0.02 K/uL (0-0.2); EOS % 1.4 %; HEMATOCRIT 29.5 % (37-47); IG% 0.3 %; LYMPH % 6.5 %; MEAN CELL VOLUME 78.2 fL (80-100); MEAN CORPUSCULAR HEMOGLOBIN 23.6 pg (25-34); MEAN CORPUSCULAR HGB CONC 30.2 g/dl (32-36); MEAN PLATELET VOLUME 8.8 fL (7.4-10.4); MONO % 5.4 %; NEUT % 86.2 %; PLATELET COUNT 328 K/uL (130-400); RED BLOOD COUNT 3.77 M/uL (4.2-5.4); WHITE BLOOD COUNT 9.24 K/uL (4.8-10.8)
[2016-12-14 12:36] LABS: ANISOCYTOSIS PRESENT; COMPLETE YES; MICROCYTOSIS PRESENT
[2016-12-14 12:52] LABS: BUN/CREATININE RATIO 31.7 (10-20); CALCIUM 8.2 mg/dl (8.5-10.1); CREATININE 1.7 mg/dl (0.60-1.20); POTASSIUM 3.9 mmol/L (3.5-5.1)
[2016-12-14] MEDS ORDERED: DIGOXIN 0.125 MG TAB PO SCH (16:00)
--- NOTE | 2016-12-14 16:15 | Pulmonology Progress Note ---
Pulmonary Progress Note Date of Service Dec 14, 2016. Attending Dr. Bond Subjective Patient feels stronger today notes increasing pulmonary compliance/strength Objective Patient was working out with physical therapy when he walked into the room able to complete complete full activity showed no signs of respiratory insufficiency. Vital signs: Reviewed and stable on 2L nc Respiratory: Decreased breath sounds bilaterally especially at the bases left greater than right Cardiac: S1-S2 but distant heart sounds I'm unable to auscultate for murmurs rubs or gallops Abdomen: Positive bowel sounds soft nontender Medications: Augmentin 500mg day 3 of 10 Xopenex/Atrovent Neb Serum: WBC 9K BUN/Cr: 54/1.70 Left Pleural (12/10/2016) 2.1 Creatinine (12/10/2016) 2.1 Radiology: Barium Swallow Moderate gastroesphageal reflux Moderate esophageal dysmotility Mild esophageal dilation No esophageal strictures or mass identified Assessment & Plan 86-year-old female with bilateral pleural effusions: #1 Bilateral Pleural Effusions: Bilateral exudative effusions most likely etiology at this time is an aspiration event. Recent barium swallow does show high probability of aspiration secondary to esophageal dysmotility. Speech pathology has educated the patient on a slippery diet as well as other habits to decrease risk of aspiration. We'll perform chest x-ray in the a.m. for reevaluation. #2 Discharge: This time I believe the patient needs to be worked up for home nursing care possibly senior care. Also 48 hours prior to discharge performed two-step evaluation for possible oxygen requirements. #3 Infectious Disease: Patient is improving both clinically and via her serum studies. I am concerned about the signs of possible aspiration/infection status post thoracentesis based off the thoracic CAT scan. Due to this I will initiate a 10 day course of Augmentin therapy for possible aspiration pneumonia. Data Medications: Current Inpatient Medications Medications (Trade) Dose Ordered Sig/Jameson Route Start Time Stop Time Status Last Admin Dose Admin Acetaminophen (Tylenol Tab) 650 mg Q4H PRN PO 12/08/16 23:30 01/07/17 23:29 12/13/16 23:13 650 MG Zolpidem Tartrate (Ambien Tab) 5 mg HSZ PRN PO 12/08/16 23:30 01/07/17 23:29 Nitroglycerin (Nitrostat Tab) 0.4 mg UD PRN SL 12/08/16 23:30 01/07/17 23:29 Enteral Nutritional Formula (Boost) 1 can TID PO 12/09/16 09:00 01/08/17 08:59 12/11/16 13:09 1 CAN Ondansetron HCl 4 mg 4 mg Q6H PRN IV 12/08/16 23:30 01/07/17 23:29 12/10/16 06:00 4 MG Acetaminophen (Ofirmev Iv) 100 ml @ 400 mls/hr Q8H PRN IV 12/08/16 23:30 01/07/17 23:29 Ipratropium [place] (Atrovent 0.02% 0.5MG/2.5ML Neb) 0.5 mg Q6R INH 12/09/16 03:00 01/08/17 02:59 12/14/16 06:57 0.5 MG Levalbuterol (Xopenex 1.25MG/ 0.5ML Neb) 1.25 mg Q6R INH 12/09/16 03:00 01/08/17 02:59 12/14/16 06:57 1.25 MG Insulin Aspart (novoLOG ASPART) SLIDING SCALE If C... ACHS SC 12/09/16 07:00 01/08/17 06:59 12/14/16 11:45 4 UNITS Glucose (Glucose 40% Gel) UD PRN PO 12/09/16 06:30 01/08/17 06:29 Glucose (Glucose Chew Tab) 1 tabs UD PRN PO 12/09/16 06:30 01/08/17 06:29 Dextrose (Dextrose 50% 50ML Syringe) 50 ml UD PRN IV 12/09/16 06:30 01/08/17 06:29 Glucagon (Glucagon Inj) 1 mg UD PRN SQ 12/09/16 06:30 01/08/17 06:29 Diltiazem HCl (Cardizem Tab) 30 mg Q6H PO 12/09/16 14:00 01/08/17 13:59 12/14/16 14:39 30 MG Digoxin (Lanoxin Tab) 0.125 mg MoFr@1600 PO 12/14/16 16:00 01/09/17 15:59 Pantoprazole Sodium (Protonix Tab) 40 mg QAM PO 12/12/16 09:00 01/11/17 08:59 12/14/16 09:11 40 MG Furosemide (Lasix Tab) 40 mg QAM PO 12/13/16 09:00 01/12/17 08:59 12/14/16 09:11 40 MG Amoxicillin/ Clavulanate Potassium (Augmentin Tab) 500 mg BIDM PO 12/12/16 17:45 12/19/16 17:44 12/14/16 09:10 500 MG Magnesium Hydroxide (Milk Of Magnesia Susp) 30 ml Q12 PRN PO 12/13/16 13:45 01/12/17 13:44 12/13/16 18:48 30 ML I & O: 24-Hour Column 12/14/16 08:00 Intake Total 1010 ml Output Total 2000 ml Balance -990 ml Vital Signs: Date Time Temp Pulse Resp B/P Pulse Ox O2 Delivery O2 Flow Rate FiO2 12/14/16 15:42 36.7 75 20 139/84 94 Nasal Cannula 2.0 12/14/16 12:31 37.1 67 16 130/80 92 Nasal Cannula 2.0 12/14/16 08:09 36.6 60 18 155/77 93 BiPAP 3.0 12/14/16 08:00 95 Nasal Cannula 2.0 12/14/16 06:59 61 16 94 BiPAP/CPAP 2.0 12/14/16 04:00 36.4 61 22 144/84 94 CPAP 3.0 12/14/16 04:00 94 CPAP 3.0 12/14/16 02:27 61 16 93 BiPAP/CPAP 2.0 12/14/16 02:20 61 130/82 12/14/16 00:00 92 CPAP 3.0 12/13/16 23:48 36.7 54 20 104/66 92 CPAP 3.0 12/13/16 20:00 96 Nasal Cannula 2.0 12/13/16 19:57 69 111/74 12/13/16 19:42 68 16 93 Nasal Cannula 2.0 12/13/16 19:28 36.8 65 18 110/56 96 Laboratory Results: Last 24 Hours Test 12/13/16 16:14 12/13/16 20:06 12/14/16 06:32 12/14/16 11:35 Bedside Glucose 104 mg/dl 115 mg/dl 109 mg/dl 130 mg/dl Test 12/14/16 11:50 12/14/16 15:59 White Blood Count 9.24 K/uL Red Blood Count 3.77 M/uL Hemoglobin 8.9 g/dL Hematocrit 29.5 % Mean Corpuscular Volume 78.2 fL Mean Corpuscular Hemoglobin 23.6 pg Mean Corpuscular Hemoglobin Concent 30.2 g/dl Platelet Count 328 K/uL Mean Platelet Volume 8.8 fL Neutrophils (%) (Auto) 86.2 % Lymphocytes (%) (Auto) 6.5 % Monocytes (%) (Auto) 5.4 % Eosinophils (%) (Auto) 1.4 % Basophils (%) (Auto) 0.2 % Neutrophils # (Auto) 7.96 K/uL Lymphocytes # (Auto) 0.60 K/uL Monocytes # (Auto) 0.50 K/uL Eosinophils # (Auto) 0.13 K/uL Basophils # (Auto) 0.02 K/uL RDW Standard Deviation 49.7 fL RDW Coefficient of Variation 17.3 % Immature Granulocyte % (Auto) 0.3 % Immature Granulocyte # (Auto) 0.03 K/uL Anisocytosis PRESENT Microcytosis PRESENT Sodium Level 138 mmol/L Potassium Level 3.9 mmol/L Chloride Level 96 mmol/L Carbon Dioxide Level 38 mmol/L Anion Gap 4.0 mmol/L Blood Urea Nitrogen 54 mg/dl Creatinine 1.70 mg/dl Est Creatinine Clear Calc Drug Dose 19.5 ml/min Estimated GFR () 31.5 Estimated GFR (Non- 27.2 BUN/Creatinine Ratio 31.7 Random Glucose 150 mg/dl Calcium Level 8.2 mg/dl Bedside Glucose 151 mg/dl
[2016-12-14] MEDS ORDERED: NURSING VERBAL MED ORDER ONE ×3 (17:30→18:00)
[2016-12-14] MEDS ORDERED: METOPROLOL TARTRATE 1 MG/ML VIAL ONE (17:39)
[2016-12-14] MEDS: ONDANSETRON INJ 2 MG/ML 2 ML VIAL IV PRN (17:39)
--- NOTE | 2016-12-14 17:40 | Progress Note ---
Subjective Date of Service: Dec 14, 2016. Subjective ATSP Re: Nausea and tachycardia Sudden onset of nausea per pt. No vomiting, abd pain, hematemesis, melena, fever /chills. Tele: Noted to be in atrial flutter rate in the 100's to 120's. Denies limb weakness, speech or swallowing problems. Problem List Medical Problems: (1) Atrial fibrillation with RVR Status: Acute (2) Benign hypertension Status: Chronic (3) Esophageal Reflux Status: Chronic (4) GI bleed Status: Acute (5) Pleural effusion Status: Acute Medications Medications (Trade) Dose Ordered Sig/Jameson Route Start Time Stop Time Status Last Admin Dose Admin Digoxin (Lanoxin Tab) 0.125 mg MoFr@1600 PO 12/14/16 16:00 01/09/17 15:59 12/14/16 16:33 0.125 MG Objective Vital Signs Date Time Temp Pulse Resp B/P Pulse Ox O2 Delivery O2 Flow Rate FiO2 12/14/16 17:14 89 150/89 94 Nasal Cannula 2.0 12/14/16 16:33 62 12/14/16 15:42 36.7 75 20 139/84 94 Nasal Cannula 2.0 12/14/16 12:31 37.1 67 16 130/80 92 Nasal Cannula 2.0 12/14/16 08:09 36.6 60 18 155/77 93 BiPAP 3.0 12/14/16 08:00 95 Nasal Cannula 2.0 12/14/16 06:59 61 16 94 BiPAP/CPAP 2.0 12/14/16 04:00 36.4 61 22 144/84 94 CPAP 3.0 12/14/16 04:00 94 CPAP 3.0 12/14/16 02:27 61 16 93 BiPAP/CPAP 2.0 12/14/16 02:20 61 130/82 12/14/16 00:00 92 CPAP 3.0 12/13/16 23:48 36.7 54 20 104/66 92 CPAP 3.0 12/13/16 20:00 96 Nasal Cannula 2.0 12/13/16 19:57 69 111/74 12/13/16 19:42 68 16 93 Nasal Cannula 2.0 12/13/16 19:28 36.8 65 18 110/56 96 Physical Exam Eyes: normal inspection, PERRL, EOMI ENT: normal ENT inspection Neck: supple, no adenopathy, thyroid normal, no JVD Respiratory/Chest: chest non-tender, lungs clear Cardiovascular: no JVD, + systolic murmur, + irregularly irregular Abdomen: normal bowel sounds, non tender, soft Extremities: normal range of motion, non-tender, normal inspection 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, oriented x 3 Skin: normal color Laboratory Results Last 24 Hours Test 12/13/16 20:06 12/14/16 06:32 12/14/16 11:35 12/14/16 11:50 Bedside Glucose 115 mg/dl 109 mg/dl 130 mg/dl White Blood Count 9.24 K/uL Red Blood Count 3.77 M/uL Hemoglobin 8.9 g/dL Hematocrit 29.5 % Mean Corpuscular Volume 78.2 fL Mean Corpuscular Hemoglobin 23.6 pg Mean Corpuscular Hemoglobin Concent 30.2 g/dl Platelet Count 328 K/uL Mean Platelet Volume 8.8 fL Neutrophils (%) (Auto) 86.2 % Lymphocytes (%) (Auto) 6.5 % Monocytes (%) (Auto) 5.4 % Eosinophils (%) (Auto) 1.4 % Basophils (%) (Auto) 0.2 % Neutrophils # (Auto) 7.96 K/uL Lymphocytes # (Auto) 0.60 K/uL Monocytes # (Auto) 0.50 K/uL Eosinophils # (Auto) 0.13 K/uL Basophils # (Auto) 0.02 K/uL RDW Standard Deviation 49.7 fL RDW Coefficient of Variation 17.3 % Immature Granulocyte % (Auto) 0.3 % Immature Granulocyte # (Auto) 0.03 K/uL Anisocytosis PRESENT Microcytosis PRESENT Sodium Level 138 mmol/L Potassium Level 3.9 mmol/L Chloride Level 96 mmol/L Carbon Dioxide Level 38 mmol/L Anion Gap 4.0 mmol/L Blood Urea Nitrogen 54 mg/dl Creatinine 1.70 mg/dl Est Creatinine Clear Calc Drug Dose 19.5 ml/min Estimated GFR () 31.5 Estimated GFR (Non- 27.2 BUN/Creatinine Ratio 31.7 Random Glucose 150 mg/dl Calcium Level 8.2 mg/dl Test 12/14/16 15:59 12/14/16 17:21 4/7/17 17:33 Bedside Glucose 151 mg/dl 136 mg/dl Assessment and Plan 82-year-old female admitted on 12/08/2016 because of shortness of breath that began a few days prior to arrival. Per report Patient had recently been admitted to [facility] from November 10 through November 13, and then from November 17 to November 26. After sent home on oxygen , has had progressive shortness of breath in spite of wearing the oxygen, more shallow respirations throughout the day even though they moved her on she's not to 8 L. Acute on chronic respiratory failure, with history of chronic respiratory failure O2 dependent, multiple factors because worsening breathing The contribution factors include worsening bilateral pleural effusion is especially in left pleural effusion and CHF exacerbation , pneumonia or COPD exacerbation with CO2 retention, and possible bilateral lower lung pneumonia. A.flutter with RVR Will give IV lopressor 2.5mg now. Will check c.troponins Reviewed labs drawn earlier today. Doubt CVA- Good power all four extremities No pronator drift. PRN IV Reglan for Nausea. Continued [facility] stay due to: multiple IV medications needed Discharge planning: home
[2016-12-14] MEDS ORDERED: HydrALAZINE HCL 20 MG/ML VIAL ONE (17:54)
[2016-12-14] MEDS ORDERED: ACETAMINOPHEN SOLN 650MG/20.3 ML UDC PO PRN (18:15)
--- NOTE | 2016-12-14 18:23 | DIAGNOSTIC IMAGING REPORT ---
CHEST ONE VIEW PORTABLE HISTORY: possible aspiration COMPARISON: Chest 12/11/2016. FINDINGS: No pneumothorax. S-shaped scoliosis of the thoracolumbar spine. Interstitial and vascular thickening has progressed. Increase in size in the moderate left and small right pleural effusions. Bibasilar densities are again noted. The heart remains enlarged. Questionable mediastinal shift to the left may be due to patient rotation. IMPRESSION: 1. Progression of the pulmonary edema pattern. 2. Increase in size in the moderate left and small right pleural effusions. Bibasilar densities could represent atelectasis or pneumonia. Electronically signed by: Vishal Shaikh M.D. 12/14/2016 6:21 PM Dictated Date/Time: 12/14/2016 6:20 PM
[2016-12-14 18:40] LABS: ARTERIAL BLD GAS O2 SATURATION 92.1 % (90-95); ARTERIAL BLOOD GAS BASE EXCESS 11.3 mEq/L (-9-1.8); ARTERIAL BLOOD GAS HCO3 37 mmol/L (19-24); ARTERIAL BLOOD GAS PO2 73 mm/Hg (80-95); ARTERIAL BLOOD GAS pH 7.45 (7.35-7.45)
[2016-12-14 18:41] LABS: ALLEN TEST POS (POS); O2 ADMINISTRATION 15 LITERS
[2016-12-15] VITALS (20 sets, daily range): BP systolic 115–160; BP diastolic 76–92; PULSE 68–96; TEMP 36.4–36.8; O2SAT 88–98
--- NOTE | 2016-12-15 00:36 | Critical Care Consultation ---
Critical Care Consultation Date of Consultation: Dec 14, 2016. Attending Physician: Adrian Goldstein MD, PhD Reason for Consultation: Respiratory failure History of Present Illness This is a 86 year old female with h/o a-fib, diastolic heart failure, esophageal reflux/aspiration admitted for shortness of breath. Found to have b/l pleural effusions, underwent left thoracentesis on 12/10 and right thoracentesis on 12/11, both sides with exudative fluid. She improved, was treated with Abx for aspiration PNA, barium swallow showed moderate esophageal dysmotility and dilation with mild gastroesophageal reflux. Today she was doing well, shortness of breath was improved. During dinner however she became acutely dyspneic, developed a-fib (now converted to NSR). Required increasing amounts of O2, now on 100% NRM. The patient is mildly lethargic, able to cough when asked D/w the , he is ok with intubating her temporarily if needed, but issued DNR Past Medical/Surgical History Past Medical/Surgical History Medical Problems: (1) Atrial fibrillation with RVR Status: Resolved (2) Atrial flutter with rapid ventricular response Status: Resolved (3) Benign hypertension Status: Chronic (4) Bronchitis Status: Resolved (5) Colon cancer Status: Resolved (6) Diastolic heart failure Status: Chronic (7) Elevated troponin Status: Resolved (8) Esophageal Reflux Status: Chronic (9) Heart disease Status: Chronic (10) Hypertension Status: Chronic (11) Hypoxia Status: Resolved (12) Kidney disease Status: Chronic (13) Kidney Infection Status: Resolved (14) Left-sided chest wall pain Status: Resolved (15) Pneumonia Status: Resolved (16) Pulmonary edema Status: Resolved (17) Sepsis Status: Resolved (18) Shortness of breath Status: Resolved Surgical Problems: (1) Colectomy Status: Resolved (2) H/O: hysterectomy Status: Resolved (3) Hysterectomy Status: Resolved (4) Parathyroidectomy Status: Resolved Family History Diabetes mellitus Heart disease Hypertension Kidney disease Kidney stones Diabetes mellitus Heart disease Hypertension Kidney disease Kidney stones Social History Smoking Status: Never Smoker Smokeless Tobacco Use: No Alcohol Use: none Drug Use: none Marital Status: Housing Status: lives with family Occupation Status: retired Allergies Coded Allergies: Ciprofloxacin (Verified Allergy, Unknown, UNKNOWN, 12/08/16) Sulfamethoxazole w/Trimethoprim (Verified Adverse Reaction, Mild, GI SYMPTOMS, 12/08/16) Home Medications Scheduled Amiodarone Hcl (Cordarone), 200 MG PO BID Aspirin (Aspirin), 81 MG PO DAILY Calcium Carbonate (Calcium 600), 600 MG PO BID Cranberry (Vaccinium Macrocarp (Cranberry), 500 MG PO BID Digoxin (Digoxin), 0.125 MG PO 3XWK Diltiazem Hcl Coated Beads (Cardizem Cd), 240 MG PO DAILY Furosemide (Lasix), 20 MG PO 3XWK Nutritional Supplements (Boost), 1 CAN PO DAILY Oxygen (Oxygen), 2 LITERS NA DAILY Scheduled PRN Levalbuterol Tartrate (Levalbuterol Tartrate Hfa), 2 PUFFS INH Q6H PRN for SOB/ Wheezing Current Inpatient Medications Current Inpatient Medications Medications (Trade) Dose Ordered Sig/Jameson Route Start Time Stop Time Status Last Admin Dose Admin Zolpidem Tartrate (Ambien Tab) 5 mg HSZ PRN PO 12/08/16 23:30 01/07/17 23:29 Nitroglycerin (Nitrostat Tab) 0.4 mg UD PRN SL 12/08/16 23:30 01/07/17 23:29 Enteral Nutritional Formula (Boost) 1 can TID PO 12/09/16 09:00 01/08/17 08:59 12/11/16 13:09 1 CAN Ondansetron HCl 4 mg 4 mg Q6H PRN IV 12/08/16 23:30 01/07/17 23:29 12/14/16 17:39 4 MG Acetaminophen (Ofirmev Iv) 100 ml @ 400 mls/hr Q8H PRN IV 12/08/16 23:30 01/07/17 23:29 Ipratropium [place] (Atrovent 0.02% 0.5MG/2.5ML Neb) 0.5 mg Q6R INH 12/09/16 03:00 01/08/17 02:59 12/14/16 19:54 0.5 MG Levalbuterol (Xopenex 1.25MG/ 0.5ML Neb) 1.25 mg Q6R INH 12/09/16 03:00 01/08/17 02:59 12/14/16 19:54 1.25 MG Insulin Aspart (novoLOG ASPART) SLIDING SCALE If C... ACHS SC 12/09/16 07:00 01/08/17 06:59 12/14/16 16:50 4 UNITS Glucose (Glucose 40% Gel) UD PRN PO 12/09/16 06:30 01/08/17 06:29 Glucose (Glucose Chew Tab) 1 tabs UD PRN PO 12/09/16 06:30 01/08/17 06:29 Dextrose (Dextrose 50% 50ML Syringe) 50 ml UD PRN IV 12/09/16 06:30 01/08/17 06:29 Glucagon (Glucagon Inj) 1 mg UD PRN SQ 12/09/16 06:30 01/08/17 06:29 Diltiazem HCl (Cardizem Tab) 30 mg Q6H PO 12/09/16 14:00 01/08/17 13:59 12/14/16 20:49 30 MG Digoxin (Lanoxin Tab) 0.125 mg MoFr@1600 PO 12/14/16 16:00 01/09/17 15:59 12/14/16 16:33 0.125 MG Pantoprazole Sodium (Protonix Tab) 40 mg QAM PO 12/12/16 09:00 01/11/17 08:59 12/14/16 09:11 40 MG Furosemide (Lasix Tab) 40 mg QAM PO 12/13/16 09:00 01/12/17 08:59 12/14/16 09:11 40 MG Amoxicillin/ Clavulanate Potassium (Augmentin Tab) 500 mg BIDM PO 12/12/16 17:45 12/19/16 17:44 12/14/16 16:50 500 MG Magnesium Hydroxide (Milk Of Magnesia Susp) 30 ml Q12 PRN PO 12/13/16 13:45 01/12/17 13:44 12/13/16 18:48 30 ML Acetaminophen (Tylenol Soln) 650 mg Q4H PRN PO 12/14/16 18:15 01/13/17 18:14 Review of Systems Difficult to obtain secondary to lethargy Constitutional: No fever Respiratory: + cough, + dyspnea at rest, + shortness of breath, No hemoptysis Cardiovascular: No chest pain Abdomen: No nausea, No vomiting Genitourinary - Female: No dysuria Neurologic: No weakness Physical Exam Date Time Temp Pulse Resp B/P Pulse Ox O2 Delivery O2 Flow Rate FiO2 12/14/16 22:00 88 20 147/101 90 Non-Rebreather 15.0 12/14/16 21:37 83 18 148/86 90 Non-Rebreather 15.0 12/14/16 20:00 110 22 148/86 12/14/16 20:00 92 Non-Rebreather 15.0 12/14/16 19:59 108 20 88 Non-Rebreather 15.0 12/14/16 17:52 62 18 138/80 94 Nasal Cannula 5.0 12/14/16 17:50 85 180/105 12/14/16 17:40 225/125 95 Nasal Cannula 5.0 12/14/16 17:30 110 18 160/84 90 Nasal Cannula 4.0 12/14/16 17:14 89 150/89 94 Nasal Cannula 2.0 12/14/16 16:33 62 12/14/16 15:42 36.7 75 20 139/84 94 Nasal Cannula 2.0 12/14/16 12:31 37.1 67 16 130/80 92 Nasal Cannula 2.0 12/14/16 12:00 Nasal Cannula 2.0 12/14/16 08:09 36.6 60 18 155/77 93 BiPAP 3.0 12/14/16 08:00 95 Nasal Cannula 2.0 12/14/16 06:59 61 16 94 BiPAP/CPAP 2.0 12/14/16 04:00 36.4 61 22 144/84 94 CPAP 3.0 12/14/16 04:00 94 CPAP 3.0 12/14/16 02:27 61 16 93 BiPAP/CPAP 2.0 12/14/16 02:20 61 130/82 12/14/16 00:00 92 CPAP 3.0 General Appearance: no apparent distress, other (mild lethargy) Eyes: PERRLA Neck: no stridor Respiratory: other (Diminished breath sounds at both bases but worse on the left. Coarse breath sounds throughout outherwise) Cardiovasular: regular rate/rhythm, normal S1S2, systolic murmur Abdomen: non tender, other (soft) Edema: Bilateral LE (1+) Neuro: normal motor exam, lethargic Laboratory Results Last 24 Hours Test 12/14/16 06:32 12/14/16 11:35 12/14/16 11:50 12/14/16 15:59 Bedside Glucose 109 mg/dl 130 mg/dl 151 mg/dl White Blood Count 9.24 K/uL Red Blood Count 3.77 M/uL Hemoglobin 8.9 g/dL Hematocrit 29.5 % Mean Corpuscular Volume 78.2 fL Mean Corpuscular Hemoglobin 23.6 pg Mean Corpuscular Hemoglobin Concent 30.2 g/dl Platelet Count 328 K/uL Mean Platelet Volume 8.8 fL Neutrophils (%) (Auto) 86.2 % Lymphocytes (%) (Auto) 6.5 % Monocytes (%) (Auto) 5.4 % Eosinophils (%) (Auto) 1.4 % Basophils (%) (Auto) 0.2 % Neutrophils # (Auto) 7.96 K/uL Lymphocytes # (Auto) 0.60 K/uL Monocytes # (Auto) 0.50 K/uL Eosinophils # (Auto) 0.13 K/uL Basophils # (Auto) 0.02 K/uL RDW Standard Deviation 49.7 fL RDW Coefficient of Variation 17.3 % Immature Granulocyte % (Auto) 0.3 % Immature Granulocyte # (Auto) 0.03 K/uL Anisocytosis PRESENT Microcytosis PRESENT Sodium Level 138 mmol/L Potassium Level 3.9 mmol/L Chloride Level 96 mmol/L Carbon Dioxide Level 38 mmol/L Anion Gap 4.0 mmol/L Blood Urea Nitrogen 54 mg/dl Creatinine 1.70 mg/dl Est Creatinine Clear Calc Drug Dose 19.5 ml/min Estimated GFR () 31.5 Estimated GFR (Non- 27.2 BUN/Creatinine Ratio 31.7 Random Glucose 150 mg/dl Calcium Level 8.2 mg/dl Test 12/14/16 17:21 12/14/16 17:37 12/14/16 18:22 12/14/16 20:32 Bedside Glucose 136 mg/dl 130 mg/dl Troponin I 0.038 ng/ml Arterial Blood pH 7.45 Arterial Blood Partial Pressure CO2 55 mmHg Arterial Blood Partial Pressure O2 73 mm/Hg Arterial Blood HCO3 37 mmol/L Arterial Blood Oxygen Saturation 92.1 % Arterial Blood Base Excess 11.3 mEq/L Arterial Blood Gas Delivery 15 LITERS Lawson Test POS Diagnostic Results CXR: FINDINGS: No pneumothorax. S-shaped scoliosis of the thoracolumbar spine. Interstitial and vascular thickening has progressed. Increase in size in the moderate left and small right pleural effusions. Bibasilar densities are again noted. The heart remains enlarged. Questionable mediastinal shift to the left may be due to patient rotation. IMPRESSION: 1. Progression of the pulmonary edema pattern. 2. Increase in size in the moderate left and small right pleural effusions. Bibasilar densities could represent atelectasis or pneumonia. Assessment & Plan 86 year old female with diastolic CHF, component of pulmonary edema, transferred to ICU for acute respiratory failure, likely secondary to aspiration. S/p b/l thoracentesis. Paroxysmal a-fib Esophageal dysmotility CKD Plan: Monitor the patient in the ICU Supplement O2, keep O2 sat above 90% Continue diuretics Continue Augmentin May use CPAP intermittently, not continuous throughout the night. May getting for short periods of time, like a pulse therapy. Keeping it on all night may lead to further impaction of the secretions Continue bronchodilators Start chest physical therapy Aspiration is quite concerning in this patient. May require PEG placement Continue Cardizem. Per records she is not an anticoagulation candidate secondary to GI bleeding CKD - creatinine at baseline DVT prophylaxis: start SC heparin I discussed the advanced directives with the again. He is OK with a temporary intubation if necessary, would not want her to be ventilator dependent. However, if her heart will stop, then he wants her to go peacfully, without any further resuscitation. Essentially patient is DNR but not DNI Critical care time spent greater than 35 minutes Keep in the ICU for acute respiratory failure, at high risk for intubation
[2016-12-15] MEDS: ONDANSETRON INJ 2 MG/ML 2 ML VIAL IV PRN ×2 (01:15→09:56)
[2016-12-15] MEDS: IPRATROPIUM BROMIDE NEB SOLN 0.02% 2.5 ML VIAL INH SCH ×4 (01:36→20:07)
[2016-12-15] MEDS: LEVALBUTEROL 1.25MG/0.5ML NEB INH SCH ×4 (01:36→20:07)
[2016-12-15] MEDS: DILTIAZEM HCL 30 MG TAB PO SCH ×4 (03:00→21:39)
[2016-12-15 05:51] LABS: ISTAT ALLEN TEST Pass; ISTAT ARTERIAL BLOOD GAS HCO3 41 meq/L (19-24); ISTAT ARTERIAL BLOOD GAS PCO2 63 mmHg (35-46); ISTAT ARTERIAL BLOOD GAS PO2 78 mmHg (80-95); ISTAT ARTERIAL BLOOD GAS pH 7.42 (7.35-7.45); ISTAT CARBON DIOXIDE > 40 mEq/l (24-31); ISTAT DELIVERY SYSTEM NonRb Mask; ISTAT FIO2 100 %; ISTAT SITE R Radial
[2016-12-15 05:55] LABS: BASO % 0.1 %; BASO ABS # 0.01 K/uL (0-0.2); COMPLETE YES; EOS % 0.1 %; HEMATOCRIT 31.4 % (37-47); IG% 0.5 %; LYMPH % 4.1 %; LYMPH ABS # 0.52 K/uL (1.2-3.4); MEAN CELL VOLUME 78.1 fL (80-100); MEAN CORPUSCULAR HEMOGLOBIN 23.6 pg (25-34); MEAN CORPUSCULAR HGB CONC 30.3 g/dl (32-36); MONO % 4.4 %; NEUT % 90.8 %; PLATELET COUNT 358 K/uL (130-400); RED BLOOD COUNT 4.02 M/uL (4.2-5.4); WHITE BLOOD COUNT 12.62 K/uL (4.8-10.8)
[2016-12-15 06:37] LABS: BUN/CREATININE RATIO 30.4 (10-20); CALCIUM 8.5 mg/dl (8.5-10.1); CREATININE 1.5 mg/dl (0.60-1.20); MAGNESIUM 2.8 mg/dl (1.8-2.4); PHOSPHORUS 2.7 mg/dl (2.5-4.9); POTASSIUM 3.9 mmol/L (3.5-5.1)
[2016-12-15] MEDS: INSULIN ASPART 100 UNITS/ML 3 ML PEN SC SCH ×3 (06:45→16:05)
[2016-12-15] MEDS: AMOXICILLIN/CLAVULANATE TAB 500 MG TAB PO SCH ×2 (07:15→13:40)
[2016-12-15] MEDS: BOOST VANILLA PO SCH ×4 (07:24→11:20)
--- NOTE | 2016-12-15 07:27 | DIAGNOSTIC IMAGING REPORT ---
CHEST ONE VIEW PORTABLE CLINICAL HISTORY: respirator failure COMPARISON STUDY: 12/14/2016 FINDINGS: The heart remains enlarged. There is radiographic evidence of congestive failure/fluid overload. There are bilateral pleural effusions left greater than right. There are associated bibasilar airspace opacities.[ IMPRESSION: 1. Persistent congestive failure/fluid overload with bilateral pleural effusions left greater than right, and associated bibasilar airspace opacities (atelectasis versus pneumonia) Electronically signed by: Dimitrios Colon M.D. 12/15/2016 7:25 AM Dictated Date/Time: 12/15/2016 7:24 AM
[2016-12-15] MEDS: PANTOprazole SOD 40 MG TAB PO SCH (09:00)
[2016-12-15] MEDS ORDERED: NURSING VERBAL MED ORDER ONE ×3 (09:15→18:45)
[2016-12-15] MEDS: FUROSEMIDE INJ 40 MG in SYRINGE 0 ML IV SCH (09:54)
--- NOTE | 2016-12-15 12:07 | Critical Care Progress Note ---
Critical Care Progress Note Date of Service Dec 15, 2016. Attending Dr. Vasquez Subjective Still with lethargy Oxygenation improved Overnight had episodes of regurgitation of liquid material consistent with saliva Objective General: NAD, lethargic Heent: Perrl Lungs: diminished breath sounds b/l, worse at left base. 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 Verbal Current SOFA Score SOFA Score Response (Comments) Value PaO2/FiO2 (mmHg) < 100 4 SaO2 / FIO2 67 - 141 3 Bude Coma Score 13 - 14 1 Level of Hypotension No Hypotension 0 Creatinine (mg/dL) 1.2 - 1.9 1 Total 9 Assessment & Plan Assessment & Plan 86 year old female with diastolic CHF, component of pulmonary edema, transferred to ICU for acute respiratory failure, likely secondary to aspiration. S/p b/l thoracentesis. Acute on chronic type 2 respiratory failure Paroxysmal a-fib Esophageal dysmotility leading to aspiration PNA CKD Plan: Monitor the patient in the ICU Supplement O2, keep O2 sat above 90% Continue diuretics Continue Augmentin May use BIPAP intermittently, not continuous Continue bronchodilators Chest physical therapy B/l exudative effusions, likely parapneumonic effusions Aspiration is quite concerning in this patient. May require PEG placement. GI consult For now, I recommend NGT placement. The however wants to wait for now Able to swallow Cardizem last night. Rate is controlled, but may have to start iv meds for rate control. Per records she is not an anticoagulation candidate secondary to GI bleeding. Workup in 07/2016 was not completely revealing so a capsule endoscopy was proposed, but eventually was not done. The family was not considering resuming anticoagulation anyway CKD - creatinine at baseline, improved actually. Has an atrophic left kidney DVT prophylaxis: SC heparin I discussed the advanced directives with the again. He is OK with a temporary intubation if necessary, would not want her to be ventilator dependent. However, if her heart will stop, then he wants her to go peacfully, without any further resuscitation. Essentially patient is DNR but not DNI Critical care time spent greater than 35 minutes Keep in the ICU for acute respiratory failure, at high risk for intubation Consults & Procedures Consultants: Cardio - Dr Herrera Pulmonary - Dr Bond Procedures: 12/10 - Left thoracentesis 12/11 - Right thoracentesis Data Medications: Current Inpatient Medications Medications (Trade) Dose Ordered Sig/Jameson Route Start Time Stop Time Status Last Admin Dose Admin Zolpidem Tartrate (Ambien Tab) 5 mg HSZ PRN PO 12/08/16 23:30 01/07/17 23:29 Nitroglycerin (Nitrostat Tab) 0.4 mg UD PRN SL 12/08/16 23:30 01/07/17 23:29 Enteral Nutritional Formula (Boost) 1 can TID PO 12/09/16 09:00 01/08/17 08:59 12/11/16 13:09 1 CAN Ondansetron HCl 4 mg 4 mg Q6H PRN IV 12/08/16 23:30 01/07/17 23:29 12/15/16 09:56 4 MG Acetaminophen (Ofirmev Iv) 100 ml @ 400 mls/hr Q8H PRN IV 12/08/16 23:30 01/07/17 23:29 Ipratropium [place] (Atrovent 0.02% 0.5MG/2.5ML Neb) 0.5 mg Q6R INH 12/09/16 03:00 01/08/17 02:59 12/15/16 07:44 0.5 MG Levalbuterol (Xopenex 1.25MG/ 0.5ML Neb) 1.25 mg Q6R INH 12/09/16 03:00 01/08/17 02:59 12/15/16 07:44 1.25 MG Insulin Aspart (novoLOG ASPART) SLIDING SCALE If C... ACHS SC 12/09/16 07:00 01/08/17 06:59 12/14/16 16:50 4 UNITS Glucose (Glucose 40% Gel) UD PRN PO 12/09/16 06:30 01/08/17 06:29 Glucose (Glucose Chew Tab) 1 tabs UD PRN PO 12/09/16 06:30 01/08/17 06:29 Dextrose (Dextrose 50% 50ML Syringe) 50 ml UD PRN IV 12/09/16 06:30 01/08/17 06:29 Glucagon (Glucagon Inj) 1 mg UD PRN SQ 12/09/16 06:30 01/08/17 06:29 Diltiazem HCl (Cardizem Tab) 30 mg Q6H PO 12/09/16 14:00 01/08/17 13:59 12/15/16 03:00 30 MG Digoxin (Lanoxin Tab) 0.125 mg MoFr@1600 PO 12/14/16 16:00 01/09/17 15:59 12/14/16 16:33 0.125 MG Amoxicillin/ Clavulanate Potassium (Augmentin Tab) 500 mg BIDM PO 12/12/16 17:45 12/19/16 17:44 12/14/16 16:50 500 MG Magnesium Hydroxide (Milk Of Magnesia Susp) 30 ml Q12 PRN PO 12/13/16 13:45 01/12/17 13:44 12/13/16 18:48 30 ML Acetaminophen 650 mg 650 mg Q4H PRN PO 12/14/16 18:15 01/13/17 18:14 Furosemide 40 mg/ Syringe 4 ml @ 4 mls/min DAILY IV 12/15/16 09:00 01/14/17 08:59 12/15/16 09:54 4 MLS/MIN Pantoprazole Sodium/Syringe (Protonix Inj/ Syringe) 10 ml @ 5 mls/min DAILY@11 IV 12/15/16 11:00 01/14/17 10:59 I & O: 24-Hour Column 12/15/16 08:00 Intake Total 600 ml Output Total 625 ml Balance -25 ml Vital Signs: Date Time Temp Pulse Resp B/P Pulse Ox O2 Delivery O2 Flow Rate FiO2 12/15/16 09:00 77 17 152/88 93 Venturi Mask 50 12/15/16 08:00 36.7 82 21 137/85 98 Non-Rebreather 15.0 12/15/16 08:00 Non-Rebreather 15.0 12/15/16 07:47 86 22 98 Non-Rebreather 15.0 12/15/16 07:00 83 20 142/88 90 Non-Rebreather 15.0 12/15/16 06:31 68 18 119/76 91 Non-Rebreather 15.0 12/15/16 04:25 36.4 76 16 136/82 92 Venturi Mask 50 12/15/16 02:30 76 20 149/88 97 Non-Rebreather 15.0 12/15/16 01:36 80 16 92 Non-Rebreather 15.0 12/15/16 00:01 36.4 78 16 154/92 92 Non-Rebreather 15.0 12/14/16 22:00 88 20 147/101 90 Non-Rebreather 15.0 12/14/16 21:37 83 18 148/86 90 Non-Rebreather 15.0 12/14/16 20:00 110 22 148/86 12/14/16 20:00 92 Non-Rebreather 15.0 12/14/16 19:59 108 20 88 Non-Rebreather 15.0 12/14/16 17:52 62 18 138/80 94 Nasal Cannula 5.0 12/14/16 17:50 85 180/105 12/14/16 17:40 225/125 95 Nasal Cannula 5.0 12/14/16 17:30 110 18 160/84 90 Nasal Cannula 4.0 12/14/16 17:14 89 150/89 94 Nasal Cannula 2.0 12/14/16 16:33 62 12/14/16 15:42 36.7 75 20 139/84 94 Nasal Cannula 2.0 12/14/16 12:31 37.1 67 16 130/80 92 Nasal Cannula 2.0 12/14/16 12:00 Nasal Cannula 2.0 Laboratory Results: Last 24 Hours Test 12/14/16 11:50 12/14/16 15:59 12/14/16 17:21 12/14/16 17:37 White Blood Count 9.24 K/uL Red Blood Count 3.77 M/uL Hemoglobin 8.9 g/dL Hematocrit 29.5 % Mean Corpuscular Volume 78.2 fL Mean Corpuscular Hemoglobin 23.6 pg Mean Corpuscular Hemoglobin Concent 30.2 g/dl Platelet Count 328 K/uL Mean Platelet Volume 8.8 fL Neutrophils (%) (Auto) 86.2 % Lymphocytes (%) (Auto) 6.5 % Monocytes (%) (Auto) 5.4 % Eosinophils (%) (Auto) 1.4 % Basophils (%) (Auto) 0.2 % Neutrophils # (Auto) 7.96 K/uL Lymphocytes # (Auto) 0.60 K/uL Monocytes # (Auto) 0.50 K/uL Eosinophils # (Auto) 0.13 K/uL Basophils # (Auto) 0.02 K/uL RDW Standard Deviation 49.7 fL RDW Coefficient of Variation 17.3 % Immature Granulocyte % (Auto) 0.3 % Immature Granulocyte # (Auto) 0.03 K/uL Anisocytosis PRESENT Microcytosis PRESENT Sodium Level 138 mmol/L Potassium Level 3.9 mmol/L Chloride Level 96 mmol/L Carbon Dioxide Level 38 mmol/L Anion Gap 4.0 mmol/L Blood Urea Nitrogen 54 mg/dl Creatinine 1.70 mg/dl Est Creatinine Clear Calc Drug Dose 19.5 ml/min Estimated GFR () 31.5 Estimated GFR (Non- 27.2 BUN/Creatinine Ratio 31.7 Random Glucose 150 mg/dl Calcium Level 8.2 mg/dl Bedside Glucose 151 mg/dl 136 mg/dl Troponin I 0.038 ng/ml Test 12/14/16 18:22 12/14/16 20:32 12/15/16 05:02 12/15/16 05:37 Arterial Blood pH 7.45 Arterial Blood Partial Pressure CO2 55 mmHg Arterial Blood Partial Pressure O2 73 mm/Hg Arterial Blood HCO3 37 mmol/L Arterial Blood Oxygen Saturation 92.1 % Arterial Blood Base Excess 11.3 mEq/L Arterial Blood Gas Delivery 15 LITERS Lawson Test POS Pass Bedside Glucose 130 mg/dl White Blood Count 12.62 K/uL Red Blood Count 4.02 M/uL Hemoglobin 9.5 g/dL Hematocrit 31.4 % Mean Corpuscular Volume 78.1 fL Mean Corpuscular Hemoglobin 23.6 pg Mean Corpuscular Hemoglobin Concent 30.3 g/dl Platelet Count 358 K/uL Mean Platelet Volume 9.0 fL Neutrophils (%) (Auto) 90.8 % Lymphocytes (%) (Auto) 4.1 % Monocytes (%) (Auto) 4.4 % Eosinophils (%) (Auto) 0.1 % Basophils (%) (Auto) 0.1 % Neutrophils # (Auto) 11.47 K/uL Lymphocytes # (Auto) 0.52 K/uL Monocytes # (Auto) 0.55 K/uL Eosinophils # (Auto) 0.01 K/uL Basophils # (Auto) 0.01 K/uL RDW Standard Deviation 49.3 fL RDW Coefficient of Variation 17.3 % Immature Granulocyte % (Auto) 0.5 % Immature Granulocyte # (Auto) 0.06 K/uL Sodium Level 140 mmol/L Potassium Level 3.9 mmol/L Chloride Level 96 mmol/L Carbon Dioxide Level 40 mmol/L Anion Gap 4.0 mmol/L Blood Urea Nitrogen 46 mg/dl Creatinine 1.50 mg/dl Est Creatinine Clear Calc Drug Dose 22.1 ml/min Estimated GFR () 36.7 Estimated GFR (Non- 31.7 BUN/Creatinine Ratio 30.4 Random Glucose 126 mg/dl Calcium Level 8.5 mg/dl Phosphorus Level 2.7 mg/dl Magnesium Level 2.8 mg/dl Blood Gas Sample Site R Radial Bedside Blood Gas pH (LAB) 7.42 Bedside Blood Gas pCO2 (LAB) 63 mmHg Bedside Blood Gas pO2 (LAB) 78 mmHg Bedside Blood Gas HCO3 (LAB) 41 meq/L Bedside Blood Gas Total CO2 > 40 mEq/l Bedside Blood Gas Base Excess (LAB) 16.0 meq/L Bedside Blood Gas O2 Saturation 95.0 % Oxygen Delivery Device NonRb Mask Bedside FiO2 100 % Test 12/15/16 11:02 Bedside Glucose 117 mg/dl CXR today IMPRESSION: 1. Persistent congestive failure/fluid overload with bilateral pleural effusions left greater than right, and associated bibasilar airspace opacities (atelectasis versus pneumonia)
--- NOTE | 2016-12-15 13:36 | DIAGNOSTIC IMAGING REPORT ---
CHEST ONE VIEW PORTABLE CLINICAL HISTORY: Check placement of NG tube RESPIRATORY FAILURE. NASOGASTRIC TUBE PLACEMENT. COMPARISON STUDY: 12/15/2016 FINDINGS: The heart remains enlarged. There is radiographic evidence of congestive failure/fluid overload. There are bilateral pleural effusions. There are associated bibasal airspace opacities. There is been interval placement of a nasogastric tube which passes into the stomach.[ IMPRESSION: Persistent congestive failure with bilateral pleural effusions and bibasal airspace opacities. Interval placement of nasogastric tube which passes into the stomach Electronically signed by: Dimitrios Colon M.D. 12/15/2016 1:34 PM Dictated Date/Time: 12/15/2016 1:33 PM
[2016-12-15] MEDS: PANTOprazole INJ 40 MG in SYRINGE 0 ML IV SCH (13:40)
[2016-12-15] MEDS: HEPARIN SOD 5000 UNIT/0.5 ML CARP SQ SCH ×2 (13:49→21:51)
[2016-12-15] MEDS ORDERED: PEPTAMEN 1.5 CAL 1000ML BAG NG SCH (14:00)
--- NOTE | 2016-12-15 15:51 | Pulmonology Progress Note ---
Pulmonary Progress Note Date of Service Dec 15, 2016. Attending Dr. Bond Subjective Patient is arousable but notably obtunded requiring high oxygen support. Objective Patient was working out with physical therapy when he walked into the room able to complete complete full activity showed no signs of respiratory insufficiency. Vital signs: Reviewed oxygen support 50% Venturi mask Respiratory: Bilateral decreased breath sounds with dullness percussion greatest on the left Cardiac: S1 and S2 tachycardic distant heart sounds Abdomen: Positive bowel sounds soft nontender Assessment & Plan 86-year-old female with bilateral pleural effusions: #1 Bilateral Pleural Effusions: At this time I believe the patient's most likely source of her exudate bilateral pleural effusions as chronic aspiration. #2 Respiratory: Appears patient had an aspiration event causing increased hypoxemia currently requiring high FiO2 support. I agree with the endless steamer tender team's level of care at this time. #3 : Status: I spoke to the and son at length. I have reviewed the images over the past 4 years describing previous signs and symptoms consistent with chronic aspiration. We then reviewed the barium swallow and clinical history which suggests this is most likely recurrent aspiration. At this time they have decided to move to a DO NOT RESUSCITATE DO NOT INTUBATE status. #4 Continued Care: I have asked the and son to consider hospice level care at this time. Data Medications: Current Inpatient Medications Medications (Trade) Dose Ordered Sig/Jameson Route Start Time Stop Time Status Last Admin Dose Admin Zolpidem Tartrate (Ambien Tab) 5 mg HSZ PRN PO 12/08/16 23:30 01/07/17 23:29 Nitroglycerin (Nitrostat Tab) 0.4 mg UD PRN SL 12/08/16 23:30 01/07/17 23:29 Enteral Nutritional Formula (Boost) 1 can TID PO 12/09/16 09:00 01/08/17 08:59 12/11/16 13:09 1 CAN Ondansetron HCl 4 mg 4 mg Q6H PRN IV 12/08/16 23:30 01/07/17 23:29 12/15/16 09:56 4 MG Acetaminophen (Ofirmev Iv) 100 ml @ 400 mls/hr Q8H PRN IV 12/08/16 23:30 01/07/17 23:29 Ipratropium [place] (Atrovent 0.02% 0.5MG/2.5ML Neb) 0.5 mg Q6R INH 12/09/16 03:00 01/08/17 02:59 12/15/16 14:28 0.5 MG Levalbuterol (Xopenex 1.25MG/ 0.5ML Neb) 1.25 mg Q6R INH 12/09/16 03:00 01/08/17 02:59 12/15/16 14:28 1.25 MG Glucose (Glucose 40% Gel) UD PRN PO 12/09/16 06:30 01/08/17 06:29 Glucose (Glucose Chew Tab) 1 tabs UD PRN PO 12/09/16 06:30 01/08/17 06:29 Dextrose (Dextrose 50% 50ML Syringe) 50 ml UD PRN IV 12/09/16 06:30 01/08/17 06:29 Glucagon (Glucagon Inj) 1 mg UD PRN SQ 12/09/16 06:30 01/08/17 06:29 Diltiazem HCl (Cardizem Tab) 30 mg Q6H PO 12/09/16 14:00 01/08/17 13:59 12/15/16 13:40 30 MG Digoxin (Lanoxin Tab) 0.125 mg MoFr@1600 PO 12/14/16 16:00 01/09/17 15:59 12/14/16 16:33 0.125 MG Amoxicillin/ Clavulanate Potassium (Augmentin Tab) 500 mg BIDM PO 12/12/16 17:45 12/19/16 17:44 12/15/16 13:40 500 MG Magnesium Hydroxide (Milk Of Magnesia Susp) 30 ml Q12 PRN PO 12/13/16 13:45 01/12/17 13:44 12/13/16 18:48 30 ML Acetaminophen 650 mg 650 mg Q4H PRN PO 12/14/16 18:15 01/13/17 18:14 Furosemide 40 mg/ Syringe 4 ml @ 4 mls/min DAILY IV 12/15/16 09:00 01/14/17 08:59 12/15/16 09:54 4 MLS/MIN Pantoprazole Sodium/Syringe (Protonix Inj/ Syringe) 10 ml @ 5 mls/min DAILY@11 IV 12/15/16 11:00 01/14/17 10:59 12/15/16 13:40 5 MLS/MIN Heparin Sodium (Porcine) (Heparin Sq 5000 Unit/0.5ml) 5,000 unit Q8@0600,1400,2200 SQ 12/15/16 14:00 01/14/17 13:59 12/15/16 13:49 5,000 UNIT Enteral Nutritional Formula (Peptamen 1.5) 1,000 ml 20CCHR NG 12/15/16 14:00 01/14/17 13:59 12/15/16 14:59 1,000 ML Insulin Aspart (novoLOG ASPART) SLIDING SCALE If C... Q6 SC 12/15/16 18:00 01/08/17 06:59 I & O: 24-Hour Column 12/15/16 08:00 Intake Total 600 ml Output Total 625 ml Balance -25 ml Vital Signs: Date Time Temp Pulse Resp B/P Pulse Ox O2 Delivery O2 Flow Rate FiO2 12/15/16 14:28 70 20 93 Venturi Mask 15.0 50 12/15/16 14:00 84 18 143/85 95 Venturi Mask 50 12/15/16 13:00 36.6 84 19 115/83 89 Venturi Mask 50 12/15/16 12:00 Venturi Mask 50 12/15/16 11:00 96 15 127/86 94 Venturi Mask 50 12/15/16 10:00 72 20 141/83 93 Venturi Mask 50 12/15/16 09:00 77 17 152/88 93 Venturi Mask 50 12/15/16 08:00 36.7 82 21 137/85 98 Non-Rebreather 15.0 12/15/16 08:00 Non-Rebreather 15.0 12/15/16 07:47 86 22 98 Non-Rebreather 15.0 12/15/16 07:00 83 20 142/88 90 Non-Rebreather 15.0 12/15/16 06:31 68 18 119/76 91 Non-Rebreather 15.0 12/15/16 04:25 36.4 76 16 136/82 92 Venturi Mask 50 12/15/16 02:30 76 20 149/88 97 Non-Rebreather 15.0 12/15/16 01:36 80 16 92 Non-Rebreather 15.0 12/15/16 00:01 36.4 78 16 154/92 92 Non-Rebreather 15.0 12/14/16 22:00 88 20 147/101 90 Non-Rebreather 15.0 12/14/16 21:37 83 18 148/86 90 Non-Rebreather 15.0 12/14/16 20:00 110 22 148/86 12/14/16 20:00 92 Non-Rebreather 15.0 12/14/16 19:59 108 20 88 Non-Rebreather 15.0 12/14/16 17:52 62 18 138/80 94 Nasal Cannula 5.0 12/14/16 17:50 85 180/105 12/14/16 17:40 225/125 95 Nasal Cannula 5.0 12/14/16 17:30 110 18 160/84 90 Nasal Cannula 4.0 12/14/16 17:14 89 150/89 94 Nasal Cannula 2.0 12/14/16 16:33 62 Laboratory Results: Last 24 Hours Test 12/14/16 15:59 12/14/16 17:21 12/14/16 17:37 12/14/16 18:22 Bedside Glucose 151 mg/dl 136 mg/dl Troponin I 0.038 ng/ml Arterial Blood pH 7.45 Arterial Blood Partial Pressure CO2 55 mmHg Arterial Blood Partial Pressure O2 73 mm/Hg Arterial Blood HCO3 37 mmol/L Arterial Blood Oxygen Saturation 92.1 % Arterial Blood Base Excess 11.3 mEq/L Arterial Blood Gas Delivery 15 LITERS Lawson Test POS Test 12/14/16 20:32 12/15/16 05:02 12/15/16 05:37 12/15/16 11:02 Bedside Glucose 130 mg/dl 117 mg/dl White Blood Count 12.62 K/uL Red Blood Count 4.02 M/uL Hemoglobin 9.5 g/dL Hematocrit 31.4 % Mean Corpuscular Volume 78.1 fL Mean Corpuscular Hemoglobin 23.6 pg Mean Corpuscular Hemoglobin Concent 30.3 g/dl Platelet Count 358 K/uL Mean Platelet Volume 9.0 fL Neutrophils (%) (Auto) 90.8 % Lymphocytes (%) (Auto) 4.1 % Monocytes (%) (Auto) 4.4 % Eosinophils (%) (Auto) 0.1 % Basophils (%) (Auto) 0.1 % Neutrophils # (Auto) 11.47 K/uL Lymphocytes # (Auto) 0.52 K/uL Monocytes # (Auto) 0.55 K/uL Eosinophils # (Auto) 0.01 K/uL Basophils # (Auto) 0.01 K/uL RDW Standard Deviation 49.3 fL RDW Coefficient of Variation 17.3 % Immature Granulocyte % (Auto) 0.5 % Immature Granulocyte # (Auto) 0.06 K/uL Sodium Level 140 mmol/L Potassium Level 3.9 mmol/L Chloride Level 96 mmol/L Carbon Dioxide Level 40 mmol/L Anion Gap 4.0 mmol/L Blood Urea Nitrogen 46 mg/dl Creatinine 1.50 mg/dl Est Creatinine Clear Calc Drug Dose 22.1 ml/min Estimated GFR () 36.7 Estimated GFR (Non- 31.7 BUN/Creatinine Ratio 30.4 Random Glucose 126 mg/dl Calcium Level 8.5 mg/dl Phosphorus Level 2.7 mg/dl Magnesium Level 2.8 mg/dl Blood Gas Sample Site R Radial Bedside Blood Gas pH (LAB) 7.42 Bedside Blood Gas pCO2 (LAB) 63 mmHg Bedside Blood Gas pO2 (LAB) 78 mmHg Bedside Blood Gas HCO3 (LAB) 41 meq/L Bedside Blood Gas Total CO2 > 40 mEq/l Bedside Blood Gas Base Excess (LAB) 16.0 meq/L Bedside Blood Gas O2 Saturation 95.0 % Lawson Test Pass Oxygen Delivery Device NonRb Mask Bedside FiO2 100 %
--- NOTE | 2016-12-15 18:20 | Progress Note ---
Subjective Date of Service: Dec 15, 2016. Subjective Pt evaluation today including: conversation w/ patient, physical exam, chart review, review of studies, conversation w/ consumer services consultant, review of inpatient medication list Pain: denies any pain Voiding: mullins catheter in place Patient is seen and examined by me. Patient denies chest pain, shortness of breath, dizziness, palpitation. Patient denies abdominal pain and urinary symptoms. Patient follows full verbal commands open eyes, and move her all extremities. Patient is currently on Ventimask at 50% saturating 93%. Patient is currently in sinus rhythm on average she goes in and out. Patient remains under critical care. No acute events per nurse last night. Discussed the case with the fiberglass boat maker in detail Problem List Medical Problems: (1) Atrial fibrillation with RVR Status: Acute (2) Benign hypertension Status: Chronic (3) Esophageal Reflux Status: Chronic (4) GI bleed Status: Acute (5) Pleural effusion Status: Acute Review of Systems All Other Systems: Reviewed and Negative Medications Medications (Trade) Dose Ordered Sig/Jameson Route Start Time Stop Time Status Last Admin Dose Admin Furosemide 40 mg/ Syringe 4 ml @ 4 mls/min DAILY IV 12/15/16 09:00 01/14/17 08:59 12/15/16 09:54 4 MLS/MIN Pantoprazole Sodium/Syringe (Protonix Inj/ Syringe) 10 ml @ 5 mls/min DAILY@11 IV 12/15/16 11:00 01/14/17 10:59 12/15/16 13:40 5 MLS/MIN Heparin Sodium (Porcine) (Heparin Sq 5000 Unit/0.5ml) 5,000 unit Q8@0600,1400,2200 SQ 12/15/16 14:00 01/14/17 13:59 12/15/16 13:49 5,000 UNIT Enteral Nutritional Formula (Peptamen 1.5) 1,000 ml 20CCHR NG 12/15/16 14:00 01/14/17 13:59 12/15/16 14:59 1,000 ML Objective Vital Signs Date Time Temp Pulse Resp B/P Pulse Ox O2 Delivery O2 Flow Rate FiO2 12/15/16 16:00 36.8 82 18 149/82 91 Venturi Mask 50 12/15/16 16:00 Venturi Mask 50 12/15/16 14:28 70 20 93 Venturi Mask 15.0 50 12/15/16 14:00 84 18 143/85 95 Venturi Mask 50 12/15/16 13:00 36.6 84 19 115/83 89 Venturi Mask 50 12/15/16 12:00 Venturi Mask 50 12/15/16 11:00 96 15 127/86 94 Venturi Mask 50 12/15/16 10:00 72 20 141/83 93 Venturi Mask 50 12/15/16 09:00 77 17 152/88 93 Venturi Mask 50 12/15/16 08:00 36.7 82 21 137/85 98 Non-Rebreather 15.0 12/15/16 08:00 Non-Rebreather 15.0 12/15/16 07:47 86 22 98 Non-Rebreather 15.0 12/15/16 07:00 83 20 142/88 90 Non-Rebreather 15.0 12/15/16 06:31 68 18 119/76 91 Non-Rebreather 15.0 12/15/16 04:25 36.4 76 16 136/82 92 Venturi Mask 50 12/15/16 02:30 76 20 149/88 97 Non-Rebreather 15.0 12/15/16 01:36 80 16 92 Non-Rebreather 15.0 12/15/16 00:01 36.4 78 16 154/92 92 Non-Rebreather 15.0 12/14/16 22:00 88 20 147/101 90 Non-Rebreather 15.0 12/14/16 21:37 83 18 148/86 90 Non-Rebreather 15.0 12/14/16 20:00 110 22 148/86 12/14/16 20:00 92 Non-Rebreather 15.0 12/14/16 19:59 108 20 88 Non-Rebreather 15.0 Physical Exam Comments: General Appearance: no apparent distress, other (mild lethargy) Eyes: PERRLA Neck: no stridor Respiratory: other (Diminished breath sounds at both bases but worse on the left. Coarse breath sounds throughout outherwise) Cardiovasular: regular rate/rhythm, normal S1S2, systolic murmur Abdomen: non tender, other (soft) Edema: Bilateral LE (1+) Neuro: normal motor exam, lethargic Laboratory Results Last 24 Hours Test 12/14/16 18:22 12/14/16 20:32 12/15/16 05:02 12/15/16 05:37 Arterial Blood pH 7.45 Arterial Blood Partial Pressure CO2 55 mmHg Arterial Blood Partial Pressure O2 73 mm/Hg Arterial Blood HCO3 37 mmol/L Arterial Blood Oxygen Saturation 92.1 % Arterial Blood Base Excess 11.3 mEq/L Arterial Blood Gas Delivery 15 LITERS Lawson Test POS Pass Bedside Glucose 130 mg/dl White Blood Count 12.62 K/uL Red Blood Count 4.02 M/uL Hemoglobin 9.5 g/dL Hematocrit 31.4 % Mean Corpuscular Volume 78.1 fL Mean Corpuscular Hemoglobin 23.6 pg Mean Corpuscular Hemoglobin Concent 30.3 g/dl Platelet Count 358 K/uL Mean Platelet Volume 9.0 fL Neutrophils (%) (Auto) 90.8 % Lymphocytes (%) (Auto) 4.1 % Monocytes (%) (Auto) 4.4 % Eosinophils (%) (Auto) 0.1 % Basophils (%) (Auto) 0.1 % Neutrophils # (Auto) 11.47 K/uL Lymphocytes # (Auto) 0.52 K/uL Monocytes # (Auto) 0.55 K/uL Eosinophils # (Auto) 0.01 K/uL Basophils # (Auto) 0.01 K/uL RDW Standard Deviation 49.3 fL RDW Coefficient of Variation 17.3 % Immature Granulocyte % (Auto) 0.5 % Immature Granulocyte # (Auto) 0.06 K/uL Sodium Level 140 mmol/L Potassium Level 3.9 mmol/L Chloride Level 96 mmol/L Carbon Dioxide Level 40 mmol/L Anion Gap 4.0 mmol/L Blood Urea Nitrogen 46 mg/dl Creatinine 1.50 mg/dl Est Creatinine Clear Calc Drug Dose 22.1 ml/min Estimated GFR () 36.7 Estimated GFR (Non- 31.7 BUN/Creatinine Ratio 30.4 Random Glucose 126 mg/dl Calcium Level 8.5 mg/dl Phosphorus Level 2.7 mg/dl Magnesium Level 2.8 mg/dl Blood Gas Sample Site R Radial Bedside Blood Gas pH (LAB) 7.42 Bedside Blood Gas pCO2 (LAB) 63 mmHg Bedside Blood Gas pO2 (LAB) 78 mmHg Bedside Blood Gas HCO3 (LAB) 41 meq/L Bedside Blood Gas Total CO2 > 40 mEq/l Bedside Blood Gas Base Excess (LAB) 16.0 meq/L Bedside Blood Gas O2 Saturation 95.0 % Oxygen Delivery Device NonRb Mask Bedside FiO2 100 % Test 12/15/16 11:02 12/15/16 16:03 Bedside Glucose 117 mg/dl 113 mg/dl Assessment and Plan 86 year old female with diastolic CHF, component of pulmonary edema, transferred to ICU for acute respiratory failure, likely secondary to aspiration. S/p b/l thoracentesis.Management and treatment as per fiberglass boat maker. - Continue supplement O2, keep O2 sat above 90%. Patient remains DO NOT RESUSCITATE however patient has been wants to do do short-term intubation if needed. - Continue with IV diuretics and continue with antibiotics - As per fiberglass boat maker may use CPAP intermittently, not continuous throughout the night. Because of buildup of secretion pulmonary recommended intermittent CPAP use. -Continue bronchodilators, and chest PT, Aspiration is quite concerning in this patient. May require PEG placement. Paroxysmal a-fib. Patient goes in and out of A. fib continue Cardizem as described. Patient is not a candidate for anticoagulation therapy secondary to history of GI bleed. CKD - creatinine at baseline DVT prophylaxis: start SC heparin CODE STATUS: DO NOT RESUSCITATE. Continued [facility] stay due to: multiple IV medications needed Discharge planning: home
[2016-12-16] VITALS (9 sets, daily range): BP systolic 129–155; BP diastolic 81–91; PULSE 75–84; TEMP 36.6; O2SAT 90–95
[2016-12-16] MEDS: IPRATROPIUM BROMIDE NEB SOLN 0.02% 2.5 ML VIAL INH SCH ×2 (02:06→07:50)
[2016-12-16] MEDS: LEVALBUTEROL 1.25MG/0.5ML NEB INH SCH ×2 (02:06→07:50)
[2016-12-16] MEDS: DILTIAZEM HCL 30 MG TAB PO SCH ×2 (03:40→08:15)
[2016-12-16 05:33] LABS: HEMATOCRIT 32.1 % (37-47); MEAN CELL VOLUME 79.3 fL (80-100); MEAN CORPUSCULAR HGB CONC 30.2 g/dl (32-36); MEAN PLATELET VOLUME 8.6 fL (7.4-10.4); PLATELET COUNT 356 K/uL (130-400); RED BLOOD COUNT 4.05 M/uL (4.2-5.4); WHITE BLOOD COUNT 10.55 K/uL (4.8-10.8)
[2016-12-16] MEDS: HEPARIN SOD 5000 UNIT/0.5 ML CARP SQ SCH (05:46)
[2016-12-16 05:54] LABS: ISTAT ALLEN TEST Pass; ISTAT ARTERIAL BLOOD GAS HCO3 44 meq/L (19-24); ISTAT ARTERIAL BLOOD GAS PCO2 63 mmHg (35-46); ISTAT ARTERIAL BLOOD GAS PO2 80 mmHg (80-95); ISTAT ARTERIAL BLOOD GAS pH 7.45 (7.35-7.45); ISTAT CARBON DIOXIDE > 40 mEq/l (24-31); ISTAT DELIVERY SYSTEM VentiMask; ISTAT FIO2 50 %; ISTAT SITE L Radial
[2016-12-16] MEDS: INSULIN ASPART 100 UNITS/ML 3 ML PEN SC SCH ×2 (06:00)
[2016-12-16 06:01] LABS: ALB/GLOB RATIO 0.5 (0.9-2); BUN/CREATININE RATIO 26.1 (10-20); CALCIUM 8.7 mg/dl (8.5-10.1); CREATININE 1.5 mg/dl (0.60-1.20); MAGNESIUM 2.6 mg/dl (1.8-2.4); PHOSPHORUS 2.8 mg/dl (2.5-4.9); POTASSIUM 3.8 mmol/L (3.5-5.1)
--- NOTE | 2016-12-16 07:34 | DIAGNOSTIC IMAGING REPORT ---
CHEST ONE VIEW PORTABLE CLINICAL HISTORY: Bilateral pneumonia. COMPARISON STUDY: Chest radiograph December 15, [address] December 11, 2016 FINDINGS: The tip of the feeding tube is within the mid body of the stomach. There is no pneumothorax. A moderate to large left pleural effusion is unchanged. A small right pleural effusion is slightly decreased. Interstitial thickening suggest pulmonary edema. There are persistent bibasilar opacities. IMPRESSION: 1. No significant change in the moderate to large left pleural effusion. Slight decrease in a small right pleural effusion. 2. Persistent interstitial thickening suggestive of pulmonary edema. 3. Bibasilar opacities which could reflect consolidation or atelectasis. Electronically signed by: Major Parmar M.D. 12/16/2016 7:32 AM Dictated Date/Time: 12/16/2016 7:30 AM
[2016-12-16] MEDS: AMOXICILLIN/CLAVULANATE TAB 500 MG TAB PO SCH (08:14)
[2016-12-16] MEDS: PANTOprazole INJ 40 MG in SYRINGE 0 ML IV SCH (08:15)
[2016-12-16] MEDS: FUROSEMIDE INJ 40 MG in SYRINGE 0 ML IV SCH (08:16)
[2016-12-16] MEDS ORDERED: LORAZEPAM 2 MG/ML 1 ML VIAL IV PRN (09:45)
[2016-12-16] MEDS ORDERED: NURSING VERBAL MED ORDER ONE (13:00)
[2016-12-16] MEDS ORDERED: LEVALBUTEROL 1.25MG/0.5ML NEB INH PRN (13:15)
[2016-12-16] MEDS ORDERED: IPRATROPIUM BROMIDE NEB SOLN 0.02% 2.5 ML VIAL INH PRN (13:15)
--- NOTE | 2016-12-16 16:47 | Progress Note ---
Subjective Date of Service: Dec 16, 2016. Subjective Pt evaluation today including: conversation w/ family, physical exam, chart review, lab review, review of studies, conversation w/ senior recruitment consultant, review of inpatient medication list Pain: no pain PO Intake: poor Voiding: mullins catheter in place Pt want to make pt MATH SPECIALIST, per paient wishes, he stated she never wanted to live like this. Problem List Medical Problems: (1) Atrial fibrillation with RVR Status: Acute (2) Benign hypertension Status: Chronic (3) Esophageal Reflux Status: Chronic (4) GI bleed Status: Acute (5) Pleural effusion Status: Acute Review of Systems All Other Systems: Reviewed and Negative Objective Vital Signs Date Time Temp Pulse Resp B/P Pulse Ox O2 Delivery O2 Flow Rate FiO2 12/16/16 15:55 Venturi Mask 15.0 12/16/16 10:50 Venturi Mask 15.0 12/16/16 08:33 36.6 84 17 144/90 92 Venturi Mask 50 12/16/16 08:00 Venturi Mask 50 12/16/16 07:50 82 16 95 Venturi Mask 15.0 50 12/16/16 06:00 80 14 155/91 93 Venturi Mask 50 12/16/16 04:07 93 Venturi Mask 50 12/16/16 04:00 78 22 145/84 90 Venturi Mask 50 12/16/16 02:06 75 16 92 Venturi Mask 15.0 50 12/16/16 02:00 79 16 140/91 93 Venturi Mask 50 12/16/16 00:53 92 Venturi Mask 50 12/16/16 00:00 78 16 129/81 92 Venturi Mask 50 12/15/16 22:00 83 14 150/88 92 Venturi Mask 50 12/15/16 20:07 83 16 92 Venturi Mask 15.0 50 12/15/16 20:01 88 Venturi Mask 50 12/15/16 20:00 36.8 85 16 147/87 90 Venturi Mask 50 12/15/16 18:00 84 12 160/91 93 Venturi Mask 50 Physical Exam General Appearance: no apparent distress Respiratory/Chest: no accessory muscle use, + respiratory distress Cardiovascular: regular rate, rhythm, + pertinent finding (+1 edema of bilateral LE) Neurologic/Psychiatric: + pertinent finding (sleepy and lethargic) Laboratory Results Last 24 Hours Test 12/16/16 01:00 12/16/16 05:09 12/16/16 05:38 Bedside Glucose 135 mg/dl White Blood Count 10.55 K/uL Red Blood Count 4.05 M/uL Hemoglobin 9.7 g/dL Hematocrit 32.1 % Mean Corpuscular Volume 79.3 fL Mean Corpuscular Hemoglobin 24.0 pg Mean Corpuscular Hemoglobin Concent 30.2 g/dl RDW Standard Deviation 50.5 fL RDW Coefficient of Variation 17.5 % Platelet Count 356 K/uL Mean Platelet Volume 8.6 fL Sodium Level 141 mmol/L Potassium Level 3.8 mmol/L Chloride Level 96 mmol/L Carbon Dioxide Level 42 mmol/L Anion Gap 3.0 mmol/L Blood Urea Nitrogen 39 mg/dl Creatinine 1.50 mg/dl Est Creatinine Clear Calc Drug Dose 22.1 ml/min Estimated GFR () 36.7 Estimated GFR (Non- 31.7 BUN/Creatinine Ratio 26.1 Random Glucose 136 mg/dl Calcium Level 8.7 mg/dl Phosphorus Level 2.8 mg/dl Magnesium Level 2.6 mg/dl Total Bilirubin 0.3 mg/dl Aspartate Amino Transf (AST/SGOT) 13 U/L Alanine Aminotransferase (ALT/SGPT) 10 U/L Alkaline Phosphatase 67 U/L Total Protein 6.4 gm/dl Albumin 2.0 gm/dl Globulin 4.4 gm/dl Albumin/Globulin Ratio 0.5 Blood Gas Sample Site L Radial Bedside Blood Gas pH (LAB) 7.45 Bedside Blood Gas pCO2 (LAB) 63 mmHg Bedside Blood Gas pO2 (LAB) 80 mmHg Bedside Blood Gas HCO3 (LAB) 44 meq/L Bedside Blood Gas Total CO2 > 40 mEq/l Bedside Blood Gas Base Excess (LAB) 20.0 meq/L Bedside Blood Gas O2 Saturation 96.0 % Lawson Test Pass Oxygen Delivery Device VentiMask Bedside FiO2 50 % Assessment and Plan 86 year old female with diastolic CHF, component of pulmonary edema, transferred to ICU for acute respiratory failure, likely secondary to aspiration. S/p b/l thoracentesis. Pt wants pt to make her comfort measure as per her wishes, case discuss with nurse and manufacturer representative. We discontinued all the treatment. -- currently pt on morphine 1v q2 hr prn for respiratory distress and Sob. -- Ativan 1mg q2 prn for anxiety and agitation -- oxygen to keep her comfortable -- pt transfer to med/surg floor. Paroxysmal a-fib. Patient goes in and out of A. fib. Patient is not a candidate for anticoagulation therapy secondary to history of GI bleed. CKD - creatinine at baseline DVT prophylaxis: start SC heparin CODE STATUS: DO NOT RESUSCITATE. Continued [facility] stay due to: multiple IV medications needed Discharge planning: home
[2016-12-17] MEDS: LORAZEPAM INJ 1 MG in SYRINGE 0.5 ML IV PRN ×4 (01:18→09:04)
[2016-12-17] MEDS: MoRPHine SULFATE 2 MG/ML CARP IV PRN ×4 (03:28→10:47)
[2016-12-17] MEDS ORDERED: NURSING VERBAL MED ORDER ONE (10:30)
[2016-12-17] MEDS ORDERED: MORPHINE SULF/NSS 250MG/250ML IV SCH (10:45)
--- NOTE | 2016-12-17 11:32 | Hospitalist Progress Note ---
Hospitalist Progress Note Date of Service Dec 17, 2016. 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 Surrounded by family; per family, difficulty w/ breathing continues to worsen. Medications Current Inpatient Medications Medications (Trade) Dose Ordered Sig/Jameson Route Start Time Stop Time Status Last Admin Dose Admin Ondansetron HCl 4 mg 4 mg Q6H PRN IV 12/08/16 23:30 01/07/17 23:29 12/15/16 09:56 4 MG Acetaminophen (Ofirmev Iv) 100 ml @ 400 mls/hr Q8H PRN IV 12/08/16 23:30 01/07/17 23:29 Acetaminophen (Tylenol Soln) 650 mg Q4H PRN PO 12/14/16 18:15 01/13/17 18:14 Morphine Sulfate (MoRPHine SULFATE INJ) 2 mg Q2R PRN IV 12/16/16 09:45 12/30/16 09:44 12/17/16 10:47 2 MG Lorazepam (Ativan Inj) 1 mg Q2R PRN IV 12/16/16 09:45 01/15/17 09:44 Ipratropium [place] (Atrovent 0.02% 0.5MG/2.5ML Neb) 0.5 mg Q6H PRN INH 12/16/16 13:15 01/15/17 13:14 Levalbuterol 1.25 mg 1.25 mg Q6H PRN INH 12/16/16 13:15 01/15/17 13:14 Lorazepam 1 mg/ Syringe 1 ml @ 1 mls/min Q2R PRN IV 12/17/16 01:15 01/16/17 01:14 12/17/16 09:04 1 MLS/MIN Morphine Sulfate/ Dextrose (Morphine Sulf/ Nss 250MG/250ML) 250 ml @ 2 mls/hr Q24H IV 12/17/16 10:45 12/31/16 10:44 Objective Vital Signs Date Time Temp Pulse Resp B/P Pulse Ox O2 Delivery O2 Flow Rate FiO2 12/17/16 08:00 Nasal Cannula 8.0 Venturi Mask 12/16/16 20:30 Nasal Cannula 6.0 50 Venturi Mask 12/16/16 15:55 Venturi Mask 15.0 Physical Exam General Appearance: + mild distress Respiratory/Chest: no accessory muscle use, + respiratory distress Cardiovascular: regular rate, rhythm Neurologic/Psychiatric: + pertinent finding (resting w/ eyes closed ) Assessment and Plan The patient is an 82-year-old female who presents to the emergency department with shortness of breath that began a few days prior to arrival. She had recently been admitted to [facility] from November 10 through November 13, and then from November 17 to November 26. After the second admission, she was sent home on oxygen, and reports that she has had progressive shortness of breath in spite of wearing the oxygen. Her family notes that she has been taking more shallow respirations throughout the day, and in spite of the fact that they moved her on she's not to 8 L. She has had some nausea and vomiting. She has had decreased oral intake since discharge and has become progressively more weak. Her takes care of her 24 hours a day, and her [id number] is an RN and along with her son lives 2 houses down and help with her care as well. 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 Normal left ventricular size and systolic function. EF 60-65%. No regional wall motion abnormalities. Severe concentric left ventricular hypertrophy. * 2. The right ventricle is mildly dilated. The right ventricular systolic function is normal. * 3. Aortic valve sclerosis mild, without significant aortic valvular stenosis. Mild aortic regurgitation. * 4. Mildly dilated ascending aorta. * 5. Pleural effusion. * 6. Trace pericardial effusion. * 7. Normal estimated right ventricular systolic pressure; RVSP 29 mmHg. * 8. Rhythm is atrial fibrillation. * 9. Compared to prior study on 05/29/16, pleural effusion is now present. Consulted cardiology, appreciate recommendations Acute on chronic respiratory failure, w/ h/o chronic respiratory failure O2 dependent- contributing factors include worsening bilateral pleural effusion, CHF exacerbation, pneumonia, COPD exacerbation with CO2 retention h/o A. fib with RVR/h/o atrial flutter with RVR/HTN/CAD: - Amiodarone 200 mg BID, Digoxin 0.125 mg MWF - Held Cardizem CD 240 mg daily and her usual oral dose of Lasix 20 mg 3 times weekly Pneumonia of both lower lobes: - Placed on vancomycin IV per renal dosing, and Zosyn 3.375 mg IV every 8 hours -- Converted to Augmentin on 12/12 Chronic renal insufficiency, baseline 1.7 to 2.4: followed BMP Hyperglycemia: BSG ACHS w/ sliding insulin scale Hypoalbuminemia: Coat Tailor consulted GI bleed history: The patient was found to have GI bleed while on Eliquis in July 2016. She did have a mucosal rectal ulcer which may been the culprit lesion, but this was not determined with certainty. She also had an EGD performed which was nonrevealing. There was talk of having a capsule enteroscopy performed. DVT prophylaxis: Chemical means of anticoagulation held due to h/o GI bleed Code Status: LEVEL V, DNR Dispo: PATIENT IS COMFORT MEASURES ONLY COMFORT MEASURES ONLY OF 12/16: IV Morphine, Tylenol PRN, IV Ativan, O2 supplementation, DuoNeb PRN, IV Zofran
--- NOTE | 2016-12-17 17:04 | Death Summary ---
Summary of Admission Date Dec 08, 2016 at 22:50 Date & Time of Dec 17, 2016. 1630 Cause of Acute diastolic CHF w/ bilateral pleural effusions: The patient is an 82-year-old female who presents to the emergency department with shortness of breath that began a few days prior to arrival. She had recently been admitted to [facility] from November 10 through November 13, and then from November 17 to November 26. After the second admission, she was sent home on oxygen, and reports that she has had progressive shortness of breath in spite of wearing the oxygen. Her family notes that she has been taking more shallow respirations throughout the day, and in spite of the fact that they moved her on she's not to 8 L. She has had some nausea and vomiting. She has had decreased oral intake since discharge and has become progressively more weak. Her takes care of her 24 hours a day, and her [id number] is an RN and along with her son lives 2 houses down and help with her care as well. Acute diastolic CHF w/ bilateral pleural effusions: - Admitted to [facility] for cardiac monitoring -- On 12/14 transferred to ICU due to a.flutter and persistent hypoxia -- On 12/16 transferred to med/surg due to husbands decision of [employer] - Trended trop- peak trop 0.300 - Consulted pulmonology, appreciate recommendations -- Thoracocentesis of right on 12/10 draining 1.1L and left on 12/11 draining 1.1L - Treated w/ IV Lasix + albumin - ECHO on 12/09- * 1. Normal left ventricular size and systolic function. EF 60-65%. No regional wall motion abnormalities. Severe concentric left ventricular hypertrophy. * 2. The right ventricle is mildly dilated. The right ventricular systolic function is normal. * 3. Aortic valve sclerosis mild, without significant aortic valvular stenosis. Mild aortic regurgitation. * 4. Mildly dilated ascending aorta. * 5. Pleural effusion. * 6. Trace pericardial effusion. * 7. Normal estimated right ventricular systolic pressure; RVSP 29 mmHg. * 8. Rhythm is atrial fibrillation. * 9. Compared to prior study on 05/29/16, pleural effusion is now present. Consulted cardiology, appreciate recommendations Acute on chronic respiratory failure, w/ h/o chronic respiratory failure O2 dependent- contributing factors include worsening bilateral pleural effusion, CHF exacerbation, pneumonia, COPD exacerbation with CO2 retention h/o A. fib with RVR/h/o atrial flutter with RVR/HTN/CAD: - Amiodarone 200 mg BID, Digoxin 0.125 mg MWF - Held Cardizem CD 240 mg daily and her usual oral dose of Lasix 20 mg 3 times weekly Pneumonia of both lower lobes: - Placed on vancomycin IV per renal dosing, and Zosyn 3.375 mg IV every 8 hours -- Converted to Augmentin on 12/12 Chronic renal insufficiency, baseline 1.7 to 2.4: followed BMP Hyperglycemia: BSG ACHS w/ sliding insulin scale Hypoalbuminemia: [employer] consulted GI bleed history: The patient was found to have GI bleed while on Eliquis in July 2016. She did have a mucosal rectal ulcer which may been the culprit lesion, but this was not determined with certainty. She also had an EGD performed which was nonrevealing. There was talk of having a capsule enteroscopy performed. DVT prophylaxis: Chemical means of anticoagulation held due to h/o GI bleed Code Status: LEVEL V, DNR Dispo: PATIENT IS COMFORT MEASURES ONLY COMFORT MEASURES ONLY OF 12/16: IV Morphine, Tylenol PRN, IV Ativan, O2 supplementation, DuoNeb PRN, IV Zofran patient pronounced on 1629, discussed with family, and certificate signed Hospital Course see above Copy To Meliton Fried MD
--- NOTE | 2016-12-17 17:15 | Palliative Care Progress Note ---
Palliative Care Progress Note Date of Service Dec 17, 2016. Subjective Patient when I entered room. Patient's , son, and daughter-in- law were at bedside. We talked about the patient's life and the shared some memories. The family was very appreciative of the care she received. I offered support, is active with a temple and is going to follow with their bereavement program.
== END 2016-12-17 20:40 | disposition expired | DRG 291 ==
LOC: ENRESERVDT → ENRESERVTM → C.EDB 21:28 → C.2T 22:50 → C.MSICU 12-14 18:37 → C.4E 12-16 11:04
PROVIDERS: ADMIT Hospitalist; ATTEND Hospitalist
PROC: 0W9930Z Drainage of Right Pleural Cavity with Drainage Device, Percutaneous Approach (ICD-10-PCS; principal; 2016-12-10)
PROC: 0W9930Z Drainage of Right Pleural Cavity with Drainage Device, Percutaneous Approach (ICD-10-PCS; 2016-12-11)
DX: I50.33 Acute on chronic diastolic (congestive) heart failure (principal); J96.21 Acute and chronic respiratory failure with hypoxia; J69.0 Pneumonitis due to inhalation of food and vomit; I48.92 Unspecified atrial flutter; I48.91 Unspecified atrial fibrillation; I12.9 Hypertensive chronic kidney disease with stage 1 through stage 4 chronic kidney disease, or unspecified chronic kidney disease; N18.9 Chronic kidney disease, unspecified; K21.9 Gastro-esophageal reflux disease without esophagitis; I25.10 Atherosclerotic heart disease of native coronary artery without angina pectoris; E88.09 Other disorders of plasma-protein metabolism, not elsewhere classified; Z66 Do not resuscitate; Z51.5 Encounter for palliative care; G47.33 Obstructive sleep apnea (adult) (pediatric); K22.4 Dyskinesia of esophagus; Z85.038 Personal history of other malignant neoplasm of large intestine; Z99.81 Dependence on supplemental oxygen